=== PATIENT | male | born 1940 | race Caucasian/White ===

== ENCOUNTER → 2018-07-11 08:01 | Outpatient (CLI) | payer MEDICARE, SELFPAY ==
[2018-07-11 09:20] LABS: Add Manual Diff / Slide Review NO; Basophils Percent Auto 0.7 % (0-2); Eosinophils Percent Auto 2.5 % (2-4); Hematocrit 41.2 % (41-53); Hemoglobin 13.8 g/dL (13.5-17.5); Lymphocytes Percent Auto 35.7 % (25-40); Mean Corpuscular HGB Conc 33.4 % (30-36); Mean Corpuscular Hemoglobin 29.2 PG (26-34); Mean Corpuscular Volume 87.3 fL (80-100); Monocytes Percent Auto 8.6 % (3-14); Neutrophils Absolute Auto 5100 /uL (3000-5900); Neutrophils Percent Auto 52.5 % (50-75); Platelet Count 249 X10^3/uL (150-400); Red Blood Cell Count 4.72 X10^6/uL (4.5-5.9); Red Cell Distribution Width 14.5 % (11.6-14.8); White Blood Cell Count 9.7 X10^3/uL (4.5-11.0)
[2018-07-11 10:10] LABS: Alanine Aminotransferase 27 IU/L (21-72); Albumin 4.2 g/dL (3.5-5.0); Albumin Globulin Ratio 1.7 (1.0-2.8); Alkaline Phosphatase 107 U/L (38-126); Aspartate Aminotransferase 18 IU/L (17-59); BUN Creatinine Ratio 19.1 (6-22); Bilirubin Total 0.3 mg/dL (0.2-1.3); Blood Urea Nitrogen 21 mg/dL (9-20); Calcium 9.7 mg/dL (8.4-10.2); Carbon Dioxide 36 mmol/L (22-32); Chloride 99 mmol/L (98-107); Cholesterol 182 mg/dL (140-199); Estimated Glomerular Filt Rate > 60.0 mL/min (>60); Globulin 2.5 g/dL (1.7-4.1); Glucose 111 mg/dL (80-110); HDL Cholesterol 41 mg/dL (40-60); HEMOLYSIS < 15 (0-50); LDL Cholesterol Calculated 87 mg/dL (<100); Sodium 142 mmol/L (137-145); Total Protein 6.7 g/dL (6.3-8.2); Triglycerides 269 mg/dL (35-150)
[2018-07-11 10:38] LABS: Thyroid Stimulating Hormone 3.56 uIU/mL (0.47-4.68)
[2018-07-11 10:51] LABS: Hemoglobin A1C% w Est Avg Glu 6.3 % (4.0-6.0)
[2018-07-11 11:26] LABS: Prostate Specific Antigen Scrn < 0.064 ng/mL (0.1-4.0)
== END ==
PROVIDERS: PCP Family Medicine; Visit Provider Family Medicine
DX: E11.9 Type 2 diabetes mellitus without complications (principal)
CPT/HCPCS: 36415; 80053; 80061; 83036; 84443; 85025; G0103

== ENCOUNTER → 2018-12-24 14:19 | Outpatient (CLI) | payer MEDICARE, SELFPAY ==
--- NOTE | 2018-12-24 14:23 | DI.RAD.S_ITS ---
PROCEDURE: XR ABDOMEN MIN 2V INDICATIONS: constipation TECHNIQUE: 2 views of the abdomen were acquired. COMPARISON: None. FINDINGS: Surgical changes and devices: Multiple surgical clips are seen within the pelvis. Bowel: No pneumoperitoneum. A large amount of stool is identified throughout the colon, best appreciated within the transverse colon. No air-filled distended small bowel loops are identified. Soft tissues: No masses; visualized solid organ contours appear normal in size. No suspicious abdominal calcifications. Bones: No suspicious bony abnormalities. Age-appropriate degenerative changes of the imaged spine and pelvic joints are present. IMPRESSION: Prominent colonic constipation. No convincing evidence of bowel obstruction. Dictated by: Yony Toro M.D. on 12/24/2018 at 14:06 Approved by: Yony Toro M.D. on 12/24/2018 at 14:11
== END ==
PROVIDERS: PCP Family Medicine; Visit Provider Family Medicine
DX: K59.00 Constipation, unspecified (principal); R14.3 Flatulence
CPT/HCPCS: 74019

== ENCOUNTER → 2019-01-08 13:30 | Outpatient (CLI) | payer MEDICARE, SELFPAY ==
--- NOTE | 2019-01-08 13:33 | DI.CT.S_ITS ---
PROCEDURE: CT ABDOMEN PELVIS W CON INDICATIONS: abd pain TECHNIQUE: After the administration of oral and intravenous contrast, 5 mm thick sections acquired from the diaphragms to the symphysis. 5 mm thick coronal and sagittal reformats were performed. For radiation dose reduction, the following was used: automated exposure control, adjustment of mA and/or kV according to patient size. COMPARISON: [facility], CT, ABDOMEN/PELVIS WITH CONTRAST, 03/02/2013, 10:46. FINDINGS: Image quality: Excellent. ABDOMEN: Lung bases: Lung bases are clear. Heart size is normal. Solid organs: Liver demonstrates multilobulated, partially exophytic, heterogeneous low-density attenuated mass, stable size and morphology compared to remote prior study. Additionally, there is an irregular low-density lesion in the caudate lobe anterior to the inferior vena cava of stable size.. Gallbladder is normal. Biliary system is non-dilated. Pancreas enhances normally. A multilobulated low density/cystic lesion in the tail of the spleen may have connection to the main pancreatic duct distally and measures about 2.6 cm in greatest diameter, stable in size. The duct proximal in the pancreas is normal. The rest of the pancreas is normal without mass lesion. Spleen is normal in size and enhancement. Low-density nodular thickening of the left adrenal gland, stable.. Kidneys are normal in size and enhancement, without hydronephrosis. Peritoneum and bowel: Stomach, small bowel, and colon loops are normal in caliber and wall thickness. Mildly increased amount of retained stool diffusely. The normal appendix. No free fluid or air. Nodes and vessels: No retroperitoneal or mesenteric adenopathy. Aorta and inferior vena cava are normal in caliber. Miscellaneous: No ventral hernias. PELVIS: Genitourinary: Bladder is decompressed. Prostate gland is surgically absent. Miscellaneous: No inguinal hernias or adenopathy. Bones: Mild to moderate degenerative changes in both hip joints. 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 No suspicious sclerotic lesions to suggest metastatic disease. No vertebral body compression fractures. IMPRESSION: 1. Etiology of abdominal pain is not evident. 2. 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 3. No evidence of new osseous lesion. 4. Prostatectomy. Dictated by: Hiwot Chahal M.D. on 01/08/2019 at 16:18 Approved by: Hiwot Chahal M.D. on 01/08/2019 at 16:30
[2019-01-08 13:57] LABS: Hemoglobin A1C% w Est Avg Glu 5.9 % (4.0-6.0)
[2019-01-08 14:43] LABS: Blood Urea Nitrogen 29 mg/dL (9-20); Calcium 10.2 mg/dL (8.4-10.2); Carbon Dioxide 29 mmol/L (22-32); Chloride 96 mmol/L (98-107); Estimated Glomerular Filt Rate > 60.0 mL/min (>60); Glucose 84 mg/dL (80-110); HEMOLYSIS < 15 (0-50); Sodium 138 mmol/L (137-145)
[2019-01-08 14:45] LABS: Potassium 5.4 mmol/L (3.4-5.1)
== END ==
PROVIDERS: Family Provider Family Medicine; PCP Family Medicine; Visit Provider Family Medicine
DX: E11.9 Type 2 diabetes mellitus without complications (principal); R10.9 Unspecified abdominal pain
CPT/HCPCS: 36415; 74177; 80048; 83036; Q9967

== ENCOUNTER → 2019-03-19 14:19 | Outpatient (CLI) | payer MEDICARE, SELFPAY | PROVIDERS: PCP Family Medicine; Visit Provider Family Medicine | DX: Z01.818 Encounter for other preprocedural examination (principal) | CPT/HCPCS: 93005 ==

== ENCOUNTER → 2019-04-22 12:09 | Outpatient (CLI) | payer MEDICARE, SELFPAY ==
[2019-04-22 12:51] LABS: Add Manual Diff / Slide Review NO; Basophils Absolute Auto 100 /uL (0-100); Basophils Percent Auto 1.1 % (0-2); Eosinophils Absolute Auto 600 /uL (0-450); Eosinophils Percent Auto 6.4 % (2-4); Lymphocytes Absolute Auto 3000 /uL (1100-4500); Lymphocytes Percent Auto 33.3 % (25-40); Mean Corpuscular HGB Conc 34.2 % (30-36); Mean Corpuscular Hemoglobin 29.6 PG (26-34); Mean Corpuscular Volume 86.7 fL (80-100); Monocytes Absolute Auto 900 /uL (0-900); Monocytes Percent Auto 10.3 % (3-14); Neutrophils Absolute Auto 4300 /uL (1500-7000); Neutrophils Percent Auto 48.9 % (50-75); Platelet Count 214 X10^3/uL (150-400); Red Blood Cell Count 4.73 X10^6/uL (4.5-5.9); Red Cell Distribution Width 14.8 % (11.6-14.8); White Blood Cell Count 8.9 X10^3/uL (4.5-11.0)
[2019-04-22 13:12] LABS: Prothrombin Time 11.1 SECONDS (10.1-12.7)
[2019-04-22 13:14] LABS: PTT Partial Thromboplastin Tim 34 SECONDS (26.4-36.2)
== END ==
PROVIDERS: Family Provider Family Medicine; PCP Family Medicine; Visit Provider Physical Medicine & Rehabilitation
DX: M48.062 Spinal stenosis, lumbar region with neurogenic claudication (principal); M54.16 Radiculopathy, lumbar region
CPT/HCPCS: 36415; 85025; 85610; 85730

== ENCOUNTER → 2019-06-13 09:39 | Outpatient (CLI) | payer MEDICARE, SELFPAY ==
[2019-06-13 10:45] LABS: Add Manual Diff / Slide Review NO; Basophils Absolute Auto 100 /uL (0-100); Eosinophils Absolute Auto 600 /uL (0-450); Eosinophils Percent Auto 7.5 % (2-4); Hematocrit 41.5 % (41-53); Hemoglobin 13.7 g/dL (13.5-17.5); Lymphocytes Absolute Auto 3100 /uL (1100-4500); Mean Corpuscular HGB Conc 32.9 % (30-36); Mean Corpuscular Hemoglobin 29.1 PG (26-34); Mean Corpuscular Volume 88.5 fL (80-100); Monocytes Absolute Auto 700 /uL (0-900); Monocytes Percent Auto 8.5 % (3-14); Neutrophils Absolute Auto 3900 /uL (1500-7000); Platelet Count 205 X10^3/uL (150-400); Red Blood Cell Count 4.69 X10^6/uL (4.5-5.9); Red Cell Distribution Width 14.3 % (11.6-14.8); White Blood Cell Count 8.5 X10^3/uL (4.5-11.0)
[2019-06-13 10:58] LABS: Hemoglobin A1C% w Est Avg Glu 5.9 % (4.0-6.0)
[2019-06-13 10:59] LABS: Alanine Aminotransferase 21 IU/L (21-72); Albumin 4.1 g/dL (3.5-5.0); Albumin Globulin Ratio 1.7 (1.0-2.8); Alkaline Phosphatase 92 U/L (38-126); Aspartate Aminotransferase 20 IU/L (17-59); Bilirubin Total 0.4 mg/dL (0.2-1.3); Blood Urea Nitrogen 22 mg/dL (9-20); Calcium 9.5 mg/dL (8.4-10.2); Carbon Dioxide 32 mmol/L (22-32); Chloride 100 mmol/L (98-107); Cholesterol 171 mg/dL (140-199); Estimated Glomerular Filt Rate > 60.0 mL/min (>60); Globulin 2.4 g/dL (1.7-4.1); Glucose 113 mg/dL (80-110); HDL Cholesterol 45 mg/dL (40-60); HEMOLYSIS < 15 (0-50); LDL Cholesterol Calculated 81 mg/dL (<100); Potassium 5.3 mmol/L (3.4-5.1); Sodium 138 mmol/L (137-145); Total Protein 6.5 g/dL (6.3-8.2); Triglycerides 224 mg/dL (35-150)
[2019-06-13 11:35] LABS: Prostate Specific Antigen Scrn < 0.064 ng/mL (0.1-4.0)
== END ==
PROVIDERS: PCP Family Medicine; Visit Provider Family Medicine
DX: I10 Essential (primary) hypertension (principal); E78.2 Mixed hyperlipidemia; E11.9 Type 2 diabetes mellitus without complications; Z12.5 Encounter for screening for malignant neoplasm of prostate
CPT/HCPCS: 36415; 80053; 80061; 83036; 85025; G0103

== ENCOUNTER 2019-08-18 03:49 | Observation (INO) | payer MEDICARE, SELFPAY ==
[2019-08-18] VITALS (9 sets, daily range): BP systolic 132–169; BP diastolic 48–124; PULSE 54–62; RESP 11–19; TEMP 36.4–37.1; O2SAT 93–99; BMI 33.5
--- NOTE | 2019-08-18 03:54 | DI.RAD.S_ITS ---
PROCEDURE: XR CHEST 1V INDICATIONS: Chest pain TECHNIQUE: One view of the chest was acquired. COMPARISON: None. FINDINGS: Surgical changes and devices: None. Lungs and pleura: Lungs are clear. No pleural effusions or pneumothorax. Mediastinum: Mediastinal contours appear normal. Heart size is normal. Bones and chest wall: No suspicious bony lesions. Overlying soft tissues appear unremarkable. IMPRESSION: No acute cardiopulmonary disease. No significant discrepancy with the ER preliminary interpretation. Dictated by: Saúl Gandara M.D. on 08/18/2019 at 9:25 Approved by: Saúl Gandara M.D. on 08/18/2019 at 9:26
--- NOTE | 2019-08-18 03:55 | ED.GENADULT ---
HPI - General Adult General Chief complaint: Chest Pain Stated complaint: Chest pain Time Seen by Provider: 08/18/19 03:53 Source: patient Mode of arrival: EMS Limitations: no limitations History of Present Illness HPI narrative: 79-year-old male here for evaluation of left-sided retrosternal chest pressure. He is brought in by EMS. He did receive aspirin prior to arrival. He also received 1 nitro tablet by EMS prior to arrival. Patient states that he was at his normal state health when he fell asleep on the couch watching TV last evening. He states that he woke up earlier this morning and went to get something to weak. He stated that shortly after he started eating he started to have left-sided retrosternal chest pressure. Not worse with palpation or movement or breathing. Has never had anything like this in the past. Does state that he has had increase anxiety recently. He does have a feeling that maybe this chest pressure is related to that but he is unsure. He did start to improve in his symptoms on the way here to the emergency department. He is unsure whether not it was the nitro the cause this improvement or whether was just time in coming to the ER. At the time my evaluation patient states that his symptoms had greatly improved however when not completely resolved. Related Data Home Medications Medication Instructions Recorded Confirmed amitriptyline 10 mg tablet 10 mg PO BEDTIME 07/22/18 08/11/19 ResMed AirCurve 10 VAuto #1 ea 12/23/18 08/11/19 citalopram [Celexa] 20 mg PO QDAY 08/18/19 08/18/19 docusate sodium 100 mg PO BID 08/18/19 08/18/19 glipizide 5 mg PO DAILY 08/18/19 08/18/19 linaclotide [Linzess] 145 mcg PO DAILY 08/18/19 08/18/19 methocarbamol 08/18/19 oxycodone 5 mg PO Q4-6H PRN 08/18/19 08/18/19 polyethylene glycol 3350 [Miralax] 17 g PO DAILY 08/18/19 08/18/19 pramipexole 0.15 mg PO TID 08/18/19 08/18/19 Previous Rx's Medication Instructions Recorded Disabled Parking Permit 0 dev #1 06/19/16 fluticasone propionate 50 2 spray NASAL .qhs #18.2 gram 10/10/18 mcg/actuation nasal spray,suspension metoprolol succinate 50 mg PO QDAY #90 ter 12/15/18 metformin [Glucophage] 1,000 mg PO BIDCC #360 tab 06/10/19 oxycodone-acetaminophen 10 mg-325 2 tab PO Q6H PRN #240 tab 06/10/19 mg tablet amlodipine [Norvasc] 5 mg PO QDAY #90 tab 06/17/19 atorvastatin 40 mg tablet 40 mg PO HS #90 tab 06/17/19 doxazosin 4 mg tablet 4 mg PO BEDTIME #90 tab 06/23/19 glipizide 5 mg tablet, extended See Rx Instructions .ROUTE 07/31/19 release 24 hr .COMPLEX #60 tablet gabapentin 600 mg tablet See Rx Instructions .ROUTE 08/03/19 .COMPLEX #540 tablet Allergies Allergy/AdvReac Type Severity Reaction Status Date / Time No Known Drug Allergies Allergy Unknown Verified 06/22/19 15:18 Review of Systems Constitutional Constitutional: Denies fever(s) and Denies headache(s) ENT Ears, Nose, Mouth, and Throat: Denies headache(s) Cardiovascular Cardiovascular: Reports chest pain, Denies diaphoresis, Denies syncope, Denies palpitations and Denies dyspnea Respiratory Respiratory: Denies cough and Denies dyspnea Gastrointestinal Gastrointestinal: Denies abdominal pain, Denies change in stool character, Denies diarrhea, Denies nausea and Denies vomiting Genitourinary Genitourinary: Denies dysuria Musculoskeletal Musculoskeletal: Denies myalgias and Denies arthralgias Integumentary/Breasts Skin/Breast: Denies rash Neurologic Neurologic: Denies burning sensations, Denies syncope and Denies headache(s) Endocrine Endocrine: Denies palpitations Hematologic/Lymphatic Hematologic/Lymphatic: Denies easy bleeding and Denies easy bruising [facility] Medical History Ankle pain (Chronic ~2005) Bullous pemphigoid (Chronic) Chicken pox (Resolved ~1939) Depression (Chronic ~1999) Diabetes mellitus (Chronic ~2011) Hearing loss (Chronic ~2001) History of urinary incontinence (Chronic ~1999) Hypertension (Chronic ~1982) Measles (Resolved ~1939) Mumps (Resolved ~1939) Osteopenia (Chronic ~2013) Pancreatitis (Chronic ~2013) Peripheral neuropathy (Chronic ~1999) Prostate cancer (Chronic ~1999) Restless leg syndrome (Chronic ~2008) Sleep apnea (Chronic ~2009) Vision disorder (Chronic) Social History Smoking Status: Former smoker Exam Initial Vital Signs Initial Vital Signs: Vital Signs Temperature 98.1 F 08/18/19 03:54 Pulse Rate 61 08/18/19 03:54 Respiratory Rate 18 08/18/19 03:54 Blood Pressure 158/124 H 08/18/19 03:54 Pulse Oximetry 99 08/18/19 03:54 Const General: cooperative, well developed and well groomed Orientation: alert, awake and oriented x3 HENMT Head: normal to inspection and normocephalic Resp Effort & Inspection: normal respiratory effort Auscultation: clear to auscultation bilaterally Cardio Rate: regular rate Rhythm: regular rhythm Pulses: radial pulses present GI Inspection: non-distended Palpation: soft and No tender Skin Lesions: no lesions Rashes: no rashes Neuro General: alert, awake and oriented x3 Cognition: normal cognition Speech: speech normal Extrem General: normal to inspection and capillary refill normal Psych Appearance: grossly normal and well kempt Scores GCS [place] coma scale eye opening: Spontaneous Obi coma scale verbal response: Orientated Obi coma scale motor response: Obey commands Obi coma scale total score: 15 Course Orders Ordered: ED Orders 08/18/19 03:15 B Type Natriuretic Peptide Stat Basic Metabolic Panel Stat Complete Blood Count AUTO DIFF Stat Partial Thromboplastin Time Stat Prothrombin Time INR Stat Troponin I Stat 08/18/19 03:49 EKG-12 Lead Stat 08/18/19 03:54 XR chest 1V Stat 08/18/19 04:46 Consult to Physician Routine 08/18/19 07:00 Troponin I Stat Sodium Chloride (Normal Saline 0.9%) 1,000 mls @ 125 mls/hr IV CONT BOBBY Morphine Sulfate (Morphine) 2 mg IV Q4HR PRN PRN Reason: Pain, Mild (1-3) Ondansetron HCl (Zofran) 4 mg IV Q4HR PRN PRN Reason: Nausea And Vomiting Vital Signs Vital signs: Vital Signs - 8 hr 08/18/19 03:54 08/18/19 04:35 08/18/19 05:09 Temperature 98.1 F Pulse Rate 61 61 62 Respiratory Rate 18 18 11 L Blood Pressure 158/124 H Blood Pressure [Left Arm] 132/54 L 144/48 H Pulse Oximetry 99 94 99 Medical Decision Making Lab Data Lab results reviewed: Yes I reviewed the patient's lab results. Result diagrams: 08/18/19 03:15 08/18/19 03:15 Labs: Lab Results 08/18/19 08/18/19 08/18/19 Range/Units 03:15 03:15 03:15 WBC 8.5 (4.5-11.0) X10^3/uL RBC 4.81 (4.5-5.9) X10^6/uL Hgb 14.2 (13.5-17.5) g/dL Hct 42.6 (41-53) % MCV 88.4 (80-100) fL MCH 29.5 (26-34) PG MCHC 33.3 (30-36) % RDW 15.1 H (11.6-14.8) % Plt Count 231 (150-400) X10^3/uL Neut % (Auto) 46.9 L (50-75) % Lymph % (Auto) 37.1 (25-40) % Mckenzie % (Auto) 8.9 (3-14) % Eos % (Auto) 6.1 H (2-4) % Baso % (Auto) 1.0 (0-2) % Neut # (Auto) 4000 (4565-7020) /uL Lymph # (Auto) 3100 (8899-7343) /uL Mckenzie # (Auto) 800 (0-900) /uL Eos # (Auto) 500 H (0-450) /uL Baso # (Auto) 100 (0-100) /uL PT (10.1-12.7) SECONDS INR (0.9-1.3) APTT (26.4-36.2) SECONDS Sodium 140 (137-145) mmol/L Potassium 4.9 (3.4-5.1) mmol/L Chloride 97 L (98-107) mmol/L Carbon Dioxide 30 (22-32) mmol/L BUN 31 H (9-20) mg/dL Creatinine 0.90 (0.66-1.25) mg/dL Estimated GFR > 60.0 (>60) mL/min BUN/Creatinine Ratio 34.4 H (6-22) Glucose 180 H (80-110) mg/dL Calcium 9.7 (8.4-10.2) mg/dL Troponin I (0.01-0.034) ng/mL B-Natriuretic Peptide < 100 (<100) 08/18/19 08/18/19 Range/Units 03:15 03:15 WBC (4.5-11.0) X10^3/uL RBC (4.5-5.9) X10^6/uL Hgb (13.5-17.5) g/dL Hct (41-53) % MCV (80-100) fL MCH (26-34) PG MCHC (30-36) % RDW (11.6-14.8) % Plt Count (150-400) X10^3/uL Neut % (Auto) (50-75) % Lymph % (Auto) (25-40) % Mckenzie % (Auto) (3-14) % Eos % (Auto) (2-4) % Baso % (Auto) (0-2) % Neut # (Auto) (3140-9785) /uL Lymph # (Auto) (3510-0323) /uL Mckenzie # (Auto) (0-900) /uL Eos # (Auto) (0-450) /uL Baso # (Auto) (0-100) /uL PT 10.0 L (10.1-12.7) SECONDS INR 0.9 (0.9-1.3) APTT 34 (26.4-36.2) SECONDS Sodium (137-145) mmol/L Potassium (3.4-5.1) mmol/L Chloride (98-107) mmol/L Carbon Dioxide (22-32) mmol/L BUN (9-20) mg/dL Creatinine (0.66-1.25) mg/dL Estimated GFR (>60) mL/min BUN/Creatinine Ratio (6-22) Glucose (80-110) mg/dL Calcium (8.4-10.2) mg/dL Troponin I < 0.012 (0.01-0.034) ng/mL B-Natriuretic Peptide (<100) Imaging Data Chest x-ray: Attestation: I personally reviewed and interpreted this imaging study as follows: My impression: Bilateral patchy infiltrates. No pneumonia, normal size heart, no acute pathology ECG Data Attestation: I personally reviewed and interpreted this ECG as follows: Prior ECG tracings: not available for review Interpretation: Sinus rhythm First degree AV block as needed oval to 1 3 milliseconds Ventricular rate is 62 Normal axis Normal QRS QTC [address] T wave changes MDM Narrative Medical decision making narrative: During his stay here in the emergency department patient had a complete resolution of his symptoms. He did receive aspirin prior to arrival. His only nitroglycerin was provided by EMS EN route here to the ER. Given his age and his comorbidities and his presentation I do feel that admission to the hospital for provocative testing is warranted. I did discuss the case with Dr. Snow who agreed with admission. She will accept the patient on behalf of Dr. Crabtree who is the patient's primary provider. She did ask that we admit the patient under Dr. Crabtree. Holding orders were placed. Care turned over to provider at time of admission. Discussed the admission with the patient and his her bedside. They both expressed understanding and agreement with plan. Discharge Plan Departure Patient Disposition: Admitted as Observation Clinical Impression: Chest pain Qualifiers: Chest pain type: unspecified Qualified Code(s): R07.9 - Chest pain, unspecified Admit Date/Time: 08/18/19 05:28 Admit Provider: Devan Crabtree
[2019-08-18 04:03] LABS: Add Manual Diff / Slide Review NO; Basophils Absolute Auto 100 /uL (0-100); Eosinophils Absolute Auto 500 /uL (0-450); Eosinophils Percent Auto 6.1 % (2-4); Hematocrit 42.6 % (41-53); Hemoglobin 14.2 g/dL (13.5-17.5); Lymphocytes Absolute Auto 3100 /uL (1100-4500); Lymphocytes Percent Auto 37.1 % (25-40); Mean Corpuscular HGB Conc 33.3 % (30-36); Mean Corpuscular Hemoglobin 29.5 PG (26-34); Mean Corpuscular Volume 88.4 fL (80-100); Monocytes Absolute Auto 800 /uL (0-900); Monocytes Percent Auto 8.9 % (3-14); Neutrophils Absolute Auto 4000 /uL (1500-7000); Neutrophils Percent Auto 46.9 % (50-75); Platelet Count 231 X10^3/uL (150-400); Red Blood Cell Count 4.81 X10^6/uL (4.5-5.9); Red Cell Distribution Width 15.1 % (11.6-14.8); White Blood Cell Count 8.5 X10^3/uL (4.5-11.0)
[2019-08-18 04:08] LABS: INR 0.9 (0.9-1.3)
[2019-08-18 04:11] LABS: PTT Partial Thromboplastin Tim 34 SECONDS (26.4-36.2)
[2019-08-18 04:12] LABS: BUN Creatinine Ratio 34.4 (6-22); Blood Urea Nitrogen 31 mg/dL (9-20); Calcium 9.7 mg/dL (8.4-10.2); Carbon Dioxide 30 mmol/L (22-32); Chloride 97 mmol/L (98-107); Estimated Glomerular Filt Rate > 60.0 mL/min (>60); Glucose 180 mg/dL (80-110); HEMOLYSIS 35 (0-50); Potassium 4.9 mmol/L (3.4-5.1); Sodium 140 mmol/L (137-145)
[2019-08-18 04:23] LABS: B Type Natriuretic Peptide < 100 (<100); Troponin I < 0.012 ng/mL (0.01-0.034)
[2019-08-18] MEDS: SODIUM CHLORIDE 0.9% 1,000 ML 125 ML IV (06:46)
--- NOTE | 2019-08-18 06:53 | PC.ADMIT ---
Safe transfer from ED Pt is AxOx3, Pt arrived on stretcher at 0520 transferred to bed w/ assistance. Pt is unsteady on his feet and has bilateral leg neuropathy as well as bilateral hands. Pt is hypertensive. Pt is on tele: Ns 1st degree AV block. Pt denies pain or nausea. Pt is NPO. Pt was educated about the use of call light and it's within reach, and bed is in low and locked position. [email or web address] Admission Note: The patient,Jason Atkins,79 y/o, was given written information regarding hospital policies, unit procedures and contact persons. Patient's smoking status: Former smoker. Vital Signs - 8 hr 08/18/19 03:54 08/18/19 04:35 08/18/19 05:09 Temperature 98.1 F Pulse Rate 61 61 62 Respiratory Rate 18 18 11 L Blood Pressure 158/124 H Blood Pressure [Left Arm] 132/54 L 144/48 H Pulse Oximetry 99 94 99 08/18/19 05:20 Temperature 98.2 F Pulse Rate 61 Respiratory Rate 19 Blood Pressure 150/64 H Blood Pressure [Left Arm] Pulse Oximetry 99
--- NOTE | 2019-08-18 08:19 | DI.ECHO.S_ITS ---
[place] +---------+ [facility] +---------+ : : [address] : : : : [id number] : : : : Phone: [phone] Echocardiogram Report + + :Name: DORITA BLANTON Study Date: 08/18/2019 Height: 70 in : :[facility] Exam Location: [facility] Weight: 233 lb : : Gender: Male BSA: 2.2 m2 : :: 1940 Age: 79 yrs BP: 161/74 mmHg: :Reason For Study: CHEST PAIN : : Performed By: Santos Buck : :Referring: FAZAL BERMUDEZ : + + Interpretation Summary The left ventricle is normal in size. Left ventricular systolic function is normal without focal wall motion abnormalities. The ejection fraction is estimated to be 60-65%. Diastolic parameters suggest probable normal left ventricular diastolic function and normal filling pressures. The right ventricle is normal in size and function. Pulmonary artery pressures cannot be estimated because of the lack of a measurable TR jet velocity. The left atrium is moderately dilated. Right atrial size is normal. There is no significant valvular heart disease. The ascending aorta is mildly enlarged. No significant changes since prior study on 01/10/2018. Procedure: A two-dimensional transthoracic echocardiogram with color flow and Doppler was performed. The study quality was technically adequate. Comparison is made with the echocardiogram of 01/10/18. A contrast injection of Definity was performed to improve assessment of LV function. The patient was in normal sinus rhythm during the exam. Left Ventricle: The left ventricle is normal in size. There is normal left ventricular wall thickness. Left ventricular systolic function is normal without focal wall motion abnormalities. The ejection fraction is estimated to be 60-65%. Diastolic parameters suggest probable normal left ventricular diastolic function and normal filling pressures. Right Ventricle: The right ventricle is normal in size and function. Atria: The left atrium is moderately dilated. Right atrial size is normal. The interatrial septum is intact with no evidence for an atrial septal defect. Mitral Valve: There is mild mitral annular calcification. There is trace mitral regurgitation. Aortic Valve: The aortic valve is trileaflet. The aortic valve opens well. No aortic regurgitation is present. Tricuspid Valve: The tricuspid valve is normal in structure and function. No tricuspid regurgitation. Pulmonary artery pressures cannot be estimated because of the lack of a measurable TR jet velocity. Pulmonic Valve: The pulmonic valve is not well visualized. There is no significant valvular heart disease. Great Vessels: The aortic root is normal size. The ascending aorta is mildly enlarged. The pulmonary artery is normal size. The IVC is of normal diameter and collapses greater than 50% with a sniff. This suggests a low right atrial pressure of 3 mm Hg. Pericardium/ Pleura There is no pericardial effusion. There is no pleural effusion. MMode/2D Measurements & Calculations LVIDd: 5.6 cm LVOT diam: 2.1 cm LVIDs: 3.4 cm Ao root diam: 3.6 cm FS: 39.2 % Aortic Jxn: 2.6 cm EPSS: 0.72 cm asc Aorta Diam: 3.6 cm IVSd: 0.97 cm LVPWd: 1.1 cm LV rendon. diameter/BSA (cm/m^2): 2.5 LV sys. diameter/BSA (cm/m^2): 1.5 LA dimension: 4.1 cm RA long axis: 4.8 cm LA A2 area: 24.6 cm2 RA area: 18.5 cm2 LA A4 area: 26.5 cm2 RA vol: 60.2 ml LA length (vol): 6.2 cm RA : 27.0 ml/m2 LA vol: 89.6 ml IVC diam: 1.2 cm LA vol index: 40.2 ml/m2 Doppler Measurements & Calculations Ao V2 max: 134.2 cm/sec LVOT Max Akil: 89.0 cm/sec Ao V2 mean: 102.4 cm/sec LV V1 max P.2 mmHg Ao max P.2 mmHg LV V1 VTI: 25.1 cm Ao mean P.5 mmHg SHAN(I,D): 2.8 cm2 Ao V2 VTI: 31.8 cm SHAN(V,D): 2.3 cm2 sev ratio: 0.79 SHAN indexed to BSA (cm^2/m^2): 1.2 MV E max akil: 68.7 cm/sec PA V2 max: 77.0 cm/sec MV A max akil: 64.4 cm/sec PA V2 mean: 60.4 cm/sec MV E/A: 1.1 PA mean P.5 mmHg Med Peak E' Akil: 4.3 cm/sec PA pr(Accel): 29.1 mmHg E/E' med: 15.9 PA Accel Time: 0.11 sec Lat Peak E' Akil: 7.8 cm/sec E/E' lat: 8.8 E/e' average: 12.4 MV dec time: 0.23 sec SV(LVOT): 87.8 ml Reading Physician:03:12 PM
[2019-08-18] MEDS: GABAPENTIN 600 MG TABLET 1200 MG PO ×2 (10:02→14:22)
[2019-08-18] MEDS: METFORMIN HCL 500 MG TABLET 1000 MG PO ×2 (10:02→17:27)
[2019-08-18] MEDS: CITALOPRAM 20 MG TABLET PO (10:03)
[2019-08-18] MEDS: ENOXAPARIN 40 MG/0.4 ML SYRINGE SUBCUT (10:03)
[2019-08-18] MEDS: METOPROLOL ER 50 MG TABLET PO (10:03)
[2019-08-18] MEDS: ACETAMINOPHEN 325 MG TABLET 650 MG PO (10:17)
[2019-08-18] MEDS: OXYCODONE IR 10 MG TABLET 20 MG PO (10:18)
[2019-08-18] MEDS: glipiZIDE XL 5 MG TAB 10 MG PO (10:18)
--- NOTE | 2019-08-18 11:04 | CM.DANOTE ---
DCP: Case received, EMR reviewed and met with patient. Introduced self and role. Was able to obtain baseline information from patient, and , Josy, was at bedside. Was able to obtain baseline health history from patient. DCP assessment/template completed with information currently available. Patient is an 79 year old male who admitted early this morning to the care of the hospitalist team. PCP: Dr. Crabtree. Payer: confirmed: [facility]. Patient came to the hospital via ambulance secondary to chest pain. Met with patient in his room, with his spouse, Josy. He is independent at home. These are new symptoms for him. He resides here in [place] with his spouse. Dr. Crabtree had just been in seeing patient. He is eager to go home, but he is supposed to have stress test today. Patient stated that he had been here in June with Laminectomy. He takes Oxycodone at home, and does not drive, secondary to taking pain medications. is supportive, takes him to appts. Patient does use a walker. P: DCP to continue to follow closely. He should be able to go home when he is medically stable. Anabela Rodriguez RN/Or Rn
[2019-08-18 12:25] LABS: Troponin I 0.017 ng/mL (0.01-0.034)
--- NOTE | 2019-08-18 12:25 | P.HP_ITS ---
History of Present Illness History of Present Illness Date Patient Seen: 08/18/19 Time Patient Seen: 09:25 Chief complaint: Chest pain Narrative: Chest pain. Patient admitted through the ER earlier this morning for chest pain. Patient went to bed last night without any difficulties. Approximately 2:00 a.m. he was awakened the having had slept in his chair. He went to his actual bed. Soon thereafter he developed a left-sided chest pain felt ?burning? burning and seemed to persist during the course of the next several minutes. It also seemed to radiate to both shoulders. No arm symptoms. No other particular symptoms. Because of the persistence of the chest burning he called 911. Apparently paramedics came gave him an aspirin and nitroglycerin as far as I can tell. When patient presented to the ER here he still has some discomfort in his chest. During the course of his stay her the pain is totally resolved. Patient has no history of similar pain. Has a history of coronary artery disease he does have risk factors including diabetes, obesity, hypertension, hyperlipidemia. Patient History Medical History Ankle pain (Chronic ~2005) Bullous pemphigoid (Chronic) Chicken pox (Resolved ~1939) Depression (Chronic ~1999) Diabetes mellitus (Chronic ~2011) Hearing loss (Chronic ~2001) History of urinary incontinence (Chronic ~1999) Hypertension (Chronic ~1982) Measles (Resolved ~1939) Mumps (Resolved ~1939) Osteopenia (Chronic ~2013) Pancreatitis (Chronic ~2013) Peripheral neuropathy (Chronic ~1999) Prostate cancer (Chronic ~1999) Restless leg syndrome (Chronic ~2008) Sleep apnea (Chronic ~2009) Vision disorder (Chronic) Surgical History Anesthesia (Resolved) Broken leg (Resolved ~2005) Cataracts, bilateral (Resolved ~2012) Status post laminectomy (~2000) Status post radical cystoprostatectomy (~1999) Family History Father Cancer Grandfather Heart disease Grandmother Heart disease Mother Cancer Hypertension Social History household members: spouse Smoking Status: Former smoker alcohol intake: current Family & Social History Family History Father Cancer Grandfather Heart disease Grandmother Heart disease Mother Cancer Hypertension Social History: household members spouse Prior Living Arrangements House Safety & Behavioral: Feels Safe in Current Yes Environment Been Physically Hurt or No Threatened By a Person Suicidal Ideation Description None Tobacco & Substance use: Smoking Status Former smoker alcohol intake current alcohol intake frequency a few times a month Substance Use Type does not use Meds Home Medications and Allergies Home Medications Medication Instructions Recorded Confirmed Type metoprolol succinate 50 mg PO QDAY #90 ter 12/15/18 08/18/19 Rx ResMed AirCurve 10 VAuto #1 ea 12/23/18 08/18/19 History metformin [Glucophage] 1,000 mg PO BIDCC #360 tab 06/10/19 08/18/19 Rx oxycodone-acetaminophen 10 mg-325 2 tab PO Q6H PRN #240 tab 06/10/19 08/18/19 Rx mg tablet atorvastatin 40 mg tablet 40 mg PO HS #90 tab 06/17/19 08/18/19 Rx glipizide 5 mg tablet, extended See Rx Instructions .ROUTE 07/31/19 08/18/19 Rx release 24 hr .COMPLEX #60 tablet gabapentin 600 mg tablet See Rx Instructions .ROUTE 08/03/19 08/18/19 Rx .COMPLEX #540 tablet Disabled Parking Permit See Rx Instructions .ROUTE .COMPLEX 08/18/19 08/18/19 History citalopram [Celexa] 20 mg PO QDAY 08/18/19 08/18/19 History docusate sodium 100 mg PO BID 08/18/19 08/18/19 History glipizide 5 mg PO DAILY 08/18/19 08/18/19 History linaclotide [Linzess] 145 mcg PO DAILY 08/18/19 08/18/19 History methocarbamol 08/18/19 History oxycodone 5 mg PO Q4-6H PRN 08/18/19 08/18/19 History polyethylene glycol 3350 [Miralax] 17 g PO DAILY 08/18/19 08/18/19 History pramipexole 0.15 mg PO TID 08/18/19 08/18/19 History Allergies Allergy/AdvReac Type Severity Reaction Status Date / Time No Known Drug Allergies Allergy Unknown Verified 06/22/19 15:18 Review of Systems Review of Systems ROS Unobtainable: All systems reviewed & are unremarkable except as noted in HPI and below Exam Vital Signs (past 8 hours): - 08/18/19 04:35 08/18/19 05:09 08/18/19 05:20 Temperature 98.2 F Pulse Rate 61 62 61 Respiratory Rate 18 11 L 19 Blood Pressure 150/64 H Blood Pressure [Left Arm] 132/54 L 144/48 H Pulse Oximetry 94 99 99 08/18/19 07:40 08/18/19 07:50 08/18/19 09:31 Temperature 97.6 F Pulse Rate 60 58 L Respiratory Rate 18 Blood Pressure 161/74 H Blood Pressure [Left Arm] Pulse Oximetry 97 99 94 Oxygen Delivery Method Room Air Oxygen Flow Rate 0 Narrative Exam Narrative: Gen.: Patient is examined in his hospital bed his resting quietly appears in no distress Skin: Warm well perfused. No prominent lesions. Nonicteric. HEENT: PERRL., normal EOM, external ears canals TMs normal, nasal mucosa normal and midline septum, oropharynx without lesions. Neck: Trachea midline. Thyroid nontender and not enlarged. Carotids without bruits. No lymphadenopathy Back: No obvious deformity or tenderness. Chest: Clear to P&A. Symmetric. CV: RRR no murmur or gallop. No JVD. Abdomen: No masses bruits tenderness or visceromegaly. Neuro: Cranial nerves II through XII grossly intact. Sensory and motor exams intact. Gait normal. Mental status: Intact for screening Extremities: No cyanosis clubbing or edema Musculoskeletal: No gross deformities Lymphatics: Negative for lymphadenopathy, supraclavicular axillary or inguinal Objective Labs Result Diagrams: 08/18/19 03:15 08/18/19 03:15 Labs: Laboratory Results - last 24 hr 08/18/19 08/18/19 08/18/19 03:15 03:15 03:15 WBC 8.5 RBC 4.81 Hgb 14.2 Hct 42.6 MCV 88.4 MCH 29.5 MCHC 33.3 RDW 15.1 H Plt Count 231 Neut % (Auto) 46.9 L Lymph % (Auto) 37.1 Blair % (Auto) 8.9 Eos % (Auto) 6.1 H Baso % (Auto) 1.0 Neut # (Auto) 4000 Lymph # (Auto) 3100 Blair # (Auto) 800 Eos # (Auto) 500 H Baso # (Auto) 100 PT INR APTT Sodium 140 Potassium 4.9 Chloride 97 L Carbon Dioxide 30 BUN 31 H Creatinine 0.90 Estimated GFR > 60.0 BUN/Creatinine Ratio 34.4 H Glucose 180 H Calcium 9.7 Troponin I B-Natriuretic Peptide < 100 08/18/19 08/18/19 08/18/19 03:15 03:15 07:52 WBC RBC Hgb Hct MCV MCH MCHC RDW Plt Count Neut % (Auto) Lymph % (Auto) Blair % (Auto) Eos % (Auto) Baso % (Auto) Neut # (Auto) Lymph # (Auto) Blair # (Auto) Eos # (Auto) Baso # (Auto) PT 10.0 L INR 0.9 APTT 34 Sodium Potassium Chloride Carbon Dioxide BUN Creatinine Estimated GFR BUN/Creatinine Ratio Glucose Calcium Troponin I < 0.012 0.020 B-Natriuretic Peptide Electrocardiogram showed no acute changes. Chest x-ray unremarkable. Assessment & Plan Assessment & Plan narrative: 1. Chest pain resolved. Seems to be atypical chest pain yet to be determined. He did have 2 troponins 1 of which 1 increased slightly. Echocardiogram to be obtained. Patient will eventually need to have a Lexiscan stress test as he not able do an exercise tolerance test. 2. Hypertension stable. 3. Hyperlipidemia stable as per lab. 4. Diabetes mellitus being managed reasonably well current program A1c has been unremarkable repair 5. Chronic back pain and chronic narcotic use is main agenda. He has peripheral neuropathy restless legs chronic back pain from nerve impingement. The recent recovered from back surgery. Pending the above studies patient be discharged afternoon assuming at troponin at noon is unremarkable and his echocardiogram was unremarkable. He will would benefit from a stress test as an outpatient if these tests are unremarkable if they are significant will have a cardiology consult forthcoming Otherwise no change in his baseline medications
[2019-08-18] MEDS: PRAMIPEXOLE 0.125 MG TABLET PO (14:22)
--- NOTE | 2019-08-18 15:39 | PC.NURSE ---
Cardiac: Tele on, no c/p. Hopes to d/c home today. Spouse at bedside. MD to see pt later today.
--- NOTE | 2019-08-18 17:52 | PC.NURSE ---
Evening Shift/Discharge Note- Patient d/c'ED home. reviewed paperwork and education with patient and signed. TELE removed and IV libne removed and bandaid applied. Patient left via wheelchair to private car with all personal belonging.
--- NOTE | 2019-08-26 14:39 | PC.NURSE ---
Late entry: NS stop time 08/18 [id number]
== END 2019-08-18 17:55 | disposition home or self-care (01) ==
LOC: ED 04:06 → AC 05:29
PROVIDERS: Admitting Provider Family Medicine; Emergency Provider Emergency Medicine; PCP Family Medicine; Visit Provider Family Medicine
DX: R07.9 Chest pain, unspecified (principal); E11.9 Type 2 diabetes mellitus without complications; E66.9 Obesity, unspecified; I25.10 Atherosclerotic heart disease of native coronary artery without angina pectoris; I10 Essential (primary) hypertension; E78.5 Hyperlipidemia, unspecified; Z79.84 Long term (current) use of oral hypoglycemic drugs
CPT/HCPCS: 36415; 71045; 80048; 82962; 83880; 84484; 85025; 85610; 85730; 93005; 93010; 93306; 94762; 96360; 96361; 96372; 99282; 99285; G0378; J1650; Q9957

== ENCOUNTER → 2019-09-14 11:10 | Outpatient (CLI) | payer MEDICARE, SELFPAY ==
[2019-08-18 05:39] VITALS: BMI 33.5
--- NOTE | 2019-09-14 11:11 | DI.NM.S_ITS ---
PROCEDURE: FL KALEY PERF SPECT R&S PHARM Rest and pharmacological stress myocardial perfusion SPECT with gated imaging and ejection fraction RADIOPHARMACEUTICAL: 25.5 mCi Tc-99m tetrafosmin IV at rest and 26.3 mCi Tc-99m tetrafosmin IV at peak effect of pharmacological stress. [id number] was performed. INDICATIONS: chest pain TECHNIQUE: Radiopharmaceutical was injected at peak stress test, and also at rest. SPECT images were obtained. SPECT myocardial perfusion images were displayed in short axis, horizontal long axis, and vertical long axis views. Gated images were reviewed using Treato software. COMPARISON: [place], [place], LEXISCAN MYOCARDIAL PERFUSION, 01/31/2018, 8:31. CARDIAC STRESS: A pharmacologic stress test was performed under the supervision of an attending staff, using an infusion of lexiscan 0.4mg IV X1. Hemodynamic data: There is normal blood pressure and heart rate response to pharmacologic stress. Symptoms: The patient denied anginal chest pain. Aminophylline: none EKG: No diagnostic changes of ischemia; no ectopy. FINDINGS: Raw data: There is good myocardial uptake of radiotracer. No significant motion artifacts. Kxhy-qp-[id number] ratio is 0.39 (normal is less than 0.38 for tetrafosmin tracer). Left ventricle function: Gated images demonstrate normal left ventricular wall thickening. No segmental wall motion abnormalities. No transient ischemic dilation; TID is 1.17 (normal less than 1.3). Left ventricle resting end diastolic volume is 150 mL. Left ventricle stress ejection fraction is 55%; normal range is above 45%. Myocardial perfusion: There are partially reversible defects in the inferior wall and mostly reversible defects in the apex and basal lateral wall, similar in appearance to the prior nuclear stress test done 01/31/2018. These defects resolved on prone imaging on 01/31/2018 study but no prone imaging was done during the current study due to back pain and neurpathy. IMPRESSION: Probably normal nuclear stress but correlate clinically as prone imaging not obtained. 1) There are partially reversible defects in the inferior wall and mostly reversible defects in the apex and basal lateral wall that are usually associated with prior infarct and maria esther-infarct ischemia, similar in appearance to the prior nuclear stress test done 01/31/2018. These defects resolved on prone imaging on 01/31/2018 study suggesting probable artifact instead of true ischemia or infarction on the current study as well but no prone imaging was done during the current study due to back pain and neurpathy. 2) Borderline enlarged left ventricle (LVEDV 150cc) with normal wall motion and normal systolic function (EF post stress 55%). 3) No ECG evidence of ischemia. 4) No angina during the study. Dictated by: Paxton Matos MD on 09/16/2019 at 12:46 Approved by: Paxton Matos MD on 09/16/2019 at 12:52
--- NOTE | 2019-09-14 12:43 | PM.TREADMILL ---
Cardiac Stress Test Report Referral & Results Date Patient Seen: 09/14/19 Requesting provider: Devan Crabtree Indication: Chest discomfort Rest ECG: Unremarkable, some sinus arrhythmia present Procedure Note: After both written and verbal informed consent the patient had an IV started by the diagnostic imaging RN, and then was hooked up to the treadmill monitoring system. The Lexiscan material, and then the Cardiolite tracer, were administered sequentially. An additional 3 min was spent monitoring the patient while supine on the gurney. The patient had a normal response to all infused materials. Impression: Please see perfusion imaging report for details regarding possible ischemia Please note: Actual ECG tracings can be found in the PACS system.
== END ==
PROVIDERS: PCP Family Medicine; Visit Provider Family Medicine
DX: R07.89 Other chest pain (principal); I49.9 Cardiac arrhythmia, unspecified
CPT/HCPCS: 78452; 93016; 93017; 93018; A9502; J2785

== ENCOUNTER → 2019-09-17 15:02 | Outpatient (CLI) | payer MEDICARE, SELFPAY ==
[2019-08-18 05:39] VITALS: BMI 33.5
[2019-09-17 17:24] LABS: Ferritin 42.1 ng/mL (17.9-464)
== END ==
PROVIDERS: Family Provider Family Medicine; PCP Family Medicine; Visit Provider Specialist
DX: G25.81 Restless legs syndrome (principal)
CPT/HCPCS: 36415; 82728

== ENCOUNTER → 2019-11-03 15:00 | Outpatient (CLI) | payer MEDICARE, SELFPAY ==
[2019-08-18 05:39] VITALS: BMI 33.5
[2019-11-03 16:19] LABS: BUN Creatinine Ratio 23.3 (6-22); Blood Urea Nitrogen 28 mg/dL (9-20); Calcium 9.8 mg/dL (8.4-10.2); Carbon Dioxide 31 mmol/L (22-32); Chloride 101 mmol/L (98-107); Estimated Glomerular Filt Rate 58.3 mL/min (>60); Glucose 112 mg/dL (80-110); HEMOLYSIS < 15 (0-50); Sodium 141 mmol/L (137-145)
[2019-11-03 16:20] LABS: Potassium 5.9 mmol/L (3.4-5.1)
== END ==
PROVIDERS: PCP Family Medicine; Visit Provider Family Medicine
DX: E11.9 Type 2 diabetes mellitus without complications (principal)
CPT/HCPCS: 36415; 80048; 83036

== ENCOUNTER → 2020-01-21 12:21 | Outpatient (CLI) | payer MEDICARE, SELFPAY ==
[2020-01-21 12:10] VITALS: BMI 33.5
[2020-01-21 13:04] LABS: Add Manual Diff / Slide Review NO; Basophils Absolute Auto 100 /uL (0-100); Basophils Percent Auto 0.7 % (0-2); Eosinophils Absolute Auto 400 /uL (0-450); Eosinophils Percent Auto 5.2 % (2-4); Hematocrit 43.7 % (41-53); Hemoglobin 14.5 g/dL (13.5-17.5); Lymphocytes Absolute Auto 2100 /uL (1100-4500); Lymphocytes Percent Auto 25.4 % (25-40); Mean Corpuscular HGB Conc 33.2 % (30-36); Mean Corpuscular Hemoglobin 29.8 PG (26-34); Mean Corpuscular Volume 89.8 fL (80-100); Monocytes Absolute Auto 1000 /uL (0-900); Monocytes Percent Auto 12.2 % (3-14); Neutrophils Absolute Auto 4600 /uL (1500-7000); Neutrophils Percent Auto 56.5 % (50-75); Platelet Count 236 X10^3/uL (150-400); Red Blood Cell Count 4.87 X10^6/uL (4.5-5.9); Red Cell Distribution Width 14.7 % (11.6-14.8); White Blood Cell Count 8.1 X10^3/uL (4.5-11.0)
[2020-01-21 13:10] LABS: Hemoglobin A1C% w Est Avg Glu 6.6 % (4.0-6.0)
[2020-01-21 13:12] LABS: BUN Creatinine Ratio 29.1 (6-22); Blood Urea Nitrogen 32 mg/dL (9-20); Calcium 9.9 mg/dL (8.4-10.2); Carbon Dioxide 29 mmol/L (22-32); Chloride 97 mmol/L (98-107); Estimated Glomerular Filt Rate > 60.0 mL/min (>60); Glucose 127 mg/dL (80-110); HEMOLYSIS < 15 (0-50); Potassium 5.3 mmol/L (3.4-5.1); Sodium 137 mmol/L (137-145)
== END ==
PROVIDERS: PCP Family Medicine; Referring Provider Family Medicine; Visit Provider Family Medicine
DX: E11.9 Type 2 diabetes mellitus without complications (principal)
CPT/HCPCS: 36415; 80048; 83036; 85025

== ENCOUNTER → 2020-05-20 11:09 | Outpatient (CLI) | payer MEDICARE, SELFPAY ==
[2020-01-21 12:10] VITALS: BMI 33.5
--- NOTE | 2020-05-20 11:11 | DI.RAD.S_ITS ---
PROCEDURE: FL BARIUM SWALLOW INDICATIONS: Dysphagia COMPARISON: [facility], , BARIUM SWALLOW, 02/16/2013, 9:13. FINDINGS: Single contrast examination was performed due to patient weakness and inability to position Function: There is delayed esophageal peristalsis. No elicited gastroesophageal reflux. There is normal transit of a calibrated barium tablet through the esophagus into the stomach. Morphology: Single contrast views show no esophageal strictures, extrinsic mass effects, or diverticula. Limited images of the stomach demonstrate normal appearance. IMPRESSION: Esophageal dysmotility. Otherwise, grossly unremarkable single contrast examination. Dictated by: Bc Kothari M.D. on 05/20/2020 at 12:30 Approved by: Bc Kothari M.D. on 05/20/2020 at 12:34
== END ==
PROVIDERS: PCP Family Medicine; Referring Provider Family Medicine; Visit Provider Family Medicine
DX: R13.10 Dysphagia, unspecified (principal); K22.4 Dyskinesia of esophagus
CPT/HCPCS: 74220

== ENCOUNTER → 2020-06-03 12:21 | Outpatient (CLI) | payer MEDICARE, SELFPAY ==
[2020-01-21 12:10] VITALS: BMI 33.5
[2020-06-03 13:18] LABS: Hemoglobin A1C% w Est Avg Glu 6.5 % (4.0-6.0)
[2020-06-03 13:46] LABS: BUN Creatinine Ratio 30.3 (6-22); Blood Urea Nitrogen 27 mg/dL (9-20); Calcium 10.2 mg/dL (8.4-10.2); Carbon Dioxide 35 mmol/L (22-32); Chloride 89 mmol/L (98-107); Estimated Glomerular Filt Rate > 60.0 mL/min (>60); Glucose 160 mg/dL (80-110); HEMOLYSIS < 15 (0-50); Potassium 5.1 mmol/L (3.4-5.1); Sodium 131 mmol/L (137-145)
== END ==
PROVIDERS: PCP Family Medicine; Referring Provider Family Medicine; Visit Provider Family Medicine
DX: E11.9 Type 2 diabetes mellitus without complications (principal); R53.83 Other fatigue
CPT/HCPCS: 36415; 80048; 83036

== ENCOUNTER → 2020-06-16 13:39 | Outpatient (CLI) | payer MEDICARE, SELFPAY ==
[2020-01-21 12:10] VITALS: BMI 33.5
[2020-06-16 14:59] LABS: BUN Creatinine Ratio 30.8 (6-22); Blood Urea Nitrogen 32 mg/dL (9-20); Calcium 9.4 mg/dL (8.4-10.2); Carbon Dioxide 34 mmol/L (22-32); Chloride 89 mmol/L (98-107); Estimated Glomerular Filt Rate > 60.0 mL/min (>60); Glucose 135 mg/dL (80-110); HEMOLYSIS < 15 (0-50); Potassium 4.9 mmol/L (3.4-5.1); Sodium 132 mmol/L (137-145)
== END ==
PROVIDERS: PCP Family Medicine; Referring Provider Family Medicine; Visit Provider Family Medicine
DX: S09.90XA Unspecified injury of head, initial encounter (principal); R42 Dizziness and giddiness; R60.9 Edema, unspecified
CPT/HCPCS: 36415; 80048

== ENCOUNTER → 2020-06-23 13:39 | Outpatient (CLI) | payer MEDICARE, SELFPAY ==
[2020-01-21 12:10] VITALS: BMI 33.5
--- NOTE | 2020-06-23 13:41 | DI.CT.S_ITS ---
PROCEDURE: CT LUMBAR SPINE WO CON INDICATIONS: Increasing low back pain TECHNIQUE: Noncontrast 3 mm thick sections acquired from the T12 level to the sacrum. Sagittal and coronal reformats were constructed. For radiation dose reduction, the following was used: automated exposure control. COMPARISON: [facility], MR, L-SPINE WITHOUT CONTRAST, 03/07/2018, 9:07. [facility], CR, XR LUMBAR SPINE WITH OLBIQUES PLUS FLEXION EXTENSION, 03/17/2019, 10:24. FINDINGS: Image quality: Excellent. Bones: There is trace L3-L4 retrolisthesis.. No acute vertebral body compression fractures. No suspicious lytic or blastic bony lesions. No pars defects. T12-L1: Disc height is normal. Anterior endplate osteophytosis. No central stenosis. No neural foraminal narrowing. No neural compression. L1-L2: Slight loss of disc height. Anterior endplate osteophytosis. Vacuum disc phenomena. Mild, diffuse disc bulge. No central stenosis. No neural foraminal narrowing. No neural compression. L2-L3: Disc height is normal. Mild, diffuse disc bulge. Narrowing of the central canal. No neural foraminal narrowing. No neural compression. L3-L4: Loss of disc signal and height. Vacuum disc phenomenon. Mild to moderate diffuse disc bulge. Moderate bilateral facet hypertrophy. Moderate ligamentum flavum hypertrophy. Moderate narrowing of the central canal. Moderate bilateral neural foraminal narrowing. No neural compression. L4-L5: Loss of disc height. Vacuum disc phenomenon. Moderate, diffuse disc bulge. Moderate bilateral facet hypertrophy. Mild narrowing of the central canal. Moderate right and severe left neural foraminal narrowing with compression of the exiting left L4 nerve root. L5-S1: Loss of disc height. Mild, diffuse disc bulge. Moderate bilateral facet hypertrophy. No central stenosis. Moderate right and severe left neural foraminal narrowing with compression of the exiting left L5 nerve root. Soft tissues: No retroperitoneal masses or hematomas. Visualized aorta is normal in caliber. Scattered atherosclerotic calcifications involving the visualized abdominal and pelvic vasculature. IMPRESSION: 1. Grade 1 L3-L4 degenerative spondylolisthesis. 2. Multilevel degenerate disc disease. 3. Multilevel facet arthropathy. 4. No significant central canal narrowing. 5. Severe left L4-L5 and L5-S1 neural foraminal narrowing with compression of the exiting left L4 nerve root in the exiting left L5 nerve root. Dictated by: Emely Aleman MD, PhD on 06/23/2020 at 15:50 Approved by: Emely Aleman MD, PhD on 06/23/2020 at 15:57
== END ==
PROVIDERS: PCP Family Medicine; Referring Provider Family Medicine; Visit Provider Family Medicine
DX: M54.5 Low back pain (principal); M43.26 Fusion of spine, lumbar region; M43.16 Spondylolisthesis, lumbar region; M51.36 Other intervertebral disc degeneration, lumbar region; M47.816 Spondylosis without myelopathy or radiculopathy, lumbar region; M47.817 Spondylosis without myelopathy or radiculopathy, lumbosacral region; M48.061 Spinal stenosis, lumbar region without neurogenic claudication; M48.07 Spinal stenosis, lumbosacral region
CPT/HCPCS: 72131

== ENCOUNTER → 2020-06-25 09:58 | Outpatient (CLI) | payer MEDICARE, SELFPAY ==
[2020-01-21 12:10] VITALS: BMI 33.5
[2020-06-25 11:05] LABS: Add Manual Diff / Slide Review NO; Basophils Absolute Auto 100 /uL (0-100); Basophils Percent Auto 0.7 % (0-2); Eosinophils Absolute Auto 400 /uL (0-450); Eosinophils Percent Auto 4.8 % (2-4); Hematocrit 38.4 % (41-53); Hemoglobin 13.2 g/dL (13.5-17.5); Lymphocytes Absolute Auto 2000 /uL (1100-4500); Lymphocytes Percent Auto 23.9 % (25-40); Mean Corpuscular HGB Conc 34.3 % (30-36); Mean Corpuscular Volume 87.5 fL (80-100); Monocytes Absolute Auto 700 /uL (0-900); Monocytes Percent Auto 8.8 % (3-14); Neutrophils Absolute Auto 5300 /uL (1500-7000); Neutrophils Percent Auto 61.8 % (50-75); Platelet Count 224 X10^3/uL (150-400); Red Blood Cell Count 4.39 X10^6/uL (4.5-5.9); Red Cell Distribution Width 14.2 % (11.6-14.8); White Blood Cell Count 8.5 X10^3/uL (4.5-11.0)
[2020-06-25 11:22] LABS: Alanine Aminotransferase 20 IU/L (<50); Albumin 4.1 g/dL (3.5-5.0); Albumin Globulin Ratio 2.1 (1.0-2.8); Alkaline Phosphatase 112 U/L (38-126); Aspartate Aminotransferase 24 IU/L (17-59); BUN Creatinine Ratio 24.2 (6-22); Bilirubin Total 0.5 mg/dL (0.2-1.3); Blood Urea Nitrogen 29 mg/dL (9-20); Carbon Dioxide 38 mmol/L (22-32); Chloride 96 mmol/L (98-107); Cholesterol 163 mg/dL (140-199); Estimated Glomerular Filt Rate 58.3 mL/min (>60); Glucose 121 mg/dL (80-110); HDL Cholesterol 40 mg/dL (40-60); HEMOLYSIS < 15 (0-50); LDL Cholesterol Calculated 62 mg/dL (<100); Sodium 136 mmol/L (137-145); Total Protein 6.1 g/dL (6.3-8.2); Triglycerides 303 mg/dL (35-150)
[2020-06-25 11:30] LABS: Potassium 5.6 mmol/L (3.4-5.1)
[2020-06-25 11:31] LABS: Hemoglobin A1C% w Est Avg Glu 6.6 % (4.0-6.0)
[2020-06-25 11:49] LABS: Thyroid Stimulating Hormone 3.35 uIU/mL (0.47-4.68)
[2020-06-25 11:56] LABS: Prostate Specific Antigen < 0.064 ng/mL (0.10-4.00)
== END ==
PROVIDERS: PCP Family Medicine; Referring Provider Family Medicine; Visit Provider Family Medicine
DX: E11.9 Type 2 diabetes mellitus without complications (principal)
CPT/HCPCS: 36415; 80053; 80061; 83036; 84153; 84443; 85025

== ENCOUNTER → 2020-06-27 09:06 | Outpatient (CLI) | payer MEDICARE, SELFPAY ==
[2020-01-21 12:10] VITALS: BMI 33.5
--- NOTE | 2020-06-27 09:08 | DI.CT.S_ITS ---
PROCEDURE: CT HEAD/BRAIN WO CON INDICATIONS: Disequilibrium TECHNIQUE: Noncontrast 4.5 mm thick angled axial sections acquired from the foramen magnum to the vertex, with coronal and sagittal reformats. For radiation dose reduction, the following was used: automated exposure control, adjustment of mA and/or kV according to patient size. COMPARISON: [facility], CT, HEAD WITHOUT CONTRAST, 03/22/2016, 14:41. [facility], MR, BRAIN (IAC) W&WO CONTRAST, 12/20/2014, 13:42. [facility], MR, STROKE PROTOCOL, 03/23/2016, 8:05. [facility], CT, HEAD WITHOUT CONTRAST, 02/21/2018, 16:18. FINDINGS: Image quality: Excellent. CSF spaces: Basal cisterns are patent. No extra-axial fluid collections. The ventricles are dilated but symmetric in size and shape. Brain: No intracranial bleeds or masses. There is cerebral volume loss for age, with resultant ventricular and sulcal prominence. There are periventricular and deep white matter chronic small vessel ischemic changes. There is intracranial internal carotid artery atherosclerosis. Skull and face: Calvarium and visualized facial bones appear intact, without suspicious lesions. Sinuses: Visualized sinuses and mastoids are clear. IMPRESSION: 1. No acute intracranial abnormalities. 2. Cerebral volume loss and chronic microvascular ischemic changes. 3. Ventricular dilation may be secondary to central atrophy or normal pressure hydrocephalus. Recommend clinical correlation. If clinically indicated, radionuclide ventriculography may be helpful. Dictated by: Saúl Gandara M.D. on 06/27/2020 at 10:23 Approved by: Saúl Gandara M.D. on 06/27/2020 at 10:26
--- NOTE | 2020-06-27 09:08 | DI.CT.S_ITS ---
PROCEDURE: CT CERVICAL SPINE WO CON INDICATIONS: Upper extremity paresthesias TECHNIQUE: Noncontrast 3 mm thick sections acquired from the skull base to the T4 level. Sagittal and coronal reformats were then constructed. For radiation dose reduction, the following was used: automated exposure control, adjustment of mA and/or kV according to patient size. COMPARISON: [facility], CT, CT HEAD/BRAIN WO CON, 06/27/2020, 9:06. [facility], RG, SPINE THORACIC 2VW, 08/20/2018, 10:29. [facility], CR, CERVICAL SPINE 2 OR 3 VIEWS, 06/01/2008, 15:30. FINDINGS: Image quality: Excellent. Bones: No fractures or dislocations. There are multiple small lucencies in cervical spine and visualized upper thoracic spine. Degenerative disc disease, severe at C3-C4, C4-C5, C5-C6 and C6-C7, moderate at C2-C3 and C7-T1. There is bilateral facet arthropathy, most severe at C2-C3 on the right. Severe atlantoaxial joint degeneration. Visualized superior ribs are intact. Soft tissues: Prevertebral soft tissues are normal in thickness. No paravertebral hematomas. No apical pneumothoraces. IMPRESSION: 1. Severe degenerative disc and facet disease in cervical spine. 2. Small lucencies in cervical spine and upper thoracic spine. Differential diagnoses include multiple myelomas, metastatic disease, hematological disorders and severe osteoporosis. Contrast-enhanced MRI would be helpful. Dictated by: Saúl Gandara M.D. on 06/27/2020 at 10:06 Approved by: Saúl Gandara M.D. on 06/27/2020 at 10:22
== END ==
PROVIDERS: PCP Family Medicine; Referring Provider Family Medicine; Visit Provider Family Medicine
DX: M50.31 Other cervical disc degeneration, high cervical region (principal); R42 Dizziness and giddiness; M47.812 Spondylosis without myelopathy or radiculopathy, cervical region; M48.9 Spondylopathy, unspecified; R20.2 Paresthesia of skin
CPT/HCPCS: 70450; 72125

== ENCOUNTER → 2020-07-08 14:41 | Outpatient (CLI) | payer MEDICARE, SELFPAY ==
[2020-01-21 12:10] VITALS: BMI 33.5
--- NOTE | 2020-07-08 14:43 | DI.ECHO.S_ITS ---
[facility]---------+ [facility] +---------+ : : [address] : [address] : : : : [id number] : : : : Phone: [phone] Echocardiogram Report + + :Name: DORITA BLANTON Study Date: 07/08/2020 Height: 70 in : :[facility] Weight: 229 lb : : Gender: Male BSA: 2.2 m2 : :: 1940 Age: 79 yrs BP: 118/57 mmHg: :Reason For Study: LEG EDEMA, CP : : Performed By: Santos Buck : :Referring: FAZAL BERMUDEZ : + + Interpretation Summary The left ventricle is normal in size. Left ventricular systolic function is normal without focal wall motion abnormalities. The ejection fraction is estimated to be 55-60%. There has been no significant change since the previous exam. Diastolic parameters suggest a relaxation abnormality of the left ventricle, consistent with probable normal filling pressures. The right ventricle is normal in size and function. Pulmonary artery pressures cannot be estimated because of the lack of a measurable TR jet velocity. The left atrium is mildly dilated. The right atrium is borderline dilated. There is no significant valvular heart disease. The ascending aorta is mildly enlarged. Procedure: A two-dimensional transthoracic echocardiogram with color flow and Doppler was performed. The study quality was technically difficult. Comparison is made with the echocardiogram of 08/18/19. The subcostal views were difficult to obtain and are suboptimal in quality. The suprasternal notch views were difficult to obtain and are suboptimal in quality. The patient was in normal sinus rhythm during the exam. The patient had occasional PACs during the exam. Left Ventricle: The left ventricle is normal in size. There is normal left ventricular wall thickness. Left ventricular systolic function is normal without focal wall motion abnormalities. The ejection fraction is estimated to be 55-60%. There has been no significant change since the previous exam. Diastolic parameters suggest a relaxation abnormality of the left ventricle, consistent with probable normal filling pressures. Right Ventricle: The right ventricle is normal in size and function. Atria: The left atrium is mildly dilated. The right atrium is borderline dilated. The interatrial septum is intact with no evidence for an atrial septal defect. Mitral Valve: The mitral valve is normal in structure and function. There is trace mitral regurgitation. Aortic Valve: The aortic valve is trileaflet. The aortic valve opens well. The aortic valve is slightly calcified. No aortic regurgitation is present. Tricuspid Valve: The tricuspid valve is normal in structure and function. No tricuspid regurgitation. Pulmonary artery pressures cannot be estimated because of the lack of a measurable TR jet velocity. Pulmonic Valve: The pulmonic valve is normal in structure and function. There is trace pulmonic regurgitation. There is no significant valvular heart disease. Great Vessels: The aortic root is normal size. The ascending aorta is mildly enlarged. The pulmonary artery is normal size. The inferior vena cava was not well visualized. Pericardium/ Pleura There is no pericardial effusion. There is no pleural effusion. MMode/2D Measurements & Calculations LVIDd: 5.1 cm LVOT diam: 2.3 cm LVIDs: 3.4 cm Ao root diam: 3.6 cm FS: 33.4 % asc Aorta Diam: 3.7 cm EPSS: 0.91 cm IVSd: 0.89 cm LVPWd: 1.0 cm LV rendon. diameter/BSA (cm/m^2): 2.3 LV sys. diameter/BSA (cm/m^2): 1.6 LA dimension: 3.9 cm RA long axis: 5.6 cm LA A2 area: 26.6 cm2 RA area: 21.1 cm2 LA A4 area: 22.1 cm2 RA vol: 67.2 ml LA length (vol): 5.6 cm RA : 30.4 ml/m2 LA vol: 88.6 ml LA vol index: 40.1 ml/m2 RVD1 (basal): 4.2 cm RVD2 (mid): 3.8 cm TAPSE: 1.7 cm Doppler Measurements & Calculations Ao V2 max: 113.3 cm/sec LVOT Max Akil: 73.3 cm/sec Ao V2 mean: 89.2 cm/sec LV V1 max P.2 mmHg Ao max P.1 mmHg LV V1 VTI: 16.2 cm Ao mean P.4 mmHg SHAN(I,D): 2.6 cm2 Ao V2 VTI: 25.1 cm SHAN(V,D): 2.6 cm2 sev ratio: 0.65 SHAN indexed to BSA (cm^2/m^2): 1.2 MV E max akil: 47.5 cm/sec PA V2 max: 74.6 cm/sec MV A max akil: 57.4 cm/sec PA V2 mean: 56.4 cm/sec MV E/A: 0.83 PA mean P.4 mmHg Med Peak E' Akil: 3.8 cm/sec PA pr(Accel): 19.1 mmHg E/E' med: 12.5 Lat Peak E' Akil: 5.4 cm/sec E/E' lat: 8.8 E/e' average: 10.7 MV dec time: 0.33 sec SV(LVOT): 65.8 ml Reading Physician:06:21 PM
== END ==
PROVIDERS: PCP Family Medicine; Referring Provider Family Medicine; Visit Provider Family Medicine
DX: I77.89 Other specified disorders of arteries and arterioles (principal); R60.0 Localized edema; R07.9 Chest pain, unspecified
CPT/HCPCS: C8929

== ENCOUNTER → 2020-07-11 15:14 | Outpatient (CLI) | payer MEDICARE, SELFPAY ==
[2020-01-21 12:10] VITALS: BMI 33.5
[2020-07-11 16:25] LABS: BUN Creatinine Ratio 41.1 (6-22); Blood Urea Nitrogen 65 mg/dL (9-20); Calcium 9.5 mg/dL (8.4-10.2); Estimated Glomerular Filt Rate 42.4 mL/min (>60); Glucose 116 mg/dL (80-110); HEMOLYSIS < 15 (0-50); Potassium 3.8 mmol/L (3.4-5.1); Sodium 128 mmol/L (137-145)
[2020-07-11 16:32] LABS: Carbon Dioxide 35 mmol/L (22-32)
[2020-07-11 16:36] LABS: Chloride 76 mmol/L (98-107)
== END ==
PROVIDERS: PCP Family Medicine; Referring Provider Family Medicine; Visit Provider Family Medicine
DX: R60.0 Localized edema (principal)
CPT/HCPCS: 36415; 80048

== ENCOUNTER 2020-07-12 10:09 | Observation (INO) | payer MEDICARE, SELFPAY ==
[2020-01-21 12:10] VITALS: BMI 33.5
--- NOTE | 2020-07-12 10:22 | PC.NURSE ---
Day shift: Pt is not on AC unit at this time (1022).
[2020-07-12 10:40] VITALS: BP 104/56; PULSE 49; RESP 16; TEMP 35.6; O2SAT 93
[2020-07-12] MEDS: SODIUM CHLORIDE 0.9% 1,000 ML 250 ML IV (11:43)
[2020-07-12 11:49] VITALS: BMI 31.8
[2020-07-12 12:13] LABS: COVID19 -Nasal RAPID Negative (Negative)
--- NOTE | 2020-07-12 12:59 | P.HP_ITS ---
History of Present Illness History of Present Illness Date Patient Seen: 07/12/20 Time Patient Seen: 09:59 Date of Onset of Symptoms: 06/25/20 Chief complaint: Dehydration Narrative: Dehydration Patient admitted from my office this morning for dehydration. Patient has been on Lasix 80 mg daily period and metolazone 2.5 mg daily for recalcitrant pedal edema. This medication combination has helped to where he has hardly any edema of lower extremities. Additionally patient is having frequent loose stools this been going on for weeks of fairly explosive fairly uncomfortable with her amount of gas and rumbling. He has had no nausea or vomiting. No did melena or hematochezia. Patient overall has been feeling poorly for months/years he has had problems with depression. Overall though he is does having difficulties with life in [facility]. He is tired all the time he is weak and unsteady requires a walker/cane to get around. He has a sleep disorder for which she has been taking medications that help to some degree. Main problem is been is pain he has chronic back pain multiple back surgeries as as well as having neck pain he is on oxycodone 10/325 takes 1 every morning and then and takes 1 at nighttime to help him sleep. He has been intraosseous of trying to decrease will which she has at his id goal is to get off it al together. Additionally takes gabapentin for his peripheral neuropathy. His peripheral neuropathy rick both legs in his involving up to his knees period of the gabapentin helps to some degree. Additionally is restless leg syndrome for which she takes Pap packs all the does seem to help. Lastly he has radicular symptoms from his back he has seen a neurosurgeon nor [place] was done surgery on in the past and does not seem to be a surgical candidate at this time. Epidural steroid shots have been no value. Other medical problems include diabetes mellitus. This been reading well controlled on combination of dietary manipulation, glipizide and metformin. A1cs have been under 7 for several months. The metformin will be discontinued is a suspect for causing his frequent loose stools. Patient recently undergone evaluation of his head and neck. He was found to have abnormal CT of the brain at has brought the question of normal pressure hydrocephalus.. He is referred to a neurologist in [place] who a was suspicious for same the neurologist send him to a specialist at [facility] in. Meanwhile patient was seen by his neurosurgeon who agreed with the concern. He is being evaluated whether not his symptoms and findings are consistent with normal pressure hydrocephalus. The next step would be spinal tap taking off fluid see that makes a difference in how is behavior is. Additionally had a CT of his neck that showed as degenerative joint disease in his prior surgery. But did show some defects in the bone of the raise a question of meds has metastatic disease. So he is referred to an oncologist at the [place] from his neurosurgeon. He has an appointment with the oncologist on which may repeat reschedule next week. Further evaluation for questionable normal pressure hydrocephalus is pending yet to be determined. Patient History Medical History Ankle pain (Chronic ~2005) Bullous pemphigoid (Chronic) Chicken pox (Resolved ~1939) Depression (Chronic ~1999) Diabetes mellitus (Chronic ~2011) Hearing loss (Chronic ~2001) History of urinary incontinence (Chronic ~1999) Hypertension (Chronic ~1982) Leg edema (Acute) Measles (Resolved ~1939) Mumps (Resolved ~1939) Osteopenia (Chronic ~2013) Pancreatitis (Chronic ~2013) Peripheral neuropathy (Chronic ~1999) Prostate cancer (Chronic ~1999) Restless leg syndrome (Chronic ~2008) Sleep apnea (Chronic ~2009) Vision disorder (Chronic) Surgical History Anesthesia (Resolved) Broken leg (Resolved ~2005) Cataracts, bilateral (Resolved ~2012) Status post laminectomy (~2000) Status post radical cystoprostatectomy (~1999) Family & Social History Family History Father Cancer Grandfather Heart disease Grandmother Heart disease Mother Cancer Hypertension Social History: household members spouse Prior Living Arrangements House Safety & Behavioral: Feels Safe in Current Yes Environment Been Physically Hurt or No Threatened By a Person Suicidal Ideation Description None Suicide Plan Description No Plan Tobacco & Substance use: Smoking Status Former smoker alcohol intake current alcohol intake frequency a few times a month Substance Use Type does not use Meds Home Medications and Allergies Home Medications Medication Instructions Recorded Confirmed Type ResMed AirCurve 10 VAuto #1 ea 12/23/18 07/12/20 History Disabled Parking Permit See Rx Instructions .ROUTE .COMPLEX 08/18/19 07/12/20 History polyethylene glycol 3350 [Miralax] 17 g PO DAILY 08/18/19 07/12/20 History aspirin 81 mg tablet,delayed 81 mg PO DAILY 12/07/19 07/12/20 History release melatonin 10 mg capsule 10 mg PO BEDTIME PRN 12/07/19 07/12/20 History citalopram 20 mg tablet 20 mg PO QDAY #90 tab 02/09/20 07/12/20 Rx glipizide 5 mg tablet, extended See Rx Instructions .ROUTE 02/09/20 07/12/20 Rx release 24 hr .COMPLEX #180 tab metformin 500 mg tablet See Rx Instructions PO DAILY #450 02/09/20 07/12/20 Rx tab atorvastatin 40 mg tablet 40 mg PO HS #90 tab 02/10/20 07/12/20 Rx metoprolol succinate 50 mg 50 mg PO QDAY #90 ter 02/10/20 07/12/20 Rx tablet,extended release 24 hr oxycodone-acetaminophen 10 mg-325 1 tab PO Q6H PRN #100 tab 04/20/20 07/12/20 Rx mg tablet tamsulosin 0.4 mg capsule 0.4 mg PO BEDTIME #60 cap 05/16/20 07/12/20 Rx gabapentin 600 mg tablet 1,200 mg PO BID #360 tab 06/06/20 07/12/20 Rx pramipexole 0.25 mg tablet See Rx Instructions PO BID #360 tab 06/06/20 07/12/20 Rx tizanidine 2 mg capsule See Rx Instructions PO Q6-8H PRN 06/14/20 07/12/20 Rx #60 cap furosemide 40 mg tablet 80 mg PO QAM #180 tab 06/27/20 07/12/20 Rx metolazone 2.5 mg tablet 2.5 mg PO Q OTHER DAY #20 tab 06/27/20 07/12/20 Rx Allergies Allergy/AdvReac Type Severity Reaction Status Date / Time doxycycline AdvReac Vomiting Verified 07/12/20 09:12 Review of Systems Constitutional Constitutional: Reports body ache(s), Reports daytime sleepiness, Reports difficulty sleeping, Reports fatigue, Reports headache(s), Reports lethargy, Reports malaise and Reports weakness Eyes Eyes: Reports system reviewed and no additional complaints, except as documented ENT Ears, Nose, Mouth, and Throat: Yes system reviewed and no additional complaints, except as documented, Yes dizziness, Yes headache(s) and Yes neck pain Cardiovascular Cardiovascular: Reports system reviewed and no additional complaints, except as documented Respiratory Respiratory: Reports system reviewed and no additional complaints, except as documented Gastrointestinal Gastrointestinal: Reports bloating, Reports change in bowel habits, Reports tenesmus, Reports change in stool character, Reports excessive flatus and Reports loose stools Genitourinary Genitourinary: Reports nocturia, Reports urinary frequency and Reports urinary urgency Musculoskeletal Musculoskeletal: Reports back pain, Reports myalgias, Reports atrophy, Reports arthralgias, Reports limited range of motion, Reports muscle cramps, Reports muscle weakness, Reports neck pain and Reports radiating pain into limb Integumentary/Breasts Skin/Breast: Reports system reviewed and no additional complaints, except as documented Neurologic Neurologic: Reports confusion, Reports dizziness, Reports headache(s), Reports lack of coordination, Reports localized weakness, Reports memory loss, Reports restless legs, Reports paresthesias and Reports weakness Psychiatric Psychiatric: Reports confusion, Reports depression, Reports difficulty concentrating, Reports anhedonia and Reports memory loss Endocrine Endocrine: Reports system reviewed and no additional complaints, except as documented and Reports fatigue Hematologic/Lymphatic Hematologic/Lymphatic: Reports system reviewed and no additional complaints, except as documented Allergic/Immunologic Allergic/Immunologic: Reports system reviewed and no additional complaints, except as documented Exam Vital Signs (past 8 hours): - 07/12/20 10:40 Temperature 96.1 F L Pulse Rate 49 L Respiratory Rate 16 Blood Pressure 104/56 L Pulse Oximetry 93 Oxygen Flow Rate 0 Narrative Exam Narrative: His examined in my exam room he appears usual self he is sitting on exam table moves very slowly ambulates with assistance of a walker and does so very slowly. HEENT unremarkable. Lungs entirely clear. Cardiac exam regular rhythm no murmur gallop. Carotids 2+ no bruits. Abdominal exam generalized discomfort no masses no hepatosplenomegaly and normal bowel sounds. Genitorectal exam not performed. He has stiffness of his hip stiffness of his knees difficulty holding up the leg when sitting. He has trace edema of lower ankles. His mental status exam he is obviously depressed and very silent he is oriented x3. Cranial nerves 2-12 intact. Strength appears to be decreased in all 4 extremities but present. Romberg not tested tandem gait not tested. Back is generally just uncomfortable but not terribly pain Objective Labs Result Diagrams: 07/12/20 10:34 Labs: Laboratory Results - last 24 hr 07/12/20 11:00 COVID-19 PCR Negative Labs reviewed from outpatient. He had a significantly low chloride, BUN increased, and his serum sodium decreased. Specifically sodium 128, chloride 76, BUN 65, creatinine 1.58. Creatinine in the past has always been normal. Hemoglobin A1c 6.6 Assessment & Plan Assessment & Plan narrative: 1. Patient is clinically dehydrated as manifested by his dizziness is low blood pressure additionally his weight has decreased significantly. And his laboratory studies are consistent with dehydration and his diarrhea he has hyponatremia, hypokalemia chlorine me a at BUN is elevated and creatinine is elevated. 2. Diabetes mellitus in good control. However the metformin may be contributing to his frequent loose stools metformin will be discontinued patient is been eating less and losing weight so he may be not require require the amount of a treatment as he had in the past. 3. Acute kidney injury felt secondary do hydration and diuresis would presume this will resolve over time. 4. Electrolyte imbalance again is a presumably from his diuresis and is a diarrhea. He will be admitted for IV fluids initially saline at 250 cc an hour may need to given boluses the things do not improve. Will get some updated lab in a couple hours after that that to see what is become of his electrolyte imbalance. 5. His chronic pain issues have been present for years and he has been managing coming off of the oxycodone. He seeing neurosurgeon for his back problems and has had shots and if surgery in the past all of which have resulted and persi stence of pain. 6. His abnormalities on head CT with questionable normal pressure hydrocephalus pending. 7. Abnormalities on the neck and CT a questionable metastatic disease in the bones oncology evaluation forthcoming. 8. Patient is in has been severely depressed he is not the [facility] referral. Taking citalopram and may remain out of helped in the past. 9. Peripheral neuropathy manage minimally so with pain medications and gabapentin. 10. Restless legs managed with the above medications adequately so. Patient is seen neurologist for this and maintained medications as is. Neurologist did not have much to offer referral to his restless legs 11. Pre-existing hyperlipidemia 12. Hopefully will take about 2 days hydration of hers numbers her on perforation to improve to her can be discharged 13. Patient will get an updated echocardiogram for evaluation of his persistent edema this had been ordered as an outpatient but not been completed
[2020-07-12 14:05] VITALS: BP 120/49; PULSE 52; RESP 16; TEMP 36.2; O2SAT 94
--- NOTE | 2020-07-12 14:38 | OT.IP.EVAL ---
Past Medical History (Last Reviewed 07/12/20 @ 13:05 by Devan Crabtree MD) Ankle pain (Chronic ~2005) Bullous pemphigoid (Chronic) Chicken pox (Resolved ~1939) Depression (Chronic ~1999) Diabetes mellitus (Chronic ~2011) Hearing loss (Chronic ~2001) History of urinary incontinence (Chronic ~1999) Hypertension (Chronic ~1982) Leg edema (Acute) Measles (Resolved ~1939) Mumps (Resolved ~1939) Osteopenia (Chronic ~2013) Pancreatitis (Chronic ~2013) Peripheral neuropathy (Chronic ~1999) Prostate cancer (Chronic ~1999) Restless leg syndrome (Chronic ~2008) Sleep apnea (Chronic ~2009) Vision disorder (Chronic) Surgical History (Last Reviewed 07/12/20 @ 13:05 by Devan Crabtree MD) Anesthesia (Resolved) Broken leg (Resolved ~2005) Cataracts, bilateral (Resolved ~2012) Status post laminectomy (~2000) Status post radical cystoprostatectomy (~1999) Occupational Therapy Inpatient Evaluation/Re-Eval M1 PT/OT-IP Prior Functional Status Start: 07/12/20 14:48 Freq: NEEDED Status: Active Protocol: Document 07/12/20 14:48 [facility] (Rec: 07/12/20 15:15 [facility] [id number]) Medical Review Prior Functional Status Medical History Reviewed Yes Communication Independent, however at times pt's has to correct him as pt not able to remember some specific details regarding the home set-up. Mobility and Gait Pt has been using a 4WW in the house and out in the community. Activities of Daily Living and IADL's Pt's has to assist with LB dressing or socks, shoes and get brief and pants over his feet. However per at times, pt able to do on his own LB dressing needs. Pt's assist for set-up of medications, does the bills, and IADl needs. Pt no longer drives. Prior Functional Level (Other details) Pt states has gotten progressively weaker over the years due to peripheral neuropathy and here due to recent dehydration. Social History Household Members spouse Living Arrangements House Number of Floors (Floors) One Floor Number of Stairs To Enter/Railing? Two steps with door jam and another area to hold to help get into the house from the garage. 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 M2 OT-IP Current Condition Start: 07/12/20 14:48 Freq: Status: Active Protocol: Document 07/12/20 14:48 [facility] (Rec: 07/12/20 15:15 [facility] [id number]) Occupational Therapy Current Condition Current Condition Evaluation Date 07/12/20 Treatment Diagnosis Dehydration, decreased mobility Diagnosis Onset Date 07/12/20 M3 OT- IP Subjective and Pain Start: 07/12/20 14:48 Freq: Status: Active Protocol: Document 07/12/20 14:48 [facility] (Rec: 07/12/20 15:15 [facility] [id number]) OT- Subjective Occupational Therapy Visit Type Type Initial Evaluation Visit Start Time 13:57 Visit Stop Time 14:38 Total Visit Minutes 41 Occupational Therapy Visit Comments Patient Comments Pt agreed to get up for OT/PT eval. OT Pain Assessment Pain When Pain Assessed During Mobility Pain Present Pain Present Pain Reported M4 OT- IP ADL's Start: 07/12/20 14:48 Freq: Status: Active Protocol: Document 07/12/20 14:48 [facility] (Rec: 07/12/20 15:15 [facility] [id number]) OT [id number] Comments OT Self-Feeding Comments NOt at meal time. OT ADL-Grooming Comments OT Grooming Comments Not performed, just able to wash his hands after set-up. OT ADL-Oral Care Comments Oral Care Comments Pt has dentures. OT ADL-Dressing General Eval Lower Body Dressing Ability Maximum Assistance Comments OT Dressing Comments Assist to get brief up over his hips, assist for socks. Pt states us of back director of partner marketing to assist to help get clothing items up over his feet. Pt educated to yael the left LE first as harder to move than right LE. OT ADL-Toileting General Evaluation Toileting Ability Moderate Assistance Areas Needing Assistance Manage Clothing Comments OT Toileting Comments Pt is incontinent and needing assist for brief management and set-up of wash cloth for hygiene needs. OT ADL-Bathing Comments OT Bathing Comments NOt at this time. M5 OT- IP IADL's Start: 07/12/20 14:48 Freq: Status: Active Protocol: Document 07/12/20 14:48 [facility] (Rec: 07/12/20 15:15 [facility] [id number]) OT-Instrumental Activities of Daily Living Home Safety Awareness Home Safety Comments To further assess tomorrow. Medication Management Medication Management Caregiver Administers Money Management Money Management Caregiver Provides Assistance Meal Preparation Meal Preparation Caregiver Provides Assist Ladle Pourer Ladle Pourer Caregiver Provides Assist Driving Driving Caregiver Provides Assist M6 OT- IP Functional Cognition Start: 07/12/20 14:48 Freq: Status: Active Protocol: Document 07/12/20 14:48 [facility] (Rec: 07/12/20 15:15 [facility] [id number]) Cognitive Factors Limiting Selfcare Function Cognitive Ability Level of Alertness Alert Patient Orientation Name,Place,Situation Attention Span Ability Capable of Focused Attention, Capable of Sustained Attention Ability to Follow Commands Able to Follow One Step Commands Safety Awareness Underestimates Need for Assistance Cognitive Comments Cognitive Assessment Comments Pt a bit impulsive and needing encouragement to try different ways such as log rolling to help with his back pain while getting back to bed . Pt able to follow commands. Pt having difficulty to remember the set-up at his house and needing his to clarify the details. Pt needing cues for brief orientation and how to replace the battery of his hearing aid in correctly. OT- Vision and Hearing OT- Hearing Assessment OT- Hearing Assessment Use of Hearing Aids OT- Vision Assessment Visual Acuity Glasses All The Time Vision Assessment Comments Initially pt not reading the clock correctly , but after clarifying where the hour hands was pointing to able to state correctly what time it was. M7 OT- IP Mobility and Balance Start: 07/12/20 14:48 Freq: Status: Active Protocol: Document 07/12/20 14:48 [facility] (Rec: 07/12/20 15:15 [facility] [id number]) OT- Bed Mobility Assessment Supine to Sit Supine to Sit Assist Contact Guard Assistance, Bedrails Sit to Supine Sit to Supine Assist Minimal Assistance,Head of Bed Elevated OT-Transfer Assessment Sit to and From Stand Sit to and from Stand Minimal Assistance Transfers Transfer Ability Minimal Assistance Technique Transfer Destination Bed,Toilet Transfer Technique Stand Step Pivot Devices Transfer Assistive Devices Gait Belt,Front Wheeled Walker ,4 Wheeled Walker Comments Mobility Comments Pt needing heavy use of bed rail to help get up from bed. ADRIANA to stand and ADRIANA for balance and cues to keep 4WW close to him. In was determined that the FWW was much safer for pt to use, To try the fww with larger wheels tomorrow. The handle on the left side of his 4WW is unsteady due to the bolt is stripped out. Pt tends to have the 4WW too far in front of him. Pt's open to having pt use FWW, but pt is insistent to keep on using the 4WW. OT- Gait Assessment Gait Gait Assistance Required: Minimum Assistance Assistive Devices Assistive Device Gait Belt,Front Wheeled Walker Comments Gait Ability Comments ADRIANA with FWW, notified nursing pt is safer to use FWW instead on his 4WW for mobility in the room. OT- Balance Assessment Sitting Balance and Reactions Static Sitting Balance Ability Good Dynamic Sitting Balance Ability Fair Standing Balance and Reactions Static Standing Balance Ability Fair Dynamic Standing Balance Ability Poor M8 OT- IP Objective Assessments Start: 07/12/20 14:48 Freq: Status: Active Protocol: Document 07/12/20 14:48 [facility] (Rec: 07/12/20 15:15 [facility] [id number]) OT Gross Range of Motion Upper Extremity Range of Motion Assessment Within Functional Limits OT Strength Upper Extremity Strength Assessment Within Functional Limits Comments Strength Comments BUE 4/5 throughout. OT- Coordination Assessment Comments Coordination Comments WFL and able to put in and take on his hearing aids on his own. Pt however needing to use the druze tips of the eyeglasses to punch out the battery. OT Sensation Assessment Comments Summary Comments intact M9 OT- IP Assessment and Plan Start: 07/12/20 14:48 Freq: Status: Active Protocol: Document 07/12/20 14:48 [facility] (Rec: 07/12/20 15:15 [facility] [id number]) OT Summary Assessment and Plan Potential Rehabilitation Potential Good Analytic Complexity at Evaluation Low Summary OT Impairments Pain,Strength,Balance, Functional Cognition, Functional Mobility,Grooming, Dressing,Toileting,Bathing, Toilet Transfers,Shower Transfers,Activity Tolerance Progress Towards Goals Slow Progress due to Pain,Slow Progress due to Activity Tolerance,Slow Progress due to Cognition Assessment Summary Pt low complexity and here due to dehydration. Pt main barrier are decreased activity tolerance, balance, and history of chronic back pain and neuropathy per pt. Pt has a very supportive to assist at home. Pt would benefit form home health versus outpt PT for activity tolerance and safety for mobility needs. Pt looking to go home when medically stable. Pt would benefit form a FWW and shower chair at home . Goals Grooming Goal Independent Dressing Goal Minimal Assistance Toileting Goal Independent Bathing Goal Standby Assistance Toilet Transfer Goal Independent Shower Transfer Goal Independent Patient/Caregiver Education Goal Caregiver Independent Assisting Patient Days to Meet Goals 2 Frequency of Treatment Frequency Of Treatment Once a Day Treatment Plan OT Treatment Plan ADL Training,Functional Mobility,Patient/Family Education,Discharge Planning Other Treatment Recommendations and Next Shower Treatment Focus Discharge Recommendations OT Discharge Recommendations Home with Assistance,Home Health,Outpatient PT Home Equipment Needs FWW, shower chair Transportation Needs at Discharge Private Vehicle
--- NOTE | 2020-07-12 14:48 | PC.NURSE ---
Day shift:Called and rtalked to Dr Henry DUBON to make aware for Dr that HR has been in the low 50's but asymptomatic.
--- NOTE | 2020-07-12 14:57 | PC.NURSE ---
Day shift: Talked to Dr Crabtree and ordered EKG routine and Dr Crabtree wants the echo cancelled.
--- NOTE | 2020-07-12 15:00 | PT.IIE ---
Surgical History (Last Reviewed 07/12/20 @ 13:05 by Devan Crabtree MD) Anesthesia (Resolved) Broken leg (Resolved ~2005) Cataracts, bilateral (Resolved ~2012) Status post laminectomy (~2000) Status post radical cystoprostatectomy (~1999) Medical History (Last Reviewed 07/12/20 @ 13:05 by Devan Crabtree MD) Ankle pain (Chronic ~2005) Bullous pemphigoid (Chronic) Chicken pox (Resolved ~1939) Depression (Chronic ~1999) Diabetes mellitus (Chronic ~2011) Hearing loss (Chronic ~2001) History of urinary incontinence (Chronic ~1999) Hypertension (Chronic ~1982) Leg edema (Acute) Measles (Resolved ~1939) Mumps (Resolved ~1939) Osteopenia (Chronic ~2013) Pancreatitis (Chronic ~2013) Peripheral neuropathy (Chronic ~1999) Prostate cancer (Chronic ~1999) Restless leg syndrome (Chronic ~2008) Sleep apnea (Chronic ~2009) Vision disorder (Chronic) Physical Therapy Inpatient Evaluation/Re-Eval M1 PT/OT-IP Prior Functional Status Start: 07/12/20 14:48 Freq: NEEDED Status: Active Protocol: Document 07/12/20 14:48 [facility] (Rec: 07/12/20 15:15 [facility] [id number]) Medical Review Prior Functional Status Medical History Reviewed Yes Communication Independent, however at time pt has to correct him as pt not able to remember some specific details regarding the rustam set-up. Mobility and Gait Pt has been using a 4WW in the house and out in the community. Activities of Daily Living and IADL's Pt's has to assist with LB dressing or socks, shoes and get brief and pants over his feet. However per at times, pt able to do on his own LB dressing needs. Pt's assist for set-up of medications, does the bills, and IADl needs. Pt no longer drives. Prior Functional Level (Other details) Pt states has gotten progressively weaker over the years due to peripheral neuropathy and here due to recent dehydration. Social History Household Members spouse Living Arrangements House Number of Floors (Floors) One Floor Number of Stairs To Enter/Railing? Two steps with door jam and another area to hold to help get into the house from the garage. 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 M2 PT-IP Current Condition Start: 07/12/20 11:12 Freq: NEEDED Status: Active Protocol: Document 07/12/20 14:45 AW (Rec: 07/12/20 16:13 AW [id number]) Physical Therapy Current Condition Current Condition Evaluation Date 07/12/20 Treatment Diagnosis acute dehydration; peripheral neuropathy; difficulty in walking Onset Date 07/12/20 M3 PT-IP Subjective Start: 07/12/20 11:12 Freq: NEEDED Status: Active Protocol: Document 07/12/20 14:45 AW (Rec: 07/12/20 16:13 AW [id number]) Subjective Physical Therapy Visit Type Type Initial Evaluation Visit Start Time 13:55 Visit Stop Time 14:35 Total Visit Minutes 40 Notes Co-eval with OT Areli. 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 Physical Therapy Visit Comments Patient Comments I'm a mess. Therapy Pain Assessment Pain When Pain Assessed During Mobility Pain Present Pain Present Pain Reported Location Generalized Scale Used not quantified M4 PT-IP Mobility and Gait Start: 07/12/20 11:12 Freq: NEEDED Status: Active Protocol: Document 07/12/20 14:45 AW (Rec: 07/12/20 16:13 AW [id number]) PT-Bed Mobility Assessment Supine to Sit Supine to Sit Standby Assistance,Bedrails Sit to Supine Sit to Supine Minimal Assistance,1 Person Assistance Scooting Scooting to Edge of Bed Standby Assistance Scooting Up and Down in Bed Standby Assistance PT-Transfer Assessment Sit to and From Stand Sit to and from Stand Minimal Assistance,1 Person Assistance,Use of Upper Extremities Equipment Transfer Assistive Device Gait Belt,Front Wheeled Walker ,4 Wheeled Walker Orthotic/Prosthetic Devices or Brace: No Transfers Transfer Destination Bed,Toilet Transfer Technique pt amb with 4WW and FWW Transfer Ability Level of Assist Minimal Assistance,1 Person Assistance,Use of Upper Extremities Comments Mobility Comments Pt was in the bed upon PT/OT arrival. Supine BP was 120/49 HR 52. He used momentum to transfer supine to sit with heavy use of the bed rails. Pt has no bed rails at home. He had difficulty maneuvering on the bed but was able to scoot to EOB SBA to prepare for standing. Sit to stand required min A x 1 with pt's own 4WW. He ambulated to the toilet using 4WW min A x 1 and cues for posture and to keep the walker closer to his trunk . Pt's footsteps were heavy and poorly controlled. He transferred to and from the toilet min A x 1 and needed CGA to maintain standing balance while managing his briefs. Due to instability with the 4WW, he trialed ambulation with FWW back to the bed, demonstrating increased steadiness but continuing to require min A x 1 and cues for walker management. Pt was impulsive, attempting to direct his own care. I do it in the way that works for me. Pt was instructed in reverse log roll for return to supine which he then attempted, requiring min A x 1 to elevate his legs to the bed. He rolled SL to supine SBA and was positioned on the bed with call light in reach and bed alarm armed for safety. BP after activity was 135/58 HR 56. Gait Assessment Gait Gait Assistance Required: Minimum Assistance,1 Person Assist Distance (Feet) 20 Assistive Devices Assistive Device Gait Belt,Front Wheeled Walker ,4 Wheeled Walker Gait Deviations General Gait Pattern Antalgic,Ataxic,Decreased Stride Length,Decreased Feet Clearance,Flexed Trunk,Wide Based Gait Factors Limiting Gait Function Factors Limiting Gait Function Decreased Activity Tolerance, Decreased Sensation,Decreased Strength,Difficulty Following Directions,Incoordination,Pain ,Poor Balance,Poor Safety Awareness Comments Gait Comments See mobility comments for details. Stair Climbing Assessment Comments Stair Climbing Comments Not assessed. PT-Balance Assessment Sitting Balance and Reactions Static Sitting Balance Ability Good Dynamic Sitting Balance Ability Good Standing Balance and Reactions Static Standing Balance Ability Fair Dynamic Standing Balance Ability Fair Device Used 4WW, FWW M5 PT-IP Objective Assessments Start: 07/12/20 11:12 Freq: NEEDED Status: Active Protocol: Document 07/12/20 14:45 AW (Rec: 07/12/20 16:13 AW [id number]) Orientation Orientation/Cognition Level of Alertness Alert Orientation Name,Month,Place,Situation Language Function Ability No Deficits Noted Safety Awareness Decreased Safety Awareness Memory Description Short Term Impaired Gross Range of Motion Upper Extremity ROM Assessment Within Functional Limits Lower Extremity ROM Assessment Within Functional Limits Strength Lower Extremity Strength Assessment Bilaterally Impaired Hip R 4/5; L 4-/5 Knee R 4/5; L 4-/5 Ankle B 4-/5 Coordination Assessment Gross Coordination Gross Coordination WNL Assessment Finger to Nose Test Normal Performance Sensation Assessment Sensation Gross Sensation Right LE Impaired,Left LE Impaired Light Touch Impaired Proprioception (Position) Impaired Sensation Description Numbness,Tingling Comments Sensation Comments Pt has peripheral neuropathy affecting entire BLE with distal more affected that proximal. M6 PT-IP Treatment Start: 07/12/20 11:12 Freq: NEEDED Status: Active Protocol: Document 07/12/20 14:45 AW (Rec: 07/12/20 16:13 AW [id number]) Physical Therapy Treatment Education Education Provided Precautions,Safety Other Treatments Other Treatment Performed Provided education on role of PT, plan of care, risks of immobility, and rationale for selection of an assistive device. M7 PT-IP Assessment and Plan Start: 07/12/20 11:12 Freq: NEEDED Status: Active Protocol: Document 07/12/20 14:45 AW (Rec: 07/12/20 16:13 AW [id number]) PT Summary Assessment and Plan Potential Rehabilitation Potential Good Status of Condition at Evaluation Evolving Summary Impairments Pain,ROM,Strength,Balance, Coordination,Sensation,Bed Mobility,Transfers,Gait, Activity Tolerance Assessment Summary Fransisco is an 79 yo man seen for PT evaluation with admitting diagnosis of acute dehydration and hyponatremia. He is modified independent at baseline with use of 4WW. He was attending outpatient PT before COVID 19 stay home orders but has not been motivated to return. He states his mobility has declined significantly over the past six months. On evaluation, pt was impulsive and resistant to therapists' suggestions. He required one person min assist for all mobility and presented with significant weakness. His provides caregiver assist at home. He will benefit from continued acute PT to progress his mobility safely and to conduct gait training with FWW if pt is willing to consider using alternative device. PT anticipates pt will progress as he stabilizes and be safe to discharge home with assist. He would benefit from PT to address safety in the home, address strength impairments, and reduce risk of future falls. Goals Bed Mobility Goal Standby Assistance Transfer Goal Standby Assistance,Front Wheeled Walker Gait Goal Standby Assistance,Front Wheel Walker Gait Distance 120 Other Goals - up/down 2 steps with right rail ascending SBA Days to Meet Goals 5 Frequency of Treatment Frequency Of Treatment Once a Day Treatment Plan Physical Therapy Treatment Plan Bed Mobility Training,Transfer Training,Gait Training, Therapeutic Exercise,Balance Retraining,Discharge Planning, Hot or Cold Pack,Neuromuscular Re-ed,Coordination Retraining Other Recommendations and Next Treatment gait training with FWW, stairs Focus when able Recommendations To Nursing Amount of Assist Needed 1 Person Assist Discharge Recommendations PT Discharge Recommendations Home with Assistance,Home Health Transportation Needs at Discharge Private Vehicle
[2020-07-12 15:20] VITALS: BP 120/56; PULSE 51; RESP 17; TEMP 36.4; O2SAT 95
[2020-07-12 17:24] LABS: BUN Creatinine Ratio 53.9 (6-22); Blood Urea Nitrogen 69 mg/dL (9-20); Calcium 8.7 mg/dL (8.4-10.2); Carbon Dioxide 37 mmol/L (22-32); Chloride 80 mmol/L (98-107); Estimated Glomerular Filt Rate 54.1 mL/min (>60); Glucose 99 mg/dL (80-110); Magnesium 1.9 mg/dL (1.6-2.3); Sodium 127 mmol/L (137-145)
[2020-07-12 17:28] LABS: HEMOLYSIS 83 (0-50)
[2020-07-12 17:29] LABS: Potassium 3.7 mmol/L (3.4-5.1)
[2020-07-12 18:26] VITALS: BP 120/52; PULSE 55; RESP 16; TEMP 36.6; O2SAT 94
[2020-07-12 19:20] VITALS: BP 120/52; PULSE 55; RESP 16; TEMP 36.6; O2SAT 94
[2020-07-12] MEDS: PRAMIPEXOLE 1 MG TABLET PO (21:43)
[2020-07-12] MEDS: GABAPENTIN 600 MG TABLET 1200 MG PO (21:43)
[2020-07-12 23:40] VITALS: BP 128/67; PULSE 51; RESP 18; TEMP 36.5; O2SAT 98
[2020-07-13] MEDS: SODIUM CHLORIDE 0.9% 1,000 ML 125 ML IV (02:26)
[2020-07-13 03:37] VITALS: BP 151/58; PULSE 52; RESP 18; TEMP 36.1; O2SAT 94
[2020-07-13 05:48] LABS: BUN Creatinine Ratio 44.3 (6-22); Blood Urea Nitrogen 58 mg/dL (9-20); Carbon Dioxide 39 mmol/L (22-32); Chloride 85 mmol/L (98-107); Estimated Glomerular Filt Rate 52.6 mL/min (>60); Glucose 108 mg/dL (80-110); HEMOLYSIS < 15 (0-50); Magnesium 2.1 mg/dL (1.6-2.3); Potassium 3.9 mmol/L (3.4-5.1); Sodium 131 mmol/L (137-145)
[2020-07-13 08:00] VITALS: BP 148/70; PULSE 48; RESP 15; TEMP 36.8; O2SAT 96
[2020-07-13 09:13] LABS: HCO3 VBG 36 mmol/L (23-28); PCO2 VBG 52.9 mmHg (45-50); PO2 VBG 41 mmHg (35-45); pH VBG 7.44 (7.33-7.43)
[2020-07-13 09:14] LABS: Oxygen Saturation VBG 77 % (70-75); Total CO2 VBG 37 mmol/L (24-29)
[2020-07-13] MEDS: ENOXAPARIN 40 MG/0.4 ML SYRINGE SUBCUT (09:49)
[2020-07-13] MEDS: glipiZIDE XL 5 MG TAB 10 MG PO (09:49)
[2020-07-13] MEDS: PRAMIPEXOLE 0.25 MG TABLET 0.75 MG PO (09:49)
[2020-07-13 09:50] VITALS: BP 148/70
[2020-07-13] MEDS: CITALOPRAM 20 MG TABLET PO (09:50)
[2020-07-13] MEDS: METOPROLOL ER 25 MG TABLET PO (09:50)
[2020-07-13] MEDS: ASPIRIN EC 81 MG TABLET PO (09:50)
[2020-07-13] MEDS: GABAPENTIN 600 MG TABLET 1200 MG PO ×2 (09:50→21:16)
--- NOTE | 2020-07-13 10:36 | PT.IPTN ---
Physical Therapy Treatment Note M2 PT-IP Current Condition Start: 07/12/20 11:12 Freq: NEEDED Status: Active Protocol: Document 07/12/20 14:45 AW (Rec: 07/12/20 16:13 AW [id number]) Physical Therapy Current Condition Current Condition Evaluation Date 07/12/20 Treatment Diagnosis acute dehydration; peripheral neuropathy; difficulty in walking Onset Date 07/12/20 M3 PT-IP Subjective Start: 07/12/20 11:12 Freq: NEEDED Status: Active Protocol: Document 07/13/20 09:55 SP (Rec: 07/13/20 14:08 SP [email or web address]) Subjective Physical Therapy Visit Type Type Treatment Note Visit Start Time 09:55 Visit Stop Time 10:36 Total Visit Minutes 41 Notes present during tx, caregiver training completed and provided assist throughout tx. Number of WIND ENERGY MECHANIC Visits 1 Physical Therapy Visit Comments Patient Comments My quads are very weak and think why I loose my balance backwards. Pt agreeable to working with therapy. Patient Goals Return home with his to assist him. Therapy Pain Assessment Pain Present Pain Present Denied Pain M4 PT-IP Mobility and Gait Start: 07/12/20 11:12 Freq: NEEDED Status: Active Protocol: Document 07/13/20 09:55 SP (Rec: 07/13/20 14:08 SP [email or web address]) PT-Transfer Assessment Sit to and From Stand Sit to and from Stand Contact Guard Assistance,1 Person Assistance,Use of Upper Extremities Equipment Transfer Assistive Device Gait Belt,4 Wheeled Walker Orthotic/Prosthetic Devices or Brace: No Transfers Transfer Destination Chair,Toilet Transfer Technique Stand Step Pivot Transfer Ability Level of Assist Contact Guard Assistance,1 Person Assistance,Use of Upper Extremities Comments Mobility Comments Pt was upright sitting in chair when arrived, arrived within minutes of beginning of tx. Pt agreeable to donning gait belt after safety discussion during mobility with encouragement from . WIND ENERGY MECHANIC donned gait belt with observation by . Sit >stand from chair with use of B UE Min A from and WIND ENERGY MECHANIC cuing for proper 4WW positioning and brake mgt. WIND ENERGY MECHANIC managed IV pole with good safety cuing from patient for positioning. Pt ambulated chair to toilet usign 4WW, intermittent cues to and patient for continued positioning of 4WW in front during step pivot and backing up to toilet until seated, patient likes to position off to side and 180 deg turn usign grab bars for support, CGA for slow descent to toilet. Pt was impulsive, attempting to direct his own care. I do it in the way that works for me. Pt's encouraged patient try safe use strategies as WIND ENERGY MECHANIC is instructing. Pt able to complete own self hygiene in sitting, required assist for flushing toilet, loose diarrhea- like mod- large BM before assisted flushing per pt request due to odor. Pt sit to stand from toilet by Min A and use of 4WW and grab bar, stated has arm rests on toilet at home. Pt ambulated using 4WW tiolet to sink CGA by , Max cues for 4WW positioning off to L with brakes on, light contact on sink as needed for balance able to complete hand washing, stable no LOB or deviations. Assisted donning of shoe over nonskid socks in standing wtih good balance, CGA by . Pt ambulated further into hallway down to stairs (wc follow but not needed) and back 600 ft total CGA with occasional cuing for body closer to 4WW and slight slower pacing which was maintained rest of gait. Pt ascended/ descended 3 stairs usign B HR to assimulate stated larg stationary/stable dog cage on R and door frame on L uses at home, CGA by step to patterning, no LOB or deviations. Pt'swife states he stands at bottom of stairs and hold door frame for balance as she positiongs walker inside door then comes back behind him to assist if needed. When pt returned to room, cued for 4WW positioning fully during pivot and backing up to chair and safety brake mgt. Then good use of reaching back with slow descent. Pt had call light and all needs in reach before left. in room. Discussed would prefer use of fWW for slower pacing, no need for brake mgt and can position up to sink for safety standing but patient refused and didn't want to further discuss. stated understood, is getting a new 4WW so brakes work better and handle isn't as loose as current one before he returns home. Pt is improving in strength and endurance but is impulsive and resistant to safety suggestion techniques, provides same cuing and support needs during mobility. Pt is ok to return home with for assist when medically cleared. Recommending HHPT for improvement in LE strength , balance, continued safety techniques to increase functional mobiltiy independence in home setting. Gait Assessment Gait Gait Assistance Required: Contact Guard Assist,1 Person Assist Distance (Feet) 600 Able to Maintain Weight Bearing Status Yes During Gait Assistive Devices Assistive Device Gait Belt,4 Wheeled Walker Orthotic/Prosthetic Devices or Brace: No Gait Deviations General Gait Pattern Antalgic,Ataxic,Decreased Stride Length,Decreased Feet Clearance,Flexed Trunk,Wide Based Gait Factors Limiting Gait Function Factors Limiting Gait Function Decreased Activity Tolerance, Decreased Sensation,Decreased Strength,Difficulty Following Directions,Incoordination,Pain ,Poor Balance,Poor Safety Awareness Comments Gait Comments Pending terrain and turns, pt needing from close SBA to CGA with 4WW. See mobiltiy comments for details. Stair Climbing Assessment Evaluation Level of Assist On Stairs Contact Guard Assistance,1 Person Assistance Devices Stair Climbing Assistive Devices Left Railing,Right Railing Technique/Endurance Stair Climbing Direction Ascend and Descend Stair Climbing Technique Step to Step Number of Steps Climbed 3 Stair Climbing Set # Repetitions (reps) 1 Comments Stair Climbing Comments See mobility comments. PT-Balance Assessment Sitting Balance and Reactions Static Sitting Balance Ability Normal Dynamic Sitting Balance Ability Good Standing Balance and Reactions Static Standing Balance Ability Fair Dynamic Standing Balance Ability Poor Device Used 4WW M5 PT-IP Objective Assessments Start: 07/12/20 11:12 Freq: NEEDED Status: Active Protocol: Document 07/12/20 14:45 AW (Rec: 07/12/20 16:13 AW [id number]) Orientation Orientation/Cognition Level of Alertness Alert Orientation Name,Month,Place,Situation Language Function Ability No Deficits Noted Safety Awareness Decreased Safety Awareness Memory Description Short Term Impaired Gross Range of Motion Upper Extremity ROM Assessment Within Functional Limits Lower Extremity ROM Assessment Within Functional Limits Strength Lower Extremity Strength Assessment Bilaterally Impaired Hip R 4/5; L 4-/5 Knee R 4/5; L 4-/5 Ankle B 4-/5 Coordination Assessment Gross Coordination Gross Coordination WNL Assessment Finger to Nose Test Normal Performance Sensation Assessment Sensation Gross Sensation Right LE Impaired,Left LE Impaired Light Touch Impaired Proprioception (Position) Impaired Sensation Description Numbness,Tingling Comments Sensation Comments Pt has peripheral neuropathy affecting entire BLE with distal more affected that proximal. M6 PT-IP Treatment Start: 07/12/20 11:12 Freq: NEEDED Status: Active Protocol: Document 07/13/20 09:55 SP (Rec: 07/13/20 14:08 SP [email or web address]) Physical Therapy Treatment Education Education Provided Precautions,Safety Other Treatments Other Treatment Performed Continued provide education on rationale for selection of an assistive device. M7 PT-IP Assessment and Plan Start: 07/12/20 11:12 Freq: NEEDED Status: Active Protocol: Document 07/13/20 09:55 SP (Rec: 07/13/20 14:08 SP [email or web address]) PT Summary Assessment and Plan Potential Rehabilitation Potential Good Status of Condition at Evaluation Evolving Summary Impairments Pain,ROM,Strength,Balance, Coordination,Sensation,Bed Mobility,Transfers,Gait, Activity Tolerance Assessment Summary Pt commented his mobility has declined significantly over the past six months. During tx pt was impulsive and resistant to therapist's suggestions on use of FWW and positioning during tx. He required one person CGA assist for all mobility. His provides caregiver assist at home, completed caregiver training including sit to stand, transfers, gait, stairs . He will benefit from further acute PT to conduct further gait training, balance with FWW over 4WW if pt is willing to consider using alternative device. Will continue to reassess progress during tx. He would benefit from PT to address safety in the home, address strength impairments, and reduce risk of future falls. Goals Bed Mobility Goal Standby Assistance Transfer Goal Standby Assistance,Front Wheeled Walker Gait Goal Standby Assistance,Front Wheel Walker Gait Distance 120 Other Goals - up/down 2 steps with right rail ascending SBA Days to Meet Goals 5 Frequency of Treatment Frequency Of Treatment Once a Day Treatment Plan Physical Therapy Treatment Plan Bed Mobility Training,Transfer Training,Gait Training, Therapeutic Exercise,Balance Retraining,Discharge Planning, Hot or Cold Pack,Neuromuscular Re-ed,Coordination Retraining Other Recommendations and Next Treatment transfers and gait training Focus with FWW, safety techniques usign BUE and AD positioning Recommendations To Nursing Amount of Assist Needed 1 Person Assist Discharge Recommendations PT Discharge Recommendations Home with Assistance,Home Health Transportation Needs at Discharge Private Vehicle
[2020-07-13] MEDS: SODIUM CHLORIDE 0.9% 1,000 ML 150 ML IV ×2 (10:37→18:06)
--- NOTE | 2020-07-13 12:00 | OT.IP.TRT ---
Occupational Therapy Treatment Note M2 OT-IP Current Condition Start: 07/12/20 14:48 Freq: Status: Active Protocol: Document 07/12/20 14:48 [facility] (Rec: 07/12/20 15:15 [facility] [id number]) Occupational Therapy Current Condition Current Condition Evaluation Date 07/12/20 Treatment Diagnosis Dehydration, decreased mobility Diagnosis Onset Date 07/12/20 M3 OT- IP Subjective and Pain Start: 07/12/20 14:48 Freq: Status: Active Protocol: Document 07/13/20 12:02 [facility] (Rec: 07/13/20 12:14 [facility] [id number]) OT- Subjective Occupational Therapy Visit Type Type Treatment Note Visit Start Time 11:41 Visit Stop Time 12:00 Total Visit Minutes 19 Occupational Therapy Visit Comments Patient Comments Pt not wanting to shower , but needing to use the toilet. Pt's present for the session. Patient/Caregiver Goals To go home. OT Pain Assessment Pain When Pain Assessed At Rest Pain Present Pain Present Denied Pain M4 OT- IP ADL's Start: 07/12/20 14:48 Freq: Status: Active Protocol: Document 07/13/20 12:02 [facility] (Rec: 07/13/20 12:14 [facility] [id number]) OT ADL-Grooming Comments OT Grooming Comments Not performed, just able to wash his hands after set-up. OT ADL-Dressing General Eval Lower Body Dressing Ability Moderate Assistance Comments OT Dressing Comments Pt needing assist to take off his slippers. Pt uses a back stretcher at home to assist with needs and not open to use of a rn documentation specialist at this time. Pt's states she will assist him at needed. OT ADL-Toileting General Evaluation Toileting Ability Standby Assistance Comments OT Toileting Comments Pt able sit to urinate and did not have to change out his brief today and just needing close SBA while standing to pull up brief up over his hips . OT ADL-Bathing Comments OT Bathing Comments Pt refusing to shower at this time. Pt's is aware of suggestion and agreed that would be best for pt to have a shower chair at home. M5 OT- IP IADL's Start: 07/12/20 14:48 Freq: Status: Active Protocol: Document 07/12/20 14:48 [facility] (Rec: 07/12/20 15:15 [facility] [id number]) OT-Instrumental Activities of Daily Living Home Safety Awareness Home Safety Comments To further assess tomorrow. Medication Management Medication Management Caregiver Administers Money Management Money Management Caregiver Provides Assistance Meal Preparation Meal Preparation Caregiver Provides Assist Supervisor Heat Treating Supervisor Heat Treating Caregiver Provides Assist Driving Driving Caregiver Provides Assist M6 OT- IP Functional Cognition Start: 07/12/20 14:48 Freq: Status: Active Protocol: Document 07/13/20 12:02 [facility] (Rec: 07/13/20 12:14 [facility] [id number]) Cognitive Factors Limiting Selfcare Function Cognitive Ability Patient Orientation Name,Place,Situation Attention Span Ability Capable of Focused Attention, Capable of Sustained Attention Ability to Follow Commands Able to Follow One Step Commands Safety Awareness Underestimates Need for Assistance Cognitive Comments Cognitive Assessment Comments Pt still impulsive and insistent on directing his own care at this time. M7 OT- IP Mobility and Balance Start: 07/12/20 14:48 Freq: Status: Active Protocol: Document 07/13/20 12:02 [facility] (Rec: 07/13/20 12:14 [facility] [id number]) OT- Bed Mobility Assessment Sit to Supine Sit to Supine Assist Standby Assistance,Bedrails OT-Transfer Assessment Sit to and From Stand Sit to and from Stand Minimal Assistance Transfers Transfer Ability Contact Guard Assistance Technique Transfer Destination Bed,Chair,Toilet Transfer Technique Stand Step Pivot Devices Transfer Assistive Devices Gait Belt,4 Wheeled Walker Comments Mobility Comments Pt still heavy use of bed rail to help get back to bed. Pt' s to look into getting a bed rail for the bed. Pt steadier on his feet today and since pt is used to the 4WW okay to continue to use as long as there to assist. Pt's agreed with PRESS SERVICE READER and OT suggestion to get another 4WW as current on not in good working order. OT- Gait Assessment Gait Gait Assistance Required: Standby Assistance,Contact Guard Assist Assistive Devices Assistive Device Gait Belt,4 Wheeled Walker Comments Gait Ability Comments Pending terrain and turns, pt needing from close SBA to CGA with 4WW. OT- Balance Assessment Sitting Balance and Reactions Static Sitting Balance Ability Normal Dynamic Sitting Balance Ability Good Standing Balance and Reactions Static Standing Balance Ability Fair M9 OT- IP Assessment and Plan Start: 07/12/20 14:48 Freq: Status: Active Protocol: Document 07/13/20 12:02 [facility] (Rec: 07/13/20 12:14 [facility] [id number]) OT Summary Assessment and Plan Potential Rehabilitation Potential Good Analytic Complexity at Evaluation Low Summary OT Impairments Pain,Strength,Balance, Functional Cognition, Functional Mobility,Grooming, Dressing,Toileting,Bathing, Toilet Transfers,Shower Transfers,Activity Tolerance Progress Towards Goals Progressing Toward Goals Assessment Summary Pt not wanting to shower and insistent that he is doing well and wanting to go home. Pt's is aware of pt's decreased safety awareness and able to provide assist for pt as needed. Pt will benefit from another 4WW that is in good working condition, bed rail, and shower chair. Home health will also be beneficial to go over safety in his environment , suggestions for equipment needs, and work on increasing his activity tolerance and balance needs.Placed 3 bed rails up and alarm on for pt. Pt insistent that he does not want to have the bed rail up, however got distracted by his and then forgot. Call light place by pt for use. Goals Grooming Goal Independent Dressing Goal Minimal Assistance Toileting Goal Independent Bathing Goal Standby Assistance Toilet Transfer Goal Independent Shower Transfer Goal Independent Patient/Caregiver Education Goal Caregiver Independent Assisting Patient Days to Meet Goals 1 Frequency of Treatment Frequency Of Treatment Once a Day Treatment Plan OT Treatment Plan ADL Training,Functional Mobility,Patient/Family Education,Discharge Planning Other Treatment Recommendations and Next Shower Treatment Focus Discharge Recommendations OT Discharge Recommendations Home with Assistance,Home Health Home Equipment Needs bed rail, 4ww, shower chair Transportation Needs at Discharge Private Vehicle
--- NOTE | 2020-07-13 12:29 | DIET.PN ---
Dietary Progress Note Assessment: 79y M admitted for dehydration and referred to nutrition for reported weight loss. Pt states weight loss due to diuresing. Upon review of historical weights and current diuretic use, this does make sense. Pt c presenting sx of severe abd bloating and diarrhea described as building over time until painful then released all at once as explosion of gas with oatmeal consistency fecal contents. Pt has been experiencing this over past 1mo since reducing shelter opioid use. Pt is up to bathroom every 2hr and unhappy about this. 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 Pt consumes large bowl fruit c protein smoothie for breakfast and consumes sugar-free cough drops all waking hours ~20x/d. Pt was chronically constipated from director long term care opioid use, took miralax daily to help c this but often still only had BM every 3d. Since stopping opioids, pt continued intake of Miralax and continues c high use of sugar alcohols c overt bloating/diarrhea, having BM q2h. HT: 177.8cm WT: 99.4kg UBW: 100kg BMI: 31.4 Nutrition Diagnosis: excessive use of sugar alcohols r/t pt trying to follow Diabetic Diet aeb pt consumes 20+ SF cough drops, miralax, and sugar alcohol containing protein drink daily, pt has severe bloating and diarrhea for 1mo since stopping director long term care opioid therapy. Interventions: 1. Discussed role of sugar alcohols in diet. Described sx of overuse which pt does indorse as his current sx. Pt agrees to stop SF cough drops and to start monitor sugar alcohols in diet to assess safe level for him without bloating/diarrhea. Pt may no longer need Miralax therapy. Discussed incorporating soluble fiber foods into diet and titrating sugar alcohols for preferred BM consistency. Diet Order: CCD Monitoring/Evaluations: happy to see pt in OP setting if he needs further instruction
--- NOTE | 2020-07-13 13:13 | PM.PN.1 ---
Subjective Subjective Date Patient Seen: 07/13/20 Time Patient Seen: 08:13 Interval history: Dehydration Patient feels significantly better. Still has some grumbling and abdominal distension has difficult time passed gas. Stool output has decreased significantly since he has been here. Over overall has more energy feels much clear and much more alert than he had on admission. His baseline other complaints are a basically unchanged specifically his body pain abdominal distension and gurgling. Exam Vital Signs (past 8 hours): - 07/13/20 08:00 07/13/20 09:50 Temperature 98.2 F Pulse Rate 48 L Respiratory Rate 15 Blood Pressure 148/70 H 148/70 H Pulse Oximetry 96 Oxygen Flow Rate 0 Narrative Exam Narrative: Patient is sitting upright in his chair and greeted me upon my arrival into his room very enthusiastically a much more alert than yesterday. He is conversant he is oriented Lungs are entirely clear. Cardiac exam regular rhythm no gallop. He has is pre-admission baseline trace edema. Objective Labs Result Diagrams: 07/13/20 05:10 Labs: Laboratory Results - last 24 hr 07/12/20 07/12/20 07/13/20 10:36 17:11 05:10 VBG pH VBG pCO2 VBG pO2 VBG HCO3 VBG Total CO2 VBG O2 Saturation VBG Base Excess Sodium Cancelled 127 L 131 L Potassium Cancelled 3.7 3.9 Chloride Cancelled 80 L 85 L Carbon Dioxide Cancelled 37 H 39 H BUN Cancelled 69 H 58 H Creatinine Cancelled 1.28 H 1.31 H Estimated GFR Cancelled 54.1 L 52.6 L BUN/Creatinine Ratio Cancelled 53.9 H 44.3 H Glucose Cancelled 99 108 Calcium Cancelled 8.7 9.0 Magnesium 1.9 2.1 07/13/20 09:03 VBG pH 7.44 H VBG pCO2 52.9 H VBG pO2 41 VBG HCO3 36 H VBG Total CO2 37 H VBG O2 Saturation 77 H VBG Base Excess 11.0 H Sodium Potassium Chloride Carbon Dioxide BUN Creatinine Estimated GFR BUN/Creatinine Ratio Glucose Calcium Magnesium Labs reviewed from this morning potassium has improved sodium is improved but still on the low side. Creatinine as a improved to probably is pre-admission baseline. Assessment & Plan Assessment & Plan narrative: 1. Dehydration improved significantly with the saline solution. BUN is still elevated and creatinine still elevated but have improved. Anticipate improvement over the next 24 hours for probably can be discharged at that time. He most likely has pre-existing acute kidney injury exacerbation by his dehydration. This may well have been contributed to by his diuretics may well been also contributed to by his metformin all of which will be discontinued for the time being. 2. His electrolyte imbalance has improved significant as stated. Will be receiving normal saline for the next 24 hours and probably discontinue patient altogether at that time. 3. Acute kidney injury stable presumably will improve somewhat with the resolution of the above problems. 4. Is presume metabolic acidosis has resolved with IV fluids. 5. Diabetes management still going to be problematic a been reasonably well until this most recent 1 but will need be following as an outpatient. He is going to be off his metformin indefinitely and no atrophy consider a treatment options when necessary. 6. As stated presumably will be discharged tomorrow at assuming his labs improved continually as expected
--- NOTE | 2020-07-13 13:25 | CM.IDA ---
Initial DCP Assessment Note Patient is an 79 yo male, resident of [place]. Patient presents w/severe dehydration and electrolyte imbalance PCP: Devan Crabtree Payer: [facility] Per chart review, patient appears quite fragile medically; recent and recurrent loose stool/gas, overall feeling of malaise and depression, sleep disorder, chronic back pain, diabetes w/peripheral neuropathy and currently being worked up in the outpatient setting for normal pressure hydrocephalus Met w/patient and spouse Josy, introduced role. Patient noticeably exhausted and both patient and spouse admit that they have had one visitor after another. This FARM IMPLEMENT ENGINE MECHANIC kept the visit brief; Spouse Josy admits caring for patient at home has been getting more challenging in the last few months; she knows that patient's functional status will continue to decline. Josy feels confident about returning home w/patient when discharged but is curious about home health vs in home cgs ? Provided Senior Resource Guide and highlighted page w/ trading analyst agency numbers. Discussed the difference between in home cgs vs Home health (HH covered by insurance, [facility]). Discussed Palliative Care and Hospice service w/spouse outside of patient's room- strongly encouraged Josy to research all treatment options and services on behalf of her so as to be informed about their options. Josy appreciative. Josy agreeable to home health, no agency preference. Placed call to [facility] per rotation, gave referral to [facility] for HH RN/PT. RN available Saturday if patient leaves tomorrow and available Saturday if patient leaves Saturday. Faxed signed F2F, HH order, H+P and PT notes to [facility]. Will need to send DC Summary when available. According to Josy, patient's adult son/DIL live in [place] and are not offering assist at this time. P: DC home w/spouse and [facility] RN/PT when medically cleared. ELEAZAR Landis Discharge Planning/Care Management CM Discharge Assessment Start: 07/13/20 13:21 Freq: Status: Active Protocol: Document 07/13/20 13:22 [facility] (Rec: 07/13/20 13:25 [facility] [id number]) Discharge Planning Assessment Assigned Brim Welt Sewing Machine Operator ELEAZAR Garcia DPOA/Assigned Designee Name Josy Atkins, spouse Contact Information [phone] Advance Directives? Yes Advance Directives on File No: Spouse states they are on file History Provided By Patient,Family Member,Medical Record Prior Living Arrangements House Household Members spouse Independent with ADL's Yes: Mostly indp requires assist from spouse Is patient alert and oriented? Yes: Tired, some forgetfulness Needs Assistance With Meal Prep,Managing Medications ,Home Chores / Shopping Comment dressing assist, transportation assist Patient/Family Preference Home with Home Health Discharge Plan Home Transportation Arrangement Spouse Referrals Initiated Home Health Additional Comment [facility] Medicare Choice List Provided Yes Has Agency SNF been contacted Yes
[2020-07-13 13:26] VITALS: BP 121/55; PULSE 51; RESP 16; TEMP 36.8; O2SAT 96
[2020-07-13 15:30] VITALS: BP 148/63; PULSE 53; RESP 20; TEMP 36.2; O2SAT 98
[2020-07-13 18:54] LABS: BUN Creatinine Ratio 39.8 (6-22); Blood Urea Nitrogen 47 mg/dL (9-20); Carbon Dioxide 37 mmol/L (22-32); Chloride 90 mmol/L (98-107); Estimated Glomerular Filt Rate 59.4 mL/min (>60); Glucose 173 mg/dL (80-110); HEMOLYSIS < 15 (0-50); Potassium 3.8 mmol/L (3.4-5.1); Sodium 134 mmol/L (137-145)
[2020-07-13 19:00] VITALS: BP 134/61; PULSE 57; RESP 18; TEMP 36.4; O2SAT 97
--- NOTE | 2020-07-13 20:33 | PC.NURSE ---
Addendum entered by Marly Gordillo R.N. 07/13/20 22:59: No stool this shift. Pt voids frequently with standby assistance into bathroom with walker. IV fluids infusing as ordered to left wrist iv. Original Note: Pt states h/o urinary incontinence s/p prostate surgery. Wearing brief and states needs to toilet approximately every 2 hours. Pt denies nausea and admits to chronic peripheral neuropathy pain buttocks to feet 6/10. Pt is able to ambulate with standby assistance, but gait is unsteady. Appropriate mentation and conversation. Spouse has visited this evening shift. Pain med orders as per Dr. Crabtree.
[2020-07-13] MEDS: OXYCODONE/ACETAMINOPHEN 5/325 TABLET 1 TAB PO (21:15)
[2020-07-13] MEDS: OXYCODONE IR 5 MG TABLET PO (21:16)
[2020-07-13] MEDS: PRAMIPEXOLE 1 MG TABLET PO (21:17)
[2020-07-14 00:22] VITALS: BP 134/60; PULSE 52; RESP 20; TEMP 36.3; O2SAT 98
[2020-07-14] MEDS: SODIUM CHLORIDE 0.9% 1,000 ML 150 ML IV ×2 (00:22→06:48)
--- NOTE | 2020-07-14 02:44 | PC.NURSE ---
Patient seen and assessed at 0023. Is alert and oriented except did not know what day of the month it is. Is NIGHTMUTE but wears bilateral hearing aids. Does have some word finding difficulty. Breath sounds diminished but CTA with RA sat of 98%. HRR but bradycardic with rate in 50's. Denies nausea. BT present and abdomen is soft; reports he had a semi formed stool yesterday morning. Reports urinary urgency, frequency and sometimes incontinence but denies dysuria. Is able to move himself in bed. Assisted when out of bed using walker and 1 assist as is weak and unsteady. Reports chronic generalized pain but states severity is 4/10 and declines pain medication. Does have bilateral LE neuropathy from toe to groin. Fall risk score is high and bed alarm is activated. HS CBG was high at 281 so rechecked at 206 and was 164.
[2020-07-14 05:07] VITALS: BP 150/72; PULSE 52; RESP 16; TEMP 36.2; O2SAT 95
[2020-07-14 05:47] LABS: Blood Urea Nitrogen 38 mg/dL (9-20); Calcium 8.9 mg/dL (8.4-10.2); Carbon Dioxide 36 mmol/L (22-32); Chloride 97 mmol/L (98-107); Estimated Glomerular Filt Rate > 60.0 mL/min (>60); Glucose 117 mg/dL (80-110); HEMOLYSIS < 15 (0-50); Sodium 135 mmol/L (137-145)
--- NOTE | 2020-07-14 08:41 | P.DS_ITS ---
History of Present Illness History of Present Illness Chief complaint: Dehydration Narrative: Dehydration Patient admitted from my office this morning for dehydration. Patient has been on Lasix 80 mg daily period and metolazone 2.5 mg daily for recalcitrant pedal edema. This medication combination has helped to where he has hardly any edema of lower extremities. Additionally patient is having frequent loose stools this been going on for weeks of fairly explosive fairly uncomfortable with her amount of gas and rumbling. He has had no nausea or vomiting. No did melena or hematochezia. Patient overall has been feeling poorly for months/years he has had problems with depression. Overall though he is does having difficulties with life in general. He is tired all the time he is weak and unsteady requires a walker/cane to get around. He has a sleep disorder for which she has been taking medications that help to some degree. Main problem is been is pain he has chronic back pain multiple back surgeries as as well as having neck pain he is on oxycodone 10/325 takes 1 every morning and then and takes 1 at nighttime to help him sleep. He has been intraosseous of trying to decrease will which she has at his id goal is to get off it altogether. Additionally takes gabapentin for his peripheral neuropathy. His peripheral neuropathy rick both legs in his involving up to his knees period of the gabapentin helps to some degree. Additionally is restless leg syndrome for which she takes Pap packs all the does seem to help. Lastly he has radicular symptoms from his back he has seen a neurosurgeon nor [facility] was done surgery on in the past and does not seem to be a surgical candidate at this time. Epidural steroid shots have been no value. Other medical problems include diabetes mellitus. This been reading well controlled on combination of dietary manipulation, glipizide and metformin. A1cs have been under 7 for several months. The metformin will be discontinued is a suspect for causing his frequent loose stools. Patient recently undergone evaluation of his head and neck. He was found to have abnormal CT of the brain at has brought the question of normal pressure hydrocephalus.. He is referred to a neurologist in [place] who a was suspicious for same the neurologist send him to a specialist at [facility] in. Meanwhile patient was seen by his neurosurgeon who agreed with the concern. He is being evaluated whether not his symptoms and findings are consistent with normal pressure hydrocephalus. The next step would be spinal tap taking off fluid see that makes a difference in how is behavior is. Additionally had a CT of his neck that showed as degenerative joint disease in his prior surgery. But did show some defects in the bone of the raise a questi on of meds has metastatic disease. So he is referred to an oncologist at the [facility] from his neurosurgeon. He has an appointment with the oncologist on which may repeat reschedule next week. Further evaluation for questionable normal pressure hydrocephalus is pending yet to be determined. Discharge Providers Provider Date of admission: 07/12/20 10:09 Discharge Date: 07/14/20 Primary care physician: Devan Crabtree MD Consults: 07/12/20 10:33 Consult to Occupational Therapy Evaluate & Treat Comment: Physician Instructions: Evaluate and treat Consult to Physical Therapy Evaluate & Treat Comment: Physician Instructions: Evaluate and Treat 07/12/20 12:20 Consult to Dietitian, Adult Routine Comment: Reason For Exam: Recent weight loss 07/12/20 15:20 Consult to Occupational Therapy Evaluate & Treat Comment: Physician Instructions: Evaluate and treat Consult to Physical Therapy Evaluate & Treat Comment: Physician Instructions: Evaluate and Treat 07/13/20 13:00 Consult to Home Health Routine Comment: Reason For Exam: Home Health upon DC Discharge provider: Devan Crabtree MD Summary Hospital Course Discharge Diagnosis: 1. Acute dehydration. 2. Chronic diarrhea. 3. Metabolic acidosis. 4. Hypochloremia. 5. Diabetes mellitus 6. Acute kidney injury 7. Chronic back pain Hospital Course: Patient was admitted from the office because of severe dehydration and generalized weakness. He was found to have significant h ypochloremia and the elevated BUN creatinine. Consistent with metabolic acidosis. He was given the IV fluid saline his entire stay was here initially at 250 cc an hour the decreased 150 cc an hour. He improved significantly as far as his lab studies at well as his general may lays. On discharge she was alert he was awake is much more animated the had been in weeks of actually feeling much better looking much better early had a long time. Additionally had no edema. Likely he will need some diuretic as outpatient primary lack of edema here is because bed rest. Compression stockings would indeed help they are uncomfortable. He is instructed to notify as CV starts have significant edema but will be hesitant to prescribe Lasix and metolazone will probably use Demadex in the future. He is diabetes management yet to be determined. We stopped his metformin altogether. Presumably her needs resumption of some sort medication but we will probably not resume metformin. We also get home health involved. He is discharged home today follow-up with me in 2 weeks. He will get a BMP prior to that visit medications as listed in the discharge summary On date of discharge laboratory studies were as follows.: Sodium 135, potassium 4.0, BUN 38, creatinine 1.15, and GFR 60. Patient was consulted with dietitian apparently a dietitian was convince the patient stool issues secondary to his mouth loss in [facility] which case he will discontinue that altogether. Status at Discharge Cognitive/behavioral status at discharge: oriented Functional status at discharge: uses cane/walker Overall status at discharge: patient is back to baseline Exam Vital Signs (past 8 hours): - 07/14/20 05:07 Temperature 97.2 F L Pulse Rate 52 L Respiratory Rate 16 Blood Pressure 150/72 H Pulse Oximetry 95 Oxygen Delivery Method Room Air Oxygen Flow Rate 0 Objective Labs Result Diagrams: 07/14/20 05:00 Labs: Laboratory Results - last 24 hr 07/13/20 07/13/20 07/14/20 09:03 18:07 05:00 VBG pH 7.44 H VBG pCO2 52.9 H VBG pO2 41 VBG HCO3 36 H VBG Total CO2 37 H VBG O2 Saturation 77 H VBG Base Excess 11.0 H Sodium 134 L 135 L Potassium 3.8 4.0 Chloride 90 L 97 L Carbon Dioxide 37 H 36 H BUN 47 H 38 H Creatinine 1.18 1.15 Estimated GFR 59.4 L > 60.0 BUN/Creatinine Ratio 39.8 H 33.0 H Glucose 173 H 117 H Calcium 9.0 8.9 C. difficile Tox (PCR) 07/14/20 06:15 VBG pH VBG pCO2 VBG pO2 VBG HCO3 VBG Total CO2 VBG O2 Saturation VBG Base Excess Sodium Potassium Chloride Carbon Dioxide BUN Creatinine Estimated GFR BUN/Creatinine Ratio Glucose Calcium C. difficile Tox (PCR) TNP Discharge Plan Discharge Plan Patient Disposition: Home Health Service Discharge comment: chem bg qam. notify md if>200 compression stockings Discharge orders & Medications Prescriptions: Continued glipizide 5 mg tablet extended release 24hr See Rx Instructions .ROUTE .COMPLEX Qty: 180 RF: 3 citalopram [Celexa] 20 mg tablet 20 mg PO QDAY Qty: 90 RF: 3 atorvastatin 40 mg tablet 40 mg PO HS Qty: 90 RF: 3 metoprolol succinate 50 mg tablet extended release 24 hr 50 mg PO QDAY Qty: 90 RF: 3 oxycodone-acetaminophen 10-325 mg tablet 1 tab PO Q6H PRN (Reason: pain) Qty: 100 RF: 0 aspirin 81 mg tablet,delayed release (DR/EC) 81 mg PO DAILY RF: 0 melatonin 10 mg capsule 10 mg PO BEDTIME PRN (Reason: sleep) RF: 0 gabapentin 600 mg tablet 1,200 mg PO BID Qty: 360 RF: 5 pramipexole 0.25 mg tablet See Rx Instructions PO BID Qty: 360 RF: 5 tizanidine 2 mg capsule See Rx Instructions PO Q6-8H PRN (Reason: muscle spasticity) Qty: 60 RF: 5 Discontinued polyethylene glycol 3350 [Miralax] 17 gram Powder In Packet 17 g PO DAILY RF: 0 Hold Instructions: se Follow up/Referrals: Devan Crabtree MD [Primary Care Provider] - Diet/Activity/Treatments Diet: Diet as Tolerated Visit Report/Discharge Packet Visit Report Forms: Patient Portal/API, Stroke Signs & Symptoms Discharge Data Primary Care Provider: Devan Crabtree Attending Provider: Devan Crabtree Admit Date/Time: 07/12/20 10:09
[2020-07-14 09:00] VITALS: BP 143/67; PULSE 50; RESP 16; TEMP 36.2; O2SAT 96
--- NOTE | 2020-07-14 09:38 | CM.DPC ---
DCP Discharge home with HH Per MD, pt is medically stable to d/c home today and already signed F2F for HH. SW met bedside with pt and explained role and explained HH again and pt agreeable to HH but unsure if he will really need it at d/c and SW explained that [facility] will call them after d/c to set up first appointment and can be cancelled at any time although pt discussed his need for med management and strengthening for ambulation and HH seems to be a good fit for the pt. Pt confirms that his spouse will be bedside to provide transport home later this morning. SW called [facility] and updated on pt d/c and they confirm that they have pt set up for opening to service tomorrow 07/15/20 and will call pt later today. SW faxed d/c summary as [facility] confirms they received F2F and orders already. Plan: Patient to d/c home via spouse POV today with [facility] to follow after discharge. ELEAZAR Pena
--- NOTE | 2020-07-14 09:56 | PT.IPTN ---
Physical Therapy Treatment Note M2 PT-IP Current Condition Start: 07/12/20 11:12 Freq: NEEDED Status: Discharge Protocol: Document 07/12/20 14:45 AW (Rec: 07/12/20 16:13 AW [id number]) Physical Therapy Current Condition Current Condition Evaluation Date 07/12/20 Treatment Diagnosis acute dehydration; peripheral neuropathy; difficulty in walking Onset Date 07/12/20 M3 PT-IP Subjective Start: 07/12/20 11:12 Freq: NEEDED Status: Discharge Protocol: Document 07/14/20 09:20 KS (Rec: 07/14/20 11:37 KS [email or web address]) Subjective Physical Therapy Visit Type Type Treatment Note Visit Start Time 09:20 Visit Stop Time 09:56 Total Visit Minutes 36 Notes present during treatment. Number of [employer] OPERATOR Visits 2 Physical Therapy Visit Comments Patient Comments Pt agreeable to work w/ therapy. Patient Goals Return home with his to assist him. Therapy Pain Assessment Pain When Pain Assessed At Rest Pain Present Pain Present Denied Pain M4 PT-IP Mobility and Gait Start: 07/12/20 11:12 Freq: NEEDED Status: Discharge Protocol: Document 07/14/20 09:20 KS (Rec: 07/14/20 11:37 KS [email or web address]) PT-Bed Mobility Assessment Supine to Sit Supine to Sit Standby Assistance,Bedrails Sit to Supine Sit to Supine Minimal Assistance,1 Person Assistance Scooting Scooting to Edge of Bed Standby Assistance Scooting Up and Down in Bed Standby Assistance PT-Transfer Assessment Sit to and From Stand Sit to and from Stand Contact Guard Assistance,1 Person Assistance,Use of Upper Extremities Equipment Transfer Assistive Device Gait Belt,4 Wheeled Walker Orthotic/Prosthetic Devices or Brace: No Transfers Transfer Destination Bed Transfer Technique Stand Step Pivot Transfer Ability Level of Assist Contact Guard Assistance,1 Person Assistance,Use of Upper Extremities Comments Mobility Comments Pt in bed upon arrival from therapy and refused ambulation , and pt stating that they feel prepared to perform at home following caregiver training yesterday. Pt c/o of bilateral quad weakness and agreed to learning LE and quad strengthening exercises. Pt SBA for sup<>sit and scooting to EOB. Pt then sit<>stand w/ 4WW and took 3 steps laterally towards head of bed, CGA for stand<>sit EOB. Pt then performed 1x10 bilateral seated knee extension w/ 5 s hold for quad strengthening and 1x10 seated marching for hip flexor strengthening. Pt Min A for sit<>sup for LE assistance back in bed. Pt then performed 1x10 bilateral quad sets, SLR, adductor squeeze, and 1x10 resisted hip abduction. Pts wrote down reps and instructions for exercises. Encouraged pt and to seek HHPT for LE strengthening to which they both agreed. Pt left in bed w/ all needs in reach. Gait Assessment Gait Gait Assistance Required: Contact Guard Assist,1 Person Assist Distance (Feet) 2 Able to Maintain Weight Bearing Status Yes During Gait Assistive Devices Assistive Device Gait Belt,4 Wheeled Walker Orthotic/Prosthetic Devices or Brace: No Comments Gait Comments Please refer to mobility section, 3 lateral steps for repositioning only. PT-Balance Assessment Sitting Balance and Reactions Static Sitting Balance Ability Normal Dynamic Sitting Balance Ability Good Standing Balance and Reactions Static Standing Balance Ability Fair Dynamic Standing Balance Ability Poor Device Used 4WW M5 PT-IP Objective Assessments Start: 07/12/20 11:12 Freq: NEEDED Status: Discharge Protocol: Document 07/12/20 14:45 AW (Rec: 07/12/20 16:13 AW [id number]) Orientation Orientation/Cognition Level of Alertness Alert Orientation Name,Month,Place,Situation Language Function Ability No Deficits Noted Safety Awareness Decreased Safety Awareness Memory Description Short Term Impaired Gross Range of Motion Upper Extremity ROM Assessment Within Functional Limits Lower Extremity ROM Assessment Within Functional Limits Strength Lower Extremity Strength Assessment Bilaterally Impaired Hip R 4/5; L 4-/5 Knee R 4/5; L 4-/5 Ankle B 4-/5 Coordination Assessment Gross Coordination Gross Coordination WNL Assessment Finger to Nose Test Normal Performance Sensation Assessment Sensation Gross Sensation Right LE Impaired,Left LE Impaired Light Touch Impaired Proprioception (Position) Impaired Sensation Description Numbness,Tingling Comments Sensation Comments Pt has peripheral neuropathy affecting entire BLE with distal more affected that proximal. M6 PT-IP Treatment Start: 07/12/20 11:12 Freq: NEEDED Status: Discharge Protocol: Document 07/14/20 09:20 KS (Rec: 07/14/20 11:37 KS [email or web address]) Physical Therapy Treatment Education Education Provided Precautions,Safety Other Treatments Other Treatment Performed Provided LE strengthening exercises for pt to complete at home, educated pt and on benefits of HHPT. M7 PT-IP Assessment and Plan Start: 07/12/20 11:12 Freq: NEEDED Status: Discharge Protocol: Document 07/14/20 09:20 KS (Rec: 07/14/20 11:37 KS [email or web address]) PT Summary Assessment and Plan Potential Rehabilitation Potential Good Status of Condition at Evaluation Evolving Summary Impairments Pain,ROM,Strength,Balance, Coordination,Sensation,Bed Mobility,Transfers,Gait, Activity Tolerance Assessment Summary Pt denied ambulation this AM, but pt and state they feel safe to perform at home w /o trouble. Pt SBA for sup<> sit and scooting to EOB. Pt CGA for sit<>stand and lateral steps w/ 4WW. Pt then agreed to quad strengthening exericses and completed seated knee extension, seated marches, quad sets, SLR, adductor squeeze, and resisted hip abduction. Pt is agreeable to and would benefit from HHPT to improve LE strength, ambulation, and bed mobility. Goals Bed Mobility Goal Standby Assistance Transfer Goal Standby Assistance,Front Wheeled Walker Gait Goal Standby Assistance,Front Wheel Walker Gait Distance 120 Other Goals - up/down 2 steps with right rail ascending SBA Days to Meet Goals 5 Frequency of Treatment Frequency Of Treatment Once a Day Treatment Plan Physical Therapy Treatment Plan Bed Mobility Training,Transfer Training,Gait Training, Therapeutic Exercise,Balance Retraining,Discharge Planning, Hot or Cold Pack,Neuromuscular Re-ed,Coordination Retraining Other Recommendations and Next Treatment transfers and gait training Focus with FWW, safety techniques usign BUE and AD positioning Recommendations To Nursing Amount of Assist Needed 1 Person Assist Discharge Recommendations PT Discharge Recommendations Home with Assistance,Home Health Transportation Needs at Discharge Private Vehicle
[2020-07-14] MEDS: CITALOPRAM 20 MG TABLET PO (10:13)
[2020-07-14] MEDS: ASPIRIN EC 81 MG TABLET PO (10:14)
[2020-07-14 10:15] VITALS: BP 143/67
[2020-07-14] MEDS: METOPROLOL ER 25 MG TABLET PO (10:15)
--- NOTE | 2020-07-14 10:15 | OT.IPNOTE ---
Pt already dressed and ready to go home. Pt and having no further OT questions or needs at this time.
[2020-07-14] MEDS: GABAPENTIN 600 MG TABLET 1200 MG PO (10:19)
[2020-07-14] MEDS: glipiZIDE XL 5 MG TAB 10 MG PO (10:20)
[2020-07-14] MEDS: PRAMIPEXOLE 0.25 MG TABLET 0.75 MG PO (10:21)
== END 2020-07-14 10:58 | disposition home health service (06) ==
PROVIDERS: Admitting Provider Family Medicine; PCP Family Medicine; Referring Provider Family Medicine; Visit Provider Family Medicine
DX: E86.0 Dehydration (principal); F32.9 Major depressive disorder, single episode, unspecified; G62.9 Polyneuropathy, unspecified; E11.9 Type 2 diabetes mellitus without complications; Z79.4 Long term (current) use of insulin; M54.5 Low back pain; M54.2 Cervicalgia; G89.29 Other chronic pain; R19.7 Diarrhea, unspecified; N17.9 Acute kidney failure, unspecified; E87.2 Acidosis; Z11.59 Encounter for screening for other viral diseases
CPT/HCPCS: 36415; 80048; 82805; 82962; 83735; 87635; 93005; 93010; 96360; 96361; 96372; 97110; 97116; 97162; 97165; 97530; 97535; 99217; 99220; 99225; G0378; G0379; J1650

== ENCOUNTER → 2020-08-10 15:10 | Outpatient (CLI) | payer MEDICARE, SELFPAY ==
[2020-07-12 11:49] VITALS: BMI 31.8
[2020-08-10 16:22] LABS: BUN Creatinine Ratio 22.1 (6-22); Blood Urea Nitrogen 25 mg/dL (9-20); Calcium 8.8 mg/dL (8.4-10.2); Carbon Dioxide 36 mmol/L (22-32); Chloride 100 mmol/L (98-107); Estimated Glomerular Filt Rate > 60.0 mL/min (>60); Glucose 110 mg/dL (80-110); HEMOLYSIS < 15 (0-50); Magnesium 2.1 mg/dL (1.6-2.3); Potassium 5.2 mmol/L (3.4-5.1); Sodium 139 mmol/L (137-145)
== END ==
PROVIDERS: PCP Family Medicine; Referring Provider Family Medicine; Visit Provider Family Medicine
DX: R60.0 Localized edema (principal); E86.0 Dehydration
CPT/HCPCS: 36415; 80048; 83735

== ENCOUNTER → 2020-08-25 16:03 | Outpatient (CLI) | payer MEDICARE, SELFPAY ==
[2020-08-26 20:44] LABS: COVID19 Sendout Not Detected (Not Detect)
== END ==
PROVIDERS: PCP Family Medicine; Visit Provider Nurse Practitioner
DX: Z11.59 Encounter for screening for other viral diseases (principal)
CPT/HCPCS: 87635

== ENCOUNTER → 2020-08-25 16:12 | Outpatient (CLI) | payer MEDICARE, SELFPAY ==
--- NOTE | 2020-08-25 16:14 | DI.RAD.S_ITS ---
PROCEDURE: XR CHEST 2V INDICATIONS: Worsening cough TECHNIQUE: 2 views of the chest were acquired. COMPARISON: [facility], , XR CHEST 1V, 08/18/2019, 3:57. [facility], , CHEST 1 VIEW, 01/04/2018, 12:26. FINDINGS: Surgical changes and devices: None. Lungs and pleura: Lungs are abnormal with relative pulmonary hyperexpansion and blunting the costophrenic sulcus bilaterally.. No pleural effusions or pneumothorax. Mediastinum: Mediastinal contours are normal. Heart size is normal. Bones and chest wall: No suspicious bony abnormalities. Soft tissues appear unremarkable. IMPRESSION: No pneumonia found. COPD suspected given large lung volumes and blunting of the costophrenic sulcus bilaterally. Dictated by: Oscar Gupta M.D. on 08/25/2020 at 16:22 Approved by: Oscar Gupta M.D. on 08/25/2020 at 16:22
== END ==
PROVIDERS: PCP Family Medicine; Referring Provider Nurse Practitioner; Visit Provider Nurse Practitioner
DX: Z11.59 Encounter for screening for other viral diseases (principal); R05 Cough
CPT/HCPCS: 71046; 87635

== ENCOUNTER → 2020-09-02 12:39 | Outpatient (CLI) | payer MEDICARE, SELFPAY | PROVIDERS: PCP Family Medicine; Referring Provider Family Medicine; Visit Provider Family Medicine | DX: M85.852 Other specified disorders of bone density and structure, left thigh (principal); R93.89 Abnormal findings on diagnostic imaging of other specified body structures; Z87.891 Personal history of nicotine dependence | CPT/HCPCS: 77080 ==

== ENCOUNTER → 2020-09-19 14:40 | Outpatient (CLI) | payer MEDICARE, SELFPAY | PROVIDERS: PCP Family Medicine; Referring Provider Family Medicine; Visit Provider Family Medicine | DX: E11.9 Type 2 diabetes mellitus without complications (principal) | CPT/HCPCS: 36415; 83036 ==

== ENCOUNTER 2020-09-23 10:22 | Emergency (ER) | payer MEDICARE, SELFPAY ==
[2020-09-23] VITALS (22 sets, daily range): BP systolic 173–207; BP diastolic 77–130; PULSE 51–58; RESP 13–25; TEMP 37.1; O2SAT 94–99; BMI 32.3
--- NOTE | 2020-09-23 11:06 | DI.RAD.S_ITS ---
PROCEDURE: XR CHEST 1V INDICATIONS: chest pain TECHNIQUE: One view of the chest was acquired. COMPARISON: [facility], , CHEST 1 VIEW, 01/04/2018, 12:26. [facility], CR, XR CHEST 1V, 08/18/2019, 3:57. [facility], CR, XR CHEST 2V, 08/25/2020, 15:11. FINDINGS: Surgical changes and devices: None. Lungs and pleura: Low lung volumes are noted. This causes a crowded appearance to the lung markings and limits evaluation. Mild interstitial prominence is seen. No large pneumothorax or large pleural effusions are seen. Mediastinum: The cardiac contours are within normal limits. The aorta demonstrates calcification and tortuosity. Bones and chest wall: Age-appropriate bony degenerative changes are seen. No suspicious bony lesions. Overlying soft tissues appear unremarkable. IMPRESSION: Low lung volumes, with mild interstitial prominence. The interstitial prominence may be related to mild pulmonary edema or artifact from the low lung volumes. If clinically appropriate, a short-term followup chest series (with PA and lateral views) performed in deep inspiration is suggested for further evaluation. Dictated by: Osmel Paulino M.D. on 09/23/2020 at 10:29 Approved by: Osmel Paulino M.D. on 09/23/2020 at 10:31
--- NOTE | 2020-09-23 11:16 | PC.NURSE ---
iv would not advance,able to draw labs.
[2020-09-23 11:20] LABS: Add Manual Diff / Slide Review NO; Basophils Absolute Auto 100 /uL (0-100); Basophils Percent Auto 0.7 % (0-2); Eosinophils Absolute Auto 200 /uL (0-450); Eosinophils Percent Auto 1.7 % (2-4); Hematocrit 41.4 % (41-53); Hemoglobin 13.8 g/dL (13.5-17.5); Lymphocytes Absolute Auto 1400 /uL (1100-4500); Lymphocytes Percent Auto 15.8 % (25-40); Mean Corpuscular HGB Conc 33.3 % (30-36); Mean Corpuscular Hemoglobin 29.4 PG (26-34); Mean Corpuscular Volume 88.3 fL (80-100); Monocytes Absolute Auto 1000 /uL (0-900); Monocytes Percent Auto 10.9 % (3-14); Neutrophils Absolute Auto 6500 /uL (1500-7000); Neutrophils Percent Auto 70.9 % (50-75); Platelet Count 193 X10^3/uL (150-400); Red Blood Cell Count 4.69 X10^6/uL (4.5-5.9); Red Cell Distribution Width 15.1 % (11.6-14.8); White Blood Cell Count 9.1 X10^3/uL (4.5-11.0)
[2020-09-23 11:31] LABS: Alanine Aminotransferase 34 IU/L (<50); Albumin 4.1 g/dL (3.5-5.0); Albumin Globulin Ratio 1.6 (1.0-2.8); Alkaline Phosphatase 123 U/L (38-126); Aspartate Aminotransferase 30 IU/L (17-59); BUN Creatinine Ratio 30.3 (6-22); Bilirubin Total 0.5 mg/dL (0.2-1.3); Blood Urea Nitrogen 27 mg/dL (9-20); Calcium 9.1 mg/dL (8.4-10.2); Carbon Dioxide 30 mmol/L (22-32); Chloride 100 mmol/L (98-107); Creatine Kinase 102 U/L (55-170); Estimated Glomerular Filt Rate > 60.0 mL/min (>60); Globulin 2.5 g/dL (1.7-4.1); Glucose 135 mg/dL (80-110); HEMOLYSIS < 15 (0-50); Lipase 129 U/L (23-300); Potassium 4.7 mmol/L (3.4-5.1); Sodium 135 mmol/L (137-145); Total Protein 6.6 g/dL (6.3-8.2)
--- NOTE | 2020-09-23 11:33 | ED.GENADULT ---
HPI - General Adult General Chief complaint: Hypertension Stated complaint: high bp Time Seen by Provider: 09/23/20 11:06 Source: patient Mode of arrival: Ambulatory Limitations: no limitations History of Present Illness HPI narrative: Patient is an 80-year-old male who presents with a variety of symptoms. It as though he had some chest discomfort this morning took his blood pressure which was elevated and he came to the ER. He said his x-rays have previously shown COPD he was unsure if this chest discomfort was related to that as all is in the center of his chest that lasted briefly. He has had that in the past but it was significantly worse today. It happened this morning at rest. He denies any shortness of breath. He is mostly concerned that his blood pressure is quite elevated he denies any history of hypertension. He really denies as any sort of pain he certainly does not have it anymore it was nonradiating no provocation or palliation. He did feel like he might not feel did get enough air in so he thought it might be related to the possible COPD. Related Data Home Medications Medication Instructions Recorded Confirmed aspirin 81 mg tablet,delayed 81 mg PO DAILY 12/07/19 09/20/20 release melatonin 10 mg capsule 10 mg PO BEDTIME PRN 12/07/19 09/20/20 Previous Rx's Medication Instructions Recorded citalopram 20 mg tablet 20 mg PO QDAY #90 tab 02/09/20 glipizide 5 mg tablet, extended See Rx Instructions .ROUTE 02/09/20 release 24 hr .COMPLEX #180 tab atorvastatin 40 mg tablet 40 mg PO HS #90 tab 02/10/20 metoprolol succinate 50 mg 50 mg PO QDAY #90 ter 02/10/20 tablet,extended release 24 hr gabapentin 600 mg tablet 1,200 mg PO BID #360 tab 06/06/20 pramipexole 0.25 mg tablet See Rx Instructions PO BID #360 tab 06/06/20 tizanidine 2 mg capsule See Rx Instructions PO Q6-8H PRN 06/14/20 #60 cap Four-wheel walker #1 ea 08/11/20 oxycodone-acetaminophen 10 mg-325 1 tab PO Q6H PRN #100 tab 08/11/20 mg tablet albuterol sulfate 90 mcg/actuation 2 puff INHALATION Q4-6H PRN #8.5 08/25/20 aerosol inhaler gram azithromycin 250 mg tablet See Rx Instructions PO .COMPLEX #6 08/25/20 tab inhalational spacing device #1 each 08/25/20 clotrimazole-betamethasone 1 1 applictn TOP BID 14 Days #15 gram 08/29/20 %-0.05 % topical cream Allergies Allergy/AdvReac Type Severity Reaction Status Date / Time doxycycline AdvReac Vomiting Verified 09/23/20 11:03 Review of Systems Review of Systems ROS Unobtainable: All systems reviewed & are unremarkable except as noted in HPI and below Constitutional Constitutional: Denies chills, Denies fever(s), Denies lethargy and Denies weakness Cardiovascular Cardiovascular: Reports as per HPI, Denies dyspnea and Denies dyspnea on exertion Respiratory Respiratory: Denies cough, Denies dyspnea, Denies dyspnea on exertion and Denies wheezing Gastrointestinal Gastrointestinal: Denies abdominal pain, Denies change in bowel habits, Denies diarrhea, Denies nausea and Denies vomiting Musculoskeletal Musculoskeletal: Denies back pain and Denies loss of height Integumentary/Breasts Skin/Breast: Denies pruritus, Denies erythema, Denies rash and Denies wounds Neurologic Neurologic: Denies confusion and Denies weakness Psychiatric Psychiatric: Denies anxiety, Denies confusion, Denies depression, Denies homicidal ideation and Denies suicidal ideation Allergic/Immunologic Allergic/Immunologic: Denies wheezing Patient History Medical History Ankle pain (Chronic ~2005) Bullous pemphigoid (Chronic) Chicken pox (Resolved ~1939) Depression (Chronic ~1999) Diabetes mellitus (Chronic ~2011) Hearing loss (Chronic ~2001) History of urinary incontinence (Chronic ~1999) Hypertension (Chronic ~1982) Leg edema (Acute) Measles (Resolved ~1939) Mumps (Resolved ~1939) Osteopenia (Chronic ~2013) Pancreatitis (Chronic ~2013) Peripheral neuropathy (Chronic ~1999) Prostate cancer (Chronic ~1999) Restless leg syndrome (Chronic ~2008) Sleep apnea (Chronic ~2009) Vision disorder (Chronic) Surgical History Anesthesia (Resolved) Broken leg (Resolved ~2005) Cataracts, bilateral (Resolved ~2012) Status post laminectomy (~2000) Status post radical cystoprostatectomy (~1999) Family History Father Cancer Grandfather Heart disease Grandmother Heart disease Mother Cancer Hypertension Social History household members: spouse Smoking Status: Former smoker alcohol intake: current Smoking Status: Former smoker alcohol intake frequency: a few times a month Substance Use Type: does not use Exam Initial Vital Signs Initial Vital Signs: Vital Signs Pulse Rate 56 L 09/23/20 11:01 Respiratory Rate 21 09/23/20 11:01 Blood Pressure 198/81 H 09/23/20 11:01 Pulse Oximetry 97 09/23/20 11:01 GENERAL: Very pleasant older male and in no acute distress. HEENT: Head atraumatic,EOMI, pupils reactive, face symmetric, moist mucous membranes CARDIOVASCULAR: Regular rate and rhythm without murmurs, rubs or gallops. RESPIRATORY: Breath sounds equal bilaterally, no wheezes rales or rhonchi. No respiratory distress ABDOMEN: Soft, nontender. Normoactive bowel sounds all 4 quadrants. No guarding or rebound. EXTREMITIES: Normal range of motion, no clubbing or edema. Neurovascularly intact NEUROLOGICAL: Alert and oriented x4.Normal gait and speech. Cranial nerves II through XII grossly intact. SKIN: Warm, dry, no laceration, no petechiae, no rashes or lesions. Course Orders Ordered: ED Orders 09/23/20 11:06 XR chest 1V Stat EKG-12 Lead Stat 09/23/20 11:10 Complete Blood Count AUTO DIFF Stat Comprehensive Metabolic Panel Stat Lipase Stat Troponin & CK Cardiac Panel Stat 09/23/20 13:09 Troponin I Stat 09/23/20 14:39 CT angio chest abdomen pelvis Stat 09/23/20 16:07 COVID19 -ED/INPAT/OR/L&D Stat Discontinued Medications Aspirin (Aspirin Chew) 324 mg PO NOW ONE Stop: 09/23/20 12:02 Last Admin: 09/23/20 12:06 Dose: 243 mg Documented by: YI Labetalol HCl (Trandate) 10 mg IV NOW ONE Stop: 09/23/20 15:44 Last Admin: 09/23/20 16:02 Dose: 10 mg Documented by: YI Vital Signs Vital signs: Vital Signs - 8 hr 10/30/20 11:01 09/23/20 11:03 09/23/20 11:30 Temperature 98.8 F Pulse Rate 56 L 56 L 53 L Respiratory Rate 21 17 20 Blood Pressure 198/81 H 198/81 H Pulse Oximetry 97 97 96 09/23/20 11:31 09/23/20 12:00 09/23/20 12:30 Temperature Pulse Rate 53 L 52 L 52 L Respiratory Rate 22 19 18 Blood Pressure 173/86 H 191/78 H 190/130 H Pulse Oximetry 96 98 97 09/23/20 13:00 09/23/20 13:30 09/23/20 13:59 Temperature Pulse Rate 51 L 51 L 54 L Respiratory Rate 23 24 Blood Pressure 183/81 H Pulse Oximetry 97 95 97 09/23/20 14:17 09/23/20 14:30 09/23/20 15:58 Temperature Pulse Rate 58 L 52 L 55 L Respiratory Rate 23 21 Blood Pressure Pulse Oximetry 99 97 97 09/23/20 16:00 09/23/20 16:11 09/23/20 16:12 Temperature Pulse Rate 55 L 54 L 54 L Respiratory Rate 16 15 18 Blood Pressure 207/84 H 199/80 H 183/80 H Pulse Oximetry 96 97 96 09/23/20 16:15 09/23/20 16:30 09/23/20 16:45 Temperature Pulse Rate 55 L 54 L 54 L Respiratory Rate 13 16 25 H Blood Pressure 186/77 H 193/80 H 195/85 H Pulse Oximetry 97 96 94 09/23/20 17:00 09/23/20 17:01 09/23/20 17:12 Temperature Pulse Rate 53 L 54 L 55 L Respiratory Rate 23 25 H 13 Blood Pressure 197/89 H 207/84 H Pulse Oximetry 96 96 98 09/23/20 17:15 Temperature Pulse Rate 52 L Respiratory Rate 22 Blood Pressure 194/80 H Pulse Oximetry 97 Medical Decision Making Lab Data Lab results reviewed: Yes I reviewed the patient's lab results. Result diagrams: 09/23/20 11:10 09/23/20 11:10 Labs: Lab Results 09/23/20 09/23/20 09/23/20 Range/Units 11:10 11:10 13:09 WBC 9.1 (4.5-11.0) X10^3/uL RBC 4.69 (4.5-5.9) X10^6/uL Hgb 13.8 (13.5-17.5) g/dL Hct 41.4 (41-53) % MCV 88.3 (80-100) fL MCH 29.4 (26-34) PG MCHC 33.3 (30-36) % RDW 15.1 H (11.6-14.8) % Plt Count 193 (150-400) X10^3/uL Neut % (Auto) 70.9 (50-75) % Lymph % (Auto) 15.8 L (25-40) % [place] % (Auto) 10.9 (3-14) % Eos % (Auto) 1.7 L (2-4) % Baso % (Auto) 0.7 (0-2) % Neut # (Auto) 6500 (9707-6950) /uL Lymph # (Auto) 1400 (9630-6119) /uL [place] # (Auto) 1000 H (0-900) /uL Eos # (Auto) 200 (0-450) /uL Baso # (Auto) 100 (0-100) /uL Sodium 135 L (137-145) mmol/L Potassium 4.7 (3.4-5.1) mmol/L Chloride 100 (98-107) mmol/L Carbon Dioxide 30 (22-32) mmol/L BUN 27 H (9-20) mg/dL Creatinine 0.89 (0.66-1.25) mg/dL Estimated GFR > 60.0 (>60) mL/min BUN/Creatinine Ratio 30.3 H (6-22) Glucose 135 H (80-110) mg/dL Calcium 9.1 (8.4-10.2) mg/dL Total Bilirubin 0.5 (0.2-1.3) mg/dL AST 30 (17-59) IU/L ALT 34 (<50) IU/L Alkaline Phosphatase 123 (38-126) U/L Total Creatine Kinase 102 (55-170) U/L CK-MB (CK-2) 2.41 H (<2.37) ng/mL CK-MB (CK-2) Rel Index 2.4 (1.5-5.0) % Troponin I 0.039 H 0.041 H (0.01-0.034) ng/mL Total Protein 6.6 (6.3-8.2) g/dL Albumin 4.1 (3.5-5.0) g/dL Globulin 2.5 (1.7-4.1) g/dL Albumin/Globulin Ratio 1.6 (1.0-2.8) Lipase 129 (23-300) U/L COVID-19 PCR (Negative) 09/23/20 Range/Units 16:07 WBC (4.5-11.0) X10^3/uL RBC (4.5-5.9) X10^6/uL Hgb (13.5-17.5) g/dL Hct (41-53) % MCV (80-100) fL MCH (26-34) PG MCHC (30-36) % RDW (11.6-14.8) % Plt Count (150-400) X10^3/uL Neut % (Auto) (50-75) % Lymph % (Auto) (25-40) % [place] % (Auto) (3-14) % Eos % (Auto) (2-4) % Baso % (Auto) (0-2) % Neut # (Auto) (1889-8337) /uL Lymph # (Auto) (5094-5805) /uL [place] # (Auto) (0-900) /uL Eos # (Auto) (0-450) /uL Baso # (Auto) (0-100) /uL Sodium (137-145) mmol/L Potassium (3.4-5.1) mmol/L Chloride (98-107) mmol/L Carbon Dioxide (22-32) mmol/L BUN (9-20) mg/dL Creatinine (0.66-1.25) mg/dL Estimated GFR (>60) mL/min BUN/Creatinine Ratio (6-22) Glucose (80-110) mg/dL Calcium (8.4-10.2) mg/dL Total Bilirubin (0.2-1.3) mg/dL AST (17-59) IU/L ALT (<50) IU/L Alkaline Phosphatase (38-126) U/L Total Creatine Kinase (55-170) U/L CK-MB (CK-2) (<2.37) ng/mL CK-MB (CK-2) Rel Index (1.5-5.0) % Troponin I (0.01-0.034) ng/mL Total Protein (6.3-8.2) g/dL Albumin (3.5-5.0) g/dL Globulin (1.7-4.1) g/dL Albumin/Globulin Ratio (1.0-2.8) Lipase (23-300) U/L COVID-19 PCR Negative (Negative) Urine Dip Bedside Urine Glucose Negative Bedside Urine Bilirubin - Negative Bedside Urine Ketone - Negative Urine Specific [place] 1.010 Bedside Urine Occult Blood - Negative Bedside Urine pH 7.5 Bedside Urine Protein - Negative Bedside Urine Urobilinogen +/- 1mg Bedside Urine Nitrite - Negative Bedside Urine Leukocytes - Negative Esterase Point of care testing: Urine Dip Bedside Urine Glucose Negative Bedside Urine Bilirubin - Negative Bedside Urine Ketone - Negative Urine Specific [place] 1.010 Bedside Urine Occult Blood - Negative Bedside Urine pH 7.5 Bedside Urine Protein - Negative Bedside Urine Urobilinogen +/- 1mg Bedside Urine Nitrite - Negative Bedside Urine Leukocytes - Negative Esterase Imaging Data CT scan - abdomen/pelvis: Radiologist's Impression: PROCEDURE: CT ANGIO CHEST ABDOMEN PELVIS INDICATIONS: chest discomfort and htn TECHNIQUE: Precontrast 5 mm thick sections acquired from the lung apices to the iliac crests. After the administration of intravenous contrast, 2.5 mm thick sections again acquired from the lung apices to the iliac crests. Maximum intensity projection (MIP) oblique sagittal and coronal reformats were then acquired. For radiation dose reduction, the following was used: automated exposure control. COMPARISON: CT, THORAX WITH CONTRAST, 09/05/2006, 10:57. CT, ABDOMEN/PELVIS WITH CONTRAST, 03/02/2013, 10:46. [facility], CT, CT ABDOMEN PELVIS W CON, 01/08/2019, 14:41. [facility], CR, XR CHEST 1V, 09/23/2020, 11:08. FINDINGS: Image quality: Excellent. AORTA: The ascending thoracic aorta is ectatic in caliber measuring up to 4 cm. The aortic arch measures 3 cm, tapering to 2.7 cm in the proximal descending thoracic aorta. The descending thoracic aorta is normal in caliber. There is severe atherosclerosis in the aortic arch and moderate atherosclerosis in distal abdominal aorta. No aortic dissection. The celiac trunk, superior mesenteric artery and inferior mesenteric artery are patent. There is a single renal artery on each side. Renal arteries are patent bilaterally. The iliac arteries are patent bilaterally. CHEST: Lungs and pleura: There are nodular infiltrates in the right middle lobe. A 2 mm nodule is seen in the left upper lobe (series 6, image 71). No pleural effusions or pneumothorax. Central and peripheral airways are patent and normal in caliber. Mediastinum: Heart size is normal. No pericardial effusion. No mediastinal or hilar adenopathy by size criteria. Central pulmonary arteries are normal in size. Esophagus is normal in caliber. There is a small hiatal hernia. There is concentric thickening at the GE junction. Bones and chest wall: No axillary adenopathy by size criteria. Thyroid gland is normal. No suspicious bony lesions. No vertebral body compression fractures. ABDOMEN: Solid organs: Again noted is a heterogeneous low-density mass in the left hepatic lobe measuring 3.6 x 6.2 cm, unchanged in size. The mass demonstrates peripheral enhancement and partial calcification. It is most likely hepatic hemangioma. A 3 cm low-density mass in the caudate is also stable. Liver is normal in size. Gallbladder is contracted. Biliary system is non dilated. There is a 1.3 x 2.1 cm cyst in the tail of the pancreas, unchanged. Spleen is normal in size and enhancement. There is a 1.7 x 2.2 cm left adrenal nodule, which is increased in size since 01/08/2019. Both kidneys are normal in size and enhancement, without hydronephrosis. Peritoneum and bowel: No free fluid or air. There is a large amount of stool in colon. Normal appendix. Bowel loops are normal in caliber and wall thickness. Nodes and vessels: No retroperitoneal or mesenteric adenopathy by size criteria. Inferior vena cava is normal in morphology. Miscellaneous: No ventral hernias. PELVIS: Genitourinary: Bladder is contracted. Prostate is surgically resected. Miscellaneous: No inguinal hernias or adenopathy. No ventral hernias. Bones: No suspicious bony lesions. No vertebral body compression fractures. There are degenerative changes in lumbar spine. Prominent Schmorl's nodes are seen in inferior endplate of L3 and L4 and superior endplate of L5. IMPRESSION: 1. No aortic aneurysm or dissection. 2. Severe atherosclerotic calcification of aortic arch and moderate atherosclerotic calcification of distal abdominal aorta. 3. Two hepatic masses are again visualized, unchanged in size, most likely hepatic hemangiomas. 4. Mild nodular infiltrates in the right middle lobe, most likely inflammatory or infectious in etiology, including granulomatous infections. 5. Enlargement of left adrenal nodule. Adrenal protocol CT or MRI is suggested for follow-up evaluation. 6. Stable cystic lesion in pancreatic tail. 7. A 2 mm nodule in the left upper lobe. Please see enclosed follow-up recommendation. Fleischner Society criteria for SOLID lung nodule followup. Nodule size (mm)Low-risk patientHigh-risk patient?4No follow-up neededFollow-up at 12 mo; if no change, no further follow-up>[id number] CT at 12 mo; if no change, no further follow-up needed.Initial follow-up CT at 6-12 mo, then 18-24 mo if no change. >6-8Initial follow-up CT at 6-12 mo, then 18-24 mo if no change. Initial follow-up CT at 3-6 mo, then 9-12 mo and 24 mo if no change. >8Follow-up CT at 3, 9, 24 mo. Or PET and/or biopsy.Same as for low-risk pts. Dictated by: Saúl Gandara M.D. on 09/23/2020 at 16:30 Approved by: Saúl Gandara M.D. on 09/23/2020 at 16: Chest x-ray: Radiologist's Impression: PROCEDURE: XR CHEST 1V INDICATIONS: chest pain TECHNIQUE: One view of the chest was acquired. COMPARISON: [facility], , CHEST 1 VIEW, 01/04/2018, 12:26. [facility], , XR CHEST 1V, 08/18/2019, 3:57. [facility], , XR CHEST 2V, 08/25/2020, 15:11. FINDINGS: Surgical changes and devices: None. Lungs and pleura: Low lung volumes are noted. This causes a crowded appearance to the lung markings and limits evaluation. Mild interstitial prominence is seen. No large pneumothorax or large pleural effusions are seen. Mediastinum: The cardiac contours are within normal limits. The aorta demonstrates calcification and tortuosity. Bones and chest wall: Age-appropriate bony degenerative changes are seen. No suspicious bony lesions. Overlying soft tissues appear unremarkable. IMPRESSION: Low lung volumes, with mild interstitial prominence. The interstitial prominence may be related to mild pulmonary edema or artifact from the low lung volumes. If clinically appropriate, a short-term followup chest series (with PA and lateral views) performed in deep inspiration is suggested for further evaluation. Dictated by: Osmel Paulino M.D. on 09/23/2020 at 10:29 ECG Data Attestation: I personally reviewed and interpreted this ECG as follows: Prior ECG tracings: available for review Interpretation: EKG 1. Normal sinus rhythm rate 52 p.r. interval 237 QRS 97 QTC 455 p.r. interval similar to previous EKG Q-waves also noted in lead 3 similar to previous EKG EKG 2. Sinus rhythm rate 52 p.r. interval 222 and a QRS 104 QTC 472 no changes from prior MDM Narrative Medical decision making narrative: Patient has indeterminate troponin of 0.39, his blood pressure has remained elevated here in the ED although has decreased some. He has absolutely no chest pain here. 2 hour repeat troponin shows very mild increases 0.41 a still in the indeterminate range. Blood pressure again still remains elevated EKG does not show any acute change. This does appear to be hypertensive emergency with possible end-organ damage verses acute coronary syndrome although he has no chest pain. Unfortunately not able to do stress test here at [facility]. With elevated blood pressure indeterminate troponin will rule out any dissection possible silent dissection. CT is negative. Patient is given labetalol 10 mg for hypertension did not seem to help much. 1342- Dr. Sarah Calderon, accepted at [facility]. Discharge Plan Departure Patient Disposition: [facility] Clinical Impression: Hypertensive emergency, Atypical chest pain Discharge Date/Time: 09/23/20 17:28 Prescriptions: No Action azithromycin 250 mg tablet See Rx Instructions PO .COMPLEX Qty: 6 RF: 0 albuterol sulfate 90 mcg/actuation HFA aerosol inhaler 2 puff INHALATION Q4-6H PRN (Reason: shortness of breath or wheezing) Qty: 8.5 RF: 0 (DME) Marc Aerosol Cole Enhancer Spacer See Rx Instructions .ROUTE .MEDSUPPLY Qty: 1 RF: 0 glipizide 5 mg tablet extended release 24hr See Rx Instructions .ROUTE .COMPLEX Qty: 180 RF: 3 citalopram [Celexa] 20 mg tablet 20 mg PO QDAY Qty: 90 RF: 3 atorvastatin 40 mg tablet 40 mg PO HS Qty: 90 RF: 3 metoprolol succinate 50 mg tablet extended release 24 hr 50 mg PO QDAY Qty: 90 RF: 3 aspirin 81 mg tablet,delayed release (DR/EC) 81 mg PO DAILY RF: 0 melatonin 10 mg capsule 10 mg PO BEDTIME PRN (Reason: sleep) RF: 0 clotrimazole-betamethasone 1-0.05 % cream 1 applictn TOP BID 14 Days Qty: 15 RF: 5 (DME) Four-wheel walker Qty: 1 RF: 0 oxycodone-acetaminophen 10-325 mg tablet 1 tab PO Q6H PRN (Reason: pain) Qty: 100 RF: 0 gabapentin 600 mg tablet 1,200 mg PO BID Qty: 360 RF: 5 pramipexole 0.25 mg tablet See Rx Instructions PO BID Qty: 360 RF: 5 tizanidine 2 mg capsule See Rx Instructions PO Q6-8H PRN (Reason: muscle spasticity) Qty: 60 RF: 5 Referrals: Devan Crabtree MD [Primary Care Provider] -
[2020-09-23 11:43] LABS: Troponin I 0.039 ng/mL (0.01-0.034)
[2020-09-23 11:47] LABS: CKMB % Relative Index 2.4 % (1.5-5.0); Creatine Kinase MB 2.41 ng/mL (<2.37)
[2020-09-23] MEDS: ASPIRIN 81 MG CHEW TAB 324 MG PO (12:06)
[2020-09-23 13:38] LABS: Troponin I 0.041 ng/mL (0.01-0.034)
--- NOTE | 2020-09-23 14:39 | DI.CT.S_ITS ---
PROCEDURE: CT ANGIO CHEST ABDOMEN PELVIS INDICATIONS: chest discomfort and htn TECHNIQUE: Precontrast 5 mm thick sections acquired from the lung apices to the iliac crests. After the administration of intravenous contrast, 2.5 mm thick sections again acquired from the lung apices to the iliac crests. Maximum intensity projection (MIP) oblique sagittal and coronal reformats were then acquired. For radiation dose reduction, the following was used: automated exposure control. COMPARISON: CT, THORAX WITH CONTRAST, 09/05/2006, 10:57. CT, ABDOMEN/PELVIS WITH CONTRAST, 03/02/2013, 10:46. [facility], CT, CT ABDOMEN PELVIS W CON, 01/08/2019, 14:41. [facility], CR, XR CHEST 1V, 09/23/2020, 11:08. FINDINGS: Image quality: Excellent. AORTA: The ascending thoracic aorta is ectatic in caliber measuring up to 4 cm. The aortic arch measures 3 cm, tapering to 2.7 cm in the proximal descending thoracic aorta. The descending thoracic aorta is normal in caliber. There is severe atherosclerosis in the aortic arch and moderate atherosclerosis in distal abdominal aorta. No aortic dissection. The celiac trunk, superior mesenteric artery and inferior mesenteric artery are patent. There is a single renal artery on each side. Renal arteries are patent bilaterally. The iliac arteries are patent bilaterally. CHEST: Lungs and pleura: There are nodular infiltrates in the right middle lobe. A 2 mm nodule is seen in the left upper lobe (series 6, image 71). No pleural effusions or pneumothorax. Central and peripheral airways are patent and normal in caliber. Mediastinum: Heart size is normal. No pericardial effusion. No mediastinal or hilar adenopathy by size criteria. Central pulmonary arteries are normal in size. Esophagus is normal in caliber. There is a small hiatal hernia. There is concentric thickening at the GE junction. Bones and chest wall: No axillary adenopathy by size criteria. Thyroid gland is normal. No suspicious bony lesions. No vertebral body compression fractures. ABDOMEN: Solid organs: Again noted is a heterogeneous low-density mass in the left hepatic lobe measuring 3.6 x 6.2 cm, unchanged in size. The mass demonstrates peripheral enhancement and partial calcification. It is most likely hepatic hemangioma. A 3 cm low-density mass in the caudate is also stable. Liver is normal in size. Gallbladder is contracted. Biliary system is non dilated. There is a 1.3 x 2.1 cm cyst in the tail of the pancreas, unchanged. Spleen is normal in size and enhancement. There is a 1.7 x 2.2 cm left adrenal nodule, which is increased in size since 01/08/2019. Both kidneys are normal in size and enhancement, without hydronephrosis. Peritoneum and bowel: No free fluid or air. There is a large amount of stool in colon. Normal appendix. Bowel loops are normal in caliber and wall thickness. Nodes and vessels: No retroperitoneal or mesenteric adenopathy by size criteria. Inferior vena cava is normal in morphology. Miscellaneous: No ventral hernias. PELVIS: Genitourinary: Bladder is contracted. Prostate is surgically resected. Miscellaneous: No inguinal hernias or adenopathy. No ventral hernias. Bones: No suspicious bony lesions. No vertebral body compression fractures. There are degenerative changes in lumbar spine. Prominent Schmorl's nodes are seen in inferior endplate of L3 and L4 and superior endplate of L5. IMPRESSION: 1. No aortic aneurysm or dissection. 2. Severe atherosclerotic calcification of aortic arch and moderate atherosclerotic calcification of distal abdominal aorta. 3. Two hepatic masses are again visualized, unchanged in size, most likely hepatic hemangiomas. 4. Mild nodular infiltrates in the right middle lobe, most likely inflammatory or infectious in etiology, including granulomatous infections. 5. Enlargement of left adrenal nodule. Adrenal protocol CT or MRI is suggested for follow-up evaluation. 6. Stable cystic lesion in pancreatic tail. 7. A 2 mm nodule in the left upper lobe. Please see enclosed follow-up recommendation. Fleischner Society criteria for SOLID lung nodule followup. Nodule size (mm)Low-risk patientHigh-risk patient?4No follow-up neededFollow-up at 12 mo; if no change, no further follow-up>[id number] CT at 12 mo; if no change, no further follow-up needed.Initial follow-up CT at 6-12 mo, then 18-24 mo if no change. >6-8Initial follow-up CT at 6-12 mo, then 18-24 mo if no change. Initial follow-up CT at 3-6 mo, then 9-12 mo and 24 mo if no change. >8Follow-up CT at 3, 9, 24 mo. Or PET and/or biopsy.Same as for low-risk pts. Dictated by: Saúl Gandara M.D. on 09/23/2020 at 16:30 Approved by: Saúl Gandara M.D. on 09/23/2020 at 16:56
[2020-09-23] MEDS: LABETALOL 20 MG/4 ML SYRINGE 10 MG IV (16:02)
[2020-09-23 16:28] LABS: COVID19 -Nasal RAPID Negative (Negative)
--- NOTE | 2020-09-23 16:41 | PC.NURSE ---
Report given to LING Peralta at [facility] in [place] room #[id number]
--- NOTE | 2020-09-23 17:28 | PC.NURSE ---
[facility] Dr. Calderon accepting. [place] [facility] arrives at 1715 for transport. Spouse is updated with address and info for transfer
== END 2020-09-23 17:28 | disposition short-term general hospital (02) ==
PROVIDERS: Emergency Provider Emergency Medicine; PCP Family Medicine
DX: I16.1 Hypertensive emergency (principal); R07.89 Other chest pain; J44.9 Chronic obstructive pulmonary disease, unspecified
CPT/HCPCS: 36415; 71045; 71275; 74174; 80053; 81003; 82550; 82553; 83690; 84484; 85025; 87635; 93005; 93010; 96374; 99285; Q9967

== ENCOUNTER 2020-09-28 10:13 | Observation (INO) | payer MEDICARE, SELFPAY ==
[2020-09-28] VITALS (20 sets, daily range): BP systolic 137–181; BP diastolic 60–72; PULSE 40–96; RESP 15–27; TEMP 36.2–36.6; O2SAT 93–99; BMI 32.3; BMI 31.9
--- NOTE | 2020-09-28 10:21 | DI.RAD.S_ITS ---
PROCEDURE: XR CHEST 1V INDICATIONS: Dyspnea TECHNIQUE: One view of the chest was acquired. COMPARISON: [facility], CT, THORAX WITH CONTRAST, 09/05/2006, 10:57. [facility], CR, XR CHEST 2V, 08/25/2020, 15:11. [facility], CR, XR CHEST 1V, 09/23/2020, 11:08. FINDINGS: Surgical changes and devices: None. Lungs and pleura: Chronic interstitial prominence. Patchy bibasilar opacities more pronounced on the left. No focal consolidation. No pleural effusions or pneumothorax. Mediastinum: Mediastinal contours appear normal. Heart size is normal. Bones and chest wall: No suspicious bony lesions. Overlying soft tissues appear unremarkable. IMPRESSION: Chronic interstitial prominence unchanged. Mild left greater than right bibasilar opacities favored to represent atelectasis. No focal airspace disease. Dictated by: Rolly Salinas M.D. on 09/28/2020 at 10:10 Approved by: Rolly Salinas M.D. on 09/28/2020 at 10:13
--- NOTE | 2020-09-28 10:32 | ED.SYNCOPE ---
HPI - Syncope General Chief Complaint: Syncope Stated Complaint: Unresponsive Time Seen by Provider: 09/28/20 10:20 Source: patient and EMS Mode of arrival: EMS Limitations: no limitations History of Present Illness HPI narrative: Patient brought in from home by EMS for 20 minutes episode of syncope just prior to arrival. Patient Accu-Chek 106 by EMS. Patient started lisinopril this week after being discharged from [facility] for chest pain high blood pressure. Patient on chronically but overall. That is not new. Lisinopril is new. 10 mg in the morning 10 mg at night. Was given morning dose of blood pressure medication and was eating his breakfast and felt tired and could not be awakened by his . EMS called. Patient denies denies any presyncopal event. No palpitations chest pain headache numbness tingling or weakness. Patient admitted last week and discharges past Saturday to [facility] for chest pain and high blood pressure. Family physician Dr. Crabtree. Does not have established textbook associate. Heart rate noted. This is not noted on his admission last time. This is lower. At this time awake alert oriented x4. No complaints Related Data Home Medications Medication Instructions Recorded Confirmed aspirin 81 mg tablet,delayed 81 mg PO DAILY 12/07/19 09/28/20 release melatonin 10 mg capsule 10 mg PO BEDTIME PRN 12/07/19 09/28/20 acetaminophen [Tylenol] 975 mg PO Q6H PRN 09/28/20 09/28/20 polyethylene glycol 3350 [Miralax] 17 g PO DAILY PRN 09/28/20 09/28/20 Previous Rx's Medication Instructions Recorded citalopram 20 mg tablet 20 mg PO QDAY #90 tab 02/09/20 glipizide 5 mg tablet, extended See Rx Instructions .ROUTE 02/09/20 release 24 hr .COMPLEX #180 tab atorvastatin 40 mg tablet 40 mg PO HS #90 tab 02/10/20 metoprolol succinate 50 mg 50 mg PO QDAY #90 ter 02/10/20 tablet,extended release 24 hr gabapentin 600 mg tablet 1,200 mg PO BID #360 tab 06/06/20 pramipexole 0.25 mg tablet See Rx Instructions PO BID #360 tab 06/06/20 tizanidine 2 mg capsule See Rx Instructions PO Q6-8H PRN 06/14/20 #60 cap Four-wheel walker #1 ea 08/11/20 oxycodone-acetaminophen 10 mg-325 1 tab PO Q6H PRN #100 tab 08/11/20 mg tablet inhalational spacing device #1 each 08/25/20 clotrimazole-betamethasone 1 1 applictn TOP BID 14 Days #15 gram 08/29/20 %-0.05 % topical cream lisinopril 5 mg tablet 10 mg PO BID #360 tab 09/27/20 Allergies Allergy/AdvReac Type Severity Reaction Status Date / Time doxycycline AdvReac Vomiting Verified 09/23/20 11:03 Review of Systems Review of Systems Narrative: GENERAL: Denies chills, fatigue, malaise, fever, sweats. HEENT: Denies sinus pain, ear pain, sore throat, difficulty swallowing RESPIRATORY: Denies dyspnea, cough CARDIOVASCULAR: Denies chest pain, palpitations, edema, GASTROINTESTINAL: Denies nausea, vomiting, abdominal pain, diarrhea, constipation, melena. : Denies dysuria, frequency, hematuria MUSCULOSKELETAL: denies muscle or bony pain SKIN: Denies rash, skin lesions NEUROLOGIC: Denies weakness, headache, numbness, change in speech, confusion PSYCHIATRIC: No SI or HI or hallucinations ROS Unobtainable: All systems reviewed & are unremarkable except as noted in HPI and below Patient History Medical History Ankle pain (Chronic ~2005) Bullous pemphigoid (Chronic) Chicken pox (Resolved ~1939) Depression (Chronic ~1999) Diabetes mellitus (Chronic ~2011) Hearing loss (Chronic ~2001) History of urinary incontinence (Chronic ~1999) Hypertension (Chronic ~1982) Leg edema (Acute) Measles (Resolved ~1939) Mumps (Resolved ~1939) Osteopenia (Chronic ~2013) Pancreatitis (Chronic ~2013) Peripheral neuropathy (Chronic ~1999) Prostate cancer (Chronic ~1999) Restless leg syndrome (Chronic ~2008) Sleep apnea (Chronic ~2009) Vision disorder (Chronic) Surgical History Anesthesia (Resolved) Broken leg (Resolved ~2005) Cataracts, bilateral (Resolved ~2012) Status post laminectomy (~2000) Status post radical cystoprostatectomy (~1999) Family History Father Cancer Grandfather Heart disease Grandmother Heart disease Mother Cancer Hypertension Social History household members: spouse Smoking Status: Former smoker alcohol intake: current Smoking Status: Former smoker alcohol intake frequency: a few times a month Substance Use Type: does not use Exam Narrative Exam Narrative: GENERAL: patient appears stated age. Well-nourished, well-developed patient, in no distress, not toxic not dyspneic HEAD: Normocephalic. EYES: Pupils equal round and reactive. No scleral icterus. No injection no discharge ENT: Mucous membranes moist. No drooling no tongue elevation no trismus no malocclusion NECK: Trachea midline. Non tender CARDIOVASCULAR: Regular rate and rhythm without murmurs, gallops, or rubs. Bradycardic RESPIRATORY: Clear to auscultation. Breath sounds equal bilaterally. No wheezes, rales, or rhonchi. GASTROINTESTINAL: Abdomen soft, non-tender, nondistended. EXTREMITIES: No gross deformities. BACK: Nontender without deformity or crepitance. No flank tenderness. NEURO: AOx4. SKIN: Warm and dry PSYCH: Not anxious, is cooperative Initial Vital Signs Initial Vital Signs: Vital Signs Temperature 97.8 F 09/28/20 10:25 Pulse Rate 46 L 09/28/20 10:25 Respiratory Rate 15 09/28/20 10:25 Blood Pressure 147/60 H 09/28/20 10:25 Pulse Oximetry 99 09/28/20 10:25 Course Course Course Narrative: Remains bradycardic. No hypotension. No new issues. No chest pain or palpitations Decision to Admit Date: 09/28/20 Decision to Admit time: 14:14 Orders Ordered: Acetaminophen (Tylenol) 975 mg PO Q6H PRN PRN Reason: Pain, Moderate (4-6) Last Admin: 09/28/20 19:04 Dose: 975 mg Documented by: ELIF Aspirin (Aspirin Ec) 81 mg PO DAILY [facility] Atorvastatin Calcium (Lipitor) 40 mg PO BEDTIME [facility] Last Admin: 09/28/20 19:04 Dose: 40 mg Documented by: ELIF Betamethasone/Clotrimazole (Lotrisone Crm) 1 applic TOP BID [facility] Last Admin: 09/28/20 19:08 Dose: Not Given Documented by: ELIF Citalopram Hydrobromide (Celexa) 20 mg PO DAILY [facility] Gabapentin (Neurontin) 1,200 mg PO BID [facility] Last Admin: 09/28/20 19:04 Dose: 1,200 mg Documented by: ELIF Glipizide (Glucotrol Xl) 10 mg PO DAILY [facility] Lisinopril (Zestril) 10 mg PO BID [facility] Last Admin: 09/28/20 19:03 Dose: 10 mg Documented by: ELIF Melatonin (Melatonin) 9 mg PO BEDTIME PRN PRN Reason: sleep Last Admin: 09/29/20 00:44 Dose: 9 mg Documented by: STEVO Naloxone HCl (Narcan) 0.2 mg IV Q2MIN PRN PRN Reason: Opiate Reversal Oxycodone/Acetaminophen (Percocet 5/325) 2 tab PO Q6H PRN PRN Reason: Pain, Severe (7-10) Polyethylene Glycol (Miralax) 17 gm PO DAILY PRN PRN Reason: Constipation Pramipexole Dihydrochloride (Mirapex) 0.75 mg PO DAILY [facility] Pramipexole Dihydrochloride (Mirapex) 1 mg PO BEDTIME [facility] Last Admin: 09/28/20 19:05 Dose: 1 mg Documented by: ELIF Sodium Chloride (Normal Saline 0.9% Flush) 10 ml IV PRN PRN PRN Reason: Flush Sodium Chloride (Normal Saline 0.9% Flush) 10 ml IV BID [facility] Tizanidine HCl (Zanaflex) 4 mg PO Q6H PRN PRN Reason: muscle spasticity Discontinued Medications Acetaminophen (Tylenol) 650 mg PO NOW ONE Stop: 09/28/20 14:35 Last Admin: 09/28/20 14:40 Dose: 650 mg Documented by: JUAN Benzocaine (Cepacol Lozenge) 1 each PO NOW ONE Stop: 09/28/20 12:49 Last Admin: 09/28/20 13:31 Dose: Not Given Documented by: JUAN Reevaluation(s) Reevaluation #1: Reviewed results with patient and . They agree for transfer, they desire to go back to [place] Time: 12:10 Consultations Consultation #1: Spoke with Dr. Flynn Cool, cardiology [place]. Would be prudent to have patient admitted and observed. Hospitalist to admit Time: 12:10 Consultation #2: Spoke with hospitalist at [facility], dr haney, has reviewed patient's records during stay there he was supposed to be off his metoprolol. At this time no indication to accept patient according to hospitalist. Patient to be admitted here for observation and to be off of metoprolol. Time: 13:06 Consultation #3: Spoke with primary care physician Dr. Crabtree. Will admit here observation. Will adjust medications. Discontinue metoprolol Time: 14:14 Vital Signs Vital signs: Vital Signs - 8 hr 09/28/20 10:25 09/28/20 10:42 09/28/20 10:46 Temperature 97.8 F Pulse Rate 46 L 44 L 42 L Respiratory Rate 15 27 H 16 Blood Pressure 147/60 H 137/65 Pulse Oximetry 99 96 98 09/28/20 11:00 09/28/20 11:30 09/28/20 11:31 Temperature Pulse Rate 40 L 42 L 40 L Respiratory Rate 17 24 17 Blood Pressure 151/65 H 169/70 H Pulse Oximetry 94 95 95 09/28/20 12:00 09/28/20 12:01 09/28/20 12:30 Temperature Pulse Rate 43 L 44 L 44 L Respiratory Rate 21 23 17 Blood Pressure 175/70 H Pulse Oximetry 97 96 96 09/28/20 12:31 09/28/20 13:00 09/28/20 13:01 Temperature Pulse Rate 44 L 46 L 47 L Respiratory Rate 20 15 18 Blood Pressure 175/71 H 175/72 H Pulse Oximetry 94 95 96 MDM - Syncope Differential Diagnosis Differential diagnosis: Likely vasovagal syncope, dehydration and other (Arrhythmia) Medical Records Attestation: I reviewed the patient's medical records. Lab Data Attestation: I reviewed the patient's lab results. Result diagrams: 09/28/20 10:30 09/28/20 10:30 Labs: Lab Results 09/28/20 09/28/20 09/28/20 Range/Units 10:30 10:30 10:30 WBC 10.1 (4.5-11.0) X10^3/uL RBC 4.80 (4.5-5.9) X10^6/uL Hgb 14.0 (13.5-17.5) g/dL Hct 42.4 (41-53) % MCV 88.5 (80-100) fL MCH 29.2 (26-34) PG MCHC 33.0 (30-36) % RDW 14.8 (11.6-14.8) % Plt Count 185 (150-400) X10^3/uL Neut % (Auto) 67.9 (50-75) % Lymph % (Auto) 19.3 L (25-40) % Cache % (Auto) 9.7 (3-14) % Eos % (Auto) 2.3 (2-4) % Baso % (Auto) 0.8 (0-2) % Neut # (Auto) 6900 (0483-2461) /uL Lymph # (Auto) 2000 (8054-1096) /uL Cache # (Auto) 1000 H (0-900) /uL Eos # (Auto) 200 (0-450) /uL Baso # (Auto) 100 (0-100) /uL Sodium 133 L (137-145) mmol/L Potassium 4.6 (3.4-5.1) mmol/L Chloride 99 (98-107) mmol/L Carbon Dioxide 29 (22-32) mmol/L BUN 21 H (9-20) mg/dL Creatinine 0.92 (0.66-1.25) mg/dL Estimated GFR > 60.0 (>60) mL/min BUN/Creatinine Ratio 22.8 H (6-22) Glucose 141 H (80-110) mg/dL Calcium 9.0 (8.4-10.2) mg/dL Magnesium 2.0 (1.6-2.3) mg/dL Total Bilirubin 0.5 (0.2-1.3) mg/dL AST 25 (17-59) IU/L ALT 31 (<50) IU/L Alkaline Phosphatase 117 (38-126) U/L Total Creatine Kinase 120 (55-170) U/L CK-MB (CK-2) 2.10 (<2.37) ng/mL CK-MB (CK-2) Rel Index 1.8 (1.5-5.0) % Troponin I < 0.012 (0.01-0.034) ng/mL Total Protein 6.5 (6.3-8.2) g/dL Albumin 4.0 (3.5-5.0) g/dL Globulin 2.5 (1.7-4.1) g/dL Albumin/Globulin Ratio 1.6 (1.0-2.8) TSH (0.47-4.68) uIU/mL COVID-19 PCR (Negative) 09/28/20 09/28/20 Range/Units 10:30 14:05 WBC (4.5-11.0) X10^3/uL RBC (4.5-5.9) X10^6/uL Hgb (13.5-17.5) g/dL Hct (41-53) % MCV (80-100) fL MCH (26-34) PG MCHC (30-36) % RDW (11.6-14.8) % Plt Count (150-400) X10^3/uL Neut % (Auto) (50-75) % Lymph % (Auto) (25-40) % Cache % (Auto) (3-14) % Eos % (Auto) (2-4) % Baso % (Auto) (0-2) % Neut # (Auto) (6824-7334) /uL Lymph # (Auto) (8320-5420) /uL Cache # (Auto) (0-900) /uL Eos # (Auto) (0-450) /uL Baso # (Auto) (0-100) /uL Sodium (137-145) mmol/L Potassium (3.4-5.1) mmol/L Chloride (98-107) mmol/L Carbon Dioxide (22-32) mmol/L BUN (9-20) mg/dL Creatinine (0.66-1.25) mg/dL Estimated GFR (>60) mL/min BUN/Creatinine Ratio (6-22) Glucose (80-110) mg/dL Calcium (8.4-10.2) mg/dL Magnesium (1.6-2.3) mg/dL Total Bilirubin (0.2-1.3) mg/dL AST (17-59) IU/L ALT (<50) IU/L Alkaline Phosphatase (38-126) U/L Total Creatine Kinase (55-170) U/L CK-MB (CK-2) (<2.37) ng/mL CK-MB (CK-2) Rel Index (1.5-5.0) % Troponin I (0.01-0.034) ng/mL Total Protein (6.3-8.2) g/dL Albumin (3.5-5.0) g/dL Globulin (1.7-4.1) g/dL Albumin/Globulin Ratio (1.0-2.8) TSH 3.63 (0.47-4.68) uIU/mL COVID-19 PCR Negative (Negative) Point of Care Testing Glucose POC 160 Imaging Data Chest x-ray: Radiologist's Impression: [address] [address] XRay Report Signed Patient: Jason Atkins CMR#: [id number] : 9Acct:[id number] Age/Sex: 80 / MDate of Service: 09/28/20 Loc: ED Accession Number: [id number] Procedure: XR chest 1V Ordering Provider: Eber Patton MD PROCEDURE: XR CHEST 1V INDICATIONS: Dyspnea TECHNIQUE: One view of the chest was acquired. COMPARISON: [facility], CT, THORAX WITH CONTRAST, 09/05/2006, 10:57. [facility], CR, XR CHEST 2V, 08/25/2020, 15:11. [facility], CR, XR CHEST 1V, 09/23/2020, 11:08. FINDINGS: Surgical changes and devices: None. Lungs and pleura: Chronic interstitial prominence. Patchy bibasilar opacities more pronounced on the left. No focal consolidation. No pleural effusions or pneumothorax. Mediastinum: Mediastinal contours appear normal. Heart size is normal. Bones and chest wall: No suspicious bony lesions. Overlying soft tissues appear unremarkable. IMPRESSION: Chronic interstitial prominence unchanged. Mild left greater than right bibasilar opacities favored to represent atelectasis. No focal airspace disease. Dictated by: Rolly Salinas M.D. on 09/28/2020 at 10:10 Approved by: Rolly Salinas M.D. on 09/28/2020 at 10:13 ECG Data Attestation: I personally reviewed and interpreted this ECG as follows: Interpretation: Sinus bradycardia, rate 41. No ST elevation or depression MDM Narrative Medical decision making narrative: Patient improving with bradycardia however will need observation for improvement to baseline heart rate. And symptoms to improve. Discharge Plan Departure Patient Disposition: Admitted as Observation Clinical Impression: Bradycardia Discharge Date/Time: 09/28/20 15:05 Referrals: Devan Crabtree MD [Primary Care Provider] - Admit Date/Time: 09/28/20 14:34 Admit Provider: Devan Crabtree
[2020-09-28 10:44] LABS: Add Manual Diff / Slide Review NO; Basophils Absolute Auto 100 /uL (0-100); Basophils Percent Auto 0.8 % (0-2); Eosinophils Absolute Auto 200 /uL (0-450); Eosinophils Percent Auto 2.3 % (2-4); Hematocrit 42.4 % (41-53); Lymphocytes Absolute Auto 2000 /uL (1100-4500); Lymphocytes Percent Auto 19.3 % (25-40); Mean Corpuscular Hemoglobin 29.2 PG (26-34); Mean Corpuscular Volume 88.5 fL (80-100); Monocytes Absolute Auto 1000 /uL (0-900); Monocytes Percent Auto 9.7 % (3-14); Neutrophils Absolute Auto 6900 /uL (1500-7000); Neutrophils Percent Auto 67.9 % (50-75); Platelet Count 185 X10^3/uL (150-400); Red Cell Distribution Width 14.8 % (11.6-14.8); White Blood Cell Count 10.1 X10^3/uL (4.5-11.0)
--- NOTE | 2020-09-28 10:46 | PC.NURSE ---
reports he had a series of tests last week while at [facility] for chest pain and everything came back negative except high BP. Today he took lisinopril for the first time. She reports his BP and HR began dropping and he became sleepy and I couldn't wake him and his heart rate was 40 and his systolic BP dropped form 210-110.
[2020-09-28 10:55] LABS: Alanine Aminotransferase 31 IU/L (<50); Albumin Globulin Ratio 1.6 (1.0-2.8); Alkaline Phosphatase 117 U/L (38-126); Aspartate Aminotransferase 25 IU/L (17-59); BUN Creatinine Ratio 22.8 (6-22); Bilirubin Total 0.5 mg/dL (0.2-1.3); Blood Urea Nitrogen 21 mg/dL (9-20); Carbon Dioxide 29 mmol/L (22-32); Chloride 99 mmol/L (98-107); Creatine Kinase 120 U/L (55-170); Estimated Glomerular Filt Rate > 60.0 mL/min (>60); Globulin 2.5 g/dL (1.7-4.1); Glucose 141 mg/dL (80-110); HEMOLYSIS < 15 (0-50); Potassium 4.6 mmol/L (3.4-5.1); Sodium 133 mmol/L (137-145); Total Protein 6.5 g/dL (6.3-8.2)
[2020-09-28 11:07] LABS: Troponin I < 0.012 ng/mL (0.01-0.034)
[2020-09-28 11:10] LABS: CKMB % Relative Index 1.8 % (1.5-5.0)
[2020-09-28 12:27] LABS: Thyroid Stimulating Hormone 3.63 uIU/mL (0.47-4.68)
[2020-09-28 14:35] LABS: COVID19 -Nasal RAPID Negative (Negative)
[2020-09-28] MEDS: ACETAMINOPHEN 325 MG TABLET 650 MG PO (14:40)
--- NOTE | 2020-09-28 18:22 | PM.HP.1 ---
History of Present Illness History of Present Illness Date Patient Seen: 09/28/20 Time Patient Seen: 18:22 Date of Onset of Symptoms: 09/28/20 Chief complaint: Unresponsive Narrative: Bradycardia Patient admitted through the ER for overnight observation for bradycardia. Patient was feeling his usual self this morning eating breakfast fruit and protein drink. Apparently he became somnolent and became minimally responsive on several times. Eventually a apparently became unresponsive had shaking several times eventually came to worry is not responsive sure she called the paramedics and he was brought here. Since he has been emergency room he has been awake and alert with no significant changes mental status. He was however found to have heart rate in the 40s. Concern being that he was having bradycardia causing his mental status changes. Apparently discussion was made with the movie projectionist in [place] as well as hospitalist recommendation both then was to stop the metoprolol giving in the hospital overnight for observation and the heart rate does not increase the might consider further evaluation and [place]. Patient has had hypertension that has been very difficult to control recently. He was seen here in the ER several days ago for chest pain hypertension with sent up to the [place] where they did a of a fairly thorough cardiac evaluation with a nuclear stress test echocardiogram both of which were normal. He was discharged on 5 mg of lisinopril only. He had been on metoprolol for extended. Time for his blood pressure and been managed reasonably well. Apparently the metoprolol had been stopped upon discharge. His blood pressure since discharged was continued increased. He went from 5 mg a lisinopril to 10 mg on Saturday and Saturday still going higher so he increased the dose of his lisinopril to 10 mg twice a day and he resumed metoprolol per my instruction. Unclear to me but the the patrol for apparently was discontinued by the people [place] records have not been obtained yet referable to this decision. At any rate he is feeling fine now. Other medical problems include hyperlipidemia, depression, peripheral neuropathy, diabetes mellitus chronic back pain, restless leg syndrome, Patient is being evaluated for questionable normal pressure hydrocephalus as well as having abnormal CT of the neck questionable being etiology of the defect being seen by Neurology oncology and neurosurgery down in [place] Patient History Medical History Ankle pain (Chronic ~2005) Bullous pemphigoid (Chronic) Chicken pox (Resolved ~1939) Depression (Chronic ~1999) Diabetes mellitus (Chronic ~2011) Hearing loss (Chronic ~2001) History of urinary incontinence (Chronic ~1999) Hypertension (Chronic ~1982) Leg edema (Acute) Measles (Resolved ~1939) Mumps (Resolved ~1939) Osteopenia (Chronic ~2013) Pancreatitis (Chronic ~2013) Peripheral neuropathy (Chronic ~1999) Prostate cancer (Chronic ~1999) Restless leg syndrome (Chronic ~2008) Sleep apnea (Chronic ~2009) Vision disorder (Chronic) Surgical History Anesthesia (Resolved) Broken leg (Resolved ~2005) Cataracts, bilateral (Resolved ~2012) Status post laminectomy (~2000) Status post radical cystoprostatectomy (~1999) Family & Social History Family History Father Cancer Grandfather Heart disease Grandmother Heart disease Mother Cancer Hypertension Social History: household members spouse Prior Living Arrangements House Safety & Behavioral: Feels Safe in Current Yes Environment Been Physically Hurt or No Threatened By a Person Suicidal Ideation Description None Suicide Plan Description No Plan Tobacco & Substance use: Smoking Status Former smoker alcohol intake current alcohol intake frequency a few times a month Substance Use Type does not use Meds Home Medications and Allergies Home Medications Medication Instructions Recorded Confirmed Type aspirin 81 mg tablet,delayed 81 mg PO DAILY 12/07/19 09/28/20 History release melatonin 10 mg capsule 10 mg PO BEDTIME PRN 12/07/19 09/28/20 History citalopram 20 mg tablet 20 mg PO QDAY #90 tab 02/09/20 09/28/20 Rx glipizide 5 mg tablet, extended See Rx Instructions .ROUTE 02/09/20 09/28/20 Rx release 24 hr .COMPLEX #180 tab atorvastatin 40 mg tablet 40 mg PO HS #90 tab 02/10/20 09/28/20 Rx metoprolol succinate 50 mg 50 mg PO QDAY #90 ter 02/10/20 09/28/20 Rx tablet,extended release 24 hr gabapentin 600 mg tablet 1,200 mg PO BID #360 tab 06/06/20 09/28/20 Rx pramipexole 0.25 mg tablet See Rx Instructions PO BID #360 tab 06/06/20 09/28/20 Rx tizanidine 2 mg capsule See Rx Instructions PO Q6-8H PRN 06/14/20 09/28/20 Rx #60 cap Four-wheel walker #1 ea 08/11/20 09/20/20 Rx oxycodone-acetaminophen 10 mg-325 1 tab PO Q6H PRN #100 tab 08/11/20 09/28/20 Rx mg tablet inhalational spacing device #1 each 08/25/20 09/20/20 Rx clotrimazole-betamethasone 1 1 applictn TOP BID 14 Days #15 gram 08/29/20 09/28/20 Rx %-0.05 % topical cream lisinopril 5 mg tablet 10 mg PO BID #360 tab 09/27/20 09/28/20 Rx acetaminophen [Tylenol] 975 mg PO Q6H PRN 09/28/20 09/28/20 History polyethylene glycol 3350 [Miralax] 17 g PO DAILY PRN 09/28/20 09/28/20 History Allergies Allergy/AdvReac Type Severity Reaction Status Date / Time doxycycline AdvReac Vomiting Verified 09/23/20 11:03 Review of Systems Review of Systems ROS: Yes All systems reviewed with the patient and are negative except as otherwise documented Exam Vital Signs (past 8 hours): - 09/28/20 10:25 09/28/20 10:42 09/28/20 10:46 Temperature 97.8 F Pulse Rate 46 L 44 L 42 L Respiratory Rate 15 27 H 16 Blood Pressure 147/60 H 137/65 Pulse Oximetry 99 96 98 09/28/20 11:00 09/28/20 11:30 09/28/20 11:31 Temperature Pulse Rate 40 L 42 L 40 L Respiratory Rate 17 24 17 Blood Pressure 151/65 H 169/70 H Pulse Oximetry 94 95 95 09/28/20 12:00 09/28/20 12:01 09/28/20 12:30 Temperature Pulse Rate 43 L 44 L 44 L Respiratory Rate 21 23 17 Blood Pressure 175/70 H Pulse Oximetry 97 96 96 09/28/20 12:31 09/28/20 13:00 09/28/20 13:01 Temperature Pulse Rate 44 L 46 L 47 L Respiratory Rate 20 15 18 Blood Pressure 175/71 H 175/72 H Pulse Oximetry 94 95 96 09/28/20 13:30 09/28/20 14:00 09/28/20 14:01 Temperature Pulse Rate 56 L 53 L 53 L Respiratory Rate 26 H 22 20 Blood Pressure 178/72 H Pulse Oximetry 97 95 95 09/28/20 14:30 09/28/20 14:31 09/28/20 15:00 Temperature 97.2 F L Pulse Rate 57 L 57 L 96 H Respiratory Rate 23 21 17 Blood Pressure 181/71 H 145/66 H Pulse Oximetry 94 94 96 Oxygen Delivery Method Room Air Narrative Exam Narrative: Gen.: [] Is examined hospital bed sitting up eating his dinner appears in no distress conversant and talkative as per his usual. Skin: [Warm well perfused. No prominent lesions. Nonicteric]. HEENT: PERRL., [normal EOM, external ears canals TMs normal, nasal mucosa normal and midline septum, oropharynx without lesions.] Neck: [Trachea midline. Thyroid nontender and not enlarged. Carotids without bruits. No lymphadenopathy] Back: [No obvious deformity or tenderness]. Chest: [Clear to P&A. Symmetric]. CV: [RRR no murmur or gallop. No JVD]. Abdomen: [No masses bruits tenderness or visceromegaly]. Neuro: [Cranial nerves II through XII grossly intact. Sensory and motor exams intact. Gait normal.] Mental status: [Intact for screening] Extremities: [No cyanosis clubbing or edema] Musculoskeletal: [No gross deformities] Lymphatics: [Negative for lymphadenopathy, supraclavicular axillary or inguinal] Neurologic exam cranial nerves 2-12 intact. Strength sensation upper lower extremities normal. Carotids 2+ no bruits. Objective Labs Result Diagrams: 09/28/20 10:30 09/28/20 10:30 Labs: Laboratory Results - last 24 hr 09/28/20 09/28/20 09/28/20 10:30 10:30 10:30 WBC 10.1 RBC 4.80 Hgb 14.0 Hct 42.4 MCV 88.5 MCH 29.2 MCHC 33.0 RDW 14.8 Plt Count 185 Neut % (Auto) 67.9 Lymph % (Auto) 19.3 L [place] % (Auto) 9.7 Eos % (Auto) 2.3 Baso % (Auto) 0.8 Neut # (Auto) 6900 Lymph # (Auto) 2000 [place] # (Auto) 1000 H Eos # (Auto) 200 Baso # (Auto) 100 Sodium 133 L Potassium 4.6 Chloride 99 Carbon Dioxide 29 BUN 21 H Creatinine 0.92 Estimated GFR > 60.0 BUN/Creatinine Ratio 22.8 H Glucose 141 H Calcium 9.0 Magnesium 2.0 Total Bilirubin 0.5 AST 25 ALT 31 Alkaline Phosphatase 117 Total Creatine Kinase 120 CK-MB (CK-2) 2.10 CK-MB (CK-2) Rel Index 1.8 Troponin I < 0.012 Total Protein 6.5 Albumin 4.0 Globulin 2.5 Albumin/Globulin Ratio 1.6 TSH COVID-19 PCR 09/28/20 09/28/20 10:30 14:05 WBC RBC Hgb Hct MCV MCH MCHC RDW Plt Count Neut % (Auto) Lymph % (Auto) [place] % (Auto) Eos % (Auto) Baso % (Auto) Neut # (Auto) Lymph # (Auto) [place] # (Auto) Eos # (Auto) Baso # (Auto) Sodium Potassium Chloride Carbon Dioxide BUN Creatinine Estimated GFR BUN/Creatinine Ratio Glucose Calcium Magnesium Total Bilirubin AST ALT Alkaline Phosphatase Total Creatine Kinase CK-MB (CK-2) CK-MB (CK-2) Rel Index Troponin I Total Protein Albumin Globulin Albumin/Globulin Ratio TSH 3.63 COVID-19 PCR Negative Labs reviewed and is unremarkable troponin normal, BUN 21 creatinine 0.9 to Assessment & Plan Assessment & Plan narrative: 1. Patient with a near syncopal events this morning likely related to his bradycardia. Additionally his blood pressure had dropped significantly at the same time so it may have been hypotensive vasovagal kind of phenomenon. Discussion was made with Cardiology people who suggested stopping the beta-charissa observing overnight and then if the blood pressure and heart rate has not been under control then perhaps further evaluation by Cardiology considering a etiology of the bradycardia if any exists. 2. His hypertension is well controlled on the current lisinopril he does have a cough and somewhat annoying for him so more to come in the future. 3. Diabetes is reasonably well controlled. 4. Restless leg stable. 5. Chronic pain stable. 6. Abnormal CTs for normal pressure hydrocephalus and the cervical spine abnormalities being evaluated by specialist at [facility] Patient will remain in the hospital overnight on telemetry anticipating heart rate increases to over 50 which case he will be discharged tomorrow on lisinopril 10 twice a day for his high blood pressure and no beta-charissa and follow-up at with the proBNP was outpatient. Quality VTE Deep Vein Thrombosis/Pulmonary Embolism Present on Admission: No
[2020-09-28] MEDS: lisinopriL 5 MG TABLET 10 MG PO (19:03)
[2020-09-28] MEDS: ACETAMINOPHEN 325 MG TABLET 975 MG PO (19:04)
[2020-09-28] MEDS: ATORVASTATIN 20 MG TABLET 40 MG PO (19:04)
[2020-09-28] MEDS: GABAPENTIN 600 MG TABLET 1200 MG PO (19:04)
[2020-09-28] MEDS: PRAMIPEXOLE 1 MG TABLET PO (19:05)
[2020-09-29 00:30] VITALS: BP 151/82; PULSE 58; RESP 20; TEMP 36.7; O2SAT 97
[2020-09-29] MEDS: MELATONIN 3 MG TABLET 9 MG PO (00:44)
--- NOTE | 2020-09-29 00:55 | PC.NURSE ---
Patient is alert and oriented. Breath sounds CTA with RA sat of 97%. HRR but bradycardic with rate in 50's; telemetry reading was SB w/1st degree AVB. BP elevated at 151/82. Denies nausea. BT present and abdomen is soft. States he has chronic urgency but denies dysuria or frequency. Is able to move himself in bed. Up to use urinal with SBA. Chronic neuropathy in bilateral LE from toe to groin. Reports having fallen in past 1 1/2 week and has a scabbed abrasion on left knee. Fall risk score is high and bed alarm is activated. States he hasn't been able to sleep and normally takes Melatonin at night; medicated with Melatonin.
[2020-09-29 04:00] VITALS: BP 162/76; PULSE 53; RESP 16; TEMP 37; O2SAT 96
[2020-09-29 08:00] VITALS: BP 184/77; PULSE 49; RESP 16; TEMP 36.2; O2SAT 95
[2020-09-29] MEDS: PRAMIPEXOLE 0.25 MG TABLET 0.75 MG PO (09:18)
[2020-09-29] MEDS: glipiZIDE XL 5 MG TAB 10 MG PO (09:18)
[2020-09-29] MEDS: GABAPENTIN 600 MG TABLET 1200 MG PO (09:21)
[2020-09-29] MEDS: CITALOPRAM 10 MG TABLET 20 MG PO (09:21)
[2020-09-29] MEDS: lisinopriL 5 MG TABLET 10 MG PO (09:21)
[2020-09-29] MEDS: SODIUM CHLORIDE 0.9% FLUSH 10 ML IV (09:21)
[2020-09-29] MEDS: ASPIRIN EC 81 MG TABLET PO (09:21)
--- NOTE | 2020-09-29 10:11 | PC.NURSE ---
Day shift: Per Dr Crabtree Pt given ED report and Dr Figueroa H&P. Both reports simply printed from the [facility].
--- NOTE | 2020-09-29 11:11 | PC.NURSE ---
Day shift: Pt left unit at approx 1110. Taken to car driven by his spouse. Taken in WC by RUBY Holman. Paperwork signed and all questions answered. Pt has all personal belongings. NO new MD scripts.
--- NOTE | 2020-09-29 14:47 | CM.IDA ---
Attempted to see patient for Initial DCP Assessment and he had left, discharged home J[facility]
== END 2020-09-29 11:13 | disposition home or self-care (01) ==
LOC: ED 14:14 → AC 14:36
PROVIDERS: Admitting Provider Family Medicine; Emergency Provider Emergency Medicine; PCP Family Medicine; Referring Provider Emergency Medicine; Visit Provider Family Medicine
DX: R00.1 Bradycardia, unspecified (principal); R55 Syncope and collapse; E78.5 Hyperlipidemia, unspecified; F32.9 Major depressive disorder, single episode, unspecified; E11.40 Type 2 diabetes mellitus with diabetic neuropathy, unspecified; G25.81 Restless legs syndrome; M54.9 Dorsalgia, unspecified; G89.29 Other chronic pain; I10 Essential (primary) hypertension; R90.89 Other abnormal findings on diagnostic imaging of central nervous system; Z11.59 Encounter for screening for other viral diseases
CPT/HCPCS: 36415; 71045; 80053; 82550; 82553; 82962; 83735; 84443; 84484; 85025; 87635; 93005; 99284; G0378

== ENCOUNTER → 2020-10-06 15:33 | Outpatient (CLI) | payer MEDICARE, SELFPAY ==
[2020-09-28 15:10] VITALS: BMI 31.9
--- NOTE | 2020-11-02 10:50 | PM.CARDMON.1 ---
[employer] Report Referral & Results Date Patient Seen: 10/06/20 Requesting provider: Devan Crabtree Indication: Syncope Duration of monitoring (days): 14 Diary information: There were 3 patient triggered events and 3 patient diary entries The 6 events were associated variably with sinus rhythm and PACs Data: Minimum heart rate identified was 31 beats per minute at 10:44 on 10/10/2020 Maximum sinus heart rate was 120 beats per minute at 14:09 on 10/11/2020 Maximum overall heart rate was 167 beats per minute at 20:16 on 10/12/2020 during a 6 beat run of SVT Less than 1% of identified beats or either ventricular supraventricular ectopic in origin Patient had 8 pauses of 3 seconds or longer the longest being 3.2 seconds Patient had 2 runs of nonsustained ventricular tachycardia the fastest being 4 beats at a rate of 115 beats per minute which was also the longest run There were 13 episodes of SVT/atrial tachycardia the fastest being the 6 beat run above as well as a 16 beat run at 102 beats per minute, which is more likely atrial tachycardia Impression: 14 day equipment monitor phototypesetting showing significant cardiac pauses of greater than 2 seconds with the longest being 3.2 seconds. This is likely a etiology for patient's reported syncope There also rare ventricular supraventricular events as above Clinical correlation suggested and Cardiology consultation strongly suggested.
== END ==
PROVIDERS: PCP Family Medicine; Referring Provider Family Medicine; Visit Provider Family Medicine
DX: R55 Syncope and collapse (principal); R00.1 Bradycardia, unspecified
CPT/HCPCS: 0296T; 0298T

== ENCOUNTER 2020-10-25 09:41 | Emergency (ER) | payer MEDICARE, SELFPAY ==
[2020-09-28 15:10] VITALS: BMI 31.9
[2020-10-25] VITALS (24 sets, daily range): BP systolic 84–164; BP diastolic 50–78; PULSE 38–83; RESP 11–23; TEMP 36.4; O2SAT 91–98
--- NOTE | 2020-10-25 09:55 | ED_ITS ---
HPI - General Adult General Chief complaint: Weakness Stated complaint: Fatigue Time Seen by Provider: 10/25/20 09:44 Source: patient and EMS Mode of arrival: EMS Limitations: no limitations History of Present Illness HPI narrative: This is an 80-year-old male who comes to the emergency department with complaint of feeling a little bit more fatigued or tired. Patient states that he was having breakfast it was time for him to take his morning blood pressure medications and he felt they should check his blood pressure prior to taking them. He has had his medications adjusted several times in the last month most recently in the last week. Patient was hypotensive in the 70s or 80s range at home. Patient's heart rates in the 40s today, he states he is typically around 50 but has been into the low 40s in the past. He denies any lightheadedness, presyncope or syncope. He denies any chest pain, no shortness of breath, he denies any nausea, vomiting no diarrhea constipation or urinary symptoms. He does sometimes have swelling in his ankles but states they ?look okay? today. Patient denies any other symptoms at this time. He is currently taking amlodipine 5 mg twice daily, losartan 50 mg twice daily and carvedilol 3.125 mg twice daily, he has not had his blood pressure medications this morning. He is unsure if he is taking hydralazine 25 mg, his medication list states t.i.d. but has a note next to it as only as needed. He is on aspirin 81 mg, atorvastatin as well as glipizide for diabetes, Percocet, to George) pack so for his back. And appears he was taking lisinopril but that has been stopped. Patient states he recently had a heart monitor that was removed on , he has been following with Dr. Hector from Cardiology and telling him and they have alluded to the fact he may need a pacemaker, he has not had a cardiac catheterization in the past or cardiac stents. Related Data Home Medications Medication Instructions Recorded Confirmed aspirin 81 mg tablet,delayed 81 mg PO DAILY 12/07/19 10/25/20 release melatonin 10 mg capsule 10 mg PO BEDTIME PRN 12/07/19 10/25/20 acetaminophen [Tylenol] 975 mg PO Q6H PRN 09/28/20 10/25/20 polyethylene glycol 3350 [Miralax] 17 g PO DAILY PRN 09/28/20 10/25/20 amlodipine 5 mg PO BID 10/25/20 10/25/20 carvedilol 3.125 mg PO BID 10/25/20 10/25/20 glipizide 10 mg PO DAILY 10/25/20 10/25/20 Previous Rx's Medication Instructions Recorded citalopram 20 mg tablet 20 mg PO QDAY #90 tab 02/09/20 atorvastatin 40 mg tablet 40 mg PO HS #90 tab 02/10/20 gabapentin 600 mg tablet 1,200 mg PO BID #360 tab 06/06/20 pramipexole 0.25 mg tablet See Rx Instructions PO BID #360 tab 06/06/20 tizanidine 2 mg capsule See Rx Instructions PO Q6-8H PRN 06/14/20 #60 cap Four-wheel walker #1 ea 08/11/20 oxycodone-acetaminophen 10 mg-325 1 tab PO Q6H PRN #100 tab 08/11/20 mg tablet inhalational spacing device #1 each 08/25/20 clotrimazole-betamethasone 1 1 applictn TOP BID 14 Days #15 gram 08/29/20 %-0.05 % topical cream losartan 50 mg tablet 50 mg PO BID #60 tab 10/11/20 Allergies Allergy/AdvReac Type Severity Reaction Status Date / Time doxycycline AdvReac Vomiting Verified 09/23/20 11:03 Review of Systems Review of Systems ROS Unobtainable: All systems reviewed & are unremarkable except as noted in HPI and below Patient History Medical History (Updated 10/25/20 @ 10:03 by Mee Davidson DO) Ankle pain (~2005) Bullous pemphigoid Chicken pox (~1939) Depression (~1999) Diabetes mellitus (~2011) Hearing loss (~2001) History of urinary incontinence (~1999) Hypertension (~1982) Leg edema Measles (~1939) Mumps (~1939) Osteopenia (~2013) Pancreatitis (~2013) Peripheral neuropathy (~1999) Prostate cancer (~1999) Restless leg syndrome (~2008) Sleep apnea (~2009) Vision disorder Surgical History Anesthesia Broken leg (~2005) Cataracts, bilateral (~2012) Status post laminectomy (~2000) Status post radical cystoprostatectomy (~1999) Family History Father Cancer Grandfather Heart disease Grandmother Heart disease Mother Cancer Hypertension Social History household members: spouse Smoking Status: Former smoker alcohol intake: current Smoking Status: Former smoker alcohol intake frequency: a few times a month Substance Use Type: does not use Exam Narrative Exam Narrative: GENERAL: Alert and oriented x three, well-nourished, well-appearing male in mild distress HEENT: Head normocephalic, atraumatic, EOMI, pupils reactive, face symmetric, moist mucous membranes NECK: Supple, full range of motion CARDIOVASCULAR: Bradycardic but Regular rate and rhythm without murmurs, rubs or gallops. No edema bilateral lower extremities. RESPIRATORY: Breath sounds equal bilaterally, no wheezes rales or rhonchi. No tachypnea accessory muscle use. ABDOMEN: Soft, nontender. Normoactive bowel sounds all 4 quadrants. No guarding or rebound, rigidity, no mass : No CVA tenderness EXTREMITIES: Normal range of motion, no clubbing or edema. Neurovascularly intact NEUROLOGICAL: Cranial nerves II through XII grossly intact. Moving all extremities SKIN: Warm, dry, no petechiae, no rashes or lesions. Initial Vital Signs Initial Vital Signs: Vital Signs Temperature 97.6 F 10/25/20 09:52 Pulse Rate 43 L 10/25/20 09:52 Respiratory Rate 16 10/25/20 09:52 Blood Pressure 95/55 L 10/25/20 09:52 Pulse Oximetry 96 10/25/20 09:52 Course Orders Ordered: Discontinued Medications Aspirin (Aspirin 81 Mg Chew Tab) 324 mg PO NOW ONE Stop: 10/25/20 09:56 Last Admin: 10/25/20 10:15 Dose: 324 mg Documented by: RITA Sodium Chloride (Normal Saline 0.9%) 1,000 mls @ 1,000 mls/hr IV BOLUS ONE Stop: 10/25/20 10:54 Last Infusion: 10/25/20 11:32 Dose: 0 mls/hr Documented by: Admin: 10/25/20 10:15 Dose: 1,000 mls/hr Documented by: RITA Reevaluation(s) Reevaluation #1: Updated patient on labs, BP is improved in the department patient continues to run in the 40s consistently for heart rate. Awaiting call back from Cardiology. Time: 11:52 Consultations Consultation #1: Spoke with Dr. Hector from cardiology, reviewed patient's medications he is actually taking 5 mg amlodipine twice daily, losartan 50 mg t wice daily in carvedilol 3.125 mg twice daily. According to his he is not taking the hydralazine and they had decrease the amlodipine. Discussed with Dr. Hector, patient has not had any major arrhythmia changes he has not had any reason that he feels patient should need a pacemaker at this time. We discussed possibility of medication causing his symptoms, he is hyponatremic but otherwise no other major electrolyte abnormalities. Troponin, BNP, hemoglobin are all appropriate with no clear signs of infectious causes, no signs of hypothyroidism, a BUN of 28 he may be dehydrated. Patient did respond to fluids. At this time plan to hold his carvedilol, continue losartan and amlodipine and have patient follow-up if he is otherwise asymptomatic. Time: 11:34 Vital Signs Vital signs: Vital Signs - 8 hr 10/25/20 11:30 10/25/20 11:45 10/25/20 12:00 Pulse Rate 40 L 46 L 47 L Pulse Rate [Orthostatic Lying] Pulse Rate [Orthostatic Sitting] Pulse Rate [Orthostatic Standing] Respiratory Rate 14 13 12 Blood Pressure 148/65 H 124/58 L Blood Pressure [Orthostatic Lying] Blood Pressure [Orthostatic Sitting] Blood Pressure [Orthostatic Standing] Pulse Oximetry 96 94 95 10/25/20 12:01 10/25/20 12:15 10/25/20 12:30 Pulse Rate 48 L 48 L 47 L Pulse Rate [Orthostatic Lying] Pulse Rate [Orthostatic Sitting] Pulse Rate [Orthostatic Standing] Respiratory Rate 14 14 14 Blood Pressure 164/67 H 148/56 H Blood Pressure [Orthostatic Lying] Blood Pressure [Orthostatic Sitting] Blood Pressure [Orthostatic Standing] Pulse Oximetry 96 97 97 10/25/20 12:31 10/25/20 12:45 10/25/20 12:47 Pulse Rate 53 L 47 L 48 L Pulse Rate [Orthostatic Lying] Pulse Rate [Orthostatic Sitting] Pulse Rate [Orthostatic Standing] Respiratory Rate 11 L 14 14 Blood Pressure 134/65 159/68 H 151/70 H Blood Pressure [Orthostatic Lying] Blood Pressure [Orthostatic Sitting] Blood Pressure [Orthostatic Standing] Pulse Oximetry 95 97 97 10/25/20 12:50 10/25/20 12:53 10/25/20 12:55 Pulse Rate 52 L 50 L Pulse Rate [Orthostatic Lying] 48 L Pulse Rate [Orthostatic Sitting] 46 L Pulse Rate [Orthostatic Standing] 51 L Respiratory Rate 15 19 Blood Pressure 145/63 H 161/68 H Blood Pressure [Orthostatic Lying] 151/70 H Blood Pressure [Orthostatic Sitting] 145/63 H Blood Pressure [Orthostatic Standing] 161/68 H Pulse Oximetry 97 10/25/20 13:01 10/25/20 13:11 10/25/20 13:12 Pulse Rate 83 50 L Pulse Rate [Orthostatic Lying] Pulse Rate [Orthostatic Sitting] Pulse Rate [Orthostatic Standing] Respiratory Rate 22 18 Blood Pressure 161/72 H Blood Pressure [Orthostatic Lying] Blood Pressure [Orthostatic Sitting] Blood Pressure [Orthostatic Standing] Pulse Oximetry 91 Medical Decision Making Lab Data Lab results reviewed: Yes I reviewed the patient's lab results. Result diagrams: 10/25/20 10:00 10/25/20 10:00 Labs: Lab Results 10/25/20 10/25/20 10/25/20 Range/Units 10:00 10:00 10:00 WBC 9.4 (4.5-11.0) X10^3/uL RBC 4.64 (4.5-5.9) X10^6/uL Hgb 13.7 (13.5-17.5) g/dL Hct 40.4 L (41-53) % MCV 87.0 (80-100) fL MCH 29.5 (26-34) PG MCHC 33.9 (30-36) % RDW 14.1 (11.6-14.8) % Plt Count 226 (150-400) X10^3/uL Neut % (Auto) 61.9 (50-75) % Lymph % (Auto) 23.9 L (25-40) % Frio % (Auto) 9.8 (3-14) % Eos % (Auto) 3.6 (2-4) % Baso % (Auto) 0.8 (0-2) % Neut # (Auto) 5800 (6452-4063) /uL Lymph # (Auto) 2300 (4192-8283) /uL Frio # (Auto) 900 (0-900) /uL Eos # (Auto) 300 (0-450) /uL Baso # (Auto) 100 (0-100) /uL PT 11.2 (10.1-12.7) SECONDS INR 1.0 (0.9-1.3) APTT 30 D (26.4-36.2) SECONDS Sodium 131 L (137-145) mmol/L Potassium 5.0 (3.4-5.1) mmol/L Chloride 97 L (98-107) mmol/L Carbon Dioxide 28 (22-32) mmol/L BUN 28 H (9-20) mg/dL Creatinine 1.06 (0.66-1.25) mg/dL Estimated GFR > 60.0 (>60) mL/min BUN/Creatinine Ratio 26.4 H (6-22) Glucose 212 H (80-110) mg/dL Calcium 9.1 (8.4-10.2) mg/dL Total Bilirubin 0.4 (0.2-1.3) mg/dL AST 28 (17-59) IU/L ALT 39 (<50) IU/L Alkaline Phosphatase 115 (38-126) U/L Total Creatine Kinase 72 (55-170) U/L CK-MB (CK-2) TNP CK-MB (CK-2) Rel Index TNP Troponin I < 0.012 (0.01-0.034) ng/mL NT-Pro-B Natriuret Pep 238 (<450) pg/mL Total Protein 6.4 (6.3-8.2) g/dL Albumin 4.0 (3.5-5.0) g/dL Globulin 2.4 (1.7-4.1) g/dL Albumin/Globulin Ratio 1.7 (1.0-2.8) Lipase 222 (23-300) U/L Imaging Data Chest x-ray: Radiologist's Impression: [address] [id number] ReportSigned Patient: Jason Atkins CMR#: [id number]: 9Acct:[id number]/Sex: 80 / MDate of Service: 10/25/20Loc: EDAccession Number: [id number] Procedure: XR chest 1V Ordering Provider: Mee Davidson D.O. PROCEDURE: XR CHEST 1V INDICATIONS: low BP, bradycardia, fatigue TECHNIQUE: One view of the chest was acquired. COMPARISON: [facility], CR, XR CHEST 1V, 09/28/2020, 10:37. [facility], CR, XR CHEST 1V, 09/23/2020, 11:08. FINDINGS: Surgical changes and devices: None. Lungs and pleura: Lungs are clear. No pleural effusions or pneumothorax. Mediastinum: Mediastinal contours appear normal. Heart size is normal. Bones and chest wall: No suspicious bony lesions. Overlying soft tissues appear unremarkable. IMPRESSION: No acute disease, source of current symptoms is not found. Dictated by: Oscar Gupta M.D. on 10/25/2020 at 10:31 Approved by: Oscar Gupta M.D. on 10/25/2020 at 10:31 ECG Data Attestation: I personally reviewed and interpreted this ECG as follows: Prior ECG tracings: available for review Interpretation: Sinus bradycardia with first-degree AV block rate of 45, P are interval of 220, QRS of 90 and QTC of 416. Patient appears to have 0.[address] elevation in lead 3 not appreciated in other leads no depression noted or reciprocal changes. Patient has prior EKG from 09/28/2020 which appears similar. MDM Narrative Medical decision making narrative: 80-year-old male comes to the emergency department with complaint of fatigue and low blood pressure and bradycardia. Patient was recently admitted at the beginning of September for bradycardia. He has recently had blood pressure medications adjusted multiple times for hypertension including increases in the last week. He had an echo in June of 2020 which showed EF of 50-60% with no significant change from prior, no focal wall motion or abnormalities and suggesting a relaxation abnormality of the left ventricle with mild dilation of the left atrium and borderline dilation of the right atrium, no significant valvular heart disease and mildly enlarged ascending aorta. Patient's labs today shows a hematocrit of 40.4, normal coags, hyponatremia that is slightly worsened, chloride 97 with a BUN of 28. Glucose is 212 with normal troponin and bnp. TSH in September 2020 was normal range and not repeated. I suspect patient has worsening bradycardia and hypotension may be related to his increase in BP medications, he has not had his medications this morning but did take them last night. After consultation with Cardiology plan to hold the carvedilol for the short term, continue to monitor blood pressure and if hypotensive he recommends holding his losartan. Unclear if there may be another cause but no clear cardiac arrhythmia, cardiac event or infectious cause. Patient's sodium is 131 and his BUN is elevated 28 he may be somewhat dehydrated. Patient orthostatics are negative and patient ambulating to restroom without issue. 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 Your labs do show a low sodium today, this is an unlikely cause of your low heart rate but I do recommend following up with your primary care to monitor it. Stop your carvedilol for the time being and continue to monitor your blood pressure. If you continue to have low blood pressures, hold your losartan. If your blood pressures are elevated you may continue to use hydralazine prn as directed by Dr. Hector. Return to the ER for fevers, lightheadedness, passing out, new chest pain, shortness of breath, diaphoresis, persistent nausea vomiting, black or bloody stools, low blood pressures or other new or concerning symptoms. Prescriptions: No Action (DME) [employer] Aerosol Licking Enhancer Spacer See Rx Instructions .ROUTE .MEDSUPPLY Qty: 1 RF: 0 citalopram [Celexa] 20 mg tablet 20 mg PO QDAY Qty: 90 RF: 3 atorvastatin 40 mg tablet 40 mg PO HS Qty: 90 RF: 3 losartan 50 mg tablet 50 mg PO BID Qty: 60 RF: 5 aspirin 81 mg tablet,delayed release (DR/EC) 81 mg PO DAILY RF: 0 melatonin 10 mg capsule 10 mg PO BEDTIME PRN (Reason: sleep) RF: 0 clotrimazole-betamethasone 1-0.05 % cream 1 applictn TOP BID 14 Days Qty: 15 RF: 5 (DME) Four-wheel walker Qty: 1 RF: 0 oxycodone-acetaminophen 10-325 mg tablet 1 tab PO Q6H PRN (Reason: pain) Qty: 100 RF: 0 gabapentin 600 mg tablet 1,200 mg PO BID Qty: 360 RF: 5 pramipexole 0.25 mg tablet See Rx Instructions PO BID Qty: 360 RF: 5 tizanidine 2 mg capsule See Rx Instructions PO Q6-8H PRN (Reason: muscle spasticity) Qty: 60 RF: 5 carvedilol 3.125 mg tablet 3.125 mg PO BID RF: 0 glipizide 5 mg tablet extended release 24hr 10 mg PO DAILY RF: 0 amlodipine 10 mg tablet 5 mg PO BID RF: 0 polyethylene glycol 3350 [Miralax] 17 gram Powder In Packet 17 g PO DAILY PRN (Reason: Constipation) RF: 0 acetaminophen [Tylenol] 325 mg Capsule 975 mg PO Q6H PRN (Reason: Pain, Moderate) RF: 0 Referrals: Devan Crabtree MD [Primary Care Provider] -
[2020-10-25 10:12] LABS: Add Manual Diff / Slide Review NO; Basophils Absolute Auto 100 /uL (0-100); Basophils Percent Auto 0.8 % (0-2); Eosinophils Absolute Auto 300 /uL (0-450); Eosinophils Percent Auto 3.6 % (2-4); Hematocrit 40.4 % (41-53); Hemoglobin 13.7 g/dL (13.5-17.5); Lymphocytes Absolute Auto 2300 /uL (1100-4500); Lymphocytes Percent Auto 23.9 % (25-40); Mean Corpuscular HGB Conc 33.9 % (30-36); Mean Corpuscular Hemoglobin 29.5 PG (26-34); Monocytes Absolute Auto 900 /uL (0-900); Monocytes Percent Auto 9.8 % (3-14); Neutrophils Absolute Auto 5800 /uL (1500-7000); Neutrophils Percent Auto 61.9 % (50-75); Platelet Count 226 X10^3/uL (150-400); Red Blood Cell Count 4.64 X10^6/uL (4.5-5.9); Red Cell Distribution Width 14.1 % (11.6-14.8); White Blood Cell Count 9.4 X10^3/uL (4.5-11.0)
[2020-10-25 10:14] LABS: Prothrombin Time 11.2 SECONDS (10.1-12.7)
[2020-10-25] MEDS: ASPIRIN 81 MG CHEW TAB 324 MG PO (10:15)
[2020-10-25] MEDS: SODIUM CHLORIDE 0.9% 1,000 ML 1000 ML IV (10:15)
[2020-10-25 10:16] LABS: PTT Partial Thromboplastin Tim 30 SECONDS (26.4-36.2)
--- NOTE | 2020-10-25 10:16 | PC.NURSE ---
HR 41. BP 84/50. Pads placed and code cart at the bedside. pt resting in bed NAD. AAOx3. denies CP SOB.
[2020-10-25 10:18] LABS: Alanine Aminotransferase 39 IU/L (<50); Albumin Globulin Ratio 1.7 (1.0-2.8); Alkaline Phosphatase 115 U/L (38-126); Aspartate Aminotransferase 28 IU/L (17-59); BUN Creatinine Ratio 26.4 (6-22); Bilirubin Total 0.4 mg/dL (0.2-1.3); Blood Urea Nitrogen 28 mg/dL (9-20); Calcium 9.1 mg/dL (8.4-10.2); Carbon Dioxide 28 mmol/L (22-32); Chloride 97 mmol/L (98-107); Creatine Kinase 72 U/L (55-170); Estimated Glomerular Filt Rate > 60.0 mL/min (>60); Globulin 2.4 g/dL (1.7-4.1); Glucose 212 mg/dL (80-110); HEMOLYSIS < 15 (0-50); Lipase 222 U/L (23-300); Sodium 131 mmol/L (137-145); Total Protein 6.4 g/dL (6.3-8.2)
[2020-10-25 10:30] LABS: NT-proBNP (BNP-Adult 18+) 238 pg/mL (<450); Troponin I < 0.012 ng/mL (0.01-0.034)
== END 2020-10-25 13:25 | disposition home or self-care (01) ==
PROVIDERS: Emergency Provider Emergency Medicine; PCP Family Medicine; Referring Provider Emergency Medicine
DX: R00.1 Bradycardia, unspecified (principal); I95.9 Hypotension, unspecified; R79.89 Other specified abnormal findings of blood chemistry
CPT/HCPCS: 36415; 71045; 80053; 82550; 83690; 83880; 84484; 85025; 85610; 85730; 93005; 96360; 99283; 99284

== ENCOUNTER → 2020-11-08 14:57 | Outpatient (CLI) | payer MEDICARE, SELFPAY ==
[2020-09-28 15:10] VITALS: BMI 31.9
[2020-11-08 17:06] LABS: Blood Urea Nitrogen 29 mg/dL (9-20); Calcium 9.3 mg/dL (8.4-10.2); Carbon Dioxide 34 mmol/L (22-32); Chloride 96 mmol/L (98-107); Estimated Glomerular Filt Rate > 60.0 mL/min (>60); Glucose 120 mg/dL (80-110); HEMOLYSIS < 15 (0-50); Potassium 4.1 mmol/L (3.4-5.1); Sodium 136 mmol/L (137-145)
[2020-11-08 17:24] LABS: Hemoglobin A1C% w Est Avg Glu 7.6 % (4.0-6.0)
== END ==
PROVIDERS: PCP Family Medicine; Referring Provider Student in an Organized Health Care Education/Training Program; Visit Provider Family Medicine
DX: E11.9 Type 2 diabetes mellitus without complications (principal)
CPT/HCPCS: 36415; 80048; 83036

== ENCOUNTER 2020-11-22 12:50 | Emergency (ER) | payer MEDICARE, SELFPAY ==
[2020-09-28 15:10] VITALS: BMI 31.9
[2020-11-22] VITALS (10 sets, daily range): BP systolic 148–188; BP diastolic 70–79; PULSE 60–63; RESP 15–24; TEMP 36.5; O2SAT 96–100
--- NOTE | 2020-11-22 13:23 | ED.AMS ---
HPI - Altered Mental Status General Chief Complaint: Neuro Symptoms/Deficit Stated Complaint: Decreased LOC Time Seen by Provider: 11/22/20 12:57 Source: patient, family and EMS Mode of arrival: EMS Limitations: no limitations History of Present Illness HPI narrative: Patient is an 80-year-old male who presents with decreased level of consciousness. He had a pacemaker placed for an arrhythmia yesterday at [facility]. He also has a history of restless leg syndrome states that yesterday his restless legs syndrome was very out of control he took extra medication. Today he was in the recliner and was asleep for about 2 hours. She thought that he was just tired from last night when she tried to arouse him he was very difficult to arouse. She said the dog was licking his face there was lot of noise any did not wake up. He is also hard of hearing but she did not think that that was why he did not wake up. EMS was called. He woke up when EMS arrived. He has no complaints. He denies any fever chest pain or shortness of breath. He seems back to his baseline mental status MD complaint: altered mental status Related Data Home Medications Medication Instructions Recorded Confirmed aspirin 81 mg tablet,delayed 81 mg PO DAILY 12/07/19 11/08/20 release melatonin 10 mg capsule 10 mg PO BEDTIME PRN 12/07/19 11/08/20 acetaminophen [Tylenol] 975 mg PO Q6H PRN 09/28/20 11/08/20 polyethylene glycol 3350 [Miralax] 17 g PO DAILY PRN 09/28/20 11/08/20 amlodipine 10 mg tablet 5 mg PO DAILY tab 11/01/20 11/08/20 pramipexole 0.25 mg tablet 0.25 mg PO DAILY 11/22/20 Previous Rx's Medication Instructions Recorded citalopram 20 mg tablet 20 mg PO QDAY #90 tab 02/09/20 atorvastatin 40 mg tablet 40 mg PO HS #90 tab 02/10/20 tizanidine 2 mg capsule See Rx Instructions PO Q6-8H PRN 06/14/20 #60 cap clotrimazole-betamethasone 1 1 applictn TOP BID 14 Days #15 gram 08/29/20 %-0.05 % topical cream losartan 50 mg tablet 50 mg PO BID #60 tab 10/11/20 gabapentin 600 mg tablet 1,200 mg PO TID #540 tab 11/01/20 oxycodone-acetaminophen 10 mg-325 1 tab PO BEDTIME PRN #14 tab 11/01/20 mg tablet glipizide 5 mg tablet, extended See Rx Instructions PO DAILY #270 11/14/20 release 24 hr tab Allergies Allergy/AdvReac Type Severity Reaction Status Date / Time doxycycline AdvReac Vomiting Verified 11/08/20 14:10 Review of Systems Review of Systems Narrative: GENERAL: Denies chills, fatigue, malaise, fever, sweats, travel HEENT: Denies sinus pain, ear pain, sore throat, difficulty swallowing, neck pain RESPIRATORY: Denies dyspnea, cough, wheezing, hemoptysis, sputum. CARDIOVASCULAR: Denies chest pain, palpitations, orthopnea, edema GASTROINTESTINAL: Denies nausea, vomiting, abdominal pain, diarrhea, constipation, melena. : Denies dysuria, frequency, incontinence, hematuria, urinary retention, flank pain. MUSCULOSKELETAL: Denies weakness, joint pain, or bony pain SKIN: No rash, no erythema, no pruritus NEUROLOGIC: See HPI PSYCHIATRIC: No concerning psychosocial issues. 12 point review of systems is negative except for those stated above and HPI Patient History Medical History (Updated 11/22/20 @ 16:15 by Shital Murray DO) Ankle pain (~2005) Bullous pemphigoid (11/08/15) Bullous pemphigoid Chicken pox (~1939) Depression (~1999) Diabetes mellitus (~2011) Hearing loss (~2001) History of urinary incontinence (~1999) Hypertension (~1982) Intertrigo Measles (~1939) Mumps (~194) Osteopenia (~2013) Pacemaker (~11/16/20) Pancreatitis (~2013) Peripheral neuropathy (~1999) Prostate CA (06/15/11) Prostate cancer (~1999) Restless leg syndrome (~2008) Sleep apnea (~2009) 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) Vision disorder Surgical History Anesthesia Broken leg (~2005) Cataracts, bilateral (~2012) Status post laminectomy (~2000) Status post radical cystoprostatectomy (~1999) Family History Father Cancer Grandfather Heart disease Grandmother Heart disease Mother Cancer Hypertension Social History household members: spouse Smoking Status: Former smoker alcohol intake: current Smoking Status: Former smoker alcohol intake frequency: a few times a month Substance Use Type: does not use Exam Initial Vital Signs Initial Vital Signs: Vital Signs Pulse Rate 63 11/22/20 12:59 Respiratory Rate 15 11/22/20 12:59 Blood Pressure 148/74 H 11/22/20 12:59 Pulse Oximetry 100 11/22/20 12:59 GENERAL: Alert 80-year-old male and in no acute distress. HEENT: Head atraumatic,EOMI, pupils reactive, face symmetric, moist mucous membranes CARDIOVASCULAR: Regular rate and rhythm without murmurs, rubs or gallops. RESPIRATORY: Breath sounds equal bilaterally, no wheezes rales or rhonchi. ABDOMEN: Soft, nontender. Normoactive bowel sounds all 4 quadrants. No guarding or rebound. EXTREMITIES: Normal range of motion, no clubbing or edema. Neurovascularly intact NEUROLOGICAL: Alert and oriented x4.Normal gait and speech. Cranial nerves II through XII grossly intact. SKIN: Warm, dry, no laceration, no petechiae, no rashes or lesions. Course Orders Ordered: ED Orders 11/22/20 13:16 Urinalysis and Microscopic Stat Urine Drug Screen, Rapid Stat 11/22/20 13:25 Acetaminophen Stat Complete Blood Count AUTO DIFF Stat Comprehensive Metabolic Panel Stat Ethanol (ETOH) Stat Lactate (Lactic Acid) Stat Partial Thromboplastin Time Stat Procalcitonin Stat Prolactin Stat Prothrombin Time INR Stat Salicylate Stat Thyroid Stimulating Hormone Stat Troponin & CK Cardiac Panel Stat 11/22/20 13:26 EKG-12 Lead Routine 11/22/20 13:45 XR chest 1V Stat 11/22/20 13:46 Blood Culture Stat 11/22/20 13:53 CT head/brain wo con Stat Discontinued Medications Sodium Chloride (Normal Saline 0.9%) 1,000 mls @ 150 mls/hr IV CONT BOBBY Last Infusion: 11/22/20 16:26 Dose: 0 mls/hr Documented by: Admin: 11/22/20 13:54 Dose: 150 mls/hr Documented by: JUAN Vital Signs Vital signs: Vital Signs - 8 hr 11/22/20 12:59 11/22/20 13:00 11/22/20 13:30 Temperature 97.7 F Pulse Rate 63 62 63 Respiratory Rate 15 19 22 Blood Pressure 148/74 H Pulse Oximetry 100 98 11/22/20 14:00 11/22/20 14:33 11/22/20 14:37 Temperature Pulse Rate 60 62 60 Respiratory Rate 15 15 Blood Pressure 157/73 H Pulse Oximetry 96 98 96 11/22/20 15:00 11/22/20 15:30 11/22/20 15:31 Temperature Pulse Rate 62 60 60 Respiratory Rate 20 20 16 Blood Pressure 170/75 H 165/70 H Pulse Oximetry 96 96 96 11/22/20 16:00 Temperature Pulse Rate 60 Respiratory Rate 24 Blood Pressure 188/79 H Pulse Oximetry 96 MDM - Altered Mental Status Lab Data Attestation: I reviewed the patient's lab results. Result diagrams: 11/22/20 13:25 11/22/20 13:25 Labs: Lab Results 11/22/20 11/22/20 11/22/20 Range/Units 13:16 13:16 13:25 WBC (4.5-11.0) X10^3/uL RBC (4.5-5.9) X10^6/uL Hgb (13.5-17.5) g/dL Hct (41-53) % MCV (80-100) fL MCH (26-34) PG MCHC (30-36) % RDW (11.6-14.8) % Plt Count (150-400) X10^3/uL Neut % (Auto) (50-75) % Lymph % (Auto) (25-40) % [place] % (Auto) (3-14) % Eos % (Auto) (2-4) % Baso % (Auto) (0-2) % Neut # (Auto) (0789-4537) /uL Lymph # (Auto) (2385-3526) /uL [place] # (Auto) (0-900) /uL Eos # (Auto) (0-450) /uL Baso # (Auto) (0-100) /uL PT (10.1-12.7) SECONDS INR (0.9-1.3) APTT (26.4-36.2) SECONDS Sodium (137-145) mmol/L Potassium (3.4-5.1) mmol/L Chloride (98-107) mmol/L Carbon Dioxide (22-32) mmol/L BUN (9-20) mg/dL Creatinine (0.66-1.25) mg/dL Estimated GFR (>60) mL/min BUN/Creatinine Ratio (6-22) Glucose (80-110) mg/dL Lactate (0.7-2.1) mmol/L Calcium (8.4-10.2) mg/dL Total Bilirubin (0.2-1.3) mg/dL AST (17-59) IU/L ALT (<50) IU/L Alkaline Phosphatase (38-126) U/L Total Creatine Kinase 256 H (55-170) U/L CK-MB (CK-2) 1.86 (<2.37) ng/mL CK-MB (CK-2) Rel Index 0.7 L (1.5-5.0) % Troponin I < 0.012 (0.01-0.034) ng/mL Total Protein (6.3-8.2) g/dL Albumin (3.5-5.0) g/dL Globulin (1.7-4.1) g/dL Albumin/Globulin Ratio (1.0-2.8) Procalcitonin (<0.5) ng/mL TSH (0.47-4.68) uIU/mL Prolactin (3.7-17.9) ng/mL Urine Color Yellow Urine Appearance Clear Urine pH 5.5 (4.5-8.0) Ur Specific Drexel <=1.005 (1.000-1.035) Urine Protein Negative (Negative) Urine Glucose (UA) Negative (Negative) g/dL Urine Ketones Negative (NEGATIVE) Urine Occult Blood Negative (Negative) Urine Nitrate Negative (Negative) Urine Bilirubin Negative (NEGATIVE) Urine Urobilinogen 0.2 (0.2) E.U./dL Ur Leukocyte Esterase Negative (NEGATIVE) Urine RBC None seen (0-5/HPF) Urine WBC None seen (0-5/HPF) Urine Bacteria Occasional (0-1) (None) Ur Culture Indicated? Cult not indicated Salicylates (<20) mg/dL U Opiates 300ng/mL cut Negative (Negative) Ur Oxycodone Screen Negative (Negative) Urine Methadone Screen Negative (Negative) Acetaminophen (10-30) ug/mL Ur Barbiturates Screen Negative (Negative) U Tricyclic Antidepress Positive H (Negative) Ur Phencyclidine Scrn Negative (Negative) Ur Amphetamines Screen Negative (Negative) U Methamphetamines Scrn Negative (Negative) Ur MDMA Scrn (Ecstasy) Negative (Negative) U Benzodiazepines Scrn Negative (Negative) Urine Cocaine Screen Negative (Negative) U Marijuana (THC) Screen Negative (Negative) Ethyl Alcohol ( - 10) mg/dL 11/22/20 11/22/20 11/22/20 Range/Units 13:25 13:25 13:25 WBC 10.6 (4.5-11.0) X10^3/uL RBC 4.64 (4.5-5.9) X10^6/uL Hgb 13.7 (13.5-17.5) g/dL Hct 40.9 L (41-53) % MCV 88.3 (80-100) fL MCH 29.6 (26-34) PG MCHC 33.5 (30-36) % RDW 14.4 (11.6-14.8) % Plt Count 193 (150-400) X10^3/uL Neut % (Auto) 58.5 (50-75) % Lymph % (Auto) 25.0 (25-40) % [place] % (Auto) 9.0 (3-14) % Eos % (Auto) 6.9 H (2-4) % Baso % (Auto) 0.6 (0-2) % Neut # (Auto) 6200 (8684-7185) /uL Lymph # (Auto) 2600 (6715-2590) /uL [place] # (Auto) 1000 H (0-900) /uL Eos # (Auto) 700 H (0-450) /uL Baso # (Auto) 100 (0-100) /uL PT 11.4 (10.1-12.7) SECONDS INR 1.0 (0.9-1.3) APTT 32 (26.4-36.2) SECONDS Sodium (137-145) mmol/L Potassium (3.4-5.1) mmol/L Chloride (98-107) mmol/L Carbon Dioxide (22-32) mmol/L BUN (9-20) mg/dL Creatinine (0.66-1.25) mg/dL Estimated GFR (>60) mL/min BUN/Creatinine Ratio (6-22) Glucose (80-110) mg/dL Lactate (0.7-2.1) mmol/L Calcium (8.4-10.2) mg/dL Total Bilirubin (0.2-1.3) mg/dL AST (17-59) IU/L ALT (<50) IU/L Alkaline Phosphatase (38-126) U/L Total Creatine Kinase (55-170) U/L CK-MB (CK-2) (<2.37) ng/mL CK-MB (CK-2) Rel Index (1.5-5.0) % Troponin I (0.01-0.034) ng/mL Total Protein (6.3-8.2) g/dL Albumin (3.5-5.0) g/dL Globulin (1.7-4.1) g/dL Albumin/Globulin Ratio (1.0-2.8) Procalcitonin < 0.05 (<0.5) ng/mL TSH (0.47-4.68) uIU/mL Prolactin (3.7-17.9) ng/mL Urine Color Urine Appearance Urine pH (4.5-8.0) Ur Specific [place] (1.000-1.035) Urine Protein (Negative) Urine Glucose (UA) (Negative) g/dL Urine Ketones (NEGATIVE) Urine Occult Blood (Negative) Urine Nitrate (Negative) Urine Bilirubin (NEGATIVE) Urine Urobilinogen (0.2) E.U./dL Ur Leukocyte Esterase (NEGATIVE) Urine RBC (0-5/HPF) Urine WBC (0-5/HPF) Urine Bacteria (None) Ur Culture Indicated? Salicylates (<20) mg/dL U Opiates 300ng/mL cut (Negative) Ur Oxycodone Screen (Negative) Urine Methadone Screen (Negative) Acetaminophen (10-30) ug/mL Ur Barbiturates Screen (Negative) U Tricyclic Antidepress (Negative) Ur Phencyclidine Scrn (Negative) Ur Amphetamines Screen (Negative) U Methamphetamines Scrn (Negative) Ur MDMA Scrn (Ecstasy) (Negative) U Benzodiazepines Scrn (Negative) Urine Cocaine Screen (Negative) U Marijuana (THC) Screen (Negative) Ethyl Alcohol ( - 10) mg/dL 11/22/20 11/22/20 11/22/20 Range/Units 13:25 13:25 13:25 WBC (4.5-11.0) X10^3/uL RBC (4.5-5.9) X10^6/uL Hgb (13.5-17.5) g/dL Hct (41-53) % MCV (80-100) fL MCH (26-34) PG MCHC (30-36) % RDW (11.6-14.8) % Plt Count (150-400) X10^3/uL Neut % (Auto) (50-75) % Lymph % (Auto) (25-40) % [place] % (Auto) (3-14) % Eos % (Auto) (2-4) % Baso % (Auto) (0-2) % Neut # (Auto) (7479-8746) /uL Lymph # (Auto) (3572-2023) /uL [place] # (Auto) (0-900) /uL Eos # (Auto) (0-450) /uL Baso # (Auto) (0-100) /uL PT (10.1-12.7) SECONDS INR (0.9-1.3) APTT (26.4-36.2) SECONDS Sodium 136 L (137-145) mmol/L Potassium 4.6 (3.4-5.1) mmol/L Chloride 100 (98-107) mmol/L Carbon Dioxide 30 (22-32) mmol/L BUN 32 H (9-20) mg/dL Creatinine 1.07 (0.66-1.25) mg/dL Estimated GFR > 60.0 (>60) mL/min BUN/Creatinine Ratio 29.9 H (6-22) Glucose 157 H (80-110) mg/dL Lactate 1.3 (0.7-2.1) mmol/L Calcium 9.2 (8.4-10.2) mg/dL Total Bilirubin 0.4 (0.2-1.3) mg/dL AST 28 (17-59) IU/L ALT 26 (<50) IU/L Alkaline Phosphatase 114 (38-126) U/L Total Creatine Kinase (55-170) U/L CK-MB (CK-2) (<2.37) ng/mL CK-MB (CK-2) Rel Index (1.5-5.0) % Troponin I (0.01-0.034) ng/mL Total Protein 6.6 (6.3-8.2) g/dL Albumin 4.0 (3.5-5.0) g/dL Globulin 2.6 (1.7-4.1) g/dL Albumin/Globulin Ratio 1.5 (1.0-2.8) Procalcitonin (<0.5) ng/mL TSH 2.33 (0.47-4.68) uIU/mL Prolactin 1.5 L (3.7-17.9) ng/mL Urine Color Urine Appearance Urine pH (4.5-8.0) Ur Specific [place] (1.000-1.035) Urine Protein (Negative) Urine Glucose (UA) (Negative) g/dL Urine Ketones (NEGATIVE) Urine Occult Blood (Negative) Urine Nitrate (Negative) Urine Bilirubin (NEGATIVE) Urine Urobilinogen (0.2) E.U./dL Ur Leukocyte Esterase (NEGATIVE) Urine RBC (0-5/HPF) Urine WBC (0-5/HPF) Urine Bacteria (None) Ur Culture Indicated? Salicylates < 1.0 (<20) mg/dL U Opiates 300ng/mL cut (Negative) Ur Oxycodone Screen (Negative) Urine Methadone Screen (Negative) Acetaminophen < 10 L (10-30) ug/mL Ur Barbiturates Screen (Negative) U Tricyclic Antidepress (Negative) Ur Phencyclidine Scrn (Negative) Ur Amphetamines Screen (Negative) U Methamphetamines Scrn (Negative) Ur MDMA Scrn (Ecstasy) (Negative) U Benzodiazepines Scrn (Negative) Urine Cocaine Screen (Negative) U Marijuana (THC) Screen (Negative) Ethyl Alcohol < 10 ( - 10) mg/dL Urine Dip Bedside Urine Glucose Negative Bedside Urine Bilirubin - Negative Bedside Urine Ketone - Negative Urine Specific [place] 1.010 Bedside Urine Occult Blood - Negative Bedside Urine pH 6.0 Bedside Urine Protein - Negative Bedside Urine Urobilinogen - Negative Bedside Urine Nitrite - Negative Bedside Urine Leukocytes - Negative Esterase Imaging Data CT scan - head: Radiologist's Impression: PROCEDURE: CT HEAD/BRAIN WO CON INDICATIONS: passed out TECHNIQUE: Noncontrast 4.5 mm thick angled axial sections acquired from the foramen magnum to the vertex, with coronal and sagittal reformats. For radiation dose reduction, the following was used: automated exposure control, adjustment of mA and/or kV according to patient size. COMPARISON: [facility], CT, CT HEAD/BRAIN WO CON, 06/27/2020, 9:06. [facility], CT, HEAD WITHOUT CONTRAST, 02/21/2018, 16:18. FINDINGS: Image quality: Excellent. CSF spaces: Basal cisterns are patent. No extra-axial fluid collections. Ventricles are normal in size and shape. Brain: No midline shift. No intracranial masses or hemorrhage. Pollard-white matter interface is normal. Skull and face: Calvarium and visualized facial bones are intact, without suspicious lesions. Sinuses: Visualized sinuses and mastoids are clear. IMPRESSION: Normal for age, source of current syncopal episode symptoms is not seen. Dictated by: Oscar Gupta M.D. on 11/22/2020 at 14:50 Chest x-ray: Radiologist's Impression: PROCEDURE: XR CHEST 1V INDICATIONS: pacemaker placed- TECHNIQUE: One view of the chest was acquired. COMPARISON: [facility], CR, XR CHEST 1V, 10/25/2020, 10:16. FINDINGS: Surgical changes and devices: Cardiac pacer Low lung volumes and mild left basilar and retrocardiac opacities. Right lung appears clear C4 scattered atelectasis. No pleural effusions or pneumothorax. Mediastinum: Mediastinal contours appear normal. Heart size is normal. Bones and chest wall: No suspicious bony lesions. Overlying soft tissues appear unremarkable. IMPRESSION: Increased retrocardiac and left basilar patchy atelectatic opacities, which could be accentuated by low lung volumes. No pneumothorax Dictated by: Bc Kothari M.D. on 11/22/2020 at 14:04 ECG Data Attestation: I personally reviewed and interpreted this ECG as follows: Prior ECG tracings: available for review Interpretation: Paced rhythm rate 66 p.r. interval 277 you are axilla for QTC [address] changes a pacemaker new since previous EKGs MDM Narrative Medical decision making narrative: Patient is sleeping in the ED. He is easily arousable. At this time no cause for altered mental status. Pacemaker has been interrogated and appears to be working. Patient took 0.5 mg of pramipexole this morning and ropinirole this morning and last night. I believe his increased somnolence is due to medication and not from infection or any other etiology at this time. He is ambulatory with a walker in the ED. at this time I have explained this to the who agrees to take him home Discharge Plan Departure Patient Disposition: Home Clinical Impression: Adverse reaction of antidiarrheal drug Activity Restrictions/Additional Instructions: *You have been diagnosed with medication reaction. *What to do: Increased tiredness is likely due to the pramipexole and ropinirole. Please discuss with his doctor his medications *Continue to take medications as directed *Follow up with your primary care provider in 2-3 days *Return to ER if you should have worsening mental status, confusion, fever, chest pain or any new, worsening or concerning symptoms Prescriptions: No Action citalopram [Celexa] 20 mg tablet 20 mg PO QDAY Qty: 90 RF: 3 atorvastatin 40 mg tablet 40 mg PO HS Qty: 90 RF: 3 losartan 50 mg tablet 50 mg PO BID Qty: 60 RF: 5 glipizide 5 mg tablet extended release 24hr See Rx Instructions PO DAILY Qty: 270 RF: 1 pramipexole 0.25 mg tablet 0.25 mg PO DAILY RF: 0 aspirin 81 mg tablet,delayed release (DR/EC) 81 mg PO DAILY RF: 0 melatonin 10 mg capsule 10 mg PO BEDTIME PRN (Reason: sleep) RF: 0 clotrimazole-betamethasone 1-0.05 % cream 1 applictn TOP BID 14 Days Qty: 15 RF: 5 tizanidine 2 mg capsule See Rx Instructions PO Q6-8H PRN (Reason: muscle spasticity) Qty: 60 RF: 5 Hold Instructions: Patient discontinued gabapentin 600 mg tablet 1,200 mg PO TID Qty: 540 RF: 11 oxycodone-acetaminophen 10-325 mg tablet 1 tab PO BEDTIME PRN (Reason: pain) Qty: 14 RF: 0 amlodipine 10 mg tablet 5 mg PO DAILY RF: 0 polyethylene glycol 3350 [Miralax] 17 gram Powder In Packet 17 g PO DAILY PRN (Reason: Constipation) RF: 0 acetaminophen [Tylenol] 325 mg Capsule 975 mg PO Q6H PRN (Reason: Pain, Moderate) RF: 0 Referrals: Michael Abdi MD [Primary Care Provider] -
--- NOTE | 2020-11-22 13:45 | DI.RAD.S_ITS ---
PROCEDURE: XR CHEST 1V INDICATIONS: pacemaker placed- TECHNIQUE: One view of the chest was acquired. COMPARISON: [facility], , XR CHEST 1V, 10/25/2020, 10:16. FINDINGS: Surgical changes and devices: Cardiac pacer Low lung volumes and mild left basilar and retrocardiac opacities. Right lung appears clear C4 scattered atelectasis. No pleural effusions or pneumothorax. Mediastinum: Mediastinal contours appear normal. Heart size is normal. Bones and chest wall: No suspicious bony lesions. Overlying soft tissues appear unremarkable. IMPRESSION: Increased retrocardiac and left basilar patchy atelectatic opacities, which could be accentuated by low lung volumes. No pneumothorax Dictated by: Bc Kothari M.D. on 11/22/2020 at 14:04 Approved by: Bc Kothari M.D. on 11/22/2020 at 14:06
--- NOTE | 2020-11-22 13:53 | DI.CT.S_ITS ---
PROCEDURE: CT HEAD/BRAIN WO CON INDICATIONS: passed out TECHNIQUE: Noncontrast 4.5 mm thick angled axial sections acquired from the foramen magnum to the vertex, with coronal and sagittal reformats. For radiation dose reduction, the following was used: automated exposure control, adjustment of mA and/or kV according to patient size. COMPARISON: [facility], CT, CT HEAD/BRAIN WO CON, 06/27/2020, 9:06. [facility], CT, HEAD WITHOUT CONTRAST, 02/21/2018, 16:18. FINDINGS: Image quality: Excellent. CSF spaces: Basal cisterns are patent. No extra-axial fluid collections. Ventricles are normal in size and shape. Brain: No midline shift. No intracranial masses or hemorrhage. Pollard-white matter interface is normal. Skull and face: Calvarium and visualized facial bones are intact, without suspicious lesions. Sinuses: Visualized sinuses and mastoids are clear. IMPRESSION: Normal for age, source of current syncopal episode symptoms is not seen. Dictated by: Oscar Gupta M.D. on 11/22/2020 at 14:50 Approved by: Oscar Gupta M.D. on 11/22/2020 at 14:51
[2020-11-22] MEDS: SODIUM CHLORIDE 0.9% 1,000 ML 150 ML IV (13:54)
[2020-11-22 14:00] LABS: Add Manual Diff / Slide Review NO; Basophils Absolute Auto 100 /uL (0-100); Basophils Percent Auto 0.6 % (0-2); Eosinophils Absolute Auto 700 /uL (0-450); Eosinophils Percent Auto 6.9 % (2-4); Hematocrit 40.9 % (41-53); Hemoglobin 13.7 g/dL (13.5-17.5); Lymphocytes Absolute Auto 2600 /uL (1100-4500); Mean Corpuscular HGB Conc 33.5 % (30-36); Mean Corpuscular Hemoglobin 29.6 PG (26-34); Mean Corpuscular Volume 88.3 fL (80-100); Monocytes Absolute Auto 1000 /uL (0-900); Neutrophils Absolute Auto 6200 /uL (1500-7000); Neutrophils Percent Auto 58.5 % (50-75); Platelet Count 193 X10^3/uL (150-400); Red Blood Cell Count 4.64 X10^6/uL (4.5-5.9); Red Cell Distribution Width 14.4 % (11.6-14.8); White Blood Cell Count 10.6 X10^3/uL (4.5-11.0)
[2020-11-22 14:07] LABS: RBC Urine None Seen (0-5/HPF); WBC Urine None Seen (0-5/HPF)
[2020-11-22 14:07] LABS: Prothrombin Time 11.4 SECONDS (10.1-12.7)
[2020-11-22 14:09] LABS: PTT Partial Thromboplastin Tim 32 SECONDS (26.4-36.2)
[2020-11-22 14:16] LABS: Creatine Kinase 256 U/L (55-170)
[2020-11-22 14:16] LABS: UR Morphine/Opiate cutoff 300 Negative (Negative); Ur Creatinine Normal (Normal); Ur Specific Gravity Normal (Normal); Urine Amphetamines Negative (Negative); Urine Barbiturates Negative (Negative); Urine Benzodiazepines Negative (Negative); Urine Cocaine Negative (Negative); Urine MDMA Negative (Negative); Urine Methadone Negative (Negative); Urine Methamphetamines Negative (Negative); Urine Oxycodone Negative (Negative); Urine Phencyclidine Negative (Negative); Urine Tetrahydrocannabinol Negative (Negative); Urine Tricyclic Antidepressant Positive (Negative); Urine pH Normal (Normal)
[2020-11-22 14:18] LABS: Acetaminophen < 10 ug/mL (10-30); Alanine Aminotransferase 26 IU/L (<50); Albumin Globulin Ratio 1.5 (1.0-2.8); Alkaline Phosphatase 114 U/L (38-126); Aspartate Aminotransferase 28 IU/L (17-59); BUN Creatinine Ratio 29.9 (6-22); Bilirubin Total 0.4 mg/dL (0.2-1.3); Blood Urea Nitrogen 32 mg/dL (9-20); Calcium 9.2 mg/dL (8.4-10.2); Carbon Dioxide 30 mmol/L (22-32); Chloride 100 mmol/L (98-107); Estimated Glomerular Filt Rate > 60.0 mL/min (>60); Ethanol (ETOH) < 10 mg/dL; Globulin 2.6 g/dL (1.7-4.1); Glucose 157 mg/dL (80-110); HEMOLYSIS 24 (0-50); Lactate (Lactic Acid) 1.3 mmol/L (0.7-2.1); Potassium 4.6 mmol/L (3.4-5.1); Salicylate < 1.0 mg/dL (<20); Sodium 136 mmol/L (137-145); Total Protein 6.6 g/dL (6.3-8.2)
[2020-11-22 14:19] LABS: Appearance Urine UA CLEAR; Bilirubin Urine UA NEGATIVE (NEGATIVE); Color Urine UA YELLOW; Glucose Urine UA NEGATIVE (Negative); Ketones Urine UA NEGATIVE (NEGATIVE); Leukocyte Esterase Urine UA NEGATIVE (NEGATIVE); Nitrite Urine UA NEGATIVE (Negative); Occult Blood Urine UA NEGATIVE (Negative); Protein Urine UA NEGATIVE (Negative); Specific Gravity Urine UA <=1.005 (1.000-1.035); Urobilinogen Urine UA 0.2 E.U./dL (0.2); pH Urine UA 5.5 (4.5-8.0)
[2020-11-22 14:28] LABS: Troponin I < 0.012 ng/mL (0.01-0.034)
[2020-11-22 14:31] LABS: CKMB % Relative Index 0.7 % (1.5-5.0); Creatine Kinase MB 1.86 ng/mL (<2.37)
[2020-11-22 14:31] LABS: Bacteria Urine Occasional (0-1); Culture Indicated Urine Cult Not Indicated
[2020-11-22 14:34] LABS: Prolactin 1.5 ng/mL (3.7-17.9)
[2020-11-22 14:36] LABS: Procalcitonin < 0.05 ng/mL (<0.5)
[2020-11-22 14:48] LABS: Thyroid Stimulating Hormone 2.33 uIU/mL (0.47-4.68)
--- NOTE | 2020-11-22 15:00 | PC.NURSE ---
Pacemaker interrogated, data confirmed/number called. 15-30 minutes for faxed report.
== END 2020-11-22 16:27 | disposition home or self-care (01) ==
PROVIDERS: Emergency Provider Emergency Medicine; PCP Student in an Organized Health Care Education/Training Program
DX: R41.82 Altered mental status, unspecified (principal); T47.6X5A Adverse effect of antidiarrheal drugs, initial encounter; E11.69 Type 2 diabetes mellitus with other specified complication; I49.9 Cardiac arrhythmia, unspecified; Z95.0 Presence of cardiac pacemaker
CPT/HCPCS: 36415; 70450; 71045; 80053; 80305; 80320; 80329; 81001; 81003; 82550; 82553; 83605; 84145; 84146; 84443; 84484; 85025; 85610; 85730; 93005; 96360; 96361; 99284; G0480

== ENCOUNTER → 2020-12-09 14:30 | Outpatient (CLI) | payer MEDICARE, SELFPAY ==
[2020-09-28 15:10] VITALS: BMI 31.9
[2020-12-09 15:32] LABS: Hemoglobin A1C% w Est Avg Glu 7.9 % (4.0-6.0)
[2020-12-09 15:38] LABS: BUN Creatinine Ratio 23.4 (6-22); Blood Urea Nitrogen 25 mg/dL (9-20); Calcium 9.6 mg/dL (8.4-10.2); Carbon Dioxide 32 mmol/L (22-32); Chloride 98 mmol/L (98-107); Estimated Glomerular Filt Rate > 60.0 mL/min (>60); Glucose 115 mg/dL (80-110); HEMOLYSIS < 15 (0-50); Potassium 5.1 mmol/L (3.4-5.1); Sodium 135 mmol/L (137-145)
[2020-12-09 15:54] LABS: Vitamin D 25 Hydroxy (D3) 20.3 ng/mL (30.0-100.0)
[2020-12-09 16:00] LABS: Creatinine Urine Random 69.8 mg/dL
[2020-12-09 16:05] LABS: Microalbumin Urine Random 2.1 mg/dL (0-1.6)
== END ==
PROVIDERS: PCP Student in an Organized Health Care Education/Training Program; Referring Provider Student in an Organized Health Care Education/Training Program; Visit Provider Student in an Organized Health Care Education/Training Program
DX: E11.9 Type 2 diabetes mellitus without complications (principal); E55.9 Vitamin D deficiency, unspecified
CPT/HCPCS: 36415; 80048; 82043; 82306; 82570; 83036

== ENCOUNTER → 2020-12-23 13:52 | Outpatient (CLI) | payer MEDICARE, SELFPAY ==
[2020-09-28 15:10] VITALS: BMI 31.9
[2020-12-23] MEDS: COVID-19 VACC #1, MRNA(MOD) 100 MCG/0.5 ML VIAL IM (14:10)
== END ==
PROVIDERS: PCP Student in an Organized Health Care Education/Training Program; Visit Provider Internal Medicine
DX: Z23 Encounter for immunization (principal)
CPT/HCPCS: 0011A; 91301

== ENCOUNTER → 2021-01-10 14:39 | Outpatient (CLI) | payer MEDICARE, SELFPAY ==
[2020-09-28 15:10] VITALS: BMI 31.9
[2021-01-10 16:25] LABS: Prostate Specific Antigen < 0.064 ng/mL (0.10-4.00)
== END ==
PROVIDERS: Specialist; PCP Student in an Organized Health Care Education/Training Program; Referring Provider Student in an Organized Health Care Education/Training Program; Visit Provider Student in an Organized Health Care Education/Training Program
DX: N40.0 Benign prostatic hyperplasia without lower urinary tract symptoms (principal)
CPT/HCPCS: 36415; 84153

== ENCOUNTER → 2021-01-20 13:29 | Outpatient (CLI) | payer MEDICARE, SELFPAY ==
[2021-01-16 14:10] VITALS: BMI 31.9
[2021-01-20] MEDS: COVID-19 VACC #2, MRNA(MOD) 100 MCG/0.5 ML VIAL IM (13:34)
== END ==
PROVIDERS: PCP Student in an Organized Health Care Education/Training Program; Visit Provider Internal Medicine
DX: Z23 Encounter for immunization (principal)
CPT/HCPCS: 0012A; 91301

== ENCOUNTER → 2021-02-22 14:50 | Outpatient (CLI) | payer MEDICARE, SELFPAY ==
[2021-01-16 14:10] VITALS: BMI 31.9
[2021-02-22 17:29] LABS: COVID19 -Nasal RAPID Negative (Negative)
== END ==
PROVIDERS: PCP Student in an Organized Health Care Education/Training Program; Visit Provider Family Medicine Sleep Medicine
DX: Z20.822 Contact with and (suspected) exposure to COVID-19 (principal)
CPT/HCPCS: 87635; C9803

== ENCOUNTER 2021-03-09 13:45 | Outpatient (RCR) | payer MEDICARE, SELFPAY ==
[2020-09-28 15:10] VITALS: BMI 31.9
[2021-01-16 14:10] VITALS: BMI 31.9
--- NOTE | 2021-02-23 19:39 | PT.OIE ---
Current Diagnoses Unspecified urinary incontinence (02/23/21) Past Medical History (Last Updated 02/19/21 @ 19:16 by YUDI Archer) Ankle pain (~2005) Bradycardia Bullous pemphigoid (11/08/15) Bullous pemphigoid Chicken pox (~1939) Complex sleep apnea syndrome Depression (~1999) Diabetes mellitus (~2011) Excessive daytime sleepiness Hearing loss (~2001) History of malignant neoplasm of prostate History of urinary incontinence (~1999) Hypertension (~1982) Incontinence of urine Intertrigo Measles (~1939) Mumps (~1939) Obstructive sleep apnea, adult Osteopenia (~2013) Pacemaker (~11/16/20) Pancreatitis (~2013) Peripheral neuropathy (~1999) Prostate CA (06/15/11) Prostate cancer (~1999) Restless leg syndrome (~2008) Sleep apnea (~2009) 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) Vision disorder Past Surgical History (Last Reviewed 01/12/21 @ 16:20 by Carlitos Aguillon MD) Anesthesia Broken leg (~2005) Cataracts, bilateral (~2012) Status post laminectomy (~2000) Status post radical cystoprostatectomy (~1999) Visit Care Team Role Provider Type Michael Abdi MD Primary Care Provider Physician Specialty: Internal Medicine Address: [address] [place] [address], [address], [facility] Email: [email or web address] Carlitos Aguillon MD Attending Provider Physician Referring Provider Specialty: Urology Address: [address] [place] [address], [facility] Email: Physical Therapy Initial Evaluation PT-OP-A Visit Information Start: 02/23/21 09:14 Freq: Status: Active Protocol: Document 02/23/21 12:55 [facility] (Rec: 02/23/21 12:55 [facility] [email or web address]) Out-Patient Physical Therapy Visit Information Visit Information Visit Type Initial Evaluation Visit Start Time 13:00 Visit Stop Time 13:45 Total Visit Minutes 45 Visit Number 1 Evaluation Information Evaluation Date 02/23/21 PT-OP-B Current Condition Start: 02/23/21 09:14 Freq: Status: Active Protocol: Document 02/23/21 12:56 [facility] (Rec: 02/23/21 12:58 [facility] [email or web address]) Current Condition History of Current Condition Onset Date chronic in nature but worsening Current Complaints progressive urinary incontinence and LE weakness History of Current Condition Pt reports 21 years ago 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 The incontinence has progressively increased. Pt reports he is urinating every 2 hours at night at times. He does feel the urge to void but he feels he doesn't get his bladder fully emptied when he voids. When he standing from voiding he can often leak . He uses briefs throughout the day and has been increasing his use throughout the last year to 3-4 depends per day as his incontinuence has increased. Past medical history includes B neuropathy, pt reports he cant feel anything in feet or ankles. In 2019 he underwent a L4 L5 laminectomy. Prior to the pandemic he was using a cane and now he notes he is primarily using the walker. He reports he lost a lot of his core strength after his laminectomy. He has a exercise bike in the bed room but is not currently using it. He used to go walking close to a mile and now is is limited to very little only in his house. He is unable to get up off the floor. Treatment Goals Patient/Caregiver Goals Pts treatment goals include improving strength of his LE, decreasing incontinence and improving his core strength Current Functional Impairments (Reported) Functional Limitations- ADL's pt is limited in All ADL's , he is able to walk short distances in the house only with the fww Functional Limitations- Mobility/Gait Pt using FWW limited in all transfers, requires assist from his PT-OP-F Manual Assessment Start: 02/23/21 09:14 Freq: Status: Active Protocol: Document 02/23/21 13:00 [facility] (Rec: 02/23/21 19:06 [facility] [email or web address]) Manual Assessments Other Manual Assessments Other Manual Assessments visable large hernia central and right sided abdominal wall PT-OP-J Posture/Palpation/Skin Start: 02/23/21 09:14 Freq: Status: Active Protocol: Document 02/23/21 13:00 [facility] (Rec: 02/23/21 19:06 [facility] [email or web address]) Posture Evaluation Position Sitting Evaluation View Lateral Comments Posture Comments forward flexed posture in sitting PT-OP-M Strength Start: 02/23/21 09:14 Freq: Status: Active Protocol: Document 02/23/21 13:00 [facility] (Rec: 02/23/21 19:06 [facility] [email or web address]) Trunk Strength Trunk Manual Muscle Testing Testing Position Supine Flexion 2 Poor Rotation Left 2+ Poor+ Rotation Right 2+ Poor+ Core Stabilization poor core stabilization, visable hernia with transfers into and out of bed, difficulty emilia his pelvic floor or lower abdominal wall without valsalva Hip Strength Hip Manual Muscle Testing Left Flexion (L2) 3 Fair Extension (S1) 3- Fair- Abduction 2+ Poor+ Right Flexion (L2) 2+ Poor+ Extension (S1) 3- Fair- Abduction 2+ Poor+ Ankle/Foot Strength Ankle and Foot Manual Muscle Testing Right Dorsiflexion (L4) 3- Fair- Plantarflexion (S1) 3 Fair Comments 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 that effected LE strength Left Dorsiflexion (L4) 3- Fair- Plantarflexion (S1) 3 Fair PT-OP-Q Treatments Start: 02/23/21 09:14 Freq: Status: Active Protocol: Document 02/23/21 13:00 [facility] (Rec: 02/23/21 19:06 [facility] [email or web address]) Therapeutic Exercises Supine Exercises pt educated in supine TA facilitation Supine Exercise Name supine TA facilitation Comments was also shown how to cue Jason to avoid valsalva PT-OP-T Assessment and Plan Start: 02/23/21 09:14 Freq: Status: Active Protocol: Document 02/23/21 13:00 [facility] (Rec: 02/23/21 19:06 [facility] [email or web address]) Physical Therapy Assessment Rehab Potential Rehabilitation Potential Good Evaluation Complexity Number of Personal Factors/Comorbidities 1-2 Number of Body Systems Impaired 1-2 Clinical Presentation at Evaluation Stable Goals bilatera LE weakness Impairment B LE weakness with neuropathy [facility] Goal (LTG) Improve hip strength by one muscle grade with MMT LTG Duration 8 weeks core weakness with visable hernia Impairment Core weakness with visable hernia Short Term Goal (STG) Pt is educated on abdominal bracing for transfers in the supine position and is able to roll in bed without valsalva STG Duration 4 weeks [facility] Goal (LTG) Pt is educated on abdominal bracing for transfers from sit -stand and is able to demonstrate a transfer without a valsalva LTG Duration 8 weeks worsening urinary incontinence Impairment worsening urinary incontinence Short Term Goal (STG) pt is educated on toileting techniques to improve ability to fully empty the bladder STG Duration 3 weeks [facility] Goal (LTG) pt is able to decrease depends use from 4 per day to 2 or less LTG Duration 8 weeks Assessment Summary Assessment Jason is a 80 year old male referred to PT for c/o worsening urinary incontinence . Pt's symptoms began 21 years ago following prostatectomy as well as a spinal surgery to remove a tumor at T3-4 that was pressing on his spinal cord. He suffered B LE neuropathy due to the tumor. He feels his incontinence was manageable until the pandemic. He notes he stopped exercising and going for walks during this time. He was able to walk with a single point cane before and is now limited to short distances only with his walker . Pt reports going through 3 -4 depends per day. He also repors having difficulty fully emptying his bladder. He reports pushing forcefully to try and empty his bladder. He also describes straining for bowel movements due to chronic constipation. With examination today Jason has a great deal of LE weakness. He requires assist to transfer to the table for assessment. With transfer from sitting to supine there is a large visable hernia present through the linea alba. When asked to try and contract his abdominal muscles and pelvic floor Jason performs a valsalva visably pushing through the hernia. Time was taken today explaining how to draw in his abdominal wall in supine verses pushing it away from his body. I educated him on the importance of not pushing with voiding and taught him relaxation techniques while sitting on the toilet to try and improve his ability to fully void. Jason would benefit from a strengthening program for both his core as well as his LE. He is a good candidate for PT and pelvic floor/core strengthening. Physical Therapy Plan Frequency and Duration Frequency of Treatment 1x/Week Duration of Treatment 8 Plan of Care Start Date 02/23/21 Plan of Care End Date 04/20/21 Therapeutic Interventions Therapeutic Interventions Home Exercise Program,Manual Therapy,Neuromuscular Re- education,Patient/Caregiver Education,Self-Care/Home Management,Soft Tissue Mobilization,Therapeutic Exercises Modalities Biofeedback,Cold Pack/Ice Massage Next Visit Focus/Plan Next Note Type Treatment Note Next Visit Plan begin work on core stabilization, transfer training using his core, hip strengthening, review toileting techniques.
--- NOTE | 2021-02-23 19:39 | PT.OPPOC ---
Physical, Occupational & Speech Therapy At [facility] Current Diagnoses Unspecified urinary incontinence (02/23/21) Visit Care Team Role Provider Type Michael Abdi MD Primary Care Provider Physician Specialty: Internal Medicine Address: [facility] [address] [place] [address], [address], [place], [address] Email: [email or web address] Carlitos Aguillon MD Attending Provider Physician Referring Provider Specialty: Urology Address: [address] [place] [address], [id number] Email: Plan Of Care PT-OP-T Assessment and Plan Start: 02/23/21 09:14 Freq: Status: Active Protocol: Document 02/23/21 13:00 [facility] (Rec: 02/23/21 19:06 [facility] [email or web address]) Physical Therapy Assessment Rehab Potential Rehabilitation Potential Good Evaluation Complexity Number of Personal Factors/Comorbidities 1-2 Number of Body Systems Impaired 1-2 Clinical Presentation at Evaluation Stable Goals bilatera LE weakness Impairment B LE weakness with neuropathy [employer] Goal (LTG) Improve hip strength by one muscle grade with MMT LTG Duration 8 weeks core weakness with visable hernia Impairment Core weakness with visible hernia Short Term Goal (STG) Pt is educated on abdominal bracing for transfers in the supine position and is able to roll in bed without valsalva STG Duration 4 weeks [employer] Goal (LTG) Pt is educated on abdominal bracing for transfers from sit -stand and is able to demonstrate a transfer without a valsalva LTG Duration 8 weeks worsening urinary incontinence Impairment worsening urinary incontinence Short Term Goal (STG) pt is educated on toileting techniques to improve ability to fully empty the bladder STG Duration 3 weeks [employer] Goal (LTG) pt is able to decrease depends use from 4 per day to 2 or less LTG Duration 8 weeks Assessment Summary Assessment Jason is a 80 year old male referred to PT for c/o worsening urinary incontinence . Pt's symptoms began 21 years ago following prostatectomy as well as a spinal surgery to remove a tumor at T3-4 that was pressing on his spinal cord. He suffered B LE neuropathy due to the tumor. He feels his incontinence was manageable until the covid 19 pandemic. He notes he stopped exercising and going for walks during this time. He was able to walk with a single point cane before covid and is now limited to short distances only with his walker . Pt reports going through 3 -4 depends per day. He also repors having difficulty fully emptying his bladder. He reports pushing forcefully to try and empty his bladder. He also describes straining for bowel movements due to chronic constipation. With examination today Jason has a great deal of LE weakness. He requires assist to transfer to the table for assessment. With transfer from sitting to supine there is a large visible hernia present through the linea alba. When asked to try and contract his abdominal muscles and pelvic floor Jason performs a valsalva visibly pushing through the hernia. Time was taken today explaining how to draw in his abdominal wall in supine verses pushing it away from his body. I educated him on the importance of not pushing with voiding and taught him relaxation techniques while sitting on the toilet to try and improve his ability to fully void. Jason would benefit from a strengthening program for both his core as well as his LE. He is a good candidate for PT and pelvic floor/core strengthening. Physical Therapy Plan Frequency and Duration Frequency of Treatment 1x/Week Duration of Treatment 8 Plan of Care Start Date 02/23/21 Plan of Care End Date 04/20/21 Therapeutic Interventions Therapeutic Interventions Home Exercise Program,Manual Therapy,Neuromuscular Re- education,Patient/Caregiver Education,Self-Care/Home Management,Soft Tissue Mobilization,Therapeutic Exercises Modalities Biofeedback,Cold Pack/Ice Massage Next Visit Focus/Plan Next Note Type Treatment Note Next Visit Plan begin work on core stabilization, transfer training using his core, hip strengthening, review toileting techniques. Plan of Care Dates Plan of Care Start Date 02/23/21 Plan of Care End Date 04/20/21 Electronically Signed by: Romelia Prado, PT 02/23/21 1939 Please Sign and Return: I have reviewed this Plan of Care and certify that the skilled therapy services above are required to meet the patient?s needs. Physician Signature Date Printed Name and Credentials Clinical Instructor Signature Printed Name and Credentials
--- NOTE | 2021-03-09 14:59 | PT.OTN ---
Current Diagnoses Unspecified urinary incontinence (03/09/21) Physical Therapy Treatment Note PT-OP-A Visit Information Start: 02/23/21 09:14 Freq: Status: Active Protocol: Document 03/09/21 13:45 [facility] (Rec: 03/09/21 13:45 [facility] [email or web address]) Out-Patient Physical Therapy Visit Information Visit Information Visit Type Treatment Note Visit Start Time 13:45 Visit Stop Time 14:30 Total Visit Minutes 45 Visit Number 2 PT-OP-B Current Condition Start: 02/23/21 09:14 Freq: Status: Active Protocol: Document 02/23/21 12:56 [facility] (Rec: 02/23/21 12:58 [facility] [email or web address]) Current Condition History of Current Condition Onset Date chronic in nature but worsening Current Complaints progressive urinary incontinence and LE weakness History of Current Condition Pt reports 21 years ago 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 The incontinence has progressively increased. Pt reports he is urinating every 2 hours at night at times. He does feel the urge to void but he feels he doesn't get his bladder fully emptied when he voids. When he standing from voiding he can often leak . He uses briefs throughout the day and has been increasing his use throughout the last year to 3-4 depends per day as his incontinuence has increased. Past medical history includes B neuropathy, pt reports he cant feel anything in feet or ankles. In 2019 he underwent a L4 L5 laminectomy. Prior to the pandemic he was using a cane and now he notes he is primarily using the walker. He reports he lost a lot of his core strength after his laminectomy. He has a exercise bike in the bed room but is not currently using it. He used to go walking close to a mile and now is is limited to very little only in his house. He is unable to get up off the floor. Treatment Goals Patient/Caregiver Goals Pts treatment goals include improving strength of his LE, decreasing incontinence and improving his core strength Current Functional Impairments (Reported) Functional Limitations- ADL's pt is limited in All ADL's , he is able to walk short distances in the house only with the fww Functional Limitations- Mobility/Gait Pt using FWW limited in all transfers, requires assist from his PT-OP-C Subjective Start: 02/23/21 09:14 Freq: Status: Active Protocol: Document 03/09/21 13:45 [facility] (Rec: 03/09/21 14:58 [facility] [email or web address]) OP-PT Subjective Patient Comments Patient Comments pt reports he has been working on trying to contract his abdominal wall, he notes it is difficult to sit and wait on the toilet for voiding PT-OP-F Manual Assessment Start: 02/23/21 09:14 Freq: Status: Active Protocol: Document 02/23/21 13:00 [facility] (Rec: 02/23/21 19:06 [facility] [email or web address]) Manual Assessments Other Manual Assessments Other Manual Assessments visable large hernia central and right sided abdominal wall PT-OP-J Posture/Palpation/Skin Start: 02/23/21 09:14 Freq: Status: Active Protocol: Document 02/23/21 13:00 [facility] (Rec: 02/23/21 19:06 [facility] [email or web address]) Posture Evaluation Position Sitting Evaluation View Lateral Comments Posture Comments forward flexed posture in sitting PT-OP-M Strength Start: 02/23/21 09:14 Freq: Status: Active Protocol: Document 02/23/21 13:00 [facility] (Rec: 02/23/21 19:06 [facility] [email or web address]) Trunk Strength Trunk Manual Muscle Testing Testing Position Supine Flexion 2 Poor Rotation Left 2+ Poor+ Rotation Right 2+ Poor+ Core Stabilization poor core stabilization, visable hernia with transfers into and out of bed, difficulty emilia his pelvic floor or lower abdominal wall without valsalva Hip Strength Hip Manual Muscle Testing Left Flexion (L2) 3 Fair Extension (S1) 3- Fair- Abduction 2+ Poor+ Right Flexion (L2) 2+ Poor+ Extension (S1) 3- Fair- Abduction 2+ Poor+ Ankle/Foot Strength Ankle and Foot Manual Muscle Testing Right Dorsiflexion (L4) 3- Fair- Plantarflexion (S1) 3 Fair Comments 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 that effected LE strength Left Dorsiflexion (L4) 3- Fair- Plantarflexion (S1) 3 Fair PT-OP-Q Treatments Start: 02/23/21 09:14 Freq: Status: Active Protocol: Document 03/09/21 13:45 [facility] (Rec: 03/09/21 14:58 [facility] [email or web address]) Therapeutic Exercises Supine Exercises TA with bridges Reps/Minutes x 10 reps pelvic floor facilitation Reps/Minutes x 10 reps diaphragmatic breathing in supine Reps/Minutes x 10 reps pt educated in supine TA facilitation Supine Exercise Name supine TA facilitation Comments was also shown how to cue Jason to avoid valsalva Sitting Exercises sit to stand with TA engagement Reps/Minutes x 10 reps Standing Exercises standing at counter top TA engagement Reps/Minutes x 10 reps Therapeutic Activity Therapeutic Activity transfer training Name transfer training Comments worked on transfer training from sit-stand with core engagement, from sit-sidelying and log rolling in bed to avoid herniation through the abdominal wall PT-OP-T Assessment and Plan Start: 02/23/21 09:14 Freq: Status: Active Protocol: Document 03/09/21 13:45 [facility] (Rec: 03/09/21 14:58 [facility] [email or web address]) Physical Therapy Assessment Assessment Summary Assessment I spent a lot of time educating Jason today on not holding his breath with abdominal and pelvic floor contraction. We worked on transfer training with abdominal muscle engagement and log rolling verses sitting straight up in bed. I encouraged him to take his time on the toilet and encouraged 5 minutes. He also reports he isn't voiding much during the day but when he lays down he has to get up to void. I educated him on LE swelling and that if he is up and moving more during the day it will help decrease swelling which will help decrease fluid retention. Physical Therapy Plan Frequency and Duration Frequency of Treatment 1x/Week Duration of Treatment 8 Plan of Care Start Date 02/23/21 Plan of Care End Date 04/20/21 Therapeutic Interventions Therapeutic Interventions Home Exercise Program,Manual Therapy,Neuromuscular Re- education,Patient/Caregiver Education,Self-Care/Home Management,Soft Tissue Mobilization,Therapeutic Exercises Modalities Biofeedback,Cold Pack/Ice Massage Next Visit Focus/Plan Next Note Type Treatment Note Next Visit Plan continue to focus on core stabilization, transfer training, hip strengthening
--- NOTE | 2021-03-28 14:19 | PT.OPDS ---
Current Diagnoses Unspecified urinary incontinence (03/09/21) Visit Care Team Role Provider Type Michael Abdi MD Primary Care Provider Physician Specialty: Internal Medicine Address: [address] [place] [address], [address], [place], [address] Email: [email or web address] Carlitos Aguillon MD Attending Provider Physician Referring Provider Specialty: Urology Address: [address] [place] [address], [place], [address] Email: Visit Number Visit Number 2 Discharge Summary PT-OP-B Current Condition Start: 02/23/21 09:14 Freq: Status: Active Protocol: Document 02/23/21 12:56 AMH (Rec: 02/23/21 12:58 AMH [email or web address]) Current Condition History of Current Condition Onset Date chronic in nature but worsening Current Complaints progressive urinary incontinence and LE weakness History of Current Condition Pt reports 21 years ago 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 The incontinence has progressively increased. Pt reports he is urinating every 2 hours at night at times. He does feel the urge to void but he feels he doesn't get his bladder fully emptied when he voids. When he standing from voiding he can often leak . He uses briefs throughout the day and has been increasing his use throughout the last year to 3-4 depends per day as his incontinuence has increased. Past medical history includes B neuropathy, pt reports he cant feel anything in feet or ankles. In 2019 he underwent a L4 L5 laminectomy. Prior to the pandemic he was using a cane and now he notes he is primarily using the walker. He reports he lost a lot of his core strength after his laminectomy. He has a exercise bike in the bed room but is not currently using it. He used to go walking close to a mile and now is is limited to very little only in his house. He is unable to get up off the floor. Treatment Goals Patient/Caregiver Goals Pts treatment goals include improving strength of his LE, decreasing incontinence and improving his core strength Current Functional Impairments (Reported) Functional Limitations- ADL's pt is limited in All ADL's , he is able to walk short distances in the house only with the fww Functional Limitations- Mobility/Gait Pt using FWW limited in all transfers, requires assist from his PT-OP-C Subjective Start: 02/23/21 09:14 Freq: Status: Active Protocol: Document 03/09/21 13:46 AMH (Rec: 03/09/21 15:18 [facility] [id number]) OP-PT Subjective Patient Comments Patient Comments pt notes he has been trying to facilitate his core but cant do it fast enough when he has the urge to void. PT-OP-F Manual Assessment Start: 02/23/21 09:14 Freq: Status: Active Protocol: Document 02/23/21 13:00 AMH (Rec: 02/23/21 19:06 [facility] [email or web address]) Manual Assessments Other Manual Assessments Other Manual Assessments visable large hernia central and right sided abdominal wall PT-OP-J Posture/Palpation/Skin Start: 02/23/21 09:14 Freq: Status: Active Protocol: Document 02/23/21 13:00 AMH (Rec: 02/23/21 19:06 [facility] [email or web address]) Posture Evaluation Position Sitting Evaluation View Lateral Comments Posture Comments forward flexed posture in sitting PT-OP-M Strength Start: 02/23/21 09:14 Freq: Status: Active Protocol: Document 02/23/21 13:00 AMH (Rec: 02/23/21 19:06 [facility] [email or web address]) Trunk Strength Trunk Manual Muscle Testing Testing Position Supine Flexion 2 Poor Rotation Left 2+ Poor+ Rotation Right 2+ Poor+ Core Stabilization poor core stabilization, visable hernia with transfers into and out of bed, difficulty emilia his pelvic floor or lower abdominal wall without valsalva Hip Strength Hip Manual Muscle Testing Left Flexion (L2) 3 Fair Extension (S1) 3- Fair- Abduction 2+ Poor+ Right Flexion (L2) 2+ Poor+ Extension (S1) 3- Fair- Abduction 2+ Poor+ Ankle/Foot Strength Ankle and Foot Manual Muscle Testing Right Dorsiflexion (L4) 3- Fair- Plantarflexion (S1) 3 Fair Comments 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 Physical Therapy Plan Discharge Physical Therapy Discharge Reasons Patient Request Discharge Comments pt phones in request to DC therapy as he has other health issues at this time and is not able to work on his exercises. I would be happy to initiate PT in the future for Jason.
== END 2021-03-29 10:36 | disposition home or self-care (01) ==
LOC: PHYS 13:45
PROVIDERS: PCP Student in an Organized Health Care Education/Training Program; Referring Provider Specialist; Visit Provider Specialist
DX: R32 Unspecified urinary incontinence (principal)
CPT/HCPCS: 97110; 97161; 97530

== ENCOUNTER → 2021-03-10 14:20 | Outpatient (CLI) | payer MEDICARE, SELFPAY ==
[2021-01-16 14:10] VITALS: BMI 31.9
[2021-03-10 15:55] LABS: Hemoglobin A1C% w Est Avg Glu 7.5 % (4.0-6.0)
== END ==
PROVIDERS: PCP Student in an Organized Health Care Education/Training Program; Referring Provider Student in an Organized Health Care Education/Training Program; Visit Provider Student in an Organized Health Care Education/Training Program
DX: E11.42 Type 2 diabetes mellitus with diabetic polyneuropathy (principal)
CPT/HCPCS: 36415; 83036

== ENCOUNTER → 2021-05-17 13:32 | Outpatient (CLI) | payer MEDICARE, SELFPAY ==
[2021-01-16 14:10] VITALS: BMI 31.9
[2021-05-17 14:35] LABS: Hemoglobin A1C% w Est Avg Glu 7.4 % (4.0-6.0)
[2021-05-17 14:49] LABS: BUN Creatinine Ratio 29.9 (6-22); Blood Urea Nitrogen 50 mg/dL (9-20); Estimated Glomerular Filt Rate 39.7 mL/min (>60)
[2021-05-17 15:39] LABS: Vitamin B12 > 1000 pg/mL (239-931)
[2021-05-17 15:52] LABS: Vitamin D 25 Hydroxy (D3) 42.5 ng/mL (30.0-100.0)
== END ==
PROVIDERS: PCP Student in an Organized Health Care Education/Training Program; Referring Provider Student in an Organized Health Care Education/Training Program; Visit Provider Student in an Organized Health Care Education/Training Program
DX: E11.42 Type 2 diabetes mellitus with diabetic polyneuropathy (principal); R29.898 Other symptoms and signs involving the musculoskeletal system
CPT/HCPCS: 36415; 82306; 82565; 82607; 83036; 84520

== ENCOUNTER 2021-05-18 11:00 | Outpatient (RCR) | payer MEDICARE, SELFPAY ==
[2021-01-16 14:10] VITALS: BMI 31.9
--- NOTE | 2021-05-09 14:20 | PT.OIE ---
Current Diagnoses Type 2 diabetes mellitus with diabetic neuropathy, unspecified (05/11/21) Other abnormalities of gait and mobility (05/11/21) Other symptoms and signs involving the musculoskeletal system (05/11/21) History of falling (05/11/21) Past Medical History (Last Updated 03/04/21 @ 16:27 by YUDI Archer) Ankle pain (~2005) Bradycardia Bullous pemphigoid (11/08/15) Bullous pemphigoid Chicken pox (~1939) Complex sleep apnea syndrome Depression (~1999) Diabetes mellitus (~2011) Excessive daytime sleepiness Hearing loss (~2001) History of malignant neoplasm of prostate History of urinary incontinence (~1999) Hypertension (~1982) Incontinence of urine Intertrigo Measles (~1939) Mumps (~1939) Obesity (BMI 30-39.9) Obstructive sleep apnea, adult Osteopenia (~2013) Pacemaker (~11/16/20) Pancreatitis (~2013) Peripheral neuropathy (~1999) Prostate CA (06/15/11) Prostate cancer (~1999) Restless leg syndrome (~2008) Sleep apnea (~2009) 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) Vision disorder Past Surgical History (Last Reviewed 01/12/21 @ 16:20 by Carlitos Aguillon MD) Anesthesia Broken leg (~2005) Cataracts, bilateral (~2012) Status post laminectomy (~2000) Status post radical cystoprostatectomy (~1999) Visit Care Team Role Provider Type Michael Abdi MD Attending Provider Physician Primary Care Provider Referring Provider Specialty: Internal Medicine Address: [address] [place] [address], [address], [facility] Email: [email or web address] Physical Therapy Initial Evaluation PT-OP-A Visit Information Start: 05/09/21 10:09 Freq: Status: Active Protocol: Document 05/09/21 10:15 [email or web address] (Rec: 05/11/21 07:43 AMB [email or web address]) Out-Patient Physical Therapy Visit Information Visit Information Visit Type Initial Evaluation Visit Start Time 10:15 Visit Stop Time 11:00 Total Visit Minutes 45 Visit Number 1 PT-OP-B Current Condition Start: 05/09/21 10:09 Freq: Status: Active Protocol: Document 05/09/21 10:15 AMB (Rec: 05/09/21 10:51 AMB [id number]) Current Condition History of Current Condition Onset Date A year and a half Current Complaints Bilateral leg weakness and pain- progressive History of Current Condition Had thoracic surgery 22 years ago and neuropathy has been progressively worsening since. Then had L4L5 surgery a few years ago. Quarentined because of Covid and now can't walk without walker. Attends with Josy. Did have a recent fall when trying to pickling operator hearing aid from the floor, it was very difficult for her to help him up from the floor. Planning on a trip to [place] for fly fishing from the boat but pt will likely have to cancel it. Getting up from the floor is very challenging. 3 falls in last 6 months. Pt really doesn't like the walker and would like to get rid of it if at all possible. Left leg is more painful. Lives in a single level home with 2 stairs to enter without a rail . Pt is staying in the house, not really going outside. Treatment Goals Patient/Caregiver Goals Strengthen legs improve walking Prior Functional Status Baseline Function- ADL's Modified Independent Baseline Function- Mobility Modified Independent Current Functional Impairments (Reported) Functional Limitations- ADL's Needs assistance on stairs, assist with floor transfer, walks short distances with walker. Personal Factors Other Personal Factors That May Effect Progressive neuropathy, Therapy/Recovery multiple back surgeries, DMII, depression, CVA in 2016, pacemaker, hypertension PT-OP-C Subjective Start: 05/09/21 10:09 Freq: Status: Active Protocol: Document 05/09/21 10:15 AMB (Rec: 05/11/21 07:49 AMB [email or web address]) Patient Questionnaires Lower Extremity Functional Scale LEFS Score 10 LEFS Impairment 60 to 79% Impaired (Score 17- 31) PT-OP-E Functional Tests Start: 05/09/21 10:09 Freq: Status: Active Protocol: Document 05/09/21 10:15 AMB (Rec: 05/11/21 07:50 AMB [email or web address]) Functional Tests 2 Minute Walk Test Distance 210 Device Used 4WW Five Times Sit to Stand Test Score 38 seconds Comments 22 chair Timed Up and Go (TUG) Score 27 Comments 4WW c airex on chair and heavy use of armrests TUG Impairment Rating 100% Impaired (Score 20) PT-OP-H Neuro Start: 05/09/21 10:09 Freq: Status: Active Protocol: Document 05/09/21 10:15 AMB (Rec: 05/11/21 13:55 AMB [email or web address]) Sensation Evaluation Comments Summary Comments numbness R>L worst in feet but up to thighs PT-OP-J Posture/Palpation/Skin Start: 05/09/21 10:09 Freq: Status: Active Protocol: Document 05/09/21 10:15 AMB (Rec: 05/11/21 13:55 AMB [email or web address]) Posture Evaluation Comments Posture Comments Flat lumbar spine, reduced trunk rotation, forward head PT-OP-M Strength Start: 05/09/21 10:09 Freq: Status: Active Protocol: Document 05/09/21 10:15 AMB (Rec: 05/11/21 08:00 AMB [email or web address]) Hip Strength Hip Manual Muscle Testing Right Flexion (L2) 3+ Fair+ Extension (S1) 2+ Poor+ Abduction 2+ Poor+ Left Flexion (L2) 3+ Fair+ Extension (S1) 2+ Poor+ Abduction 3 Fair Knee Strength Knee Manual Muscle Testing Right Flexion (S2) 3 Fair Extension (L3) 4 Good Left Flexion (S2) 3 Fair Extension (L3) 4 Good Ankle/Foot Strength Ankle and Foot Manual Muscle Testing Left Dorsiflexion (L4) 3- Fair- Plantarflexion (S1) 3 Fair Right Dorsiflexion (L4) 3 Fair Plantarflexion (S1) 3 Fair PT-OP-T Assessment and Plan Start: 05/09/21 10:09 Freq: Status: Active Protocol: Document 05/09/21 10:15 AMB (Rec: 05/11/21 11:15 AMB [email or web address]) Physical Therapy Assessment Rehab Potential Rehabilitation Potential Fair Evaluation Complexity Number of Personal Factors/Comorbidities 3 or More Clinical Presentation at Evaluation Evolving Impairments Impairments Balance,Functional Activities, Functional Mobility,Gait,Pain, Sensation,Strength Other Concerns Fall Risk yes Goals Four Impairment Walking tolerance Short Term Goal (STG) Fransisco will improve his 2 minute walk test to at least 300' with his 4WW. STG Duration 4 weeks Long-Term Goal (LTG) Fransisco will improve his TUG to 20 seconds or less with his 4WW. LTG Duration 8 weeks Three Impairment Transfers Short Term Goal (STG) Fransisco will move from sit to stand from an 18 chair without UE support. STG Duration 4 weeks Functional Skills Tutor Goal (LTG) Fransisco will demonstrate a floor transfer with Nathen and environmental support. LTG Duration 8 weeks Two Impairment Gait Short Term Goal (STG) Fransisco will ambulate with his 4WW for 6 minutes over smooth terrain. STG Duration 4 weeks Long-Term Goal (LTG) Fransisco will ambulate with a SPC and CGA for 30'. LTG Duration 8 weeks One Impairment Strength Short Term Goal (STG) Fransisco will be independent with a LE strength home exercise program. STG Duration 4 weeks Functional Skills Tutor Goal (LTG) Fransisco will improve his LE strength to at least 3+/5. LTG Duration 8 weeks Assessment Summary Assessment Fransisco attends physical therapy with progressive weakness and balance impairments that are limiting his ability to ambulate. His goal is to walk without his walker, but that may not be an especially appropriate goal. His 's goal is to improve his strength to improve his ability to get up from the floor. He does have a history of falls. He does have poor LE strength and will benefit from a physical therapy program for LE strengthening and balance/gait training to decrease his fall risk and improve his independence. Physical Therapy Plan Frequency and Duration Frequency of Treatment 2x/Week Duration of Treatment 8 weeks Plan of Care Start Date 05/09/21 Plan of Care End Date 07/04/21 Therapeutic Interventions Therapeutic Interventions Aquatic Therapy,Gait Training, Home Exercise Program,Manual Therapy,Neuromuscular Re- education,Self-Care/Home Management,Therapeutic Activities,Therapeutic Exercises Next Visit Focus/Plan Next Note Type Treatment Note Next Visit Plan Begin establishing HEP, LE strengthening balance program.
--- NOTE | 2021-05-09 14:21 | PT.OPPOC ---
Physical, Occupational & Speech Therapy At [facility] Current Diagnoses Type 2 diabetes mellitus with diabetic neuropathy, unspecified (05/11/21) Other abnormalities of gait and mobility (05/11/21) Other symptoms and signs involving the musculoskeletal system (05/11/21) History of falling (05/11/21) Visit Care Team Role Provider Type Michael Abdi MD Attending Provider Physician Primary Care Provider Referring Provider Specialty: Internal Medicine Address: [address] [place] [address], [address], [address] Email: [email or web address] Plan Of Care PT-OP-T Assessment and Plan Start: 05/09/21 10:09 Freq: Status: Active Protocol: Document 05/09/21 10:15 AMB (Rec: 05/11/21 11:15 AMB [email or web address]) Physical Therapy Assessment Rehab Potential Rehabilitation Potential Fair Evaluation Complexity Number of Personal Factors/Comorbidities 3 or More Clinical Presentation at Evaluation Evolving Impairments Impairments Balance,Functional Activities, Functional Mobility,Gait,Pain, Sensation,Strength Other Concerns Fall Risk yes Goals Four Impairment Walking tolerance Short Term Goal (STG) Fransisco will improve his 2 minute walk test to at least 300' with his 4WW. STG Duration 4 weeks Chcf Goal (LTG) Fransisco will improve his TUG to 20 seconds or less with his 4WW. LTG Duration 8 weeks Three Impairment Transfers Short Term Goal (STG) Fransisco will move from sit to stand from an 18 chair without UE support. STG Duration 4 weeks Chcf Goal (LTG) Fransisco will demonstrate a floor transfer with Nathen and environmental support. LTG Duration 8 weeks Two Impairment Gait Short Term Goal (STG) Fransisco will ambulate with his 4WW for 6 minutes over smooth terrain. STG Duration 4 weeks Chcf Goal (LTG) Fransisco will ambulate with a SPC and CGA for 30'. LTG Duration 8 weeks One Impairment Strength Short Term Goal (STG) Fransisco will be independent with a LE strength home exercise program. STG Duration 4 weeks Care Aid Goal (LTG) Fransisco will improve his LE strength to at least 3+/5. LTG Duration 8 weeks Assessment Summary Assessment Fransisco attends physical therapy with progressive weakness and balance impairments that are limiting his ability to ambulate. His goal is to walk without his walker, but that may not be an especially appropriate goal. His 's goal is to improve his strength to improve his ability to get up from the floor. He does have a history of falls. He does have poor LE strength and will benefit from a physical therapy program for LE strengthening and balance/gait training to decrease his fall risk and improve his independence. Physical Therapy Plan Frequency and Duration Frequency of Treatment 2x/Week Duration of Treatment 8 weeks Plan of Care Start Date 05/09/21 Plan of Care End Date 07/04/21 Therapeutic Interventions Therapeutic Interventions Aquatic Therapy,Gait Training, Home Exercise Program,Manual Therapy,Neuromuscular Re- education,Self-Care/Home Management,Therapeutic Activities,Therapeutic Exercises Next Visit Focus/Plan Next Note Type Treatment Note Next Visit Plan Begin establishing HEP, LE strengthening balance program. Plan of Care Dates Plan of Care Start Date 05/09/21 Plan of Care End Date 07/04/21 Electronically Signed by: Silvia Howard, PT 05/11/21 2133 Please Sign and Return: I have reviewed this Plan of Care and certify that the skilled therapy services above are required to meet the patient?s needs. Physician Signature Date Printed Name and Credentials Clinical Instructor Signature Printed Name and Credentials
--- NOTE | 2021-05-11 14:38 | PT.OTN ---
Current Diagnoses Type 2 diabetes mellitus with diabetic neuropathy, unspecified (05/11/21) Other abnormalities of gait and mobility (05/11/21) Other symptoms and signs involving the musculoskeletal system (05/11/21) History of falling (05/11/21) Physical Therapy Treatment Note PT-OP-A Visit Information Start: 05/09/21 10:09 Freq: Status: Active Protocol: Document 05/11/21 12:00 AMB (Rec: 05/11/21 14:35 AMB [email or web address]) Out-Patient Physical Therapy Visit Information Visit Information Visit Type Treatment Note Visit Start Time 12:00 Visit Stop Time 12:45 Total Visit Minutes 45 Visit Number 2 PT-OP-B Current Condition Start: 05/09/21 10:09 Freq: Status: Active Protocol: Document 05/09/21 10:15 AMB (Rec: 05/09/21 10:51 AMB [id number]) Current Condition History of Current Condition Onset Date A year and a half Current Complaints Bilateral leg weakness and pain- progressive History of Current Condition Had thoracic surgery 22 years ago and neuropathy has been progressively worsening since. Then had L4L5 surgery a few years ago. Quarentined because of Covid and now can't walk without walker. Attends with Josy. Did have a recent fall when trying to pickling operator hearing aid from the floor, it was very difficult for her to help him up from the floor. Planning on a trip to [place] for fly fishing from the boat but pt will likely have to cancel it. Getting up from the floor is very challenging. 3 falls in last 6 months. Pt really doesn't like the walker and would like to get rid of it if at all possible. Left leg is more painful. Lives in a single level home with 2 stairs to enter without a rail . Pt is staying in the house, not really going outside. Treatment Goals Patient/Caregiver Goals Strengthen legs improve walking Prior Functional Status Baseline Function- ADL's Modified Independent Baseline Function- Mobility Modified Independent Current Functional Impairments (Reported) Functional Limitations- ADL's Needs assistance on stairs, assist with floor transfer, walks short distances with walker. Personal Factors Other Personal Factors That May Effect Progressive neuropathy, Therapy/Recovery multiple back surgeries, DMII, depression, CVA in 2016, pacemaker, hypertension PT-OP-C Subjective Start: 05/09/21 10:09 Freq: Status: Active Protocol: Document 05/11/21 12:00 AMB (Rec: 05/11/21 14:35 AMB [email or web address]) OP-PT Subjective Patient Comments Patient Comments About the same as at eval. Wasn't able to do sit to stands, no good chairs in the house. PT-OP-E Functional Tests Start: 05/09/21 10:09 Freq: Status: Active Protocol: Document 05/09/21 10:15 AMB (Rec: 05/11/21 07:50 AMB [email or web address]) Functional Tests 2 Minute Walk Test Distance 210 Device Used 4WW Five Times Sit to Stand Test Score 38 seconds Comments 22 chair Timed Up and Go (TUG) Score 27 Comments 4WW c airex on chair and heavy use of armrests TUG Impairment Rating 100% Impaired (Score 20) PT-OP-H Neuro Start: 05/09/21 10:09 Freq: Status: Active Protocol: Document 05/09/21 10:15 AMB (Rec: 05/11/21 13:55 AMB [email or web address]) Sensation Evaluation Comments Summary Comments numbness R>L worst in feet but up to thighs PT-OP-J Posture/Palpation/Skin Start: 05/09/21 10:09 Freq: Status: Active Protocol: Document 05/09/21 10:15 AMB (Rec: 05/11/21 13:55 AMB [email or web address]) Posture Evaluation Comments Posture Comments Flat lumbar spine, reduced trunk rotation, forward head PT-OP-M Strength Start: 05/09/21 10:09 Freq: Status: Active Protocol: Document 05/09/21 10:15 AMB (Rec: 05/11/21 08:00 AMB [email or web address]) Hip Strength Hip Manual Muscle Testing Right Flexion (L2) 3+ Fair+ Extension (S1) 2+ Poor+ Abduction 2+ Poor+ Left Flexion (L2) 3+ Fair+ Extension (S1) 2+ Poor+ Abduction 3 Fair Knee Strength Knee Manual Muscle Testing Right Flexion (S2) 3 Fair Extension (L3) 4 Good Left Flexion (S2) 3 Fair Extension (L3) 4 Good Ankle/Foot Strength Ankle and Foot Manual Muscle Testing Left Dorsiflexion (L4) 3- Fair- Plantarflexion (S1) 3 Fair Right Dorsiflexion (L4) 3 Fair Plantarflexion (S1) 3 Fair PT-OP-Q Treatments Start: 05/09/21 10:09 Freq: Status: Active Protocol: Document 05/11/21 12:00 AMB (Rec: 05/11/21 14:35 AMB [email or web address]) Gym Equipment Shuttle Recovery Bilateral Squats Resistance 100 Shuttle Recovery Platform Stable Reps/Time 2x12 Therapeutic Exercises Sitting Exercises LAQ Side bilateral Resistance 5# ankle weight Reps/Minutes 2x8 sit to stand with TA engagement Sitting Exercise Name from chair with airex pad, used bilat UEs Reps/Minutes 5 Comments cued forward lean Gait Training Gait Activity 1 Description TUG Comments 4WW x3 2MWT Device Used 4WW Surface smooth Distance/Duration 210 Neuro Re-Education Treatment Balance Activities weightshift Details stride stance Comments one hand on 4WW, pt unable to do without one UE support. PT-OP-T Assessment and Plan Start: 05/09/21 10:09 Freq: Status: Active Protocol: Document 05/11/21 12:00 AMB (Rec: 05/11/21 14:35 AMB [email or web address]) Physical Therapy Assessment Goals Four Impairment Walking tolerance Short Term Goal (STG) Fransisco will improve his 2 minute walk test to at least 300' with his 4WW. STG Duration 4 weeks Tight Rope Walker Goal (LTG) Fransisco will improve his TUG to 20 seconds or less with his 4WW. LTG Duration 8 weeks Three Impairment Transfers Short Term Goal (STG) Fransisco will move from sit to stand from an 18 chair without UE support. STG Duration 4 weeks Senior Living Goal (LTG) Fransisco will demonstrate a floor transfer with Nathen and environmental support. LTG Duration 8 weeks Two Impairment Gait Short Term Goal (STG) Fransisco will ambulate with his 4WW for 6 minutes over smooth terrain. STG Duration 4 weeks Tight Rope Walker Goal (LTG) Fransisco will ambulate with a SPC and CGA for 30'. LTG Duration 8 weeks One Impairment Strength Short Term Goal (STG) Fransisco will be independent with a LE strength home exercise program. STG Duration 4 weeks Tight Rope Walker Goal (LTG) Fransisco will improve his LE strength to at least 3+/5. LTG Duration 8 weeks Assessment Summary Assessment Fransisco was able to tolerate gait and LE strengthening today but fatigues quickly. Balance exercise of pre gait weight shifting was very challenging for him and pointed out he would need to be able to do this to ambulate without 4WW. Pt also notes feeling a bit off with turning, due to progressive neuropathy. Physical Therapy Plan Frequency and Duration Frequency of Treatment 2x/Week Duration of Treatment 8 weeks Plan of Care Start Date 05/09/21 Plan of Care End Date 07/04/21 Therapeutic Interventions Therapeutic Interventions Aquatic Therapy,Gait Training, Home Exercise Program,Manual Therapy,Neuromuscular Re- education,Self-Care/Home Management,Therapeutic Activities,Therapeutic Exercises Next Visit Focus/Plan Next Note Type Treatment Note Next Visit Plan Shuttle recovery per pt request, progress HEP (LE strengthening/ provide handouts), gait training as tolerated with 4WW
--- NOTE | 2021-05-15 13:36 | PT.OTN ---
Current Diagnoses Type 2 diabetes mellitus with diabetic neuropathy, unspecified (05/15/21) Other abnormalities of gait and mobility (05/15/21) Other symptoms and signs involving the musculoskeletal system (05/15/21) History of falling (05/15/21) Physical Therapy Treatment Note PT-OP-A Visit Information Start: 05/09/21 10:09 Freq: Status: Active Protocol: Document 05/15/21 12:45 AMB (Rec: 05/15/21 13:33 AMB [id number]) Out-Patient Physical Therapy Visit Information Visit Information Visit Type Treatment Note Visit Start Time 12:45 Visit Stop Time 13:30 Total Visit Minutes 45 Visit Number 3 PT-OP-B Current Condition Start: 05/09/21 10:09 Freq: Status: Active Protocol: Document 05/09/21 10:15 AMB (Rec: 05/09/21 10:51 AMB [id number]) Current Condition History of Current Condition Onset Date A year and a half Current Complaints Bilateral leg weakness and pain- progressive History of Current Condition Had thoracic surgery 22 years ago and neuropathy has been progressively worsening since. Then had L4L5 surgery a few years ago. Quarentined because of Covid and now can't walk without walker. Attends with Josy. Did have a recent fall when trying to pick up attendant hearing aid from the floor, it was very difficult for her to help him up from the floor. Planning on a trip to [place] for fly fishing from the boat but pt will likely have to cancel it. Getting up from the floor is very challenging. 3 falls in last 6 months. Pt really doesn't like the walker and would like to get rid of it if at all possible. Left leg is more painful. Lives in a single level home with 2 stairs to enter without a rail . Pt is staying in the house, not really going outside. Treatment Goals Patient/Caregiver Goals Strengthen legs improve walking Prior Functional Status Baseline Function- ADL's Modified Independent Baseline Function- Mobility Modified Independent Current Functional Impairments (Reported) Functional Limitations- ADL's Needs assistance on stairs, assist with floor transfer, walks short distances with walker. Personal Factors Other Personal Factors That May Effect Progressive neuropathy, Therapy/Recovery multiple back surgeries, DMII, depression, CVA in 2016, pacemaker, hypertension PT-OP-C Subjective Start: 05/09/21 10:09 Freq: Status: Active Protocol: Document 05/15/21 12:45 AMB (Rec: 05/15/21 13:33 AMB [id number]) OP-PT Subjective Patient Comments Patient Comments Pt had a near fall when walking with walker and turning this morning. Scared him, feeling weak today. PT-OP-E Functional Tests Start: 05/09/21 10:09 Freq: Status: Active Protocol: Document 05/09/21 10:15 AMB (Rec: 05/11/21 07:50 AMB [email or web address]) Functional Tests 2 Minute Walk Test Distance 210 Device Used 4WW Five Times Sit to Stand Test Score 38 seconds Comments 22 chair Timed Up and Go (TUG) Score 27 Comments 4WW c airex on chair and heavy use of armrests TUG Impairment Rating 100% Impaired (Score 20) PT-OP-H Neuro Start: 05/09/21 10:09 Freq: Status: Active Protocol: Document 05/09/21 10:15 AMB (Rec: 05/11/21 13:55 AMB [email or web address]) Sensation Evaluation Comments Summary Comments numbness R>L worst in feet but up to thighs PT-OP-J Posture/Palpation/Skin Start: 05/09/21 10:09 Freq: Status: Active Protocol: Document 05/09/21 10:15 AMB (Rec: 05/11/21 13:55 AMB [email or web address]) Posture Evaluation Comments Posture Comments Flat lumbar spine, reduced trunk rotation, forward head PT-OP-M Strength Start: 05/09/21 10:09 Freq: Status: Active Protocol: Document 05/09/21 10:15 AMB (Rec: 05/11/21 08:00 AMB [email or web address]) Hip Strength Hip Manual Muscle Testing Right Flexion (L2) 3+ Fair+ Extension (S1) 2+ Poor+ Abduction 2+ Poor+ Left Flexion (L2) 3+ Fair+ Extension (S1) 2+ Poor+ Abduction 3 Fair Knee Strength Knee Manual Muscle Testing Right Flexion (S2) 3 Fair Extension (L3) 4 Good Left Flexion (S2) 3 Fair Extension (L3) 4 Good Ankle/Foot Strength Ankle and Foot Manual Muscle Testing Left Dorsiflexion (L4) 3- Fair- Plantarflexion (S1) 3 Fair Right Dorsiflexion (L4) 3 Fair Plantarflexion (S1) 3 Fair PT-OP-Q Treatments Start: 05/09/21 10:09 Freq: Status: Active Protocol: Document 05/15/21 12:48 AMB (Rec: 05/15/21 13:29 AMB [id number]) Therapeutic Exercises Sitting Exercises LAQ Side bilateral Resistance 5# ankle weight Reps/Minutes 2x8 Other Exercises sit-stand Reps/Minutes x 10 reps Gait Training Gait Activity 1 Description 4WW Distance/Duration 200' Comments slow careful steps Neuro Re-Education Treatment Balance Activities 1 Details WBOS balance Comments hand hovering over 4WW PT-OP-T Assessment and Plan Start: 05/09/21 10:09 Freq: Status: Active Protocol: Document 05/15/21 12:48 AMB (Rec: 05/15/21 13:29 AMB [id number]) Physical Therapy Assessment Assessment Summary Assessment Fransisco had a near fall earlier today, so was walking quite slowly. Continued to need to explain about his neuropathy and continued to emphasize that he needs to use 4WW and his goal of returning to [facility] may be a bit high, but we will continue to work on it. He needs to be able to safely work on standing balance at home, but did not prescribe due to decreased standing tolerance today. Physical Therapy Plan Next Visit Focus/Plan Next Note Type Treatment Note Next Visit Plan Shuttle recovery per pt request, progress HEP (LE strengthening/ provide handouts), gait training as tolerated with 4WW
--- NOTE | 2021-05-18 16:11 | PT.OTN ---
Current Diagnoses Type 2 diabetes mellitus with diabetic neuropathy, unspecified (05/18/21) Other abnormalities of gait and mobility (05/18/21) Other symptoms and signs involving the musculoskeletal system (05/18/21) History of falling (05/18/21) Physical Therapy Treatment Note PT-OP-A Visit Information Start: 05/09/21 10:09 Freq: Status: Active Protocol: Document 05/18/21 11:00 AMB (Rec: 05/18/21 11:37 AMB [id number]) Out-Patient Physical Therapy Visit Information Visit Information Visit Type Treatment Note Visit Start Time 11:00 Visit Stop Time 11:45 Total Visit Minutes 45 Visit Number 4 PT-OP-B Current Condition Start: 05/09/21 10:09 Freq: Status: Active Protocol: Document 05/09/21 10:15 AMB (Rec: 05/09/21 10:51 AMB [id number]) Current Condition History of Current Condition Onset Date A year and a half Current Complaints Bilateral leg weakness and pain- progressive History of Current Condition Had thoracic surgery 22 years ago and neuropathy has been progressively worsening since. Then had L4L5 surgery a few years ago. Quarentined because of Covid and now can't walk without walker. Attends with Josy. Did have a recent fall when trying to sisal picker hearing aid from the floor, it was very difficult for her to help him up from the floor. Planning on a trip to [place] for fly fishing from the boat but pt will likely have to cancel it. Getting up from the floor is very challenging. 3 falls in last 6 months. Pt really doesn't like the walker and would like to get rid of it if at all possible. Left leg is more painful. Lives in a single level home with 2 stairs to enter without a rail . Pt is staying in the house, not really going outside. Treatment Goals Patient/Caregiver Goals Strengthen legs improve walking Prior Functional Status Baseline Function- ADL's Modified Independent Baseline Function- Mobility Modified Independent Current Functional Impairments (Reported) Functional Limitations- ADL's Needs assistance on stairs, assist with floor transfer, walks short distances with walker. Personal Factors Other Personal Factors That May Effect Progressive neuropathy, Therapy/Recovery multiple back surgeries, DMII, depression, CVA in 2016, pacemaker, hypertension PT-OP-C Subjective Start: 05/09/21 10:09 Freq: Status: Active Protocol: Document 05/18/21 11:00 AMB (Rec: 05/18/21 16:11 AMB [email or web address]) OP-PT Subjective Patient Comments Patient Comments Pt states he is doing reasonably well today. PT-OP-E Functional Tests Start: 05/09/21 10:09 Freq: Status: Active Protocol: Document 05/09/21 10:15 AMB (Rec: 05/11/21 07:50 AMB [email or web address]) Functional Tests 2 Minute Walk Test Distance 210 Device Used 4WW Five Times Sit to Stand Test Score 38 seconds Comments 22 chair Timed Up and Go (TUG) Score 27 Comments 4WW c airex on chair and heavy use of armrests TUG Impairment Rating 100% Impaired (Score 20) PT-OP-H Neuro Start: 05/09/21 10:09 Freq: Status: Active Protocol: Document 05/09/21 10:15 AMB (Rec: 05/11/21 13:55 AMB [email or web address]) Sensation Evaluation Comments Summary Comments numbness R>L worst in feet but up to thighs PT-OP-J Posture/Palpation/Skin Start: 05/09/21 10:09 Freq: Status: Active Protocol: Document 05/09/21 10:15 AMB (Rec: 05/11/21 13:55 AMB [email or web address]) Posture Evaluation Comments Posture Comments Flat lumbar spine, reduced trunk rotation, forward head PT-OP-M Strength Start: 05/09/21 10:09 Freq: Status: Active Protocol: Document 05/09/21 10:15 AMB (Rec: 05/11/21 08:00 AMB [email or web address]) Hip Strength Hip Manual Muscle Testing Right Flexion (L2) 3+ Fair+ Extension (S1) 2+ Poor+ Abduction 2+ Poor+ Left Flexion (L2) 3+ Fair+ Extension (S1) 2+ Poor+ Abduction 3 Fair Knee Strength Knee Manual Muscle Testing Right Flexion (S2) 3 Fair Extension (L3) 4 Good Left Flexion (S2) 3 Fair Extension (L3) 4 Good Ankle/Foot Strength Ankle and Foot Manual Muscle Testing Left Dorsiflexion (L4) 3- Fair- Plantarflexion (S1) 3 Fair Right Dorsiflexion (L4) 3 Fair Plantarflexion (S1) 3 Fair PT-OP-Q Treatments Start: 05/09/21 10:09 Freq: Status: Active Protocol: Document 05/18/21 11:00 AMB (Rec: 05/18/21 16:11 AMB [email or web address]) Therapeutic Exercises Supine Exercises 2 Supine Exercise Name hip abd with #2 t band Reps/Minutes 2x10 1 Supine Exercise Name bridges Reps/Minutes 10 Comments extensive cues to avoid lumbar over use Standing Exercises 3 Standing Exercise Name heel raises Reps/Minutes 10x2 Comments at FWW 2 Standing Exercise Name hip abd Reps/Minutes at FWW Comments challenging 1 Standing Exercise Name marching Reps/Minutes at FWW Comments easy Other Exercises sit-stand Reps/Minutes x 10 reps Comments from douglas pickett PT-OP-T Assessment and Plan Start: 05/09/21 10:09 Freq: Status: Active Protocol: Document 05/18/21 11:00 AMB (Rec: 05/18/21 16:11 AMB [email or web address]) Physical Therapy Assessment Assessment Summary Assessment Pt was quite weak in hip abduction and does not tolerate sidelying. Pt's bed mobility is poor because of his poor rolling. Physical Therapy Plan Next Visit Focus/Plan Next Note Type Treatment Note Next Visit Plan Pt continues to want to use exercise machines, so can use those, although that may not be a watermaster plan as he does not see himself returning to the gym.
--- NOTE | 2021-06-16 15:19 | PT.OPDS ---
Current Diagnoses Type 2 diabetes mellitus with diabetic neuropathy, unspecified (05/18/21) Other abnormalities of gait and mobility (05/18/21) Other symptoms and signs involving the musculoskeletal system (05/18/21) History of falling (05/18/21) Visit Care Team Role Provider Type Michael Abdi MD Attending Provider Physician Primary Care Provider Referring Provider Specialty: Internal Medicine Address: [address] [place] [address], [address], [facility] Email: [email or web address] Visit Number Visit Number 4 Discharge Summary PT-OP-B Current Condition Start: 05/09/21 10:09 Freq: Status: Active Protocol: Document 05/09/21 10:15 AMB (Rec: 05/09/21 10:51 AMB [id number]) Current Condition History of Current Condition Onset Date A year and a half Current Complaints Bilateral leg weakness and pain- progressive History of Current Condition Had thoracic surgery 22 years ago and neuropathy has been progressively worsening since. Then had L4L5 surgery a few years ago. Quarentined because of Covid and now can't walk without walker. Attends with Josy. Did have a recent fall when trying to picking crew supervisor hearing aid from the floor, it was very difficult for her to help him up from the floor. Planning on a trip to [place] for fly fishing from the boat but pt will likely have to cancel it. Getting up from the floor is very challenging. 3 falls in last 6 months. Pt really doesn't like the walker and would like to get rid of it if at all possible. Left leg is more painful. Lives in a single level home with 2 stairs to enter without a rail . Pt is staying in the house, not really going outside. Treatment Goals Patient/Caregiver Goals Strengthen legs improve walking Prior Functional Status Baseline Function- ADL's Modified Independent Baseline Function- Mobility Modified Independent Current Functional Impairments (Reported) Functional Limitations- ADL's Needs assistance on stairs, assist with floor transfer, walks short distances with walker. Personal Factors Other Personal Factors That May Effect Progressive neuropathy, Therapy/Recovery multiple back surgeries, DMII, depression, CVA in 2016, pacemaker, hypertension PT-OP-C Subjective Start: 05/09/21 10:09 Freq: Status: Active Protocol: Document 05/18/21 11:00 AMB (Rec: 05/18/21 16:11 AMB [email or web address]) OP-PT Subjective Patient Comments Patient Comments Pt states he is doing reasonably well today. PT-OP-E Functional Tests Start: 05/09/21 10:09 Freq: Status: Active Protocol: Document 05/09/21 10:15 AMB (Rec: 05/11/21 07:50 AMB [email or web address]) Functional Tests 2 Minute Walk Test Distance 210 Device Used 4WW Five Times Sit to Stand Test Score 38 seconds Comments 22 chair Timed Up and Go (TUG) Score 27 Comments 4WW c airex on chair and heavy use of armrests TUG Impairment Rating 100% Impaired (Score 20) PT-OP-H Neuro Start: 05/09/21 10:09 Freq: Status: Active Protocol: Document 05/09/21 10:15 AMB (Rec: 05/11/21 13:55 AMB [email or web address]) Sensation Evaluation Comments Summary Comments numbness R>L worst in feet but up to thighs PT-OP-J Posture/Palpation/Skin Start: 05/09/21 10:09 Freq: Status: Active Protocol: Document 05/09/21 10:15 AMB (Rec: 05/11/21 13:55 AMB [email or web address]) Posture Evaluation Comments Posture Comments Flat lumbar spine, reduced trunk rotation, forward head PT-OP-M Strength Start: 05/09/21 10:09 Freq: Status: Active Protocol: Document 05/09/21 10:15 AMB (Rec: 05/11/21 08:00 AMB [email or web address]) Hip Strength Hip Manual Muscle Testing Right Flexion (L2) 3+ Fair+ Extension (S1) 2+ Poor+ Abduction 2+ Poor+ Left Flexion (L2) 3+ Fair+ Extension (S1) 2+ Poor+ Abduction 3 Fair Knee Strength Knee Manual Muscle Testing Right Flexion (S2) 3 Fair Extension (L3) 4 Good Left Flexion (S2) 3 Fair Extension (L3) 4 Good Ankle/Foot Strength Ankle and Foot Manual Muscle Testing Left Dorsiflexion (L4) 3- Fair- Plantarflexion (S1) 3 Fair Right Dorsiflexion (L4) 3 Fair Plantarflexion (S1) 3 Fair PT-OP-T Assessment and Plan Start: 05/09/21 10:09 Freq: Status: Active Protocol: Document 06/16/21 15:17 AMB (Rec: 06/16/21 15:19 AMB [email or web address]) Physical Therapy Assessment Goals Four Impairment Walking tolerance Short Term Goal (STG) Fransisco will improve his 2 minute walk test to at least 300' with his 4WW. STG Duration NOT MET Residential Goal (LTG) Fransisco will improve his TUG to 20 seconds or less with his 4WW. LTG Duration NOT MET Three Impairment Transfers Short Term Goal (STG) Fransisco will move from sit to stand from an 18 chair without UE support. STG Duration NOT MET Residential Goal (LTG) Fransisco will demonstrate a floor transfer with Nathen and environmental support. LTG Duration NOT MET Two Impairment Gait Short Term Goal (STG) Fransisco will ambulate with his 4WW for 6 minutes over smooth terrain. STG Duration NOT MET Residential Goal (LTG) Fransisco will ambulate with a SPC and CGA for 30'. LTG Duration NOT MET One Impairment Strength Short Term Goal (STG) Fransisco will be independent with a LE strength home exercise program. STG Duration NOT MET Box Toe Flanger Stitchdowns Goal (LTG) Fransisco will improve his LE strength to at least 3+/5. LTG Duration NOT MET Physical Therapy Plan Discharge Physical Therapy Discharge Reasons Patient Request Discharge Comments Pt was seen for 3 appointments and then requested to be discharged because he is looking for more reasons for his weakness.
== END 2021-06-19 10:48 | disposition home or self-care (01) ==
LOC: PHYS 11:00
PROVIDERS: PCP Student in an Organized Health Care Education/Training Program; Referring Provider Student in an Organized Health Care Education/Training Program; Visit Provider Student in an Organized Health Care Education/Training Program
DX: R29.898 Other symptoms and signs involving the musculoskeletal system (principal); Z91.81 History of falling; E11.40 Type 2 diabetes mellitus with diabetic neuropathy, unspecified; R26.89 Other abnormalities of gait and mobility
CPT/HCPCS: 97110; 97112; 97116; 97162

== ENCOUNTER → 2021-06-05 15:17 | Outpatient (CLI) | payer MEDICARE, SELFPAY ==
[2021-01-16 14:10] VITALS: BMI 31.9
[2021-06-05 18:45] LABS: BUN Creatinine Ratio 28.8 (6-22); Blood Urea Nitrogen 46 mg/dL (9-20); Calcium 9.5 mg/dL (8.4-10.2); Carbon Dioxide 30 mmol/L (22-32); Chloride 97 mmol/L (98-107); Estimated Glomerular Filt Rate 41.7 mL/min (>60); Glucose 139 mg/dL (80-110); HEMOLYSIS < 15 (0-50); Potassium 5.2 mmol/L (3.4-5.1); Sodium 135 mmol/L (137-145)
== END ==
PROVIDERS: PCP Student in an Organized Health Care Education/Training Program; Referring Provider Student in an Organized Health Care Education/Training Program; Visit Provider Student in an Organized Health Care Education/Training Program
DX: N17.9 Acute kidney failure, unspecified (principal)
CPT/HCPCS: 36415; 80048

== ENCOUNTER → 2021-07-18 11:31 | Outpatient (CLI) | payer MEDICARE, SELFPAY ==
[2021-01-16 14:10] VITALS: BMI 31.9
[2021-07-18 12:23] LABS: COVID19 -Nasal RAPID Negative (Negative)
== END ==
PROVIDERS: PCP Student in an Organized Health Care Education/Training Program; Referring Provider Physician Assistant; Visit Provider Physician Assistant
DX: Z20.822 Contact with and (suspected) exposure to COVID-19 (principal); R05 Cough
CPT/HCPCS: 87635

== ENCOUNTER → 2021-08-03 12:14 | Outpatient (CLI) | payer MEDICARE, SELFPAY ==
[2021-01-16 14:10] VITALS: BMI 31.9
--- NOTE | 2021-08-03 | DI.US.S_ITS ---
PROCEDURE: US RENAL COMPLETE INDICATIONS: URGENCY OF URINATION TECHNIQUE: Real-time scanning was performed of the kidneys and bladder, with image documentation. COMPARISON: None. FINDINGS: Kidneys: Kidneys are normal in size. Right kidney measures 9.2 cm long; left kidney measures 10.5 cm long. Right renal cortical thickness is 1.6 cm; left renal cortical thickness is 1.1 cm. Renal cortical echotexture is normal. No hydronephrosis or nephrolithiasis. No suspicious solid mass lesions. Bladder: Urinary bladder is not visualized. Miscellaneous: No free pelvic fluid. IMPRESSION: Limited study due to patient's body habitus. Urinary bladder is not visualized. Visualized portion of bilateral kidneys show no gross abnormality. Dictated by: Tyler Del Rio M.D. on 08/03/2021 at 14:45 Approved by: Tyler Del Rio M.D. on 08/03/2021 at 14:46
== END ==
PROVIDERS: PCP Student in an Organized Health Care Education/Training Program; Referring Provider Specialist; Visit Provider Specialist
DX: R39.15 Urgency of urination (principal)
CPT/HCPCS: 76770

== ENCOUNTER → 2021-08-21 13:07 | Outpatient (CLI) | payer MEDICARE, SELFPAY ==
[2021-01-16 14:10] VITALS: BMI 31.9
--- NOTE | 2021-08-21 13:08 | DI.RAD.S_ITS ---
PROCEDURE: FL BARIUM SWALLOW W SPEECH INDICATIONS: 6 COMPARISON: TECHNIQUE: Examination was conducted in conjunction with speech pathology per standard protocol. In the lateral projection, filming was performed of the patient swallowing. AP projection filming may also be performed with patient swallowing. COMPARISON: [facility], , [place] BARIUM SWALLOW, 05/20/2020, 10:32. FINDINGS: Incidentally noted large anterior cervical bridging osteophyte formation at the level of C4-C5. Function: The oral preparatory phase appears normal, with proper containment. The subsequent oral propulsive phase, pharyngeal phase, and esophageal phase of swallowing also appear normal with all proffered substances. There was silent laryngeal penetration and tracheal aspiration. Morphology: No cricopharyngeal bar is identified. No cervical esophageal webs. No Zenker's diverticulum. No strictures. IMPRESSION: Silent laryngeal penetration and tracheal aspiration. 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 Dictated by: Bc Kothari M.D. on 08/21/2021 at 15:30 Approved by: Bc Kothari M.D. on 08/21/2021 at 15:31
--- NOTE | 2021-08-23 13:16 | ST.SWALLOW ---
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 Abdi. According to the pt, he has been experiencing difficulty swallowing liquids and clearing secretions. He also reported that has had some coughing episodes associated with drinking liquids and swallowing large pills such as vitamin supplements; he reports no problems with solids. He stated that when he drinks, the liquids just stop going down, pointing to his mid- chest area, adding that this has been going on for some time. He noted that he will cough hard during meals and anytime during the day, describing his cough as hacking, gurgling and with a lot of phlegm and mucous. He is taking Mucinex to thin secretions in order to reduce the coughing but it hasn't seemed effective. Pt reports no surgeries in his neck area; however, he did state he has a bad neck due to lifting weights and straining his neck when he was younger. Finally, he reported that he had esophageal dilation many years ago. Subjective Observations pt was seated in the fluoroscopy chair. The directions and procedures were described for the pt, who indicated he understood and agrees to proceed. Patient Positioning Position View Lat-A/P Imaging Lateral View Textures Administered Trials Presented Thin Liquid via Spoon,Thin Liquid via Cup,[place] Liquid via Cup,Pudding Thick Liquid via Spoon,Regular Textures, Barium Tablet Oral Phase Source: MBSIMP (TM) (C) Bolus Specific Scoring Grid Lip Closure WFL Tongue Control During Bolus Hold WFL Bolus Prep/Mastication WFL Bolus Transport/Lingual Motion Mild Impairment A/P Lingual Propulsion Delay No Oral Residue Mild Impairment Residue Clearing Minimal Impairment Nasal Regurgitation No Additional Oral Phase Observations OME indicated structures and function to be WNL. Diadochokinesis was WNL. Dentition was natural and in good hygiene. Oral Phase: pt demonstrated reduced bolus control in A-P transition with spillage to the floor of the mouth. Possible bilateral laryngoceles were noted at the base of the tongue. Premature spillage into the pharynx past an open airway before swallow initiation was consistently observed. Velopharyngeal weakness was noted with larger bolus sizes. Pharyngeal Phase Source: MBSIMP (TM) (C) Bolus Specific Scoring Grid Soft Palate Elevation Minimal Impairment Tongue Base Strength/Range of Motion Mild Impairment Residue Along the Tongue Base Yes Clearance of Residue Along Tongue Base Mild Impairment Laryngeal Elevation Moderate Impairment Anterior Hyoid Movement Severe Impairment Epiglottic Range of Motion Mild Impairment Vallecular Residue Yes Clearance of Vallecular Residue Mild Impairment Laryngeal Vestibular Closure Moderate Impairment Pharyngeal Stripping Wave Moderate Impairment Posterior Pharyngeal Wall Residue Yes Upper Esophageal Sphincter Opening Mild Impairment Residue in the Pyriform Sinuses Yes Clearance of Residue in the Pyriform Mild Impairment Sinuses Esophageal Clearance Upright Position Mild Impairment Additional Pharyngeal Phase Observations Hyolaryngeal elevation was moderately impaired with minimal hyoid movement directly impacting the epiglottic inversion. The epiglottis wa observed to invert, but the laryngeal seal not complete with ~10 instances of silent laryngeal penetration of liquids and valecullar pooling into the laryngeal vestiblue. Silent tracheal aspiration was noted to occur x1. Cuing to cough/ clear throat was partially effective in clearing the vestibule. The stripping of the posterior wall was mild- moderately reduced with minimal linguapharyngeal contact and poor bolus control to the UES. Pharyngeal pooling was observed in the valeculla, sub-vallecular space, pyriform sinuses, laryngeal vestibule, and posterior pharyngeal wall. The reduction of the hyolaryngeal movement also affected the UES opening which appeared to be restricted in extension and duration. Complicating the UES opening is a large anterior cervical osteophyte formation at C4-C5 that intrudes into and narrows the esophagus. A/P View A/P View Observations Additional Observations Following the barium tablet trial, the pt was changed to an A-P view to scan the esophagus. The tablet was stopped above the diaphragm and remained there >30 seconds before the completion of the MBS. GI referral is recommended, especially as the pt reports a history of esophageal stricture and dilation. Clinical Impressions Dysphagia Type oropharyngeal and esophageal dysphagia Findings The pt presents with oropharyngeal and esophageal dysphagia and is at risk for silent penetration/aspiration. Swallow therapy is recommended to increase linguapharyngeal muscle strength as well as education in safe swallow strategies to prevent silent aspiration. Pt/ family education also recommended re; the swallow mechanism and potential risk of continued aspiration. Rehabilitation Potential Good Patient Appropriate for Therapy Yes Recommendations Diet Liquids Order Thin Diet Order Regular Medication Recommendation Whole in Carrier,Crushed in Carrier Additional Dietary Needs Reminders to Use Strategies Aspiration Precautions Recommended Precautions Upright at 90 Degrees,Small Bites/Sips,Effortful Swallow Treatment Plan Therapy Recommendations Outpatient Speech Therapy, Lingual Exercises,Base of Tongue Exercises,Compensatory Strategy Education Recommended Referrals Primary Care Physician,GI Consult Compensatory Strategies Recommendations Sitting Upright (90 deg),Small Bites and Sips,Alternate Liquids/Solids Longterm Goals pt will safely tolerate the least restrictive diet without overt s/sx of aspiration to meed nutrition and hydration needs.
--- NOTE | 2021-08-23 13:17 | ST.OPPOC ---
Physical, Occupational & Speech Therapy At [facility] Visit Care Team Role Provider Type Michael Abdi MD Attending Provider Physician Primary Care Provider Referring Provider Address: [address] [place] [address], [address], [place], [address] Speech Pathology Plan of Care Patient History Pt presented for a Modified Barium Swallow Study (MBSS) at the referral of his physician, Dr. Abdi. According to the pt, he has been experiencing difficulty swallowing liquids and clearing secretions. He also reported that has had some coughing episodes associated with drinking liquids and swallowing large pills such as vitamin supplements; he reports no problems with solids. He stated that when he drinks, the liquids just stop going down, pointing to his mid-chest area, adding that this has been going on for some time. He noted that he will cough hard during meals and anytime during the day, describing his cough as hacking, gurgling and with a lot of phlegm and mucous. He is taking Mucinex to thin secretions in order to reduce the coughing but it hasn't seemed effective. Pt reports no surgeries in his neck area; however, he did state he has a bad neck due to lifting weights and straining his neck when he was younger. Finally, he reported that he had esophageal dilation many years ago. Electronically Signed by: DYLAN Paige 08/23/21 3399 Please Sign and Return: I have reviewed this Plan of Care and certify that the skilled therapy services above are required to meet the patient?s needs. Physician Signature Date Printed Name and Credentials Clinical Instructor Signature Printed Name and Credentials
== END ==
PROVIDERS: PCP Student in an Organized Health Care Education/Training Program; Referring Provider Student in an Organized Health Care Education/Training Program; Visit Provider Student in an Organized Health Care Education/Training Program
DX: R13.10 Dysphagia, unspecified (principal); M25.78 Osteophyte, vertebrae
CPT/HCPCS: 74230; 92611

== ENCOUNTER → 2021-08-29 09:37 | Outpatient (CLI) | payer MEDICARE, SELFPAY ==
[2021-01-16 14:10] VITALS: BMI 31.9
== END ==
PROVIDERS: PCP Student in an Organized Health Care Education/Training Program; Referring Provider Specialist; Visit Provider Specialist
DX: N17.9 Acute kidney failure, unspecified (principal)
CPT/HCPCS: 36415

== ENCOUNTER → 2021-09-02 11:36 | Outpatient (CLI) | payer MEDICARE, SELFPAY ==
[2021-01-16 14:10] VITALS: BMI 31.9
[2021-09-02 12:31] LABS: Appearance Urine UA CLEAR; Bilirubin Urine UA NEGATIVE (NEGATIVE); Color Urine UA YELLOW; Glucose Urine UA NEGATIVE (Negative); Ketones Urine UA NEGATIVE (NEGATIVE); Leukocyte Esterase Urine UA NEGATIVE (NEGATIVE); Nitrite Urine UA NEGATIVE (Negative); Occult Blood Urine UA NEGATIVE (Negative); Protein Urine UA NEGATIVE (Negative); Urobilinogen Urine UA 0.2 E.U./dL (0.2)
[2021-09-02 12:47] LABS: Amorphous Sediment Urine 1+; Bacteria Urine None Seen; Culture Indicated Urine Cult Not Indicated; RBC Urine None Seen (0-5/HPF); Squamous Epithelial Cell Urine 1-5 /HPF (0-5/HPF); WBC Urine None Seen (0-5/HPF)
[2021-09-02 13:19] LABS: Alanine Aminotransferase 19 IU/L (<50); Albumin 3.9 g/dL (3.5-5.0); Albumin Globulin Ratio 1.7 (1.0-2.8); Alkaline Phosphatase 72 U/L (38-126); Aspartate Aminotransferase 22 IU/L (17-59); BUN Creatinine Ratio 28.5 (6-22); Bilirubin Total 0.3 mg/dL (0.2-1.3); Blood Urea Nitrogen 41 mg/dL (9-20); Calcium 9.6 mg/dL (8.4-10.2); Carbon Dioxide 32 mmol/L (22-32); Chloride 100 mmol/L (98-107); Globulin 2.3 g/dL (1.7-4.1); Glucose 82 mg/dL (80-110); HEMOLYSIS < 15 (0-50); Sodium 136 mmol/L (137-145); Total Protein 6.2 g/dL (6.3-8.2)
[2021-09-02 13:20] LABS: Potassium 6.1 mmol/L (3.4-5.1)
== END ==
PROVIDERS: PCP Student in an Organized Health Care Education/Training Program; Referring Provider Specialist; Visit Provider Specialist
DX: N17.9 Acute kidney failure, unspecified (principal)
CPT/HCPCS: 36415; 80053; 81001

== ENCOUNTER → 2021-09-07 15:10 | Outpatient (CLI) | payer MEDICARE, SELFPAY ==
[2021-01-16 14:10] VITALS: BMI 31.9
--- NOTE | 2021-09-07 15:11 | DI.CT.S_ITS ---
PROCEDURE: CT CHEST WO CON INDICATIONS: COPD + lower respiratory infection TECHNIQUE: Noncontrast 2.0-2.5 mm thick sections acquired from the pulmonary apices to the posterior costophrenic angles. 7 mm thick axial MIP, and 5 mm coronal and sagittal reformats were then acquired. A low radiation dose technique was utilized. COMPARISON: Reference is made to the CT abdomen dated September 07, 2021. FINDINGS: Image quality: Diagnostic, given the low radiation dose technique. Lungs and pleura: 2.9 mm nodule in the right upper lobe (3/63). 3.8 mm noncalcified nodule in the left lower lobe (3/168). No consolidation, pleural effusion, or pneumothorax. Mediastinum: Heart size is normal. No pericardial effusion. No mediastinal adenopathy by size criteria. Thoracic aorta and central pulmonary arteries are normal in size. [id number] calcified atheromatous change of the aorta. Esophagus is normal in caliber. No hiatal hernia. Bones and chest wall: No suspicious bony lesions. No vertebral body compression fractures. No axillary or supraclavicular adenopathy by size criteria. Thyroid gland is homogeneous. A left cardiac device is noted. Abdomen: Redemonstrated partially calcified lesion in the cardia and quadrate regions better characterized on the prior CT abdomen. IMPRESSION: Low suspicious pulmonary nodules as detailed above. LUNG-RADS 2; Very low likelihood of becoming clinically active CA due to size or lack of growth, continue annual screening in 12 months. Dictated by: Jose Luis Krishnan M.D. on 09/07/2021 at 16:39 Approved by: Jose Luis Krishnan M.D. on 09/07/2021 at 16:48
== END ==
PROVIDERS: PCP Student in an Organized Health Care Education/Training Program; Referring Provider Student in an Organized Health Care Education/Training Program; Visit Provider Student in an Organized Health Care Education/Training Program
DX: R05.9 Cough, unspecified (principal); R91.8 Other nonspecific abnormal finding of lung field
CPT/HCPCS: 71250

== ENCOUNTER → 2021-10-30 13:48 | Outpatient (CLI) | payer MEDICARE, SELFPAY ==
[2021-10-23 10:46] VITALS: BMI 31.9
[2021-10-30 17:05] LABS: COVID19 -Nasal RAPID Negative (Negative)
== END ==
PROVIDERS: PCP Student in an Organized Health Care Education/Training Program; Visit Provider Nurse Practitioner Family
DX: Z20.822 Contact with and (suspected) exposure to COVID-19 (principal)
CPT/HCPCS: 87635; C9803

== ENCOUNTER 2021-11-01 10:04 | Day surgery (SDC) | payer MEDICARE, SELFPAY ==
[2021-10-23 10:46] VITALS: BMI 31.9
--- NOTE | 2021-11-01 | PATH_ITS ---
[facility] Accession Number: [id number] . 01 Material submitted: . gastrointestinal site - GASTRIC . 01 Clinical history: . A: R/O H. PYLORI . 02 Diagnosis: Gastric: Gastric body type mucosa with mild chronic inflammation. Negative for Helicobacter organisms by immunohistochemistry. Negative for intestinal metaplasia. Negative for dysplasia or malignancy. . [facility] 11/03/2021 1539 Local . 02 Electronically signed: . Alysha Lane MD, Pathologist NPI- [id number] . 01 Gross description: . GASTRIC: Received in formalin is 1 fragment(s) of daven[place], soft tissue measuring 0.3 x 0.3 x 0.3 cm submitted entirely in 1 cassette(s) /QBJ 11/02/2021 0847 Local . 02 Microscopic: . An immunohistochemical stain was performed to evaluate for Helicobacter organisms and is negative. The control stain showed appropriate reactivity. . * This test was developed and its performance characteristics determined by [facility]. It has not been cleared or approved by the U.S. Food and Drug Administration. The FDA has determined that such clearance or approval is not necessary. This test is used for clinical purposes. It should not be regarded as investigational or for research. . 02 Pathologist provided ICD-10: K29.70 . 02 CPT . 726335, [id number] Performed at: 01 [facility] [address], [place], [place] [id number] MD Ean Egan MD Phone: [phone] Performed at: 02 [facility] [place] [address] [place], [place] [id number] MD Tiffanie Guerrero MD Phone: [phone]
[2021-11-01 10:31] VITALS: BP 143/59; PULSE 61; RESP 15; TEMP 36.1; O2SAT 99; BMI 35.9
[2021-11-01] MEDS: SODIUM CHLORIDE 0.9% 1,000 ML 84 ML IV (10:43)
[2021-11-01 11:04] VITALS: BP 101/56; PULSE 60; RESP 16; TEMP 36.1; O2SAT 93
--- NOTE | 2021-11-01 11:06 | PM.PREOP ---
Pre-operative Note COVID-19 COVID-19 status: Negative Interval Note History & Physical reviewed/Exam performed by Physician: Yes Changes to H&P: No ASA Class (for procedural sedation): III
--- NOTE | 2021-11-01 11:06 | PM.OP.EGD ---
Operative Date/Time/Diagnoses Date of procedure: 11/01/21 Pre-op diagnosis: See indication and findings Procedure & Clinicians Study performed: EGD Indications: Dysphagia with abnormal barium swallow Surgeon: Steven Cervantes Procedure Notes Procedure in detail: After informed consent was obtained patient was placed in left lateral decubitus position. The video upper scope was placed into the oropharynx and with the patient's help swelled into the esophagus. The esophagus stomach and duodenum were carefully examined. On withdrawal, retroflexed view the GE junction was performed. The scope was removed. The patient tolerated procedure well. Blood loss none Complications none Findings 1. Essentially normal esophagus. Squamocolumnar junction was very well-defined and very regular. No evidence of all but the faintest prep Schatzki's ring. There was a less than 1 cm pink tongue of tissue on 1 aspect which was not biopsied. No evidence for peptic esophagitis. 2. Normal stomach 3. Normal duodenal bulb and sweep Will have a discussion about whether any further workup is warranted. The next step would be esophageal manometry but I suspect that For a while not want to go forward at this point.
[2021-11-01 11:09] VITALS: BP 107/56; PULSE 60; RESP 14; O2SAT 94
[2021-11-01 11:14] VITALS: BP 127/64; PULSE 69; RESP 14; O2SAT 94
[2021-11-01 11:27] VITALS: BP 166/80; PULSE 61; RESP 16; O2SAT 95
[2021-11-01 11:53] VITALS: BP 161/81; PULSE 58; RESP 99; TEMP 36.5; O2SAT 16
--- NOTE | 2021-11-01 12:03 | SUR.PHASEII ---
requests we wait for her to come to get patient dressed to go home. Tolerated juice.
== END 2021-11-01 12:25 | disposition home or self-care (01) ==
PROVIDERS: PCP Student in an Organized Health Care Education/Training Program; Referring Provider Internal Medicine Gastroenterology; Visit Provider Internal Medicine Gastroenterology
PROC: 0DJ08ZZ Inspection of Upper Intestinal Tract, Via Natural or Artificial Opening Endoscopic (ICD-10-PCS; CPT 43235; principal; 2021-11-01 11:00)
DX: R13.10 Dysphagia, unspecified (principal); G47.30 Sleep apnea, unspecified; E11.9 Type 2 diabetes mellitus without complications; I10 Essential (primary) hypertension; Z86.73 Personal history of transient ischemic attack (TIA), and cerebral infarction without residual deficits; Z79.84 Long term (current) use of oral hypoglycemic drugs; G25.81 Restless legs syndrome; Z95.0 Presence of cardiac pacemaker
CPT/HCPCS: 43235; J2704

== ENCOUNTER → 2021-11-08 15:31 | Outpatient (CLI) | payer MEDICARE, SELFPAY ==
[2021-10-23 10:46] VITALS: BMI 31.9
[2021-11-08 18:15] LABS: Hemoglobin A1C% w Est Avg Glu 5.8 % (4.0-6.0)
[2021-11-08 18:46] LABS: BUN Creatinine Ratio 26.4 (6-22); Blood Urea Nitrogen 37 mg/dL (9-20); Calcium 9.2 mg/dL (8.4-10.2); Carbon Dioxide 26 mmol/L (22-32); Chloride 100 mmol/L (98-107); Estimated Glomerular Filt Rate 48.5 mL/min (>60); Glucose 125 mg/dL (80-110); HEMOLYSIS 33 (0-50); Phosphorous 4.4 mg/dL (2.3-3.7); Potassium 5.7 mmol/L (3.4-5.1); Sodium 135 mmol/L (137-145)
== END ==
PROVIDERS: PCP Student in an Organized Health Care Education/Training Program; Referring Provider Student in an Organized Health Care Education/Training Program; Visit Provider Student in an Organized Health Care Education/Training Program
DX: E11.9 Type 2 diabetes mellitus without complications (principal); N17.9 Acute kidney failure, unspecified
CPT/HCPCS: 36415; 80048; 83036; 84100

== ENCOUNTER → 2022-02-21 16:12 | Outpatient (CLI) | payer MEDICARE, SELFPAY ==
[2021-10-23 10:46] VITALS: BMI 31.9
[2022-02-21 17:16] LABS: Add Manual Diff / Slide Review NO; Basophils Absolute Auto 100 /uL (0-100); Basophils Percent Auto 0.5 % (0-2); Eosinophils Absolute Auto 300 /uL (0-450); Hematocrit 37.2 % (41-53); Hemoglobin 12.6 g/dL (13.5-17.5); Lymphocytes Absolute Auto 1700 /uL (1100-4500); Lymphocytes Percent Auto 16.3 % (25-40); Mean Corpuscular HGB Conc 33.8 % (30-36); Mean Corpuscular Hemoglobin 29.9 PG (26-34); Mean Corpuscular Volume 88.3 fL (80-100); Monocytes Absolute Auto 900 /uL (0-900); Monocytes Percent Auto 8.4 % (3-14); Neutrophils Absolute Auto 7600 /uL (1500-7000); Neutrophils Percent Auto 71.8 % (50-75); Platelet Count 201 X10^3/uL (150-400); Red Blood Cell Count 4.21 X10^6/uL (4.5-5.9); Red Cell Distribution Width 13.9 % (11.6-14.8); White Blood Cell Count 10.6 X10^3/uL (4.5-11.0)
[2022-02-21 17:23] LABS: BUN Creatinine Ratio 22.1 (6-22); Blood Urea Nitrogen 40 mg/dL (9-20); Calcium 9.3 mg/dL (8.4-10.2); Carbon Dioxide 26 mmol/L (22-32); Chloride 98 mmol/L (98-107); Cholesterol 181 mg/dL (140-199); Estimated Glomerular Filt Rate 36.1 mL/min (>60); Glucose 124 mg/dL (80-110); HDL Cholesterol 45 mg/dL (40-60); HEMOLYSIS < 15 (0-50); LDL Cholesterol Calculated 71 mg/dL (<100); Phosphorous 4.5 mg/dL (2.3-3.7); Sodium 134 mmol/L (137-145); Triglycerides 327 mg/dL (35-150)
[2022-02-21 17:30] LABS: Potassium 5.8 mmol/L (3.4-5.1)
[2022-02-21 17:32] LABS: Hemoglobin A1C% w Est Avg Glu 7.6 % (4.0-6.0)
[2022-02-21 18:02] LABS: Vitamin D 25 Hydroxy (D3) 46.2 ng/mL (30.0-100.0)
[2022-02-21 18:11] LABS: Creatinine Urine Random 170.8 mg/dL
[2022-02-21 18:16] LABS: Microalbumi Creatinin Ratio Ur 8.7 ug/mg CR (<30); Microalbumin Urine Random 1.5 mg/dL (0-1.6)
[2022-02-22 07:19] LABS: Parathyroid Hormone Int 153 pg/mL (15-65)
== END ==
PROVIDERS: PCP Student in an Organized Health Care Education/Training Program; Referring Provider Student in an Organized Health Care Education/Training Program; Visit Provider Student in an Organized Health Care Education/Training Program
DX: E11.42 Type 2 diabetes mellitus with diabetic polyneuropathy (principal); E55.9 Vitamin D deficiency, unspecified; E11.69 Type 2 diabetes mellitus with other specified complication; E78.5 Hyperlipidemia, unspecified; N18.31 Chronic kidney disease, stage 3a
CPT/HCPCS: 36415; 80048; 80061; 82043; 82306; 82570; 83036; 83970; 84100; 85025

== ENCOUNTER → 2022-04-03 13:51 | Outpatient (CLI) | payer MEDICARE, SELFPAY ==
[2021-10-23 10:46] VITALS: BMI 31.9
[2022-04-03 15:31] LABS: Alanine Aminotransferase 20 IU/L (<50); Albumin 4.6 g/dL (3.5-5.0); Albumin Globulin Ratio 1.7 (1.0-2.8); Alkaline Phosphatase 126 U/L (38-126); Aspartate Aminotransferase 23 IU/L (17-59); BUN Creatinine Ratio 14.3 (6-22); Bilirubin Total 0.6 mg/dL (0.2-1.3); Blood Urea Nitrogen 21 mg/dL (9-20); Calcium 9.4 mg/dL (8.4-10.2); Carbon Dioxide 28 mmol/L (22-32); Chloride 98 mmol/L (98-107); Estimated Glomerular Filt Rate 47 mL/min (>60); Globulin 2.7 g/dL (1.7-4.1); Glucose 186 mg/dL (80-110); HEMOLYSIS < 15 (0-50); Potassium 4.7 mmol/L (3.4-5.1); Sodium 136 mmol/L (137-145); Total Protein 7.3 g/dL (6.3-8.2)
== END ==
PROVIDERS: PCP Student in an Organized Health Care Education/Training Program; Referring Provider Internal Medicine Critical Care Medicine; Visit Provider Internal Medicine Critical Care Medicine
DX: N18.31 Chronic kidney disease, stage 3a (principal); R05.3 Chronic cough
CPT/HCPCS: 36415; 80053

== ENCOUNTER → 2022-04-30 10:35 | Outpatient (CLI) | payer MEDICARE, SELFPAY ==
[2022-04-12 14:11] VITALS: BMI 31.9
[2022-04-30 12:11] LABS: COVID19 -Nasal RAPID Negative (Negative)
== END ==
PROVIDERS: PCP Student in an Organized Health Care Education/Training Program; Referring Provider Internal Medicine Critical Care Medicine; Visit Provider Internal Medicine Critical Care Medicine
DX: Z20.822 Contact with and (suspected) exposure to COVID-19 (principal)
CPT/HCPCS: 87635; C9803

== ENCOUNTER → 2022-06-08 13:00 | Outpatient (CLI) | payer MEDICARE, SELFPAY ==
[2022-04-12 14:11] VITALS: BMI 31.9
[2022-06-08 13:47] LABS: Hemoglobin A1C% w Est Avg Glu 7.8 % (4.0-6.0)
[2022-06-08 13:49] LABS: Blood Urea Nitrogen 26 mg/dL (9-20); Estimated Glomerular Filt Rate 55 mL/min (>60)
== END ==
PROVIDERS: PCP Student in an Organized Health Care Education/Training Program; Referring Provider Student in an Organized Health Care Education/Training Program; Visit Provider Student in an Organized Health Care Education/Training Program
DX: E11.42 Type 2 diabetes mellitus with diabetic polyneuropathy (principal); N18.31 Chronic kidney disease, stage 3a
CPT/HCPCS: 36415; 82565; 83036; 84520

== ENCOUNTER → 2022-08-27 13:34 | Outpatient (CLI) | payer MEDICARE, SELFPAY ==
[2022-04-12 14:11] VITALS: BMI 31.9
[2022-08-27 14:15] LABS: BUN Creatinine Ratio 20.6 (6-22); Blood Urea Nitrogen 27 mg/dL (9-20); Calcium 9.2 mg/dL (8.4-10.2); Carbon Dioxide 30 mmol/L (22-32); Chloride 98 mmol/L (98-107); Estimated Glomerular Filt Rate 54 mL/min (>60); Glucose 163 mg/dL (80-110); HEMOLYSIS < 15 (0-50); Potassium 4.6 mmol/L (3.4-5.1); Sodium 135 mmol/L (137-145)
[2022-08-27 17:16] LABS: Microalbumi Creatinin Ratio Ur 9.3 ug/mg CR (<30); Microalbumin Urine Random 0.9 mg/dL (0-1.6)
[2022-08-27 18:40] LABS: Hemoglobin A1C% w Est Avg Glu 7.8 % (4.0-6.0)
== END ==
PROVIDERS: PCP Student in an Organized Health Care Education/Training Program; Referring Provider Student in an Organized Health Care Education/Training Program; Visit Provider Student in an Organized Health Care Education/Training Program
DX: E11.9 Type 2 diabetes mellitus without complications (principal); N18.31 Chronic kidney disease, stage 3a
CPT/HCPCS: 36415; 80048; 82043; 82570; 83036

== ENCOUNTER → 2022-09-08 13:37 | Outpatient (CLI) | payer MEDICARE, SELFPAY ==
[2022-04-12 14:11] VITALS: BMI 31.9
--- NOTE | 2022-09-08 13:38 | DI.CT.S_ITS ---
PROCEDURE: CT CHEST WO CON INDICATIONS: noncontrast CT of the chest to follow-up pulmonary nodules TECHNIQUE: Noncontrast 5 mm thick sections acquired from the pulmonary apices to the posterior costophrenic angles. 1 mm lung window, 5 mm thick coronal and sagittal and 7 mm axial MIP reformats were then acquired. For radiation dose reduction, the following was used: automated exposure control, adjustment of mA and/or kV according to patient size. COMPARISON: [facility], CT, CT ANGIO CHEST ABDOMEN PELVIS, 09/23/2020, 15:00. [facility], CT, CT CHEST WO CON, 09/07/2021, 15:22. FINDINGS: Image quality: Excellent. Lungs and pleura: Within the right upper lobe, there is again seen a 2 mm pulmonary nodule, as on series 3, image 59, which is stable compared to the prior examination. Within the left upper lobe laterally, there is a 2 mm nodule, as on series 3, image 73, which is stable compared to 2020. The previously described left lower lobe nodule is not seen on the current study. No new nodules are seen. No focal infiltrates are seen. No pneumothorax or pleural effusions are seen. The central airways are patent. Mediastinum: Heart size is normal. No pericardial effusion. No mediastinal adenopathy by size criteria. Thoracic aorta and central pulmonary arteries are normal in size. Esophagus is normal in caliber. No hiatal hernia. Bones and chest wall: A pacer device is seen. No suspicious bony lesions. No vertebral body compression fractures. Age-appropriate bony degenerative changes are seen. Accentuated thoracic kyphosis is seen. No axillary or supraclavicular adenopathy by size criteria. Thyroid gland demonstrates no significant noncontrast abnormality . Abdomen: Central anterior liver calcification is seen. Cysts can be seen involving the anterior liver. Incidental note is made of an accessory splenule along the hilum of the primary spleen. There is a stable left adrenal nodule seen that measures 15 Hounsfield units and 2 cm. The visualized portions of the upper abdominal structures are otherwise unremarkable for imaging technique. IMPRESSION: Stable upper lobe pulmonary nodules. The previously seen left lower lobe pulmonary nodule is no longer seen. If this patient meets the stylets criteria for lung cancer screening, please consider annual low-dose CT screening. Otherwise, no specific imaging follow-up would be recommended. Incidental note is made of: Pacer device Central anterior liver calcification Anterior liver cysts Accessory splenule Stable left adrenal nodule Dictated by: Osmel Paulino M.D. on 09/08/2022 at 17:16 Approved by: Osmel Paulino M.D. on 09/08/2022 at 17:27
== END ==
PROVIDERS: PCP Student in an Organized Health Care Education/Training Program; Referring Provider Student in an Organized Health Care Education/Training Program; Visit Provider Student in an Organized Health Care Education/Training Program
DX: R91.1 Solitary pulmonary nodule (principal); K76.89 Other specified diseases of liver; E27.9 Disorder of adrenal gland, unspecified; Q89.09 Congenital malformations of spleen; Z95.0 Presence of cardiac pacemaker
CPT/HCPCS: 71250

== ENCOUNTER → 2022-11-27 11:32 | Outpatient (CLI) | payer MEDICARE, SELFPAY ==
[2022-04-12 14:11] VITALS: BMI 31.9
--- NOTE | 2022-11-27 11:32 | DI.RAD.S_ITS ---
PROCEDURE: XR CERVICAL SPINE 2V OR 3V INDICATIONS: Neck pain. Image requested by neurosurg TECHNIQUE: 4 view(s) of the cervical spine were acquired. COMPARISON: None. FINDINGS: Bones: No fractures or dislocations to the C6 level. The lateral masses of C1 appear intact on the odontoid view. No suspicious bony lesions. Spine degenerative disc disease and facet arthropathy. Soft tissues: No prevertebral soft tissue swelling. IMPRESSION: No fracture the level of C6 vertebral body. No acute osseous lesion. If symptoms and/or clinical suspicion for pathology persists, evaluation with MRI should be considered for further assessment. Dictated by: Emely Aleman MD, PhD on 11/27/2022 at 13:45 Approved by: Emely Aleman MD, PhD on 11/27/2022 at 13:46
== END ==
PROVIDERS: PCP Student in an Organized Health Care Education/Training Program; Referring Provider Student in an Organized Health Care Education/Training Program; Visit Provider Student in an Organized Health Care Education/Training Program
DX: M47.812 Spondylosis without myelopathy or radiculopathy, cervical region (principal); M50.30 Other cervical disc degeneration, unspecified cervical region
CPT/HCPCS: 72040

== ENCOUNTER → 2022-12-28 15:07 | Outpatient (CLI) | payer MEDICARE, SELFPAY ==
[2022-04-12 14:11] VITALS: BMI 31.9
--- NOTE | 2022-12-28 15:08 | DI.CT.S_ITS ---
PROCEDURE: CT CERVICAL SPINE WO CON INDICATIONS: Re-assess abnormal cervical spine lucencies seen in 2020. TECHNIQUE: Noncontrast 3 mm thick sections acquired from the skull base to the T4 level. Sagittal and coronal reformats were then constructed. For radiation dose reduction, the following was used: automated exposure control, adjustment of mA and/or kV according to patient size. COMPARISON: [facility], CT, CT CERVICAL SPINE WO CON, 06/27/2020, 9:06. FINDINGS: Image quality: Excellent. Bones: No fractures or dislocations. Visualized superior ribs are intact. Multilevel degenerative changes and disc disease. Flowing anterior osteophytes at C4-5 and C5-6. No vertebral body height loss. Increased density of the marrow with multiple lucencies are present with an unchanged appearance compared to 06/27/2020. The left temporomandibular joint has degenerative changes. Soft tissues: Prevertebral soft tissues are normal in thickness. No paravertebral hematomas. No apical pneumothoraces. Discs: Multilevel severe degenerative disc disease throughout the cervical spine is unchanged compared to 06/27/2020. IMPRESSION: 1. Severe multilevel degenerative disc disease of the cervical spine, unchanged compared to 06/27/2020. 2. Lucencies in the cervical spine are unchanged compared to 06/27/2020 and are likely benign. Dictated by: Valeriy Tucker M.D. on 12/28/2022 at 15:40 Approved by: Valeriy Tucker M.D. on 12/28/2022 at 15:47
[2022-12-28 16:36] LABS: BUN Creatinine Ratio 22.9 (6-22); Blood Urea Nitrogen 36 mg/dL (9-20); Calcium 9.6 mg/dL (8.4-10.2); Carbon Dioxide 29 mmol/L (22-32); Chloride 98 mmol/L (98-107); Estimated Glomerular Filt Rate 43 mL/min (>60); Glucose 119 mg/dL (80-110); HEMOLYSIS < 15 (0-50); Potassium 5.2 mmol/L (3.4-5.1); Sodium 136 mmol/L (137-145)
[2022-12-28 16:39] LABS: Hemoglobin A1C% w Est Avg Glu 8.8 % (4.0-6.0)
== END ==
PROVIDERS: PCP Student in an Organized Health Care Education/Training Program; Referring Provider Student in an Organized Health Care Education/Training Program; Visit Provider Student in an Organized Health Care Education/Training Program
DX: M50.321 Other cervical disc degeneration at C4-C5 level (principal); R93.7 Abnormal findings on diagnostic imaging of other parts of musculoskeletal system; E11.42 Type 2 diabetes mellitus with diabetic polyneuropathy; E11.22 Type 2 diabetes mellitus with diabetic chronic kidney disease; N18.31 Chronic kidney disease, stage 3a
CPT/HCPCS: 36415; 72125; 80048; 83036

== ENCOUNTER → 2023-01-23 10:44 | Outpatient (CLI) | payer MEDICARE, SELFPAY ==
[2022-04-12 14:11] VITALS: BMI 31.9
--- NOTE | 2023-01-23 | DI.RAD.S_ITS ---
PROCEDURE: XR LUMBAR SPINE MIN 4V INDICATIONS: Lumbago with sciatica, radiculopathy TECHNIQUE: Five views of the lumbar spine with flexion and extension lateral views. COMPARISON: 06/23/2020 FINDINGS: Lateral flexion and extension views demonstrate no significant change in alignment to indicate dynamic instability. Range of motion is limited. There is retrolisthesis of L3 on L4 measuring 4 mm which does not significantly change upon flexion or extension. Alignment otherwise normal. Vertebral body heights maintained. No suspicious bone lesion. Diffuse degenerative changes similar to previous studies. IMPRESSION: Moderate to severe lower lumbar spine degenerative changes. Consider MRI. No findings of dynamic instability. Limited range of motion on flexion and extension. Dictated by: Ramakrishna Fuentes M.D. on 01/23/2023 at 15:11 Approved by: Ramakrishna Fuentes M.D. on 01/23/2023 at 15:12
== END ==
PROVIDERS: PCP Student in an Organized Health Care Education/Training Program; Referring Provider Physician Assistant; Visit Provider Physician Assistant
DX: M47.26 Other spondylosis with radiculopathy, lumbar region (principal)
CPT/HCPCS: 72110

== ENCOUNTER → 2023-02-25 14:06 | Outpatient (CLI) | payer MEDICARE, SELFPAY ==
[2022-04-12 14:11] VITALS: BMI 31.9
--- NOTE | 2023-02-25 | DI.RAD.S_ITS ---
PROCEDURE: XR HIP W PEL IF DONE SALLY MIN 4V INDICATIONS: Pre op TECHNIQUE: AP pelvis with lateral view(s) of the the hip(s). COMPARISON: None. FINDINGS: Bones: Bilateral hip joint space narrowing with associated osteophytosis. Subchondral sclerosis of the acetabular rim. No displaced fracture. Soft tissues: The visualized bowel gas pattern is normal. No suspicious soft tissue calcifications. Surgical clips project over the pelvic ring. IMPRESSION: Moderate bilateral hip osteoarthritis. Dictated by: Flynn Griffith M.D. on 02/25/2023 at 16:36 Approved by: Flynn Griffith M.D. on 02/25/2023 at 16:36
== END ==
PROVIDERS: PCP Student in an Organized Health Care Education/Training Program; Referring Provider Neurological Surgery; Visit Provider Neurological Surgery
DX: Z48.811 Encounter for surgical aftercare following surgery on the nervous system (principal); M16.0 Bilateral primary osteoarthritis of hip
CPT/HCPCS: 73522

== ENCOUNTER → 2023-03-12 14:21 | Outpatient (CLI) | payer MEDICARE, SELFPAY ==
[2022-04-12 14:11] VITALS: BMI 31.9
[2023-03-13 03:10] LABS: x Labcorp Estim. Avg Glu (eAG) 189 mg/dL (.); x Labcorp Hemoglobin A1c 8.2 % (4.8-5.6)
== END ==
PROVIDERS: PCP Student in an Organized Health Care Education/Training Program; Referring Provider Student in an Organized Health Care Education/Training Program; Visit Provider Student in an Organized Health Care Education/Training Program
DX: E11.42 Type 2 diabetes mellitus with diabetic polyneuropathy (principal)
CPT/HCPCS: 36415; 83036

== ENCOUNTER → 2023-05-21 10:31 | Outpatient (CLI) | payer MEDICARE, SELFPAY ==
[2022-04-12 14:11] VITALS: BMI 31.9
[2023-05-21 11:22] LABS: BUN Creatinine Ratio 22.8 (6-22); Blood Urea Nitrogen 29 mg/dL (9-20); Calcium 9.2 mg/dL (8.4-10.2); Carbon Dioxide 31 mmol/L (22-32); Chloride 102 mmol/L (98-107); Estimated Glomerular Filt Rate 56 mL/min (>60); Glucose 111 mg/dL (80-110); HEMOLYSIS < 15 (0-50); Potassium 4.9 mmol/L (3.4-5.1); Sodium 137 mmol/L (137-145)
== END ==
PROVIDERS: PCP Family Medicine; Referring Provider Family Medicine; Visit Provider Family Medicine
DX: E11.42 Type 2 diabetes mellitus with diabetic polyneuropathy (principal); E11.69 Type 2 diabetes mellitus with other specified complication; E78.5 Hyperlipidemia, unspecified; N18.31 Chronic kidney disease, stage 3a
CPT/HCPCS: 36415; 80048

== ENCOUNTER → 2023-07-09 08:45 | Outpatient (CLI) | payer MEDICARE, SELFPAY ==
[2022-04-12 14:11] VITALS: BMI 31.9
[2023-07-09 10:25] LABS: Add Manual Diff / Slide Review NO; Basophils Absolute Auto 100 /uL (0-100); Basophils Percent Auto 0.6 % (0-2); Eosinophils Absolute Auto 300 /uL (0-450); Eosinophils Percent Auto 3.4 % (2-4); Hematocrit 43.2 % (41-53); Hemoglobin 14.5 g/dL (13.5-17.5); Lymphocytes Absolute Auto 2500 /uL (1100-4500); Lymphocytes Percent Auto 27.4 % (25-40); Mean Corpuscular HGB Conc 33.6 % (30-36); Mean Corpuscular Hemoglobin 28.8 PG (26-34); Mean Corpuscular Volume 85.7 fL (80-100); Monocytes Absolute Auto 800 /uL (0-900); Monocytes Percent Auto 9.2 % (3-14); Neutrophils Absolute Auto 5300 /uL (1500-7000); Neutrophils Percent Auto 59.4 % (50-75); Platelet Count 198 X10^3/uL (150-400); Red Blood Cell Count 5.04 X10^6/uL (4.5-5.9)
[2023-07-09 10:42] LABS: HEMOLYSIS < 15 (0-50); Iron 79 ug/dL (49-181)
[2023-07-09 10:51] LABS: Alanine Aminotransferase 27 IU/L (<50); Albumin 3.9 g/dL (3.5-5.0); Albumin Globulin Ratio 1.9 (1.0-2.8); Alkaline Phosphatase 100 U/L (38-126); Aspartate Aminotransferase 23 IU/L (17-59); BUN Creatinine Ratio 18.6 (6-22); Bilirubin Total 0.5 mg/dL (0.2-1.3); Blood Urea Nitrogen 27 mg/dL (9-20); Calcium 9.1 mg/dL (8.4-10.2); Carbon Dioxide 31 mmol/L (22-32); Chloride 98 mmol/L (98-107); Estimated Glomerular Filt Rate 48 mL/min (>60); Globulin 2.1 g/dL (1.7-4.1); Glucose 119 mg/dL (80-110); HEMOLYSIS < 15 (0-50); Potassium 5.1 mmol/L (3.4-5.1); Sodium 137 mmol/L (137-145)
[2023-07-09 10:53] LABS: Cholesterol 168 mg/dL (140-199); HDL Cholesterol 44 mg/dL (40-60); LDL Cholesterol Calculated 87 mg/dL (<100); Triglycerides 186 mg/dL (35-150)
[2023-07-09 10:55] LABS: Percent Iron Saturation 23 % (20-50); Total Iron Binding Capacity 350 ug/dL (261-462); Transferrin 259 mg/dL (206-381)
[2023-07-10 04:24] LABS: x Labcorp Estim. Avg Glu (eAG) 148 mg/dL (.); x Labcorp Hemoglobin A1c 6.8 % (4.8-5.6)
== END ==
PROVIDERS: PCP Family Medicine; Referring Provider Psychiatry & Neurology Neuromuscular Medicine; Visit Provider Psychiatry & Neurology Neuromuscular Medicine
DX: R53.83 Other fatigue; G25.81 Restless legs syndrome; E11.42 Type 2 diabetes mellitus with diabetic polyneuropathy; E78.5 Hyperlipidemia, unspecified; E11.69 Type 2 diabetes mellitus with other specified complication
CPT/HCPCS: 36415; 80053; 80061; 83036; 83540; 83550; 85025

== ENCOUNTER → 2023-07-15 | Outpatient (CLI) | payer MEDICARE, SELFPAY ==
[2022-04-12 14:11] VITALS: BMI 31.9
--- NOTE | 2023-07-15 17:29 | DI.RAD.S_ITS ---
PROCEDURE: XR HIP W PEL IF DONE RT 2V INDICATIONS: rt hip pain TECHNIQUE: AP pelvis with lateral view(s) of the right hip(s). COMPARISON: [facility], CR, XR HIP W PEL IF DONE SALLY 3TO4V, 02/25/2023, 14:18. FINDINGS: Bones: No fractures or dislocations. Pelvic ring appears intact. No suspicious bony lesions. Moderate symmetric axial hip joint space narrowing with mild periarticular osteophyte formation. Degenerative disc and facet disease involves the inferior lumbar spine. Soft tissues: The visualized bowel gas pattern is normal. No suspicious soft tissue calcifications. Pelvic surgical clips. IMPRESSION: Moderate symmetric hip joint degeneration which appears similar prior examination dated 02/25/2023. Dictated by: Jared Thomas RR Interpreted: Flynn Griffith MD on 07/15/2023 at 21:08 Approved by: Flynn Griffith M.D. on 07/24/2023 at 1:58
== END ==
LOC: DI 17:27
PROVIDERS: PCP Family Medicine; Referring Provider Family Medicine; Visit Provider Family Medicine
DX: M00.051 Staphylococcal arthritis, right hip (principal); M16.11 Unilateral primary osteoarthritis, right hip
CPT/HCPCS: 73502

== ENCOUNTER → 2023-10-28 16:13 | Outpatient (CLI) | payer MEDICARE, SELFPAY ==
[2022-04-12 14:11] VITALS: BMI 31.9
[2023-10-28 17:05] LABS: Hemoglobin A1C% w Est Avg Glu 7.2 % (4.0-6.0)
[2023-10-28 17:12] LABS: BUN Creatinine Ratio 35.4 (6-22); Blood Urea Nitrogen 45 mg/dL (9-20); C-Reactive Protein Quant 0.9 mg/dL (<1.0); Calcium 9.7 mg/dL (8.4-10.2); Carbon Dioxide 27 mmol/L (22-32); Chloride 98 mmol/L (98-107); Creatine Kinase 83 U/L (55-170); Estimated Glomerular Filt Rate 56 mL/min (>60); Glucose 129 mg/dL (80-110); HEMOLYSIS < 15 (0-50); Potassium 5.1 mmol/L (3.4-5.1); Sodium 133 mmol/L (137-145)
[2023-10-28 17:25] LABS: Erythrocyte Sedimentation Rate 6 MM/HR (0-15)
== END ==
PROVIDERS: PCP Family Medicine; Referring Provider Family Medicine; Visit Provider Family Medicine
DX: M79.10 Myalgia, unspecified site (principal); E11.9 Type 2 diabetes mellitus without complications; I10 Essential (primary) hypertension; N18.31 Chronic kidney disease, stage 3a
CPT/HCPCS: 36415; 80048; 82550; 83036; 85651; 86140

== ENCOUNTER → 2023-10-29 15:57 | Outpatient (CLI) | payer MEDICARE, SELFPAY ==
[2022-04-12 14:11] VITALS: BMI 31.9
[2023-10-29 16:26] LABS: Hematocrit 44.7 % (41-53); Hemoglobin 15.4 g/dL (13.5-17.5); Mean Corpuscular HGB Conc 34.4 % (30-36); Mean Corpuscular Hemoglobin 29.9 PG (26-34); Platelet Count 198 X10^3/uL (150-400); Red Blood Cell Count 5.14 X10^6/uL (4.5-5.9); Red Cell Distribution Width 15.5 % (11.6-14.8); White Blood Cell Count 10.7 X10^3/uL (4.5-11.0)
[2023-10-29 17:23] LABS: Creatine Kinase 92 U/L (55-170)
[2023-10-29 17:24] LABS: Erythrocyte Sedimentation Rate 4 MM/HR (0-15)
[2023-10-29 17:51] LABS: Prostate Specific Antigen Scrn 0.091 ng/mL (0.1-4.0)
== END ==
PROVIDERS: PCP Family Medicine; Referring Provider Urology; Visit Provider Urology
DX: Z12.5 Encounter for screening for malignant neoplasm of prostate (principal); N39.9 Disorder of urinary system, unspecified; N39.3 Stress incontinence (female) (male); M79.10 Myalgia, unspecified site
CPT/HCPCS: 36415; 82550; 85027; 85651; G0103

== ENCOUNTER → 2023-11-08 14:01 | Outpatient (CLI) | payer MEDICARE, SELFPAY ==
[2022-04-12 14:11] VITALS: BMI 31.9
--- NOTE | 2023-11-08 14:00 | DI.CT.S_ITS ---
PROCEDURE: CT ABDOMEN PELVIS WO CON INDICATIONS: abd pain, pelvic pain TECHNIQUE: Axial sections were acquired from the lung bases to the pubic symphysis. Coronal and sagittal reformats were performed. For radiation dose reduction, the following was used: automated exposure control, adjustment of mA and/or kV according to patient size. COMPARISON: CT, ABDOMEN/PELVIS WITH CONTRAST, 03/02/2013, 10:46. CT, CT CHEST WO CON, 09/07/2021, 15:22. [facility], CT, CT ABDOMEN PELVIS W CON, 01/08/2019, 14:41. [facility], CT, CT ANGIO CHEST ABDOMEN PELVIS, 09/23/2020, 15:00. FINDINGS: Image quality: Excellent. Lung bases: Unremarkable. Small hiatal hernia. Heart: Normal size. There is a cardiac pacemaker. URINARY: Right Kidney: No stones or hydronephrosis. Right Ureter: No hydroureter. Left Kidney: No stones or hydronephrosis. Left Ureter: No hydroureter. Bladder: Normal wall thickness. No stones. ABDOMEN: Liver: Mild hepatic steatosis. There are 2 hypodense masses in liver 1 adjacent to the falciform ligament and 1 in the caudate lobe adjacent to the IVC, inadequately evaluated on this noncontrast enhanced CT. Gallbladder: No radiopaque gallstones or wall thickening. Biliary ducts: No biliary dilation. Pancreas: There is a 1.5 cm cyst in the pancreatic tail, unchanged since the last exam. No ductal dilation. Spleen: Size is within normal limits. Adrenal Glands: There is a 1.5 cm left adrenal nodule with CT density compatible with a benign adrenal adenoma. Stomach and Bowel: Normal colonic caliber, without significant wall thickening. Diverticulosis without acute diverticulitis. Normal appendix. There is a large amount of stool in colon. Peritoneum: Mild mesenteric stranding. Numerous small mesenteric lymph nodes are noted. No abnormal intraperitoneal fluid. No free air. Ventral Wall: No hernia. Abdominal Nodes: No enlarged retroperitoneal or mesenteric lymph nodes. Vessels: Aorta and inferior vena cava are normal in size. PELVIS: Pelvic Organs: Prostate is surgically removed. Pelvic Nodes: Unremarkable. Miscellaneous: No inguinal hernias are seen. Bones: Moderate to severe degenerative changes in lumbar spine. IMPRESSION: 1. No acute abnormalities in abdomen or pelvis. 2. Diverticulosis without diverticulitis. 3. There is a large amount of stool in colon. 4. Mesenteric stranding and small mesenteric lymph nodes consistent with nonspecific mesenteric panniculitis and adenitis. 5. Hepatic masses are present, which are inadequately evaluated on this noncontrast enhanced CT. 6. Stable 1.5 cm pancreatic cyst in pancreatic tail. 7. Left adrenal adenoma Dictated by: Saúl Gandara M.D. on 11/08/2023 at 14:52 Approved by: Saúl Gandara M.D. on 11/08/2023 at 15:11
== END ==
PROVIDERS: PCP Family Medicine; Referring Provider Family Medicine; Visit Provider Family Medicine
DX: D35.02 Benign neoplasm of left adrenal gland (principal); K44.9 Diaphragmatic hernia without obstruction or gangrene; K86.2 Cyst of pancreas; K76.9 Liver disease, unspecified; K76.0 Fatty (change of) liver, not elsewhere classified; R10.31 Right lower quadrant pain; R10.32 Left lower quadrant pain; Z95.0 Presence of cardiac pacemaker
CPT/HCPCS: 74176

== ENCOUNTER → 2023-11-21 13:27 | Outpatient (CLI) | payer MEDICARE, SELFPAY ==
[2022-04-12 14:11] VITALS: BMI 31.9
[2023-11-21 13:43] LABS: Appearance Urine UA CLEAR; Bilirubin Urine UA NEGATIVE (NEGATIVE); Color Urine UA YELLOW; Glucose Urine UA 3+ g/dL (Negative); Ketones Urine UA NEGATIVE (NEGATIVE); Leukocyte Esterase Urine UA NEGATIVE (NEGATIVE); Nitrite Urine UA NEGATIVE (Negative); Occult Blood Urine UA NEGATIVE (Negative); Protein Urine UA NEGATIVE (Negative); Urobilinogen Urine UA 0.2 E.U./dL (0.2)
[2023-11-21 13:48] LABS: Bacteria Urine None Seen; Culture Indicated Urine Cult Not Indicated; RBC Urine None Seen (0-5/HPF); Squamous Epithelial Cell Urine None Seen (0-5/HPF); WBC Urine None Seen (0-5/HPF)
== END ==
LOC: LAB 13:28
PROVIDERS: PCP Family Medicine; Referring Provider Urology; Visit Provider Urology
DX: N39.3 Stress incontinence (female) (male) (principal)
CPT/HCPCS: 81001

== ENCOUNTER → 2023-12-31 15:45 | Outpatient (CLI) | payer MEDICARE, SELFPAY ==
[2023-11-29 13:08] VITALS: BMI 31.9
[2023-12-31 17:22] LABS: BUN Creatinine Ratio 27.7 (6-22); Blood Urea Nitrogen 38 mg/dL (9-20); Calcium 9.8 mg/dL (8.4-10.2); Carbon Dioxide 30 mmol/L (22-32); Chloride 99 mmol/L (98-107); Estimated Glomerular Filt Rate 51 mL/min (>60); Glucose 197 mg/dL (80-110); HEMOLYSIS < 15 (0-50); Potassium 4.9 mmol/L (3.4-5.1); Sodium 136 mmol/L (137-145)
== END ==
PROVIDERS: PCP Family Medicine; Referring Provider Family Medicine; Visit Provider Family Medicine
DX: R60.0 Localized edema (principal)
CPT/HCPCS: 36415; 80048

== ENCOUNTER → 2024-01-09 16:13 | Outpatient (CLI) | payer MEDICARE, SELFPAY ==
[2023-11-29 13:08] VITALS: BMI 31.9
--- NOTE | 2024-01-09 16:14 | DI.ECHO.S_ITS ---
[facility]---------+ [facility] +---------+ : : [address] : [address] : : : : [id number] : : : : Phone: [phone]---------+ Echocardiogram Report + + :Name: DORITA BLANTON Study Date: 01/09/2024 Height: 70 in : :[facility] ReadingLocation: Weight: 223 lb : : Gender: Male BSA: 2.2 m2 : :: 1940 Age: 83 yrs BP: 167/72 mmHg: :Reason For Study: WORSENING LEG SWELLING : :Ordering Physician: MALGORZATA, : :BETH Performed By: Ramakrishna Lee : :Referring: BETH MCGARRY : + + Interpretation Summary 1) Normal left ventricular thickness, size, wall motion, and systolic function (EF 55-60%). 2) Normal right ventricular size and function. 3) No significant valvular abnormalities. 4) Compared to the Echo done 07/08/2020, no significant change. Procedure: A two-dimensional transthoracic echocardiogram with color flow and Doppler was performed. The study quality was technically difficult. Comparison is made with the echocardiogram of 07/08/2020. The patient was in normal sinus rhythm during the exam. The heart rate ranged between 60-63 bpm during the study. Left Ventricle: The left ventricle is normal in size and wall thickness. The ejection fraction is estimated to be 55-60%. Left ventricular systolic function appears normal without focal wall motion abnormalities. Right Ventricle: The right ventricle is normal in size and function. Atria: The left atrial size is normal. Right atrial size is normal. Mitral Valve: The mitral valve is normal in structure and function. There is no mitral valve stenosis. There is trace mitral regurgitation. Aortic Valve: The aortic valve is grossly normal. There is no aortic valve stenosis. No aortic regurgitation is present. Tricuspid Valve: The tricuspid valve is not well visualized, but is grossly normal. There is no tricuspid stenosis. No tricuspid regurgitation. Pulmonary artery pressures cannot be estimated because of the lack of a measurable TR jet velocity. Pulmonic Valve: The pulmonic valve is normal in structure and function. There is no pulmonic valvular stenosis. There is no pulmonic valvular regurgitation. Great Vessels: The aortic root is normal size. The ascending aorta could not be visualized. The inferior vena cava was not visualized. Pericardium/ Pleura There is no pericardial effusion. There is no pleural effusion. MMode/2D Measurements & Calculations LVIDd: 5.5 cm LVOT diam: 2.2 cm LVIDs: 3.6 cm Ao root diam: 3.5 cm FS: 35.2 % IVSd: 1.1 cm LVPWd: 1.3 cm LV rendon. diameter/BSA (cm/m^2): 2.5 LV sys. diameter/BSA (cm/m^2): 1.6 LA A2 area: 20.1 cm2 RA long axis: 4.6 cm LA A4 area: 21.9 cm2 RA area: 13.8 cm2 LA length (vol): 5.9 cm RA vol: 35.6 ml LA vol: 63.7 ml RA : 16.3 ml/m2 LA vol index: 29.2 ml/m2 IVC diam: 3.0 cm RVD1 (basal): 3.8 cm RVD2 (mid): 3.5 cm TAPSE: 2.2 cm Doppler Measurements & Calculations Ao V2 max: 137.9 cm/sec LVOT Max Akil: 89.6 cm/sec Ao V2 mean: 104.4 cm/sec LV V1 max P.2 mmHg Ao max P.6 mmHg LV V1 VTI: 23.3 cm Ao mean P.7 mmHg SHAN(I,D): 2.5 cm2 Ao V2 VTI: 34.6 cm SHAN(V,D): 2.4 cm2 sev ratio: 0.67 SHAN indexed to BSA (cm^2/m^2): 1.1 MV E max akil: 54.0 cm/sec PA V2 max: 91.2 cm/sec MV A max akil: 69.6 cm/sec PA V2 mean: 67.8 cm/sec MV E/A: 0.78 PA mean P.0 mmHg Med Peak E' Akil: 3.8 cm/sec PA pr(Accel): 46.5 mmHg E/E' med: 14.2 Lat Peak E' Akil: 6.9 cm/sec E/E' lat: 7.8 E/e' average: 11.0 MV dec time: 0.35 sec SV(LVOT): 84.8 ml Reading Physician:05:30 PM
== END ==
PROVIDERS: PCP Family Medicine; Referring Provider Family Medicine; Visit Provider Family Medicine
DX: R60.0 Localized edema (principal)
CPT/HCPCS: 93306

== ENCOUNTER → 2024-03-30 08:21 | Outpatient (CLI) | payer MEDICARE, SELFPAY ==
[2023-11-29 13:08] VITALS: BMI 31.9
[2024-03-30 09:28] LABS: Hemoglobin A1C% w Est Avg Glu 7.8 % (4.0-6.0)
[2024-03-30 09:49] LABS: BUN Creatinine Ratio 23.4 (6-22); Blood Urea Nitrogen 30 mg/dL (9-20); Calcium 9.1 mg/dL (8.4-10.2); Carbon Dioxide 30 mmol/L (22-32); Chloride 100 mmol/L (98-107); Estimated Glomerular Filt Rate 55 mL/min (>60); Glucose 159 mg/dL (80-110); HEMOLYSIS < 15 (0-50); Potassium 4.9 mmol/L (3.4-5.1); Sodium 135 mmol/L (137-145)
== END ==
LOC: LAB 08:22
PROVIDERS: PCP Family Medicine; Referring Provider Family Medicine; Visit Provider Family Medicine
DX: E11.42 Type 2 diabetes mellitus with diabetic polyneuropathy (principal); E11.22 Type 2 diabetes mellitus with diabetic chronic kidney disease; N18.30 Chronic kidney disease, stage 3 unspecified; K59.00 Constipation, unspecified; M54.10 Radiculopathy, site unspecified; Z79.891 Long term (current) use of opiate analgesic
CPT/HCPCS: 36415; 80048; 83036

== ENCOUNTER → 2024-05-04 15:19 | Outpatient (CLI) | payer MEDICARE, SELFPAY ==
[2023-11-29 13:08] VITALS: BMI 31.9
--- NOTE | 2024-05-04 15:21 | DI.RAD.S_ITS ---
PROCEDURE: XR LUMBAR SPINE MIN 4V INDICATIONS: low back pain TECHNIQUE: 5 views of the lumbar spine were acquired, including bilateral oblique views. COMPARISON: [facility], CR, XR LUMBAR SPINE MIN 4V, 01/23/2023, 11:29. FINDINGS: Bones: 5 nonrib-bearing vertebrae are present. There is normal bony alignment. Loss of disc height, degenerative endplate changes and bilateral facet arthrosis throughout lumbar spine is seen most notably involving L3-4 through L5-S1 levels. No vertebral body compression fractures. No suspicious bony lesions. Soft tissues: Overlying bowel gas pattern is normal. No suspicious soft tissue calcifications. Oblique images: No pars defects. IMPRESSION: [id number] degenerative disc disease throughout lumbar spine as above. No acute compression fracture. No gross pars defects. Dictated by: Tyler Del Rio M.D. on 05/04/2024 at 17:37 Approved by: Tyler Del Rio M.D. on 05/04/2024 at 17:38
--- NOTE | 2024-05-04 15:21 | DI.RAD.S_ITS ---
PROCEDURE: XR HIP W PEL IF DONE SALLY MIN 4V INDICATIONS: bilateral hip pain TECHNIQUE: AP pelvis with lateral view(s) of the bilateral hip(s). COMPARISON: [facility], CR, XR HIP W PEL IF DONE RT 2V, 07/15/2023, 17:41. FINDINGS: Bones: No fractures or dislocations. Moderate bilateral hip joint osteoarthritic changes are seen with superior joint space narrowing, subchondral sclerosis and marginal osteophyte formation. No evidence of avascular necrosis of femoral head. Pelvic ring appears intact. No suspicious bony lesions. Soft tissues: Surgical clips are noted in lower pelvis. The visualized bowel gas pattern is normal. No suspicious soft tissue calcifications. 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 No acute fracture or dislocation. No evidence of avascular necrosis. Dictated by: Tyler Del Rio M.D. on 05/04/2024 at 17:38 Approved by: Tyler Del Rio M.D. on 05/04/2024 at 17:38
== END ==
PROVIDERS: PCP Family Medicine; Referring Provider Anesthesiology; Visit Provider Anesthesiology
DX: M16.0 Bilateral primary osteoarthritis of hip (principal); M51.36 Other intervertebral disc degeneration, lumbar region; M51.37 Other intervertebral disc degeneration, lumbosacral region; M54.50 Low back pain, unspecified; M25.551 Pain in right hip; M25.552 Pain in left hip
CPT/HCPCS: 72110; 73522

== ENCOUNTER 2024-05-17 10:13 | Emergency (ER) | payer MEDICARE, SELFPAY ==
[2023-11-29 13:08] VITALS: BMI 31.9
[2024-05-17 10:40] VITALS: BP 112/91; PULSE 58; RESP 16; TEMP 36.6; O2SAT 96; BMI 33.7
== END 2024-05-17 13:08 | disposition left against medical advice (07) ==
PROVIDERS: Emergency Provider Emergency Medicine; PCP Family Medicine
CPT/HCPCS: 99281

== ENCOUNTER → 2024-05-21 14:15 | Outpatient (CLI) | payer MEDICARE, SELFPAY ==
[2023-11-29 13:08] VITALS: BMI 31.9
[2024-05-21 14:45] LABS: Add Manual Diff / Slide Review NO; Basophils Absolute Auto 100 /uL (0-100); Basophils Percent Auto 0.7 % (0-2); Eosinophils Absolute Auto 300 /uL (0-450); Eosinophils Percent Auto 3.2 % (2-4); Hemoglobin 13.4 g/dL (13.5-17.5); Lymphocytes Absolute Auto 1900 /uL (1100-4500); Lymphocytes Percent Auto 21.2 % (25-40); Mean Corpuscular HGB Conc 33.6 % (30-36); Mean Corpuscular Hemoglobin 29.6 PG (26-34); Mean Corpuscular Volume 88.1 fL (80-100); Monocytes Absolute Auto 800 /uL (0-900); Monocytes Percent Auto 8.6 % (3-14); Neutrophils Absolute Auto 6000 /uL (1500-7000); Neutrophils Percent Auto 66.3 % (50-75); Platelet Count 216 X10^3/uL (150-400); Red Blood Cell Count 4.55 X10^6/uL (4.5-5.9); Red Cell Distribution Width 14.4 % (11.6-14.8)
[2024-05-21 15:02] LABS: Uric Acid 6.5 mg/dL (3.5-8.5)
[2024-05-21 15:08] LABS: NT-proBNP (BNP-Adult 18+) 745 pg/mL (<450)
[2024-05-21 15:27] LABS: Erythrocyte Sedimentation Rate 31 MM/HR (0-15)
== END ==
PROVIDERS: PCP Family Medicine; Referring Provider Physician Assistant; Visit Provider Physician Assistant
DX: I87.2 Venous insufficiency (chronic) (peripheral) (principal); L03.90 Cellulitis, unspecified; R60.0 Localized edema; N18.30 Chronic kidney disease, stage 3 unspecified
CPT/HCPCS: 36415; 83880; 84550; 85025; 85651

== ENCOUNTER → 2024-05-22 12:13 | Outpatient (CLI) | payer MEDICARE, SELFPAY ==
[2023-11-29 13:08] VITALS: BMI 31.9
--- NOTE | 2024-05-22 12:14 | DI.US.S_ITS ---
PROCEDURE: US PERIPH VENOUS LOW EXTREM BI INDICATIONS: edema R>L TECHNIQUE: Real-time imaging, as well as color and pulse Doppler interrogation, were performed of the deep veins of both legs from the inguinal ligament to the popliteal fossa, with documentation of the visualized calf veins. COMPARISON: None. FINDINGS: Right: The common femoral, femoral, popliteal, and the visualized calf veins are normally compressible, and free of intraluminal thrombus. Color and pulse Doppler demonstrate normal phasic intravascular flow. There is normal augmentation response to distal compression maneuver. Left: The common femoral, femoral, popliteal, and the visualized calf veins are normally compressible, and free of intraluminal thrombus. Color and pulse Doppler demonstrate normal phasic intravascular flow. There is normal augmentation response to distal compression maneuver. IMPRESSION: No findings of deep venous thrombosis in either lower extremity. Dictated by: Saúl Gandara M.D. on 05/22/2024 at 13:52 Approved by: Saúl Gandara M.D. on 05/22/2024 at 13:53
== END ==
PROVIDERS: PCP Family Medicine; Referring Provider Physician Assistant; Visit Provider Physician Assistant
DX: I87.2 Venous insufficiency (chronic) (peripheral) (principal); L03.90 Cellulitis, unspecified; N18.30 Chronic kidney disease, stage 3 unspecified; R60.0 Localized edema
CPT/HCPCS: 93970

== ENCOUNTER → 2024-06-01 11:47 | Outpatient (ROUT) | payer MEDICARE, SELFPAY ==
[2024-05-26 15:23] VITALS: BMI 31.9
== END ==
PROVIDERS: PCP Family Medicine; Visit Provider Dermatology
DX: R21 Rash and other nonspecific skin eruption (principal); L08.9 Local infection of the skin and subcutaneous tissue, unspecified
CPT/HCPCS: 87070; 87075; 87205

== ENCOUNTER → 2024-06-15 15:18 | Outpatient (ROUT) | payer MEDICARE, SELFPAY ==
[2024-05-26 15:23] VITALS: BMI 31.9
== END ==
PROVIDERS: PCP Family Medicine; Visit Provider Dermatology
DX: R21 Rash and other nonspecific skin eruption (principal); L08.9 Local infection of the skin and subcutaneous tissue, unspecified; L89.159 Pressure ulcer of sacral region, unspecified stage
CPT/HCPCS: 87070; 87075; 87147; 87205

== ENCOUNTER → 2024-06-19 10:04 | Outpatient (CLI) | payer MEDICARE, SELFPAY ==
[2024-05-26 15:23] VITALS: BMI 31.9
== END ==
LOC: WC 10:05
PROVIDERS: PCP Family Medicine; Referring Provider Dermatology; Visit Provider Physician Assistant
DX: L89.323 Pressure ulcer of left buttock, stage 3 (principal); L53.9 Erythematous condition, unspecified; E11.628 Type 2 diabetes mellitus with other skin complications; N18.9 Chronic kidney disease, unspecified; I10 Essential (primary) hypertension; I87.2 Venous insufficiency (chronic) (peripheral)
CPT/HCPCS: 87070; 87075; 87077; 87147; 87205; 97597; 99203; 99213

== ENCOUNTER → 2024-06-26 13:49 | Outpatient (CLI) | payer MEDICARE, SELFPAY ==
[2024-05-26 15:23] VITALS: BMI 31.9
== END ==
LOC: WC 13:50
PROVIDERS: PCP Family Medicine; Referring Provider Dermatology; Visit Provider Physician Assistant
DX: L89.323 Pressure ulcer of left buttock, stage 3 (principal); L53.9 Erythematous condition, unspecified; E11.628 Type 2 diabetes mellitus with other skin complications; N18.9 Chronic kidney disease, unspecified; I10 Essential (primary) hypertension; Z99.3 Dependence on wheelchair
CPT/HCPCS: 11042; 99213

== ENCOUNTER → 2024-06-27 09:57 | Outpatient (CLI) | payer MEDICARE, SELFPAY ==
[2024-05-26 15:23] VITALS: BMI 31.9
[2024-06-27 10:39] LABS: Appearance Urine UA CLEAR; Bilirubin Urine UA NEGATIVE (NEGATIVE); Color Urine UA YELLOW; Glucose Urine UA 3+ g/dL (Negative); Ketones Urine UA NEGATIVE (NEGATIVE); Leukocyte Esterase Urine UA NEGATIVE (NEGATIVE); Nitrite Urine UA NEGATIVE (Negative); Occult Blood Urine UA NEGATIVE (Negative); Protein Urine UA NEGATIVE (Negative); Specific Gravity Urine UA 1.015 (1.000-1.035)
[2024-06-27 11:01] LABS: Blood Urea Nitrogen 38 mg/dL (9-20); Calcium 9.3 mg/dL (8.4-10.2); Carbon Dioxide 34 mmol/L (22-32); Chloride 96 mmol/L (98-107); Estimated Glomerular Filt Rate 41 mL/min (>60); Glucose 131 mg/dL (80-110); HEMOLYSIS < 15 (0-50); Potassium 4.6 mmol/L (3.4-5.1); Sodium 134 mmol/L (137-145)
[2024-06-27 11:23] LABS: Bacteria Urine None Seen; Culture Indicated Urine Cult Not Indicated; RBC Urine 0-1/HPF (0-5/HPF); Squamous Epithelial Cell Urine 1-5 /HPF (0-5/HPF); Urine Volume 10mL (spun); WBC Urine 0-1/HPF (0-5/HPF)
[2024-06-27 11:32] LABS: Prostate Specific Antigen Scrn 0.095 ng/mL (0.1-4.0)
== END ==
PROVIDERS: PCP Family Medicine; Referring Provider Urology; Visit Provider Urology
DX: E11.9 Type 2 diabetes mellitus without complications (principal); Z12.5 Encounter for screening for malignant neoplasm of prostate; N39.3 Stress incontinence (female) (male); I87.2 Venous insufficiency (chronic) (peripheral); R60.0 Localized edema
CPT/HCPCS: 36415; 80048; 81001; 83036; G0103

== ENCOUNTER → 2024-07-03 10:20 | Outpatient (CLI) | payer MEDICARE, SELFPAY ==
[2024-05-26 15:23] VITALS: BMI 31.9
== END ==
LOC: WC 10:25
PROVIDERS: PCP Family Medicine; Referring Provider Dermatology; Visit Provider Surgery
DX: Z09 Encounter for follow-up examination after completed treatment for conditions other than malignant neoplasm (principal); Z87.2 Personal history of diseases of the skin and subcutaneous tissue; L89.323 Pressure ulcer of left buttock, stage 3
CPT/HCPCS: 99212; 99213

== ENCOUNTER → 2024-07-24 13:59 | Outpatient (CLI) | payer MEDICARE, SELFPAY ==
[2024-05-26 15:23] VITALS: BMI 31.9
== END ==
PROVIDERS: PCP Family Medicine; Referring Provider Dermatology; Visit Provider Physician Assistant
DX: Z09 Encounter for follow-up examination after completed treatment for conditions other than malignant neoplasm (principal); Z87.2 Personal history of diseases of the skin and subcutaneous tissue; L89.322 Pressure ulcer of left buttock, stage 2; N39.3 Stress incontinence (female) (male); Z85.46 Personal history of malignant neoplasm of prostate
CPT/HCPCS: 81002; 99212; 99213

== ENCOUNTER → 2024-09-14 14:20 | Outpatient (CLI) | payer MEDICARE, SELFPAY ==
[2024-05-26 15:23] VITALS: BMI 31.9
== END ==
LOC: WC 14:21
PROVIDERS: PCP Family Medicine; Referring Provider Dermatology; Visit Provider Surgery
DX: M79.89 Other specified soft tissue disorders (principal); E11.628 Type 2 diabetes mellitus with other skin complications; R32 Unspecified urinary incontinence
CPT/HCPCS: 99212; 99213

== ENCOUNTER → 2024-09-17 11:03 | Outpatient (CLI) | payer MEDICARE, SELFPAY ==
[2024-05-26 15:23] VITALS: BMI 31.9
[2024-09-17 13:01] LABS: Hemoglobin A1C% w Est Avg Glu 7.1 % (4.0-6.0)
[2024-09-17 13:13] LABS: Alanine Aminotransferase 19 IU/L (<50); Albumin 4.2 g/dL (3.5-5.0); Alkaline Phosphatase 107 U/L (38-126); Aspartate Aminotransferase 23 IU/L (17-59); BUN Creatinine Ratio 30.5 (6-22); Bilirubin Total 0.4 mg/dL (0.2-1.3); Blood Urea Nitrogen 40 mg/dL (9-20); Calcium 9.5 mg/dL (8.4-10.2); Carbon Dioxide 30 mmol/L (22-32); Chloride 101 mmol/L (98-107); Estimated Glomerular Filt Rate 53 mL/min (>60); Globulin 2.1 g/dL (1.7-4.1); Glucose 162 mg/dL (80-110); HEMOLYSIS < 15 (0-50); Potassium 5.2 mmol/L (3.4-5.1); Sodium 137 mmol/L (137-145); Total Protein 6.3 g/dL (6.3-8.2)
== END ==
PROVIDERS: PCP Family Medicine; Referring Provider Family Medicine; Visit Provider Family Medicine
DX: E11.22 Type 2 diabetes mellitus with diabetic chronic kidney disease (principal); N18.30 Chronic kidney disease, stage 3 unspecified; E11.42 Type 2 diabetes mellitus with diabetic polyneuropathy; E78.5 Hyperlipidemia, unspecified; E11.69 Type 2 diabetes mellitus with other specified complication
CPT/HCPCS: 36415; 80053; 83036

== ENCOUNTER → 2024-10-28 11:22 | Outpatient (CLI) | payer MEDICARE, SELFPAY ==
[2024-05-26 15:23] VITALS: BMI 31.9
== END ==
PROVIDERS: PCP Family Medicine; Referring Provider Dermatology; Visit Provider Surgery
DX: E11.628 Type 2 diabetes mellitus with other skin complications (principal); L98.8 Other specified disorders of the skin and subcutaneous tissue; S31.30XA Unspecified open wound of scrotum and testes, initial encounter; I10 Essential (primary) hypertension; N18.9 Chronic kidney disease, unspecified; C61 Malignant neoplasm of prostate
CPT/HCPCS: 87070; 87075; 87077; 87147; 87186; 87205; 99213

== ENCOUNTER → 2024-11-05 11:23 | Outpatient (CLI) | payer MEDICARE, SELFPAY ==
[2024-05-26 15:23] VITALS: BMI 31.9
[2024-11-05 13:48] LABS: Vitamin B12 955 pg/mL (239-931)
[2024-11-06 22:36] LABS: Free Kappa Lt Chains, Serum 166.1 mg/L (3.3-19.4); Free Lambda Lt Chains,Serum 15.7 mg/L (5.7-26.3)
[2024-11-09 14:42] LABS: Albumin 3.5 g/dL (2.9-4.4); Alpha 1 Globulin 0.2 g/dL (0.0-0.4); Alpha 2 Globulin 0.8 g/dL (0.4-1.0); Beta 1 Globulin 0.9 g/dL (0.7-1.3); Gamma Globulin 0.6 g/dL (0.4-1.8)
[2024-11-10 01:12] LABS: Methylmalonic Acid,Serum 418 nmol/L (0-378)
== END ==
PROVIDERS: PCP Family Medicine; Referring Provider Student in an Organized Health Care Education/Training Program; Visit Provider Student in an Organized Health Care Education/Training Program
DX: G62.9 Polyneuropathy, unspecified (principal)
CPT/HCPCS: 36415; 82607; 83883; 83921; 84155; 84165

== ENCOUNTER → 2024-11-10 10:11 | Outpatient (CLI) | payer MEDICARE, SELFPAY ==
[2024-05-26 15:23] VITALS: BMI 31.9
== END ==
LOC: WC 10:11
PROVIDERS: PCP Family Medicine; Referring Provider Dermatology; Visit Provider Surgery
DX: T81.89XD Other complications of procedures, not elsewhere classified, subsequent encounter (principal); S31.501D Unspecified open wound of unspecified external genital organs, male, subsequent encounter
CPT/HCPCS: 99212; 99213

== ENCOUNTER → 2024-12-21 15:05 | Outpatient (CLI) | payer MEDICARE, SELFPAY ==
[2024-05-26 15:23] VITALS: BMI 31.9
[2024-12-21 16:17] LABS: Hemoglobin A1C% w Est Avg Glu 7.3 % (4.0-6.0)
[2024-12-21 16:37] LABS: BUN Creatinine Ratio 30.4 (6-22); Blood Urea Nitrogen 38 mg/dL (9-20); Calcium 9.6 mg/dL (8.4-10.2); Carbon Dioxide 27 mmol/L (22-32); Chloride 100 mmol/L (98-107); Estimated Glomerular Filt Rate 56 mL/min (>60); Glucose 217 mg/dL (80-110); HEMOLYSIS < 15 (0-50); Potassium 4.6 mmol/L (3.4-5.1); Sodium 137 mmol/L (137-145)
== END ==
PROVIDERS: PCP Family Medicine; Referring Provider Family Medicine; Visit Provider Family Medicine
DX: E11.22 Type 2 diabetes mellitus with diabetic chronic kidney disease (principal); N18.30 Chronic kidney disease, stage 3 unspecified; E66.9 Obesity, unspecified; E11.42 Type 2 diabetes mellitus with diabetic polyneuropathy; E11.69 Type 2 diabetes mellitus with other specified complication; E78.5 Hyperlipidemia, unspecified; I12.9 Hypertensive chronic kidney disease with stage 1 through stage 4 chronic kidney disease, or unspecified chronic kidney disease
CPT/HCPCS: 36415; 80048; 83036

== ENCOUNTER → 2025-03-23 10:45 | Outpatient (CLI) | payer MEDICARE, SELFPAY ==
[2024-05-26 15:23] VITALS: BMI 31.9
[2025-03-23 17:15] LABS: Hemoglobin A1C% w Est Avg Glu 8.3 % (4.0-6.0)
== END ==
PROVIDERS: PCP Family Medicine; Referring Provider Family Medicine; Visit Provider Family Medicine
DX: E11.69 Type 2 diabetes mellitus with other specified complication (principal); E78.5 Hyperlipidemia, unspecified; E11.42 Type 2 diabetes mellitus with diabetic polyneuropathy
CPT/HCPCS: 36415; 83036

== ENCOUNTER → 2025-05-22 12:13 | Outpatient (CLI) | payer MEDICARE, SELFPAY ==
[2024-05-26 15:23] VITALS: BMI 31.9
--- NOTE | 2025-05-22 12:17 | DI.RAD.S_ITS ---
PROCEDURE: XR CHEST 2V INDICATIONS: CHRONIC COUGH TECHNIQUE: 2 views of the chest were acquired. COMPARISON: [facility], , XR CHEST 1V, 11/22/2020, 13:51. FINDINGS: Surgical changes and devices: left-sided cardiac pacer device is in place. Lungs and pleura: Lungs are clear. No pleural effusions or pneumothorax. Mediastinum: Mediastinal contours are normal. Heart size is normal. Bones and chest wall: No suspicious bony abnormalities. Soft tissues appear unremarkable. IMPRESSION: No acute cardiopulmonary abnormalities or focal consolidation. Dictated by: Rolly Salinas M.D. on 05/22/2025 at 17:22 Approved by: Rolly Salinas M.D. on 05/22/2025 at 17:22
== END ==
PROVIDERS: PCP Family Medicine; Referring Provider Internal Medicine Critical Care Medicine; Visit Provider Internal Medicine Critical Care Medicine
DX: R05.3 Chronic cough (principal); Z95.0 Presence of cardiac pacemaker
CPT/HCPCS: 71046

== ENCOUNTER → 2025-06-01 16:01 | Outpatient (CLI) | payer MEDICARE, SELFPAY ==
[2024-05-26 15:23] VITALS: BMI 31.9
[2025-06-01 16:36] LABS: Hemoglobin A1C% w Est Avg Glu 8.2 % (4.0-6.0)
[2025-06-01 16:46] LABS: Alanine Aminotransferase 32 IU/L (<50); Albumin 4.1 g/dL (3.5-5.0); Albumin Globulin Ratio 2.2 (1.0-2.8); Alkaline Phosphatase 107 U/L (38-126); Blood Urea Nitrogen 40 mg/dL (9-20); Calcium 9.3 mg/dL (8.4-10.2); Carbon Dioxide 29 mmol/L (22-32); Chloride 100 mmol/L (98-107); Estimated Glomerular Filt Rate 56 mL/min (>60); Globulin 1.9 g/dL (1.7-4.1); Glucose 204 mg/dL (70-99); HEMOLYSIS < 15 (0-50); Potassium 4.8 mmol/L (3.4-5.1); Sodium 136 mmol/L (137-145); Total Protein 6.0 g/dL (6.3-8.2)
== END ==
PROVIDERS: PCP Family Medicine; Referring Provider Family Medicine; Visit Provider Family Medicine
DX: E11.22 Type 2 diabetes mellitus with diabetic chronic kidney disease (principal); Z12.5 Encounter for screening for malignant neoplasm of prostate; C61 Malignant neoplasm of prostate; N18.30 Chronic kidney disease, stage 3 unspecified; E11.9 Type 2 diabetes mellitus without complications; I10 Essential (primary) hypertension
CPT/HCPCS: 36415; 80053; 83036; G0103

== ENCOUNTER → 2025-08-31 15:35 | Outpatient (CLI) | payer MEDICARE, SELFPAY ==
[2024-05-26 15:23] VITALS: BMI 31.9
[2025-08-31 16:28] LABS: Hematocrit 41.9 % (41-53); Hemoglobin 14.2 g/dL (13.5-17.5); Mean Corpuscular HGB Conc 33.9 % (30-36); Mean Corpuscular Hemoglobin 29.9 PG (26-34); Mean Corpuscular Volume 88.2 fL (80-100); Platelet Count 204 X10^3/uL (150-400)
[2025-08-31 16:38] LABS: Hemoglobin A1C% w Est Avg Glu 7.6 % (4.0-6.0)
[2025-08-31 16:58] LABS: Blood Urea Nitrogen 33 mg/dL (9-20); Calcium 9.2 mg/dL (8.4-10.2); Carbon Dioxide 31 mmol/L (22-32); Chloride 98 mmol/L (98-107); Estimated Glomerular Filt Rate 59 mL/min (>60); Glucose 206 mg/dL (70-99); HEMOLYSIS < 15 (0-50); Potassium 4.8 mmol/L (3.4-5.1); Sodium 136 mmol/L (137-145)
== END ==
PROVIDERS: Family Provider Family Medicine; PCP Family Medicine; Referring Provider Family Medicine; Visit Provider Family Medicine
DX: E11.22 Type 2 diabetes mellitus with diabetic chronic kidney disease (principal); N18.30 Chronic kidney disease, stage 3 unspecified; E11.42 Type 2 diabetes mellitus with diabetic polyneuropathy
CPT/HCPCS: 36415; 80048; 83036; 85027

== ENCOUNTER → 2025-10-18 13:38 | Outpatient (CLI) | payer MEDICARE, SELFPAY ==
[2024-05-26 15:23] VITALS: BMI 31.9
[2025-10-18 14:37] LABS: Add Manual Diff / Slide Review NO; Hematocrit 42.2 % (41-53); Hemoglobin 14.3 g/dL (13.5-17.5); Lymphocytes Absolute Auto 2500 /uL (1100-4500); Mean Corpuscular HGB Conc 34.0 % (30-36); Mean Corpuscular Hemoglobin 29.9 PG (26-34); Mean Corpuscular Volume 87.9 fL (80-100); Platelet Count 186 X10^3/uL (150-400)
[2025-10-18 14:58] LABS: Alanine Aminotransferase 24 IU/L (<50); Albumin 4.2 g/dL (3.5-5.0); Albumin Globulin Ratio 1.8 (1.0-2.8); Alkaline Phosphatase 107 U/L (38-126); Blood Urea Nitrogen 44 mg/dL (9-20); Calcium 9.7 mg/dL (8.4-10.2); Carbon Dioxide 27 mmol/L (22-32); Chloride 101 mmol/L (98-107); Estimated Glomerular Filt Rate 57 mL/min (>60); Globulin 2.3 g/dL (1.7-4.1); Glucose 171 mg/dL (70-99); HEMOLYSIS < 15 (0-50); Potassium 4.7 mmol/L (3.4-5.1); Sodium 138 mmol/L (137-145); Total Protein 6.5 g/dL (6.3-8.2)
[2025-10-19 08:09] LABS: CRP, High Sensitivity 3.86 mg/L (0.00-3.00)
== END ==
PROVIDERS: PCP Family Medicine; Referring Provider Ophthalmology; Visit Provider Ophthalmology
DX: M31.6 Other giant cell arteritis (principal)
CPT/HCPCS: 36415; 80053; 85025; 85651; 86140; 86430